=== PATIENT | female | born 1945 | race Caucasian/White ===

== ENCOUNTER 2017-12-14 20:56 | Observation (INO) | payer MEDICARE, OTHER ==
[~2017-12-14] VITALS: Ht 162.6 cm; Wt 65.8 kg
[~2017-12-14 20:56] MED LIST: ALLOPURINOL300 MG PO; ANUSOL-HC30 GM RC; AQUAPHOR99 GM TP; ASPIR 8181 MG PO; AZELASTINE137 MCG/0.; CATAPRES0.1 MG PO; CEFPODOXIME PR100 MG PO; CITALOPRAM HBR20 MG PO; CLONAZEPAM1 MG PO; CLOTRIMAZOLE10 MG PO; CRESTOR10 MG PO; EMU-LAC HYDRAT120 ML TOP; GABAPENTIN100 MG PO; HYDRALAZINE HCL25 MG PO; HYDROCODON-ACE1 EA12 PO; IPRAT-ALBUT 0.5-3 ML HHN; ISOSORBIDE MONO30 MG PO; LACTULOSE20 GM/30 M PO; LASIX20 MG PO; LEVOTHROID50 MCG PO; LEVOTHYROXINE50 MCG PO; LOSARTAN POTAS100 MG PO; MEDROL4 MG/DOSE- PO; METOPROLOL SUC100 MG PO; METOPROLOL SUCC25 MG; METOPROLOL TART50 MG PO; METRONIDAZOLE500 MG PO; NEURONTIN800 MG; NITROFURANTOIN100 MG PO; OMEPRAZOLE40 MG PO; POTASSIUM CHLO20 ME1 PO; PRAVASTATIN SOD40 MG PO; PREDNISONE20 MG PO; PREDNISONE5 MG; PRIMIDONE50 MG PO; PROAIR HFA INH8.5 GM; PROAIR HFA INH8.5 GM INH; SARNA ANTI-ITC222 ML TOP; SYMBICORT 16010.2 GM INH; TIZANIDINE HCL4 M1 PO; TRAZODONE HCL100 MG PO; VITAMIN D1000 UNI1 PO; ZANAFLEX4 MG PO
--- OUTSIDE RECORDS SUMMARY | 2017-12-14 21:00 | XMS REPORT ---
Author Author [facility] Address Unknown Phone Unavailable Care Team Providers Care Trading Manager Name Role Phone LORI OCHOA Unavailable Unavailable JESUS ODOM Unavailable Unavailable Problems This patient has no known problems. Allergies, Adverse Reactions, Alerts This patient has no known allergies or adverse reactions. Medications This patient has no known medications. Results Test Description Test Time Test Comments Text Results Atomic Results Result Comments CT ABDOMEN/PELVIS WO [place] [address] Patient Name: WILEY OH MR #: [id number] : 1945 Age/Sex: 72/F Req #: [id number] Adm Physician: LORI OCHOA MD Ordered by: AMANDA PÉREZ, AVIS PÉREZ Report #: [id number] Location: MED/SURG2 Room/Bed: [facility] Procedure: [id number] CT/CT ABDOMEN/PELVIS WO Exam Date: 08/23/17 Exam Time: 1304 REPORT STATUS: Signed PROCEDURE: CT ABDOMEN AND PELVIS WITHOUT CONTRAST TECHNIQUE: The abdomen and pelvis were scanned utilizing a multidetector helical scanner from the diaphragm to the lesser trochanter after the oral administration of water. No IV contrast was administered due to low GFR. Coronal and sagittal multiplanar reformations were obtained. COMPARISON: [facility], [place], US ABDOMEN COMPLETE, 08/21/2017, 12:59. [facility], CT, CT ABDOMEN/PELVIS WO, 05/25/2013, 14:16. INDICATIONS: COMPLEX KIDNEY CYSTS FINDINGS: Exam limited by beam hardening artifact from posterior lumbar fusion hardware ABSENCE OF INTRAVENOUS CONTRAST DECREASES SENSITIVITY FOR DETECTION OF FOCAL LESIONS AND VASCULAR PATHOLOGY. LOWER THORAX: Small bilateral pleural effusions, left greater than right, with associated mild compressive atelectasis of the lower lobes. Atherosclerotic calcification of the aortic valves, coronary arteries and thoracic aorta. HEPATOBILIARY: No focal hepatic lesions. No biliary ductal dilatation. Punctate layering stones in the dependent portion of the gallbladder lumen (series 3, image 71). SPLEEN: No splenomegaly. PANCREAS: No focal masses or ductal dilatation. ADRENALS: No adrenal nodules. KIDNEYS/URETERS: Right: 2 mm nonobstructing calculus in the inferior pole (series 3, image 67). No other renal or any ureteral calculi. No hydronephrosis or obstruction. Interval increase in size versus new partially exophytic fluid density cyst in the lateral interpolar region (series 3, image 62) which measures 1.3 x 1.2 cm. 2.0 x 1.8 cm fluid density simple cyst in the mid to inferior aspect (series 3, image 73) . Mild right perinephric stranding. 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 Left: Atrophic, markedly scarred left kidney, with cortical thinning. Stable partially exophytic 1.8 x 1.8 cm fluid density simple cyst in the inferior pole (series 3, image 56). No renal or ureteral calculi. No hydronephrosis, hydroureter, or evidence of obstruction. Mild left perinephric stranding PELVIC ORGANS/BLADDER: Bladder is decompressed, but grossly unremarkable. No adnexal masses. Uterus is absent. PERITONEUM / RETROPERITONEUM: No free air or fluid. LYMPH NODES: No lymphadenopathy. VESSELS: Atherosclerotic calcification of the abdominal aorta and iliac vessels. GI TRACT: No bowel dilation or evidence of obstruction. No pericolonic inflammatory changes. BONES AND SOFT TISSUES: No acute bony abnormalities. Postoperative changes with posterior fusion of L4-L5. No lytic lesions. IMPRESSION: 1. Bilateral simple appearing renal cysts , which are relatively stable. No further characterization can be performed given the lack of intravenous contrast. Suggest further followup with renal ultrasound 2. Atrophic, markedly scarred left kidney. 3. 2 mm nonobstructing calculus in the inferior pole of the right kidney. No other renal or any ureteral calculi. No hydronephrosis or obstruction. 4. Small bilateral pleural effusions, left greater the right, with associated mild lower lobe compressive atelectasis. 5. Cholelithiasis, without CT evidence of cholecystitis. Suhail Martin M.D. Dictated by: Suhail Martin M.D. on 08/23/2017 at 16:34 Electronically approved by: Suhail Martin M.D. on 08/23/2017 at 16:34 Dictated By: SUHAIL MARTIN MD 33 Transcribed By: EDINSON on 08/23/17 163 COPY TO: AVIS PATEL US ABDOMEN COMPLETE [place] [address] Patient Name: WILEY OH MR #: [id number] : 1945 Age/Sex: 72/F Req #: [id number] Adm Physician: LORI OCHOA MD Ordered by: Madelaine Jackson FAMILY SERVICES ASSISTANT Report #: [id number] Location: [facility] Room/Bed: [place] [address] Procedure: [id number] US/US ABDOMEN COMPLETE Exam Date : 08/21/17 Exam Time: 1259 REPORT STATUS: Signed PROCEDURE: ABDOMINAL ULTRASOUND COMPARISON: [facility], CT, CT ABDOMEN/PELVIS WO, 01/29/2013, 11:06. INDICATIONS : ABDOMEN PAIN TECHNIQUE: Transverse and longitudinal images of the upper abdomen were obtained. FINDINGS: Liver: Size: 13.5 cm in the right midclavicular line, normal Appearance: Normal echogenicity, smooth contour Mass: No focal masses Spleen: Size: 9.2 cm in length, normal Echogenicity: Normal Mass: No focal masses Gallbladder: Stones/ Sludge: 0.9 cm calculus within the gallbladder lumen. Mild layering sludge. Appearance: No wall thickening, pericholecystic fluid or hydrops. Sonographic Peace's Sign: Negative Bile Ducts: Intrahepatic Ducts: No dilatation Extrahepatic Ducts: Common bile duct measures 0.4 cm, no dilatation Pancreas: Visualized portions of the neck and proximal body are normal. Right Kidney: Size: 10.7 cm Echogenicity: Increased. Cortical scarring. Stone: None Cyst/Mass: Complex cystic lesion with thin septations in the posterior lower pole of the right kidney measures 1.5 x 1.6 x 2.8 cm. Anechoic lesion exophytic off the upper pole of the right kidney measures 1.4 x 1.3 x 1.3 cm. Left Kidney: Size: 8.0 cm Echogenicity: Normal Collecting System: No hydronephrosis Stone: None Cyst/Mass: Complex cystic lesion with internal septations in the lower pole of the left kidney measures 1.8 x 1.6 x 2.5 cm. Mildly complex lesion in the lower pole of the left kidney anteriorly measures 1.5 x 1.0 0.5 cm. Vessels: Aorta: Visualized portions are normal Inferior Vena Cava: Visualized portions and normal Main Portal Vein: 0.9 cm, normal size with hepatopetal flow. Free Fluid: No ascites or pleural effusions IMPRESSION: 1. 0.9 cm single gallstone. Mild gallbladder sludge. 2. Bilateral complex renal cysts, the largest located in the lower pole of the right kidney measuring 2.8 cm in maximal dimension. If renal function permits , recommend CT abdomen without and with contrast renal mass protocol. Alternatively, MRI of abdomen renal mass protocol without and with contrast. Jake Suarez M.D. Dictated by: Jake Suarez M.D. on 08/21/2017 at 15:05 Electronically approved by: Jake Suarez M.D. on 08/21/2017 at 15:05 Dictated By: FLYNN SUAREZ MD, MD 1508 Transcribed By: EDINSON on 08/21/17 1505 COPY TO: MADELAINE JACKSON NP CHEST SINGLE (PORTABLE) [place] [address] Patient Name: WILEY OH MR #: [id number] : 1945 Age/Sex: 72/F Req #: [id number] Adm Physician: Ordered by: MAYE WILKS MD Report #: [id number] Location: ER Room/Bed: Procedure: [id number] DX/CHEST SINGLE (PORTABLE) Exam Date: 08/20/17 Exam Time: 1045 REPORT STATUS: Signed PROCEDURE: A single AP view of the chest. COMPARISON: Portable chest 06/14/2017. INDICATIONS: WEAKNESS, NAUSEA AND VOMITTING FINDINGS: Lines/tubes : None. Lungs: The lungs are well inflated and clear. There is no evidence of pneumonia or pulmonary edema. Pleura: There is no pleural effusion or pneumothorax. Heart and mediastinum: The heart and the mediastinum are unremarkable. Atherosclerotic calcifications. Bones: No acute bony abnormality. Degenerative changes of the thoracic spine. IMPRESSION: No acute radiographic abnormality. Dictated by: Kurtis Childress M.D. on 08/20/2017 at 11:12 Electronically approved by: Kurtis Childress M.D. on 08/20/2017 at 11:12 Dictated By: KURTIS CHILDRESS MD 11 Transcribed By: EDINSON on 08/20/17 111 COPY TO: MAYE WILKS MD CT BRAIN WO [place] [address] Patient Name: WILEY OH MR #: [id number] : 1945 Age/Sex: 71/F Req # : [id number] Adm Physician: Ordered by: JESUS ODOM MD Report #: [id number] Location: Room/Bed: Procedure: CT/CT BRAIN WO Exam Date: 06/14/17 Exam Time: 1715 REPORT STATUS: Signed History: Syncope Comparison studies: None Technique: Axial images were obtained from the skull base to the vertex. Coronal and sagittal reconstructions obtained from the axial data. Findings : Scalp/skull: No abnormalities. No fractures, blastic or lytic lesions. Extra-axial spaces: No masses. No fluid collections. Brain sulci: Appropriate for age. Ventricles: Normal in size and configuration. No hydrocephalus. Parenchyma: No abnormal densities. No masses, hemorrhage, acute or chronic cortical vascular insults. Sellar/ suprasellar region: No abnormalities Craniocervical junction: Patent foramen magnum. No Chiari one malformation. Incidental atherosclerotic calcifications in the carotid siphons and vertebral arteries. IMPRESSION : No intracranial abnormalities. Signed by: Dr. Samson Moore M.D. on 06/14/2017 6:02 PM Dictated By: SAMSON MOORE MD, MD 01 Transcribed By: BENOIT on 06/14/171801 COPY TO: JESUS ODOM MD CT CERVICAL SPINE WO [place] [address] Patient Name: WILEY OH MR #: [id number] : 1945 Age/Sex: 71/F Req #: [id number] Adm Physician: Ordered by: JESUS ODOM MD Report #: [id number] Location: ER Room/Bed: Procedure: CT/CT CERVICAL SPINE WO Exam Date: 06/14/17 Exam Time: 1715 REPORT STATUS: Signed History: Syncope Comparison studies: None Technique: Axial images were obtained through the cervical region.. Coronal and sagittal images reconstructed from the axial data.. Intravenous contrast: None Findings: Airway: Patent. Fractures: None. Soft tissues: No gross abnormalities. Atlantoaxial articulation: Mild degenerative changes. Alignment: Normal lordosis. No scoliosis. Cervicomedullary junction: No abnormalities. The foramen magnum is patent. Vertebrae: No infection or neoplasm. Degenerative changes: Mildly degenerated disc at C5-6. Bilateral facet arthrosis from C3 to T1. Patent spinal canal. Mild bilateral foraminal stenosis at C5-6 due to uncoarthrosis. Incidental atherosclerotic calcifications in the carotid bulbs and intracranial vertebral arteries IMPRESSION: 1. No acute abnormalities. 2. Cannot adequately evaluate for ligament, spinal cord and or vascular abnormalities on this exam. 3. Degenerative changes as described Signed by: Dr. Samson Moore M.D. on 06/14/2017 6:06 PM Dictated By: SAMSON MOORE MD, MD 05 Transcribed By: BENOIT on 06/14/171805 COPY TO: JESUS ODOM MD CHEST SINGLE (NOT PORTABLE) [place] [address] Patient Name: WILEY OH MR #: [id number] : 1945 Age/Sex: 71/F Req #: [id number] Adm Physician: Ordered by: JESUS ODOM MD Report #: [id number] Location: ER Room/Bed: Procedure: [id number] DX/CHEST SINGLE (NOT PORTABLE) Exam Date: 06/14/17 Exam Time: 1735 REPORT STATUS: Signed PROCEDURE: A single AP view of the chest. COMPARISON: [facility], DX, CHEST SINGLE (PORTABLE), 11/28/2015, 5:46. INDICATIONS: SYNCOPE FINDINGS: Lines/tubes: None. Lungs: The lungs are well inflated and clear. There is no evidence of pneumonia or pulmonary edema. Pleura : There is no pleural effusion or pneumothorax. Heart and mediastinum: The heart and the mediastinum are unremarkable. Atherosclerotic calcification of the aortic arch. Bones: No acute bony abnormality. IMPRESSION: 1. No acute cardiopulmonary abnormalities. Suhail Martin M.D. Dictated by: Suhail Martin M.D. on 06/14/2017 at 18:13 Electronically approved by: Suhail Martin M.D. on 2016 at 18:13 Dictated By: SUHAIL MARTIN MD 12 Transcribed By: EDINSON on 1812 COPY TO: JESUS ODOM MD
[2017-12-14 21:43] LABS: BASOPHILS # (AUTO) 0.1 (0.0-0.1); BASOPHILS % 0.5 % (0.0-1.0); EOSINOPHILS # (AUTO) 0.2 (0.0-0.4); EOSINOPHILS % 1.6 % (0.0-6.0); HEMATOCRIT 35.5 % (34.2-44.1); HEMOGLOBIN 11.5 g/dL (12.0-16.0); MEAN CORPUSCULAR HEMOGLOBIN 31.1 pg (28-32); MEAN CORPUSCULAR HGB CONC 32.4 g/dL (31-35); MEAN CORPUSCULAR VOLUME 95.9 fL (81-99); MONOCYTES # (AUTO) 0.7 (0.2-0.8); MONOCYTES % 7.2 % (4.4-11.3); NEUTROPHILS # (AUTO) 7.2 (2.1-6.9); NEUTROPHILS % 79.2 % (38.7-80.0); PLATELET COUNT 181 x10e3/uL (140-360); RED CELL DISTRIBUTION WIDTH 17.4 % (11.7-14.4)
--- NOTE | 2017-12-14 21:50 | Diagnostic Imaging Report ---
History:Syncope Comparison studies:None Technique: Axial images were obtained from the skull base to the vertex. Coronal and sagittal images reconstructed from the axial data. Intravenous contrast: None Findings: Scalp/skull: No abnormalities. Extra-axial spaces: No masses. No fluid collections. Brain sulci: Mildly prominent Ventricles: Mild age-related compensatory dilatation. No hydrocephalus. Parenchyma: Describe hypodensities in the supratentorial white matter are small vessel ischemic changes. No masses, hemorrhage, acute or chronic cortical vascular insults. Sellar/suprasellar region: No abnormalities. Craniocervical junction: Patent foramen magnum. No Chiari one malformation. Incidental findings: Atherosclerotic calcifications in the carotid siphons . Impression: No intracranial abnormalities Signed by: Dr. Samson Moore M.D. on 12/14/2017 9:46 PM
[2017-12-14 21:56] LABS: ALANINE AMINOTRANSFERASE 11 IU/L (0-55); ALBUMIN 3.8 g/dL (3.5-5.0); ALBUMIN/GLOBULIN RATIO 1.1 (0.8-2.0); ALKALINE PHOSPHATASE 211 IU/L (40-150); ANION GAP 14.1 mmol/L (8-16); BLOOD UREA NITROGEN 40 mg/dL (7-26); BUN/CREATININE RATIO 21 (6-25); CALCIUM 9.8 mg/dL (8.4-10.2); CARBON DIOXIDE 21 mmol/L (22-29); CHLORIDE 107 mmol/L (98-107); CREATINE KINASE 51 IU/L (29-168); CREATININE, SERUM 1.94 mg/dL (0.57-1.11); EST GLOMERULAR FILTRATION RATE 25 ML/MIN (60-); GLUCOSE 103 mg/dL (74-118); POTASSIUM 5.1 mmol/L (3.5-5.1); SODIUM 137 mmol/L (136-145)
--- NOTE | 2017-12-14 22:32 | Diagnostic Imaging Report ---
EXAMINATION: CHEST SINGLE (PORTABLE) INDICATION: Syncope COMPARISON: 11/28/2015 FINDINGS: TUBES and LINES: None. LUNGS: Lungs are well inflated. Lungs are clear. There is mild prominence of the central pulmonary vasculature, consistent with pulmonary venous congestion. PLEURA: No pleural effusion or pneumothorax. HEART AND MEDIASTINUM: The cardiomediastinal silhouette is unremarkable. There are atherosclerotic calcifications within the aorta. BONES AND SOFT TISSUES: No acute osseous lesion. Soft tissues are unremarkable. UPPER ABDOMEN: No free air under the diaphragm. IMPRESSION: No acute thoracic abnormality. Signed by: Dr. Betito Ramirez M.D. on 12/14/2017 10:29 PM
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
[2017-12-14] MEDS ORDERED: ONDANSETRON HCL INJ 2 MG/ML VIAL IV PRN (22:45)
[2017-12-14] MEDS ORDERED: ASPIRIN 81 MG CHEW TAB PO ONE (22:45)
[2017-12-14 23:03] LABS: BILIRUBIN,URINE NEGATIVE (NEGATIVE); KETONES,URINE NEGATIVE (NEGATIVE); LEUKOCYTE ESTERASE ,URINE 2+ (NEGATIVE); NITRITE,URINE NEGATIVE (NEGATIVE); URINE UROBILINOGEN 0.2 mg/dL (0.2 - 1)
[2017-12-14 23:04] LABS: CLARITY,URINE CLOUDY (CLEAR); COLOR,URINE STRAW (YELLOW); PROTEIN,URINE DIPSTICK 2+ (NEGATIVE)
[2017-12-14] MEDS ORDERED: HYDRALAZINE HCL 20 MG/ML VIAL IV STA (23:10)
[2017-12-14 23:16] LABS: BACTERIA,URINE MANY /HPF; EPITHELIAL CELLS,URINE FEW /LPF; RBC,URINE 0-5 /HPF (0-5)
[2017-12-15] VITALS (9 sets, daily range): BP systolic 117–184; BP diastolic 58–79
[2017-12-15] MEDS: SODIUM CHLORIDE 0.9% 1000ML 1,000 ML IV SCH ×2 (00:01→09:08)
[2017-12-15] MEDS ORDERED: NON-FORMULARY MEDICATION (Trazodone Hcl 100 MG) PO SCH (01:00)
[2017-12-15] MEDS ORDERED: MORPHINE SULFATE 4 MG/ML SYR IV PRN (01:00)
[2017-12-15] MEDS ORDERED: MORPHINE SULFATE 2 MG/ML SYR ONE (01:33)
[2017-12-15] MEDS: TRAZODONE HCL 50 MG TAB PO SCH ×2 (01:55→20:22)
[2017-12-15 06:29] LABS: BASOPHILS % 0.5 % (0.0-1.0); EOSINOPHILS # (AUTO) 0.1 (0.0-0.4); EOSINOPHILS % 1.2 % (0.0-6.0); HEMATOCRIT 25.7 % (34.2-44.1); HEMOGLOBIN 8.1 g/dL (12.0-16.0); LYMPHOCYTES # (AUTO) 0.9 (1.0-3.2); MEAN CORPUSCULAR HGB CONC 31.5 g/dL (31-35); MEAN CORPUSCULAR VOLUME 98.5 fL (81-99); MONOCYTES # (AUTO) 0.6 (0.2-0.8); MONOCYTES % 8.7 % (4.4-11.3); NEUTROPHILS # (AUTO) 4.9 (2.1-6.9); NEUTROPHILS % 75.1 % (38.7-80.0); PLATELET COUNT 115 x10e3/uL (140-360); RED BLOOD COUNT 2.61 x10e6/uL (3.6-5.1); RED CELL DISTRIBUTION WIDTH 17.4 % (11.7-14.4)
[2017-12-15 06:50] LABS: ALBUMIN 2.1 g/dL (3.5-5.0); ALBUMIN/GLOBULIN RATIO 1.3 (0.8-2.0); ALKALINE PHOSPHATASE 112 IU/L (40-150); ANION GAP 7.9 mmol/L (8-16); BLOOD UREA NITROGEN 29 mg/dL (7-26); BUN/CREATININE RATIO 31 (6-25); CARBON DIOXIDE 15 mmol/L (22-29); CHLORIDE 121 mmol/L (98-107); CREATININE, SERUM 0.94 mg/dL (0.57-1.11); EST GLOMERULAR FILTRATION RATE 59 ML/MIN (60-); GLUCOSE 68 mg/dL (74-118); SODIUM 141 mmol/L (136-145)
[2017-12-15 06:53] LABS: ALANINE AMINOTRANSFERASE < 6 IU/L (0-55)
[2017-12-15 06:54] LABS: POTASSIUM 2.9 mmol/L (3.5-5.1)
[2017-12-15 07:19] LABS: CREATINE KINASE MB 0.8 ng/mL (0-5.0)
[2017-12-15] MEDS: GABAPENTIN 100 MG CAP PO SCH ×3 (08:31→20:22)
[2017-12-15] MEDS: HYDRALAZINE HCL 20 MG/ML VIAL IV PRN ×2 (08:31→15:59)
[2017-12-15 12:07] LABS: ANION GAP 15.7 mmol/L (8-16); CALCIUM 9.2 mg/dL (8.4-10.2); CREATININE, SERUM 1.67 mg/dL (0.57-1.11); POTASSIUM 4.7 mmol/L (3.5-5.1)
[2017-12-15] MEDS ORDERED: CLONAZEPAM 1 MG TAB PO PRN (12:15)
[2017-12-15] MEDS ORDERED: ALBUTEROL/IPRATROPIUM 3 ML NEB NEB PRN (12:15)
[2017-12-15 12:28] LABS: THYROID STIMULATING HORMONE 1.218 uIU/mL (0.350-4.940)
[2017-12-15] MEDS: HYDRALAZINE HCL 25 MG TAB PO SCH ×3 (13:00→20:22)
[2017-12-15] MEDS: ISOSORBIDE MONONITRATE 30 MG TAB CR PO SCH (13:44)
[2017-12-15] MEDS: FUROSEMIDE 20 MG TAB PO SCH (13:44)
[2017-12-15] MEDS: LOSARTAN POTASSIUM 100 MG TAB PO SCH (13:44)
[2017-12-15] MEDS: CITALOPRAM HYDROBROMIDE 20 MG TAB PO SCH (13:44)
[2017-12-15 14:31] LABS: BASOPHILS # (AUTO) 0.1 (0.0-0.1); BASOPHILS % 0.6 % (0.0-1.0); EOSINOPHILS % 0.5 % (0.0-6.0); HEMATOCRIT 35.1 % (34.2-44.1); HEMOGLOBIN 11.1 g/dL (12.0-16.0); LYMPHOCYTES # (AUTO) 0.8 (1.0-3.2); LYMPHOCYTES % 9.3 % (18.0-39.1); MEAN CORPUSCULAR HEMOGLOBIN 31.4 pg (28-32); MEAN CORPUSCULAR HGB CONC 31.6 g/dL (31-35); MEAN CORPUSCULAR VOLUME 99.4 fL (81-99); MONOCYTES # (AUTO) 0.7 (0.2-0.8); MONOCYTES % 8.6 % (4.4-11.3); NEUTROPHILS # (AUTO) 6.7 (2.1-6.9); NEUTROPHILS % 80.8 % (38.7-80.0); PLATELET COUNT 135 x10e3/uL (140-360); RED BLOOD COUNT 3.53 x10e6/uL (3.6-5.1); RED CELL DISTRIBUTION WIDTH 17.9 % (11.7-14.4)
--- NOTE | 2017-12-15 16:24 | Consultation ---
DATE OF CONSULTATION: December 15, 2017 CARDIOLOGY CONSULTATION REASON FOR CONSULTATION: Syncope with injury. HISTORY OF PRESENT ILLNESS: Ms. 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 The patient was brought to the hospital after having a passing-out spell at home. She reports she was in her usual state of health. She saw her neighbor outside and went to go talk to him. Prior to going to see him, she had taken one of her doses of gabapentin, which typically causes her some slight dizziness and lightheadedness. She did not think much of it when she walked over to speak to him. She reports talking to him and then all of a sudden being found waking up on the ground. According to her, her neighbor said that she essentially slumped over, hit the rail of the porch and fell to the ground. She has some bruises on her arms and legs. She reports when she was on the floor she was more or less back to baseline. She denies any subjective palpitations or chest pain before the episode. She denied any focal weakness and denied any loss of bowel or bladder function during the episode. She denies having any prior history of seizure disorder, and this was her 1st syncopal spell. PAST MEDICAL HISTORY 1. Hypertension. 2. Chronic kidney disease, stage 3 to 4, due to membranous glomerulonephritis. 3. History of right breast cancer, status post lumpectomy. 4. COPD. 5. Gout. 6. Hypothyroidism. PAST SURGICAL HISTORY 1. History of L1 through L5 fusion surgery. 2. History of right mastectomy. 3. Remote history of surgery. 4. History of bilateral cataract surgery. FAMILY HISTORY: She reports that she was adopted and does not know her biological family. SOCIAL HISTORY: She is a current smoker. Denies any alcohol or illicit drug use. ALLERGIES: INCLUDE PENICILLIN, SULFA, TAPE, AMLODIPINE, LATEX, LEVAQUIN. HOME MEDICATIONS: Include: 1. Metoprolol 50 mg b.i.d. 2. Aspirin 81 mg daily. 3. Furosemide 80 mg daily. 4. Gabapentin 100 mg t.i.d. 5. Klonopin 0.5 mg p.r.n. 6. Vitamin B tablet daily. 7. Vitamin D tablet daily. 8. Allopurinol daily. 9. Omeprazole 40 mg daily. 10. Pravastatin 40 mg daily. 11. Trazodone 100 mg nightly. 12. Albuterol and Atrovent p.r.n. See the electronic medical record for the remainder of the medications. REVIEW OF SYSTEMS GENERAL: Denies any fevers, chills or any weight changes. HEENT: Has some slight headache. Has chronically decreased right ear hearing. Has had cataract surgery. No blurry vision, sore throat, stuffy nose. RESPIRATORY: Denies any pleuritic chest pain. Has chronic class II to III exertional dyspnea. CARDIOVASCULAR: As per HPI. Denies any chest pain, orthopnea, PND. GI: Denies any nausea, vomiting, bright red blood per rectum, melena, hematemesis. : Denies any dysuria. Does report some changes in urinary frequency. MUSCULOSKELETAL: Has chronic back pain, knee pains, and pain all over due to fibromyalgia. ENDOCRINE: Denies any heat or cold intolerance. NEUROLOGIC: Positive for peripheral neuropathy for which she takes gabapentin and syncopal spell as noted above. PSYCH: Positive for anxiety and intermittent depression, but currently the mood is okay. OTHER: The remainder of the review of systems is negative unless otherwise mentioned. PHYSICAL EXAMINATION VITALS: Height 64 inches, weight 137 pounds. BMI is 23.5. Temperature of 96.4, pulse 69, respiratory rate 18, blood pressure 117/58, O2 sat 99% on room air. GENERAL: This is a well-nourished, well-developed lady, who is currently in no apparent distress. HEENT: Normocephalic and atraumatic. Pupils are equal, round and reactive to light. The extraocular movements are intact. Oropharynx is clear. She does have stigmata of bilateral cataract surgery. NECK: No elevation of jugular venous pulsation. No carotid bruit. CARDIOVASCULAR: Regular rate and rhythm. Normal S1 and S2. Soft, 1/6, systolic murmur at the left lower sternal border. LUNGS: Relatively clear to auscultation bilaterally but has some mild decreased air flow compatible with some early COPD-type changes. ABDOMEN: Soft. Nontender and nondistended with normoactive bowel sounds. No hepatosplenomegaly. BACK: No costovertebral angle tenderness. There are old L1 through L5 paraspinal surgical scars bilaterally. EXTREMITIES: Warm with 5/5 strength in the bilateral upper and lower extremities with good tone. Appears nonfocal. PSYCH: Normal mood. A little bit anxious. No depression. SKIN: Bruises on her arms and legs bilaterally. LABS: White count 9.2, hemoglobin 11.5, hematocrit 35.5, platelets 181. Sodium 135, potassium 4.7, chloride 109, bicarb 15, BUN 39, creatinine 1.67, glucose 83, calcium 9.2. TSH 1.2. Troponin went from 0.008 to 0.001, with normal MB. Total protein 7.2, albumin 3.8, AST 9, ALT 11, alk phos 211. UA showed 11-20 white cells, 2+ protein. Urine culture pending. Chest x-ray is unremarkable. Brain CT shows no acute abnormalities. C-spine shows C3 to C7 DJD changes with C5-C6 mild foraminal stenosis due to uncoarthrosis but no fractures. EKG reveals sinus bradycardia with heart rate in the mid 50s. No ST or T wave changes concerning for ischemia. DIAGNOSES 1. Syncope with wide differential diagnosis. 2. Hypertension. 3. Chronic kidney disease, stage 3 to 4. 4. Hypercholesterolemia. 5. History of depression. 6. Fibromyalgia. 7. Peripheral neuropathy. 8. Psychiatric medication use. 9. Anemia. 10. Chronic obstructive pulmonary disease, smoker. PLAN/RECOMMENDATIONS 1. Will check echocardiogram to evaluate heart structurally. 2. Carotid duplex to evaluate for carotid artery stenosis. 3. Telemetry monitoring. 4. Recommend holding beta jackson therapy for now. 5. Based on EKG and symptom complex, cannot recommend pacemaker for the time being. 6. Telemetry close monitoring. 7. Will continue to follow this patient with you and make adjustments in medications as clinical course dictates. 8. Will watch hemoglobin and hematocrit as well. Job#: [id number]
[2017-12-16] VITALS (7 sets, daily range): BP systolic 151–177; BP diastolic 59–77
[2017-12-16] MEDS: LEVOTHYROXINE SODIUM 50 MCG TAB PO SCH (06:06)
[2017-12-16 06:41] LABS: BASOPHILS # (AUTO) 0.1 (0.0-0.1); BASOPHILS % 0.6 % (0.0-1.0); EOSINOPHILS # (AUTO) 0.2 (0.0-0.4); EOSINOPHILS % 2.3 % (0.0-6.0); HEMATOCRIT 31.7 % (34.2-44.1); HEMOGLOBIN 10.3 g/dL (12.0-16.0); LYMPHOCYTES # (AUTO) 1.1 (1.0-3.2); LYMPHOCYTES % 13.9 % (18.0-39.1); MEAN CORPUSCULAR HEMOGLOBIN 30.6 pg (28-32); MEAN CORPUSCULAR HGB CONC 32.5 g/dL (31-35); MEAN CORPUSCULAR VOLUME 94.1 fL (81-99); MONOCYTES # (AUTO) 0.7 (0.2-0.8); MONOCYTES % 8.2 % (4.4-11.3); NEUTROPHILS # (AUTO) 5.9 (2.1-6.9); NEUTROPHILS % 74.7 % (38.7-80.0); PLATELET COUNT 162 x10e3/uL (140-360); RED BLOOD COUNT 3.37 x10e6/uL (3.6-5.1); RED CELL DISTRIBUTION WIDTH 17.4 % (11.7-14.4)
[2017-12-16 07:05] LABS: ANION GAP 11.6 mmol/L (8-16); CALCIUM 9.4 mg/dL (8.4-10.2); CHOL/HDL RATIO 4.3 (3.0-3.6); CREATININE, SERUM 1.81 mg/dL (0.57-1.11); MAGNESIUM 1.7 MG/DL (1.3-2.1); POTASSIUM 4.6 mmol/L (3.5-5.1)
[2017-12-16 07:25] LABS: THYROID STIMULATING HORMONE 1.178 uIU/mL (0.350-4.940)
[2017-12-16] MEDS: GABAPENTIN 100 MG CAP PO SCH ×3 (09:02→20:39)
[2017-12-16] MEDS: CITALOPRAM HYDROBROMIDE 20 MG TAB PO SCH (09:02)
[2017-12-16] MEDS: HYDRALAZINE HCL 25 MG TAB PO SCH ×2 (09:02→20:39)
[2017-12-16] MEDS: LOSARTAN POTASSIUM 100 MG TAB PO SCH (09:03)
[2017-12-16] MEDS: ISOSORBIDE MONONITRATE 30 MG TAB CR PO SCH ×2 (09:03→17:21)
[2017-12-16] MEDS ORDERED: HYDRALAZINE HCL 25 MG TAB PO SCH (14:00)
[2017-12-16] MEDS: HYDRALAZINE HCL 20 MG/ML VIAL IV PRN (15:50)
[2017-12-16] MEDS: CLONAZEPAM 0.5 MG TAB PO SCH (16:53)
[2017-12-16] MEDS ORDERED: CEFTRIAXONE SOD 1 GM VIAL IV SCH (17:00)
[2017-12-16] MEDS: TRAZODONE HCL 50 MG TAB PO SCH (20:39)
[2017-12-17] VITALS: BP 150/68
[2017-12-17 04:00] VITALS: BP 177/80
[2017-12-17] MEDS: HYDRALAZINE HCL 20 MG/ML VIAL IV PRN (04:45)
[2017-12-17] MEDS: LEVOTHYROXINE SODIUM 50 MCG TAB PO SCH (06:12)
[2017-12-17] MEDS: HYDRALAZINE HCL 25 MG TAB PO SCH ×2 (06:12→14:32)
[2017-12-17 07:41] VITALS: BP 138/75
[2017-12-17] MEDS: CITALOPRAM HYDROBROMIDE 20 MG TAB PO SCH (08:25)
[2017-12-17] MEDS: CLONAZEPAM 0.5 MG TAB PO SCH (08:25)
[2017-12-17] MEDS: FUROSEMIDE 20 MG TAB PO SCH (08:25)
[2017-12-17] MEDS: ISOSORBIDE MONONITRATE 30 MG TAB CR PO SCH (08:25)
[2017-12-17] MEDS: GABAPENTIN 100 MG CAP PO SCH ×2 (08:25→14:32)
[2017-12-17] MEDS ORDERED: MEROPENEM 500MG 500 MG in SODIUM CHLORIDE 0.9% 50ML 50 ML IV ONE (09:00)
[2017-12-17] MEDS ORDERED: MEROPENEM 500 MG VIAL IV ONE (09:15)
--- NOTE | 2017-12-17 09:38 | Discharge Summary ---
FINAL DIAGNOSIS: Syncope. SECONDARY DIAGNOSES 1. Stage 3 chronic kidney disease, stable. 2. Asymptomatic extended spectrum beta-lactamase Escherichia coli urine culture. 3. Chronic obstructive pulmonary disease, stable. 4. Hypothyroidism with normal thyroid stimulating hormone. 5. Anxiety. CONSULTANTS: Dr. Bender, cardiology. PROCEDURES/STUDIES PERFORMED: Loop recorder. HISTORY: Per H and P. HOSPITAL COURSE: Given the fact that her syncope was without prodrome, there is a high suspicion for arrhythmia. The patient remained in sinus while in the hospital. Given the high suspicion, Dr. Bender will place a loop recorder later today. Subsequently, she can be discharged. Her echocardiogram was relatively unremarkable. She does have asymptomatic ESBL E. coli in the urine. I am not sure if this is a true infection versus just bacteruria. Will go ahead and given her a dose of meropenem and just send her home on Cipro given the fact that I doubt that this is a true infection. Her urine culture is sensitive to Cipro. The patient has allergies to Levaquin. However, it was because of black stool. The patient stated she has taken Cipro in the past without any problem. I have updated her primary care doctor on this admission. The patient was seen and examined today. CONDITION ON DISCHARGE: Stable. DISCHARGE MEDICATIONS: Please see medication reconciliation form. MARIBEL BALLESTEROS M.D. Job#: [id number] RI cc: SARAH YATES MD
[2017-12-17] MEDS ORDERED: LIDOCAINE HCL 2% LOCAL 20 ML VIAL ONE (10:03)
[2017-12-17] MEDS ORDERED: VANCOMYCIN 750MG/NS 150ML IVPB 150 ML IV SCH ×2 (10:15)
[2017-12-17 11:30] VITALS: BP 144/71
[2017-12-17] MEDS ORDERED: CIPRO500 MG PO (11:43)
--- NOTE | 2017-12-17 11:49 | Operative Report ---
DATE OF PROCEDURE: December 17, 2017 CARDIAC PROCEDURE NOTE PROCEDURES PERFORMED: Injectable loop recorder implant, specifically the Medtronic Reveal LINQ device. INDICATION FOR PROCEDURE: This is a 72-year-old lady with multiple comorbidities who presented to this hospital with a sudden-onset syncope collapse with injury without a clear-cut identifiable source and no significant telemetry events. This will help elicit any future episodes to determine the need for pacemaker or further EP type procedures. DESCRIPTION OF PROCEDURE: After risks, benefits, pros, and cons of today's procedure were explained, patient agreed to proceed. Patient was brought to the cardiac catheterization laboratory where the left parasternal fourth and fifth rib space was prepped and draped in the usual sterile fashion. Lidocaine 1% solution was used to numb this region with a total of 20 mL of 1% lidocaine solution. Utilizing the Reveal LINQ blade, a stat incision was made over this site. We then advanced the delivery system into and created a small pocket and injected the Reveal LINQ loop recorder in place. There were no significant bleeding issues and patient did receive pre-procedure IV vancomycin for antibiotic prophylaxis. The site was approximated with Dermabond glue and was covered with a Telfa dressing and Tegaderm. There were no complications. COMPLICATIONS: None. ESTIMATED BLOOD LOSS: None. PROCEDURE SUMMARY: Successful implantation of a Medtronic Reveal LINQ MRI-conditional implantable loop recorder, serial #[id number]. PLAN/RECOMMENDATIONS 1. From a cardiovascular standpoint, patient is okay to go home later today. 2. LINQ recording system is initiated and this will hopefully give us further information should she have another symptomatic episode. Job#: [id number] NICHELLE
[2017-12-17 15:37] VITALS: BP 128/80
== END 2017-12-17 15:23 | disposition home or self-care (01) ==
LOC: ER 20:56 → ERHOLD 22:49 → IMCU 23:11
PROVIDERS: ADMIT Internal Medicine; ATTEND Internal Medicine
DX: R55 Syncope and collapse (principal); E86.0 Dehydration; I12.9 Hypertensive chronic kidney disease with stage 1 through stage 4 chronic kidney disease, or unspecified chronic kidney disease; M79.7 Fibromyalgia; J44.9 Chronic obstructive pulmonary disease, unspecified; E03.9 Hypothyroidism, unspecified; N18.3 Chronic kidney disease, stage 3 (moderate); N39.0 Urinary tract infection, site not specified; Z88.0 Allergy status to penicillin; Z88.2 Allergy status to sulfonamides; Z88.1 Allergy status to other antibiotic agents; M41.9 Scoliosis, unspecified; D64.9 Anemia, unspecified; N05.2 Unspecified nephritic syndrome with diffuse membranous glomerulonephritis; F41.9 Anxiety disorder, unspecified; B96.20 Unspecified Escherichia coli [E. coli] as the cause of diseases classified elsewhere
CPT/HCPCS: 33282; C1764; 36415; 70450; 71045; 72125; 80048; 80053; 80061; 81001; 82270; 82550; 82553; 83735; 84132; 84443; 84484; 85025; 87086; 87186; 93005; 93306; 93880; 96365; 99284; G0378; J0360; J0696; J2001; J2185; J2270; J7030

== ENCOUNTER 2018-09-12 19:15 | Inpatient (IN) | payer MEDICARE, OTHER ==
[~2018-09-12] VITALS: Ht 162.6 cm; Wt 74.5 kg
[~2018-09-12 19:15] MED LIST changes: +CIPRO500 MG PO
[2018-09-12 19:50] LABS: BASOPHILS % 0.6 % (0.0-1.0); EOSINOPHILS # (AUTO) 0.1 (0.0-0.4); EOSINOPHILS % 2.2 % (0.0-6.0); HEMATOCRIT 30.3 % (34.2-44.1); LYMPHOCYTES % 16.2 % (18.0-39.1); MEAN CORPUSCULAR HEMOGLOBIN 32.2 pg (28-32); MEAN CORPUSCULAR VOLUME 97.4 fL (81-99); MONOCYTES # (AUTO) 0.4 (0.2-0.8); MONOCYTES % 7.1 % (4.4-11.3); NEUTROPHILS # (AUTO) 4.6 (2.1-6.9); NEUTROPHILS % 73.6 % (38.7-80.0); PLATELET COUNT 158 x10e3/uL (140-360); RED BLOOD COUNT 3.11 x10e6/uL (3.6-5.1); RED CELL DISTRIBUTION WIDTH 16.7 % (11.7-14.4)
--- NOTE | 2018-09-12 19:54 | Diagnostic Imaging Report ---
EXAMINATION: Head CT HISTORY: Left-sided weakness since 6:30 PM, possible CVA, syncope, COMPARISON: Head CT on 12/14/2017 TECHNIQUE: Multidetector axial images were obtained without contrast from the foramen magnum to the vertex . The images were reconstructed using brain and bone algorithms. Thin section brain images were reformatted into coronal and sagittal planes. Image quality: Motion/streaking artifact limits the evaluation of the skull base and posterior cranial fossa. Dose modulation, iterative reconstruction, and/or weight based adjustment of the mA/kV was utilized to reduce the radiation dose to as low as reasonably achievable. FINDINGS: Parenchyma: 1. Persistent mild chronic microvascular ischemic changes. 2. More conspicuous likely chronic lacunar infarct in the left head of the caudate nucleus, which was barely visible on prior study, superimposed acute ischemia cannot be excluded. 3. No mass or hemorrhage. No CT evidence of acute territorial vascular insult. Extra-axial spaces:No abnormal density. No extra-axial fluid collections Brain volume: Normal for age. Ventricles: No hydrocephalus or displacement. Arteries: No density suggestive of thrombus. Dural sinuses: No abnormal density. Extra-axial spaces: No abnormal density. Foramen magnum: No mass, Chiari malformation, or basilar invagination. Sella: No obvious mass. Paranasal/mastoid sinuses: Imaged portions unremarkable. Skull/Scalp: No lytic or blastic lesions. No fractures. IMPRESSION: 1. No acute intracranial hemorrhage or CT evidence of acute territorial cortical infarcts. 2. Mild chronic microvascular ischemic changes, grossly unchanged from head CT on 12/14/2017. 3. Age indeterminate lacunar infarct in the left head of the caudate nucleus as described distal above. Signed by: Dr. Saida Juarez M.D. on 09/12/2018 7:50 PM
[2018-09-12 20:00] LABS: INR 0.81
[2018-09-12 20:01] LABS: PARTIAL THROMBOPLASTIN TIME 19.7 seconds (23.8-35.5)
--- NOTE | 2018-09-12 20:04 | Diagnostic Imaging Report ---
EXAMINATION: CHEST SINGLE (PORTABLE) INDICATION: Weakness. Syncope. COMPARISON: December 14, 2017. FINDINGS: TUBES and LINES: None. Probable loop recorder projected on the left upper quadrant. LUNGS: Lungs are well inflated. Lungs are clear. There is no evidence of pneumonia or pulmonary edema. PLEURA: No pleural effusion or pneumothorax. HEART AND MEDIASTINUM: The the cardiac silhouette is mildly enlarged.. Calcification of the aortic arch. BONES AND SOFT TISSUES: No acute osseous lesion. Soft tissues are unremarkable. UPPER ABDOMEN: No free air under the diaphragm. IMPRESSION: No acute thoracic abnormality. Signed by: Dr. Jake Ho M.D. on 09/12/2018 8:01 PM
[2018-09-12 20:10] LABS: ALBUMIN 3.5 g/dL (3.5-5.0); ALBUMIN/GLOBULIN RATIO 1.1 (0.8-2.0); ANION GAP 17.2 mmol/L (8-16); CALCIUM 8.9 mg/dL (8.4-10.2); CREATININE, SERUM 2.97 mg/dL (0.57-1.11); POTASSIUM 5.2 mmol/L (3.5-5.1)
[2018-09-12] MEDS ORDERED: ALTEPLASE 50 MG/VIAL (29 MILLION IU) IV ONE ×2 (20:15)
[2018-09-12 20:16] LABS: CREATINE KINASE MB 1.3 ng/mL (0-5.0)
[2018-09-12 20:40] LABS: PLATELET ESTIMATE ADEQUATE; PLATELET MORPHOLOGY COMMENT NORMAL; RBC MORPHOLOGY COMMENT NORMAL
[2018-09-12 20:44] LABS: BILIRUBIN,URINE NEGATIVE (NEGATIVE); CLARITY,URINE CLEAR (CLEAR); COLOR,URINE YELLOW (YELLOW); KETONES,URINE NEGATIVE (NEGATIVE); LEUKOCYTE ESTERASE ,URINE 1+ (NEGATIVE); NITRITE,URINE NEGATIVE (NEGATIVE); PROTEIN,URINE DIPSTICK 2+ (NEGATIVE); URINE UROBILINOGEN 0.2 mg/dL (0.2 - 1)
[2018-09-12 20:54] LABS: BACTERIA,URINE RARE /HPF; EPITHELIAL CELLS,URINE RARE /LPF; RBC,URINE 0-5 /HPF (0-5); WBC,URINE (MAN) 21-50 /HPF (0-5)
[2018-09-12 20:55] LABS: AMORPHOUS SEDIMENT,URINE MODERATE (FEW)
[2018-09-12] MEDS ORDERED: ONDANSETRON HCL INJ 2 MG/ML VIAL IV PRN (21:15)
[2018-09-12 21:31] LABS: CHOL/HDL RATIO 4.5 (3.0-3.6)
[2018-09-12] MEDS: CEFTRIAXONE SOD 1 GM VIAL IV SCH (22:08)
[2018-09-12] MEDS: SODIUM CHLORIDE 0.9% 1000ML 1,000 ML IV SCH (22:08)
[2018-09-12 23:15] VITALS: BP 164/71
[2018-09-12 23:16] VITALS: BP 164/71
[2018-09-12 23:32] VITALS: BP 150/60
[2018-09-12 23:45] VITALS: BP 165/68
[2018-09-13] VITALS (53 sets, daily range): BP systolic 124–174; BP diastolic 50–88
[2018-09-13] MEDS ORDERED: CALCITRIOL0.25 MCG PO (00:23)
[2018-09-13] MEDS ORDERED: ALFUZOSIN HCL10 MG PO (00:23)
[2018-09-13] MEDS ORDERED: PRAVASTATIN SOD80 MG PO (00:23)
[2018-09-13] MEDS ORDERED: NITROFURANTOIN100 M1 PO (00:23)
[2018-09-13] MEDS ORDERED: CLONAZEPAM 1 MG TAB PO PRN (00:30)
[2018-09-13] MEDS: SODIUM CHLORIDE 0.9% 1000ML 1,000 ML IV SCH (00:40)
[2018-09-13] MEDS: TRAZODONE HCL 50 MG TAB PO SCH ×2 (00:45→21:58)
[2018-09-13] MEDS: GABAPENTIN 100 MG CAP PO SCH ×4 (00:47→20:43)
--- NOTE | 2018-09-13 01:56 | Consultation ---
DATE OF CONSULTATION: September 12, 2018 NEUROLOGY CONSULT NOTE HISTORY OF PRESENT ILLNESS: The patient is a 73-year-old woman with past medical history significant for hypertension, hyperlipidemia, chronic kidney disease stage IV, and right breast cancer who presented to the emergency center at [facility] on September 12, 2018 with symptoms suspicious for a stroke. At approximately 1830 hours on the day of admission, the patient was sitting on her bed when she began to slide to the floor. A friend who was with the patient at that time attempted to place the patient back on the bed. However, this friend noticed the patient to have dysarthria, a left facial droop, left hemiparesis, and possible left hemihypesthesia. Emergency medical services were notified and Ms. Carpenter was brought to the emergency center at [facility] for further evaluation of her symptoms. Shortly after the patient arrived in the emergency center, a call for a code stroke was placed to the neurology service. I proceeded immediately to the emergency center to evaluate the patient. On my examination, the patient was given an NIH stroke scale score of 7, 1 point was given for left facial droop, 2 points were given for weakness in the left leg, 2 points were given for the ataxia, and 1 point was given for dysarthria. A CT of the brain without contrast was performed. On my review, there was no evidence of recent large territorial ischemia or hemorrhage on this study. Ms. Carpenter's laboratory data revealed a PT of 12.0, an INR of 0.81, and PTT of 19.7. Her platelet count was found to be 158. The patient had no absolute contraindications for intravenous thrombolysis. Treatment with tPA, its possible benefits and side effects, were discussed with the patient as well as her friend who is at the bedside. Following this discussion, the patient did agree to proceed with intravenous thrombolysis. A bolus dose was given at 0 hours, 2 hours and 10 minutes following symptom onset. This was followed by an infusion, which was started at 2 hours. REVIEW OF SYSTEMS: Dysarthria, left facial weakness, weakness of the left arm and left leg, numbness of the left arm and left leg. Otherwise, a 12-point review of systems is negative. PAST MEDICAL HISTORY: Hypertension, hyperlipidemia, gout, fibromyalgia, chronic kidney disease stage IV, anxiety disorder, right breast cancer. PAST SURGICAL HISTORY: section x2, partial hysterectomy, right partial mastectomy, tonsillectomy, bilateral cataract removal, implantation of loop recorder. PAST HOSPITALIZATIONS: Surgeries/procedures as listed, childbirth x2. FAMILY MEDICAL HISTORY: The patient is adopted. The patient had 2 daughters. One daughter is from genitourinary cancer. A second daughter is alive and reportedly healthy. However, Ms. Carpenter is estranged from her 1 living daughter. SOCIAL HISTORY: The patient is . She is retired/on disability. The patient endorses current tobacco use. She has smoked a quarter pack of cigarettes per day for the past 4 to 5 years. The patient does not endorse tobacco use prior to the past 4 to 5 years. The patient does not report current or remote alcohol or recreational drug use. HOME MEDICATIONS: Please see the list of home medications available in electronic medical record. ALLERGIES: PENICILLIN, SULFA, TAPE, AMLODIPINE, LEVOFLOXACIN. NO KNOWN FOOD ALLERGIES. THE PATIENT DOES HAVE AN ALLERGY TO LATEX. THERE ARE NO KNOWN ALLERGIES TO IODINE OR OTHER CONTRAST MATERIALS. PHYSICAL EXAMINATION VITAL SIGNS: Height 64 inches, weight 145 pounds, BMI 24.89 kg/m2, blood pressure 164/64 mmHg, pulse 59 beats per minute, respiratory rate 17 breaths per minute, oxygen saturation 100% on room air. GENERAL: The patient is awake and alert, does not appear distressed. HEENT: Normocephalic, atraumatic. Pupils are surgical. Moist mucous membranes. NECK: Supple. No appreciable thyromegaly. No appreciable carotid bruits. CARDIOVASCULAR: S1, S2, bradycardic, regular rhythm. No murmurs, rubs, or gallops. RESPIRATORY: Clear to auscultation bilaterally. No wheezes, rhonchi, or rales. EXTREMITIES: The skin is warm and dry. No clubbing or cyanosis. Trace pretibial pitting edema is present. The posterior tibial and dorsalis pedis pulses are 2+ and symmetric. SKIN: No rashes or lesions. NEUROLOGIC Memory/Attention: The patient is awake and alert, oriented to person, place, time, and situation. Cranial Nerves: Cranial nerve I-not tested. Cranial nerve II, III, IV, and -pupils are surgical. Extraocular movements are intact. No nystagmus. Cranial nerve V-sensation to light touch is diminished in the left V1 through V3 distributions. Sensation to pinprick is intact in the bilateral V1 through V3 distributions. Strength of the temporalis and masseter muscles is within normal limits. Cranial nerve VII-the face is asymmetric on the left as are all facial movements. Mild central left facial weakness is present. Cranial nerve VIII-hearing is diminished to finger rub bilaterally. Cranial nerves IX, X-the soft palate elevates equally and symmetrically. Cranial nerve XI-normal strength of the bilateral sternocleidomastoid and trapezius muscles. Cranial nerve XII-the tongue protrudes midline and moves symmetrically from qgle-xu-qujy. Strength: Bulk is normal. The patient is able to maintain both arms against gravity for more than 10 seconds each. Strength is 5/5 in all muscles examined in the right arm. In the left arm, the flexors are 4+/5 and the extensors are 4/5. The patient is able to maintain the right leg against gravity for more than 5 seconds. Strength is 5/5 in all muscles examined in the right leg. The patient is able to lift the left leg against gravity, but it drifts to the bed in less than 5 seconds. Strength in the left leg is grossly 3-/5. Tone is decreased in the left arm and left leg. Sensation: Sensation is decreased to light touch over the left arm and left leg. Sensation to pinprick is intact in both arms and both legs. Cerebellar: There is dysmetria with bzutek-rrcc-krmkgv and heel-corea movements on the left, but these are within the bounds of paresis. Tfsxsl-wvde-yanqwl and heel-corea movements are intact on the right without dysmetria or other impairment. Gait: Deferred. Speech: Spontaneous speech is frbltn-lx-cacslyazbr dysarthric without aphasia. Repetition is intact. Involuntary Movements: None. Pronator Drift: As per motor exam. LABORATORY DATA: The patient's comprehensive metabolic panel is significant for an elevated potassium of 5.2, a low carbon dioxide of 17, an elevated anion gap of 17.2, a BUN of 49, a creatinine of 2.97, and an estimated GFR of 16. Cardiac enzymes are negative x1. The CBC with differential and platelets reveals a white blood cell count of 6.23 with 72.6% neutrophils, 16.2% lymphocytes, 7.1% monocytes, 2.2% eosinophils, and 0.6% basophils. The hemoglobin and hematocrit are 10.0 and 30.3, respectively. The platelet count is 158. PT and INR are within normal limits. The PTT is 19.7. DIAGNOSTIC STUDIES 1. Electrocardiogram on September 12, 2018: Sinus arrhythmia at 62 beats per minute with premature supraventricular complexes. 2. CT of the brain without contrast on September 12, 2018: On my review, there is no evidence of recent large territorial ischemia, hemorrhage, mass, or mass effect. There is a chronic lacunar infarct in the head of the left caudate nucleus. Cerebral volume is appropriate for age. There are findings suspicious for ijfy-op-xddsiyhu chronic small vessel ischemic disease. ASSESSMENT AND PLAN: The patient is a 73-year-old woman with multiple vascular risk factors, presenting to [facility] with symptoms of an acute stroke, probably in the right middle cerebral artery distribution. However, the greater weakness in the left leg indicates a possible ischemic stroke in the right anterior cerebral artery distribution. The patient has undergone a thorough neurological examination with findings detailed above. The patient's laboratory data and other diagnostic studies have been reviewed and are documented above. RECOMMENDATIONS 1. A lipid panel and hemoglobin A1c will be ordered. 2. Unfortunately, due to the presence of a loop recorder, the patient is unable to undergo an MRI of the brain without contrast. Therefore, a repeat CT of the brain without contrast will be ordered for 1900 hours on September 13, 2018. 3. An echocardiogram will be ordered. 4. Bilateral carotid artery ultrasound with Doppler will be ordered. 5. No antiplatelet or anticoagulant medication for 24 hours status post intravenous tPA. 6. Allow permissive hypertension for 24 to 48 hours status post stroke to perfuse the penumbra. 7. The patient's goal total cholesterol is less than 200. Her goal LDL is less than 70. Follow up the results of the lipid panel. In the interim, the patient will continue her home medication of pravastatin 40 mg by mouth at bedtime daily. 8. The patient's goal hemoglobin A1c is less than 7.0. Follow up the result of this study. Tight glycemic control is recommended while the patient is in the hospital. 9. Speech and physical therapy consultations will be ordered. 10. GI prophylaxis with Pepcid 20 mg by mouth twice daily with meals. DVT prophylaxis with VIDYA hose and SCDs. 11. Defer treatment of the remaining medical comorbidities to the primary and other services following the patient. Thank you for this consultation. I will continue to follow the patient while she remains in the hospital. CRITICAL CARE TIME: 90 minutes. Job#: [id number] DARRELL ROJO
[2018-09-13 05:46] LABS: BASOPHILS % 0.6 % (0.0-1.0); EOSINOPHILS # (AUTO) 0.2 (0.0-0.4); EOSINOPHILS % 2.5 % (0.0-6.0); HEMATOCRIT 26.7 % (34.2-44.1); HEMOGLOBIN 8.7 g/dL (12.0-16.0); LYMPHOCYTES # (AUTO) 1.3 (1.0-3.2); LYMPHOCYTES % 20.1 % (18.0-39.1); MEAN CORPUSCULAR HEMOGLOBIN 31.6 pg (28-32); MEAN CORPUSCULAR HGB CONC 32.6 g/dL (31-35); MEAN CORPUSCULAR VOLUME 97.1 fL (81-99); MONOCYTES # (AUTO) 0.6 (0.2-0.8); MONOCYTES % 8.6 % (4.4-11.3); NEUTROPHILS # (AUTO) 4.4 (2.1-6.9); NEUTROPHILS % 67.9 % (38.7-80.0); PLATELET COUNT 133 x10e3/uL (140-360); RED BLOOD COUNT 2.75 x10e6/uL (3.6-5.1)
[2018-09-13 06:08] LABS: ALBUMIN 2.9 g/dL (3.5-5.0); ALBUMIN/GLOBULIN RATIO 1.1 (0.8-2.0); ANION GAP 14.3 mmol/L (8-16); CALCIUM 8.7 mg/dL (8.4-10.2); CREATININE, SERUM 2.69 mg/dL (0.57-1.11); POTASSIUM 4.3 mmol/L (3.5-5.1)
[2018-09-13] MEDS: LEVOTHYROXINE SODIUM 50 MCG TAB PO SCH ×2 (06:10→07:30)
[2018-09-13 06:27] LABS: CREATINE KINASE MB 1.2 ng/mL (0-5.0)
[2018-09-13] MEDS ORDERED: LEVOTHYROXINE SODIUM 50 MCG TAB PO SCH (07:30)
[2018-09-13] MEDS: FAMOTIDINE 20 MG TAB PO SCH ×2 (09:30→16:58)
[2018-09-13] MEDS ORDERED: SODIUM BICARBONATE 8.4% 75 ML in DEXTROSE 5%/0.45% SOD CHL 1,000 ML IV ONE (11:30)
--- NOTE | 2018-09-13 13:01 | History and Physical ---
PRIMARY PHYSICIAN: Dr. Strange. CHIEF COMPLAINT: Dysarthria and partial left hemiparesis. HISTORY OF PRESENT ILLNESS: Patient is a 73-year-old woman. She has a history of hypertension and chronic kidney disease, stage 4. She is followed by Dr. Pena as an outpatient. She came into the emergency department late yesterday evening complaining of a sudden onset of left facial droop, left arm weakness, and some difficulty speaking. She was evaluated by neurology and received tPA. This morning, her facial droop has resolved. She has no difficulty moving her upper extremities. She does not complain of headache. She has not had any bleeding. PAST MEDICAL HISTORY 1. Hypertension. 2. Hyperlipidemia. 3. Chronic kidney failure, stage 4. 4. History of right breast cancer. PAST SURGICAL HISTORY 1. Status post partial hysterectomy. 2. Status post right-sided partial mastectomy. 3. Tonsillectomy. SOCIAL HISTORY: The patient quit smoking for 4 or 5 years ago, prior to that he smoked 4 to 5 cigarettes a day. She is not a drinker. ALLERGIES: SHE IS ALLERGIC TO PENICILLIN, SULFA, AND LEVAQUIN. FAMILY HISTORY: Family history is significant for cancer. REVIEW OF SYSTEMS: The patient denies headache. She has no fever. She is not having any sore throat. Does not complain of any neck pain. She has no chest pain. She has no difficulty breathing or cough. She has no abdominal pain. She has no nausea or vomiting. She did have some right-sided weakness and a right facial droop which has improved. PHYSICAL EXAMINATION VITAL SIGNS: Patient is afebrile. The blood pressure is 160/80 and the pulse is 58. Respiratory rate is 18. HEENT: Shows no facial swelling or erythema. LYMPHATIC: Shows no submandibular, cervical, or supraclavicular adenopathy. CARDIAC: Reveals a regular rate and rhythm with normal S1 and S2. LUNGS: Auscultation of the lungs reveals clear breath sounds bilaterally. There is no wheezing. ABDOMEN: Soft and nontender. There is no rebound or guarding. EXTREMITIES: Shows no leg edema or calf tenderness. NEUROLOGIC: Shows resolution of the right arm weakness and right facial droop. Her speech appears normal. LABORATORY DATA: The BUN to creatinine ratio is 47/2.69. The albumin is 2.9. The hemoglobin is 8.7. White blood cell count is 6.4. The platelet count is 133. IMPRESSION 1. Right middle cerebral artery stroke. 2. Hypertension. 3. Hyperlipidemia. 4. Chronic renal insufficiency. PLAN 1. Patient has received tPA and is doing well. 2. Carotid Duplex. 3. Monitor cholesterol and blood sugars. 4. Permissive hypertension. 5. Evaluation by cardiology because of her prior history of possible atrial fibrillation. She may require anticoagulation as an outpatient. Job#: [id number] LPA
[2018-09-13 14:13] LABS: CREATINE KINASE 27 IU/L (29-168)
--- NOTE | 2018-09-13 16:17 | Consultation ---
DATE OF CONSULTATION: September 13, 2018 CARDIOLOGY CONSULTATION REASON FOR CONSULTATION: Evaluate cardiac status. HISTORY: A 73-year-old lady who is known with multiple medical health problems, presented to this institution yesterday complaining of left body sided weakness and left facial droop. Patient was seen by neurologist. She was given tPA. Patient is in intensive care unit. Cardiac consultation is obtained to evaluate the patient's status. I visited to the patient's home. She is still having a little bit of left body sided weakness. She is by far much better than yesterday. Patient cannot recall what happened, although she remembers she is having left body sided weakness and difficulty in her speech and she came to the emergency room. Patient was at this institution in December 2017 where at that time had an episode of syncope. She had a loop recorder placement. Patient does have multiple comorbidities including hypertension, chronic renal disease stage 3 to 4, right breast cancer status post lumpectomy, severe low back pain and scoliosis, status post L1 to L5 fusion surgery, chronic renal insufficiency, chronic anemia, and severe peripheral neuropathy. She is also having some stress and some psychological tissues. REVIEW OF SYSTEMS: Extensive to all system. Only pertinent one will be summarized for clarity. GENERAL: No fever. No chills. HEENT: Occasional headaches, chronically decreased right ear hearing. She had cataract surgery. No vision problem. PULMONARY: Chronic shortness of breath on exertion. No pleuritic chest pain. No cough. No hemoptysis. CARDIAC: No angina. No repeat syncope. GI: No hematemesis. No melena. Occasional bright red blood per rectum. : No dysuria. No hematuria. ENDOCRINE: There is no heat or cold intolerance. NEUROLOGICAL: As per acute illness, dysarthria, left body sided weakness. She does have also chronic peripheral neuropathy. PSYCHIATRIC: Anxiety and intermittent depression. PAST MEDICAL HISTORY 1. Hypertension. 2. 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 3. Right breast cancer, status post lumpectomy. 4. COPD. 5. Gout. 6. Hypothyroidism. 7. L1-L5 fusion surgery. 8. Right mastectomy. 9. surgery. 10. Bilateral cataract surgery. SOCIAL HISTORY: Unfortunately, she is smoker. She is not alcohol drinker. FAMILY HISTORY: She is adopted. HOME MEDICATIONS: Long list including; 1. Aspirin 81 mg a day. 2. Lasix 20 mg a day. 3. Hydralazine 10 mg twice a day. 4. Ismo 30 mg a day. 5. Gabapentin 100 mg t.i.d. 6. Klonopin 0.5 mg p.r.n. 7. Pravastatin 40 mg a day. 8. Trazodone. 9. ProAir and Atrovent p.r.n. 10. Multivitamins and vitamin Ds. ALLERGIES: PENICILLIN, SULFA, TAPE, AMLODIPINE, LATEX, LEVAQUIN. PHYSICAL EXAMINATION VITAL SIGNS: Height of 5 feel 4 inches, weight of 145 pounds. HEENT: Pupils are equally reactive. NECK: No elevation of jugular venous pulsation. CHEST: Decreased air entry with few crackles. HEART: PMI 5th left intercostal space. Normal 1st and 2nd heart sounds. ABDOMEN: Soft with good bowel sounds. EXTREMITIES: No cyanosis. No clubbing. Mild edema noted in the left arm. NEUROLOGIC: As per neurology service. Patient report improved left body sided weakness. LAB DATA: BUN of 47, creatinine of 2.7, sodium of 137, potassium 4.3, bicarb of 18. White blood cell count of 6.4, hemoglobin of 8.7, hematocrit 26%, platelet count of 103,000. EKG, no atrial fibrillation. PAC is noted. Echocardiogram read by another physician showed preserved left ventricular systolic function. Carotid Doppler showed no severe carotid disease. IMPRESSION AND PLAN 1. Admission with cerebrovascular accident, treated with tPA. 2. Hypertension. 3. Chronic kidney disease stage 3 to 4. 4. Hypercholesterolemia. 5. Fibromyalgia. 6. Depression. 7. Peripheral neuropathy. 8. Anemia. 9. Chronic obstructive pulmonary disease. Cardiac-peña, will observe patient on telemetry. Will check her loop recorder for major events. Will adjust her medication as needed. Case discussed with nursing staff. Case discussed with the neurology service. Will be calling [facility] to check her loop recorder. Job#: [id number] GIANNA
--- NOTE | 2018-09-13 16:57 | Consultation ---
DATE OF CONSULTATION: September 13, 2018 NEPHROLOGY CONSULTATION REASON FOR CONSULTATION: Nqoet-mh-ldrpxcl kidney disease. REFERRING PHYSICIAN: Dr. Dan. HISTORY OF PRESENT ILLNESS: This is a 73-year-old white female with past medical history of chronic kidney disease stage 3, with baseline serum creatinine around 2 mg/dL, hyperlipidemia, hypertension, right breast cancer, was admitted with symptoms suspicious for a stroke. Apparently, she went to the bathroom and then could not get up and was noted to have dysarthria, facial droop, left hemiparesis. Her serum creatinine yesterday was 2.9; this morning was 2.7, for which nephrology consultation was obtained for further evaluation and management. At the time of my examination, she appeared in no acute distress, but did complain of some diarrhea, nausea and vomiting yesterday, and the above-mentioned symptoms. She denied any chest pain, significant shortness of breath, abdominal pain, bleeding in the stools, urinary problems, or any focal weakness at the present time. PAST MEDICAL HISTORY: As above. PAST SURGICAL HISTORY: , partial hysterectomy, right partial mastectomy, tonsillectomy, and implantation of a loop recorder. PHYSICAL EXAMINATION VITAL SIGNS: Blood pressure 160/61, respirations 18, heart rate 59, temperature was normal. HEENT: Head was atraumatic, normocephalic. Pupils were reactive to light. Mouth; oral mucosa was dry. NECK: Supple. There was no significant lymphadenopathy or thyromegaly. CHEST: Revealed fair air entry with occasional crackles. HEART: S1, S2. ABDOMEN: Soft. Bowel sounds positive. EXTREMITIES: No edema. SAW TAILER: She was awake and alert. Cranial nerves appeared to be grossly intact and she was moving all 4 extremities. IMAGING: CT of the brain showed no acute changes. Chest x-ray was negative. LABS: UA; specific gravity 1025, pH 6, rbc's 0 to 5, wbc's 21 to 50. White cell count 6.4, hemoglobin 8.7, hematocrit 26.7, and platelets 133. Sodium 137, potassium 4.6, chloride 109, CO2 of 18, BUN 47, creatinine 2.7 from 2.97 yesterday, and albumin 2.9. Normal LFTs. IMPRESSION 1. Iytjc-er-rojvoeh kidney disease, most likely secondary to prerenal azotemia secondary to nausea and vomiting. Underlying chronic kidney disease is thought to be secondary to multiple sclerosis. She is nonoliguric. 2. Mild non-anion gap metabolic acidosis from chronic kidney disease. 3. Anemia. 4. Possible cerebrovascular accident. PLAN: Strict I's and O's. Avoid nonsteroidal anti-inflammatory drugs, TERESA inhibitors, IV dye, and ARB. Spot urine sodium and creatinine. Ultrasound of the kidneys. CBC and BMP in a.m. Will start IV fluids with D5 half-normal saline with one amp of sodium bicarbonate at 75 mL an hour. Further recommendations to follow. Thank you for the consultation. Job#: [id number] GIANNA
--- NOTE | 2018-09-13 19:39 | Diagnostic Imaging Report ---
EXAMINATION: Head CT without contrast. HISTORY:Syncope. COMPARISON:CT brain from 09/12/2018. TECHNIQUE: Multidetector axial images were obtained from the foramen magnum to the vertex without contrast. The images were reconstructed using brain and bone algorithms. Thin section brain images were reformatted into coronal and sagittal planes. Dose modulation, iterative reconstruction, and/or weight based adjustment of the mA/kV was utilized to reduce the radiation dose to as low as reasonably achievable. Intravenous contrast: None IMAGE QUALITY: Acceptable. FINDINGS: Skull/scalp: No lytic or blastic. lesions. No surgical changes. Parenchyma: Unchanged nonspecific bilateral frontoparietal patchy white matter hypodensity likely related to small vessel ischemic changes. Unchanged age indeterminate lacunar infarct in head of left caudate. No acute hemorrhage, mass or acute major vascular territorial infarct. Arteries: No density suggestive of thrombosis. Atherosclerotic calcification in bilateral carotid siphon. Dural sinuses: No abnormal density suggestive of thrombosis. Ventricles: No hydrocephalus or displacement. Extra-axial spaces: No abnormal density. Brain volume: Normal for age. Craniocervical junction: No mass, Chiari malformation, or basilar invagination. Sella: No mass. Paranasal/mastoid sinuses: Imaged portions unremarkable. IMPRESSION: No acute intracranial abnormality. No change since CT brain from 09/12/2018. Persistent findin. Age indeterminate lacunar infarct in left caudate head. 2. Mild supratentorial white matter microvascular ischemic changes. Signed by: Dr. Brunilda Loredo M.D. on 09/13/2018 7:35 PM
[2018-09-13] MEDS: CEFTRIAXONE SOD 1 GM VIAL IV SCH (20:43)
[2018-09-13] MEDS: ATORVASTATIN 40 MG TAB PO SCH (20:43)
[2018-09-13] MEDS ORDERED: PRAVASTATIN 20 MG TAB PO SCH (21:00)
[2018-09-14] VITALS (24 sets, daily range): BP systolic 131–193; BP diastolic 51–85
[2018-09-14] MEDS: CLONAZEPAM 1 MG TAB PO PRN ×2 (00:57→20:51)
[2018-09-14 04:46] LABS: BASOPHILS % 0.5 % (0.0-1.0); EOSINOPHILS # (AUTO) 0.2 (0.0-0.4); EOSINOPHILS % 3.1 % (0.0-6.0); HEMATOCRIT 27.3 % (34.2-44.1); HEMOGLOBIN 8.2 g/dL (12.0-16.0); LYMPHOCYTES # (AUTO) 1.1 (1.0-3.2); LYMPHOCYTES % 18.5 % (18.0-39.1); MEAN CORPUSCULAR HEMOGLOBIN 31.3 pg (28-32); MONOCYTES # (AUTO) 0.5 (0.2-0.8); MONOCYTES % 8.8 % (4.4-11.3); NEUTROPHILS % 68.9 % (38.7-80.0); PLATELET COUNT 126 x10e3/uL (140-360); RED BLOOD COUNT 2.62 x10e6/uL (3.6-5.1); RED CELL DISTRIBUTION WIDTH 16.4 % (11.7-14.4)
[2018-09-14 04:58] LABS: MEAN CORPUSCULAR VOLUME 104.2 fL (81-99)
[2018-09-14 05:07] LABS: CALCIUM 8.2 mg/dL (8.4-10.2); CREATININE, SERUM 2.21 mg/dL (0.57-1.11)
[2018-09-14] MEDS: FAMOTIDINE 20 MG TAB PO SCH ×2 (07:47→16:47)
[2018-09-14] MEDS: LEVOTHYROXINE SODIUM 50 MCG TAB PO SCH (07:47)
[2018-09-14] MEDS: GABAPENTIN 100 MG CAP PO SCH ×3 (07:47→20:52)
[2018-09-14] MEDS: CLOPIDOGREL BISULFATE 75 MG TAB PO SCH (12:16)
[2018-09-14] MEDS: SODIUM CHLORIDE 0.9% 1000ML 1,000 ML IV SCH (14:27)
[2018-09-14] MEDS: HYDRALAZINE HCL 10 MG TAB PO SCH (16:47)
[2018-09-14] MEDS: CEFTRIAXONE SOD 1 GM VIAL IV SCH (20:51)
[2018-09-14] MEDS: HEPARIN SOD (PORCINE) 5,000 UNIT/ML VIAL SC SCH (20:52)
[2018-09-14] MEDS: ATORVASTATIN 40 MG TAB PO SCH (20:52)
[2018-09-14] MEDS: TRAZODONE HCL 50 MG TAB PO SCH (21:00)
[2018-09-15] VITALS (8 sets, daily range): BP systolic 173–199; BP diastolic 74–86
[2018-09-15] MEDS: LEVOTHYROXINE SODIUM 50 MCG TAB PO SCH (07:41)
[2018-09-15] MEDS: HYDRALAZINE HCL 10 MG TAB PO SCH (08:20)
[2018-09-15] MEDS: FAMOTIDINE 20 MG TAB PO SCH ×2 (08:20→16:31)
[2018-09-15] MEDS: HEPARIN SOD (PORCINE) 5,000 UNIT/ML VIAL SC SCH ×2 (08:20→21:14)
[2018-09-15] MEDS: SODIUM CHLORIDE 0.9% 1000ML 1,000 ML IV SCH (08:20)
[2018-09-15] MEDS: GABAPENTIN 100 MG CAP PO SCH ×3 (08:20→21:14)
[2018-09-15] MEDS: CLOPIDOGREL BISULFATE 75 MG TAB PO SCH (08:20)
[2018-09-15] MEDS ORDERED: ACETAMINOPHEN 325 MG TAB PO PRN (09:30)
[2018-09-15] MEDS: METOPROLOL TARTRATE 50 MG TAB PO SCH ×2 (12:29→16:31)
[2018-09-15] MEDS ORDERED: HYDRALAZINE HCL 10 MG TAB PO SCH (12:30)
--- NOTE | 2018-09-15 13:04 | Diagnostic Imaging Report ---
EXAMINATION: Renal ultrasound. CLINICAL HISTORY :Acute kidney insufficiency COMPARISON: <None available.> TECHNIQUE: Grayscale and color Doppler evaluation of the kidneys and bladder was performed in transverse and longitudinal planes. DISCUSSION: RIGHT KIDNEY: The right kidney measures 10.4 cm in length and shows normal echogenicity. 3 simple cysts, the largest in the midportion measuring 1.4 cm. LEFT KIDNEY: The left kidney measures 7.6 cm in length and shows increased echogenicity. 3 simple cysts, the largest in the inferior pole measuring 1.7 cm. BLADDER: Unremarkable. IMPRESSION: 1. Small echogenic left kidney secondary to chronic medical renal disease. Normal sonographic appearance of the right kidney. 2. Bilateral simple renal cysts. Signed by: Dr. Kailash Obrien M.D. on 09/15/2018 1:01 PM
[2018-09-15] MEDS: CLONAZEPAM 1 MG TAB PO PRN ×2 (13:55→21:30)
[2018-09-15] MEDS: HYDRALAZINE HCL 25 MG TAB PO SCH (16:31)
[2018-09-15] MEDS ORDERED: CEFTRIAXONE SOD 1 GM/NS 50 ML 50 ML IV SCH (21:00)
[2018-09-15] MEDS: TRAZODONE HCL 50 MG TAB PO SCH (21:14)
[2018-09-15] MEDS: ATORVASTATIN 40 MG TAB PO SCH (21:14)
[2018-09-16] VITALS: BP 176/79
[2018-09-16 04:00] VITALS: BP 172/77
[2018-09-16 06:15] LABS: ALBUMIN 2.7 g/dL (3.5-5.0); ANION GAP 11.3 mmol/L (8-16); CREATININE, SERUM 2.23 mg/dL (0.57-1.11); POTASSIUM 4.3 mmol/L (3.5-5.1)
[2018-09-16] MEDS: LEVOTHYROXINE SODIUM 50 MCG TAB PO SCH (07:57)
[2018-09-16] MEDS: GABAPENTIN 100 MG CAP PO SCH (08:25)
[2018-09-16] MEDS: CLOPIDOGREL BISULFATE 75 MG TAB PO SCH (08:25)
[2018-09-16] MEDS: HEPARIN SOD (PORCINE) 5,000 UNIT/ML VIAL SC SCH (08:25)
[2018-09-16] MEDS: FAMOTIDINE 20 MG TAB PO SCH (08:25)
[2018-09-16 08:31] VITALS: BP 195/82
[2018-09-16] MEDS: HYDRALAZINE HCL 25 MG TAB PO SCH (08:31)
[2018-09-16] MEDS: METOPROLOL TARTRATE 50 MG TAB PO SCH (08:32)
[2018-09-16 10:12] VITALS: BP 162/70
[2018-09-16 10:15] VITALS: BP 162/70
[2018-09-16 11:54] VITALS: BP 169/70
--- NOTE | 2018-09-16 13:06 | Discharge Summary ---
DISCHARGE DIAGNOSES 1. Acute right middle cerebral artery stroke. 2. Accelerated hypertension. 3. Chronic renal insufficiency. CONSULTING PHYSICIANS 1. Dr. Bender of cardiology. 2. Dr. Alcala of neurology. RADIOGRAPHIC DATA: CT scan shows no acute changes. Renal ultrasound showed small echogenic left kidney secondary to chronic medical renal disease and bilateral simple renal cysts. Chest x-ray shows no acute thoracic abnormality. HISTORY OF PRESENT ILLNESS: The patient is a 73-year-old woman. She has a history of chronic renal insufficiency and hypertension. She came in with sudden onset of left-sided weakness and facial droop. She was seen neurology in the ER and received tPA. HOSPITAL COURSE: The patient was observed in the ICU. She had recovery of function in the left side. Her facial droop improved, as well as her movement in the right arm. She did not have any bleeding. She was subsequent transferred to the floor. Her hospitalization was complicated by high blood pressure. She required an increase in her dose of hydralazine and metoprolol. This helped to control her blood pressure. Patient also has chronic renal insufficiency. 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 She was continued on her current therapy. DISPOSITION: At the time of discharge, the patient felt much better. She was eager to go home. Her hydralazine was increased to 50 mg p.o. t.i.d. She was started on Plavix. She will follow up with Dr. Alcala of neurology, as well as her doctor at [facility]. CONNOR PUENTE MD Job#: [id number] [place]
[2018-09-16] MEDS ORDERED: HYDRALAZINE HCL25 MG PO (14:47)
[2018-09-16] MEDS ORDERED: PLAVIX75 MG PO (14:47)
[2018-09-16] MEDS ORDERED: HYDRALAZINE HCL 25 MG TAB PO SCH (15:00)
[2018-09-16] MEDS ORDERED: SODIUM BICARBONATE 650 MG TAB PO SCH (17:00)
== END 2018-09-16 15:07 | disposition home or self-care (01) | DRG 62 ==
LOC: ER 19:15 → ERHOLD 21:20 → ICU 23:02 → MED/SURG 09-14 13:54
PROVIDERS: ADMIT Internal Medicine Critical Care Medicine; ATTEND Internal Medicine Critical Care Medicine
DX: I63.511 Cerebral infarction due to unspecified occlusion or stenosis of right middle cerebral artery (principal); N18.4 Chronic kidney disease, stage 4 (severe); G81.94 Hemiplegia, unspecified affecting left nondominant side; E87.2 Acidosis; I12.9 Hypertensive chronic kidney disease with stage 1 through stage 4 chronic kidney disease, or unspecified chronic kidney disease; N28.1 Cyst of kidney, acquired; R47.1 Dysarthria and anarthria; Z87.891 Personal history of nicotine dependence; R29.707 NIHSS score 7; M10.9 Gout, unspecified; M79.7 Fibromyalgia; F41.8 Other specified anxiety disorders; G62.9 Polyneuropathy, unspecified; J44.9 Chronic obstructive pulmonary disease, unspecified; D64.9 Anemia, unspecified; E78.5 Hyperlipidemia, unspecified; Z85.3 Personal history of malignant neoplasm of breast; Z95.818 Presence of other cardiac implants and grafts; Z79.02 Long term (current) use of antithrombotics/antiplatelets; Z79.82 Long term (current) use of aspirin; Z88.0 Allergy status to penicillin; Z88.2 Allergy status to sulfonamides; Z88.8 Allergy status to other drugs, medicaments and biological substances; Z88.1 Allergy status to other antibiotic agents; Z91.040 Latex allergy status; Z98.1 Arthrodesis status
CPT/HCPCS: 36415; 51700; 70450; 71045; 76770; 80048; 80053; 80061; 81001; 82550; 82553; 83036; 84484; 85025; 85610; 85730; 87086; 92523; 93005; 93306; 93880; 99284; J0696; J1644; J7030

== ENCOUNTER 2018-09-17 14:31 | Emergency (ER) | payer MEDICARE, OTHER ==
[~2018-09-17] VITALS: Ht 162.6 cm; Wt 65.8 kg
[~2018-09-17 14:31] MED LIST changes: +ALFUZOSIN HCL10 MG PO; +CALCITRIOL0.25 MCG PO; +NITROFURANTOIN100 M1 PO; +PLAVIX75 MG PO; +PRAVASTATIN SOD80 MG PO
[2018-09-17] MEDS ORDERED: SODIUM CHLORIDE 0.9% 1000ML 1,000 ML IV ONE (15:30)
[2018-09-17 15:31] LABS: BASOPHILS % 0.5 % (0.0-1.0); EOSINOPHILS # (AUTO) 0.2 (0.0-0.4); EOSINOPHILS % 3.1 % (0.0-6.0); HEMOGLOBIN 9.2 g/dL (12.0-16.0); LYMPHOCYTES # (AUTO) 0.8 (1.0-3.2); LYMPHOCYTES % 14.5 % (18.0-39.1); MEAN CORPUSCULAR HEMOGLOBIN 32.1 pg (28-32); MEAN CORPUSCULAR HGB CONC 32.9 g/dL (31-35); MEAN CORPUSCULAR VOLUME 97.6 fL (81-99); MONOCYTES # (AUTO) 0.6 (0.2-0.8); MONOCYTES % 9.6 % (4.4-11.3); NEUTROPHILS # (AUTO) 4.2 (2.1-6.9); PLATELET COUNT 134 x10e3/uL (140-360); RED BLOOD COUNT 2.87 x10e6/uL (3.6-5.1); RED CELL DISTRIBUTION WIDTH 16.1 % (11.7-14.4)
[2018-09-17 15:43] LABS: ALBUMIN 3.1 g/dL (3.5-5.0); ANION GAP 11.2 mmol/L (8-16); CALCIUM 9.5 mg/dL (8.4-10.2); CREATININE, SERUM 2.34 mg/dL (0.57-1.11); MAGNESIUM 1.9 MG/DL (1.3-2.1); PHOSPHORUS 3.5 MG/DL (2.3-4.7); POTASSIUM 4.2 mmol/L (3.5-5.1)
== END 2018-09-17 18:00 | disposition home or self-care (01) ==
LOC: ER 14:31
DX: R55 Syncope and collapse (principal); I95.2 Hypotension due to drugs; E86.0 Dehydration; K52.9 Noninfective gastroenteritis and colitis, unspecified; I10 Essential (primary) hypertension; Z86.73 Personal history of transient ischemic attack (TIA), and cerebral infarction without residual deficits
CPT/HCPCS: 36415; 80053; 83735; 84100; 84484; 85025; 93005; 99284; J7030

== ENCOUNTER 2018-10-31 14:03 | Observation (INO) | payer MEDICARE, OTHER ==
[~2018-10-31] VITALS: Ht 162.6 cm; Wt 69.1 kg
--- OUTSIDE RECORDS SUMMARY | 2018-10-31 14:06 | XMS REPORT | Clinical Summary ---
Author Author RUTH [facility] Address Unknown Phone Unavailable Care Team Providers Care Breaking Machine Operator Name Role Phone Glenn Strange MD PCP Unavailable Allergies Comments Active Allergy Reactions Severity Noted Date Adhesive Bandage Shortness Of High 01/01/2014 Breath Latex Shortness Of High 01/01/2014 Breath Black stool Levofloxacin 01/01/2014 Penicillins Hives 01/01/2014 Sulfa (Sulfonamide Swelling 01/01/2014 Antibiotics) Medications End Date Status Medication Sig Dispensed Refills Start Date Active allopurinol (ZYLOPRIM) Take 300 mg 0 300 MG tablet by mouth daily. Active albuterol, refill, 90 Inhale by 0 mcg/actuation Aero mouth via inhaler. Active benzonatate (TESSALON) Take 100 mg 0 100 MG capsule by mouth 3 (three) times daily as needed. Active cholecalciferol, vitamin Take 2,000 0 D3, 2,000 unit Tab Units by mouth daily. Active citalopram (CELEXA) 20 MG Take 20 mg by 0 tablet mouth daily. Active clonazePAM (KLONOPIN) 0.5 Take 0.5 mg 0 MG tablet by mouth 2 (two) times daily as needed. Active fluticasone (FLONASE) 50 1 spray by 0 mcg/actuation nasal spray Nasal route daily. Active fluticasone-salmeterol Inhale 1 puff 0 (ADVAIR) 250-50 mcg/dose by mouth via diskus inhaler inhaler every 12 (twelve) hours. Active furosemide (LASIX) 80 MG Take 80 mg by 0 tablet mouth 2 (two) times daily. Active gabapentin (NEURONTIN) Take 100 mg 0 100 MG capsule by mouth 3 (three) times daily. Active gemfibrozil (LOPID) 600 Take 600 mg 0 MG tablet by mouth 2 (two) times daily before meals. Active potassium chloride Take 10 mEq 0 (KLOR-CON) 10 MEQ CR by mouth tablet daily. Active levothyroxine (SYNTHROID, Take 50 mcg 0 LEVOTHROID) 50 MCG tablet by mouth daily. Active hydrocortisone Place 0 (ANUSOL-HC) 2.5 % rectal rectally 2 cream (two) times daily. Active losartan (COZAAR) 50 MG Take 50 mg by 0 tablet mouth daily. Active metoprolol (TOPROL-XL) Take 100 mg 0 100 MG 24 hr tablet by mouth daily. Active NIFEdipine (ADALAT CC) 60 Take 60 mg by 0 MG 24 hr tablet mouth daily. Active primidone (MYSOLINE) 50 Take 50 mg by 0 MG tablet mouth 4 (four) times daily. Active senna-docusate (SENOKOT Take 1 tablet 0 S) 8.6-50 mg per tablet by mouth daily. Active traZODone (DESYREL) 100 Take 100 mg 0 MG tablet by mouth nightly. Active omeprazole (PRILOSEC) 20 Take 2 30 capsule 0 01/04/201 MG capsule capsules (40 4 mg total) by mouth daily. Active Problems Problem Noted Date Upper GI bleeding 01/04/2014 GI bleed 01/01/2014 Social History Date Tobacco Use Types Packs/Day Years Used Current Some Day Smoker Smokeless Tobacco: Never Used Alcohol Use Drinks/Week oz/Week Comments No Sex Assigned at Date Recorded Not on file Industry Job Start Date Occupation Not on file Not on file Not on file Travel End Travel History Travel Start No recent travel history available. Last Filed Vital Signs Not on file Plan of Treatment Not on file Results Not on fileafter 10/30/2017 Insurance Payer Benefit Subscriber ID Type Phone Address Plan / Group [facility] x[facility]xx MEDICARE ADV MEDICAID MEDICAID xxxxxxxxx Medicaid OF [place] Advance Directives For more information, please contact: [facility] [address] [place] [address] 281 Date Inactivated Comments Code Status Date Activated 01/04/2014 9:34 PM All possible means of support, including: cardiac massage, mechanical ventilation, and defibrillation will be used to support life. Code ONE 01/04/2014 4:55 PM
[2018-10-31 15:11] LABS: BILIRUBIN,URINE NEGATIVE (NEGATIVE); CLARITY,URINE HAZY (CLEAR); COLOR,URINE YELLOW (YELLOW); KETONES,URINE NEGATIVE (NEGATIVE); LEUKOCYTE ESTERASE ,URINE 1+ (NEGATIVE); NITRITE,URINE POSITIVE (NEGATIVE); PROTEIN,URINE DIPSTICK 2+ (NEGATIVE); URINE UROBILINOGEN 0.2 mg/dL (0.2 - 1)
[2018-10-31] MEDS ORDERED: HYDRALAZINE HCL 20 MG/ML VIAL IV ONE (15:15)
[2018-10-31] MEDS ORDERED: HYOSCYAMINE SULFATE 0.5 MG/ML INJ IV ONE (15:15)
[2018-10-31] MEDS ORDERED: SODIUM CHLORIDE 0.9% 1000ML 1,000 ML IV ONE (15:15)
[2018-10-31 15:22] LABS: AMORPHOUS SEDIMENT,URINE FEW (FEW); BACTERIA,URINE MANY /HPF; EPITHELIAL CELLS,URINE RARE /LPF; RBC,URINE 21-50 /HPF (0-5); WBC,URINE (MAN) 21-50 /HPF (0-5)
[2018-10-31 15:34] LABS: BASOPHILS % 0.5 % (0.0-1.0); EOSINOPHILS # (AUTO) 0.1 (0.0-0.4); EOSINOPHILS % 1.3 % (0.0-6.0); HEMATOCRIT 27.8 % (34.2-44.1); HEMOGLOBIN 9.4 g/dL (12.0-16.0); LYMPHOCYTES # (AUTO) 0.8 (1.0-3.2); LYMPHOCYTES % 10.1 % (18.0-39.1); MEAN CORPUSCULAR HEMOGLOBIN 32.5 pg (28-32); MEAN CORPUSCULAR HGB CONC 33.8 g/dL (31-35); MEAN CORPUSCULAR VOLUME 96.2 fL (81-99); MONOCYTES # (AUTO) 0.5 (0.2-0.8); PLATELET COUNT 160 x10e3/uL (140-360); RED BLOOD COUNT 2.89 x10e6/uL (3.6-5.1); RED CELL DISTRIBUTION WIDTH 17.8 % (11.7-14.4)
[2018-10-31 15:49] LABS: ALBUMIN 3.5 g/dL (3.5-5.0); ALBUMIN/GLOBULIN RATIO 1.3 (0.8-2.0); ANION GAP 14.1 mmol/L (8-16); CALCIUM 9.1 mg/dL (8.4-10.2); CREATININE, SERUM 2.54 mg/dL (0.57-1.11); POTASSIUM 4.1 mmol/L (3.5-5.1)
[2018-10-31] MEDS ORDERED: ONDANSETRON HCL INJ 2MG/ML 2ML 2 MG/ML VIAL IV STA (16:02)
[2018-10-31] MEDS ORDERED: CEFTRIAXONE SOD 1 GM/NS 50 ML 50 ML IV ONE (16:15)
[2018-10-31] MEDS ORDERED: NITROGLYCERIN 0.4 MG SUBL SL ONE (16:15)
[2018-10-31] MEDS ORDERED: SODIUM CHLORIDE 0.9% 1000ML 1,000 ML IV SCH (16:35)
[2018-10-31] MEDS ORDERED: SODIUM CHLORIDE FLUSH 10 ML SYR INJ PRN (16:45)
[2018-10-31] MEDS: CEFTRIAXONE SOD 1 GM/NS 50 ML 50 ML IV SCH (16:45)
[2018-10-31] MEDS ORDERED: ACETAMINOPHEN 325 MG TAB PO PRN (16:45)
[2018-10-31] MEDS ORDERED: ONDANSETRON HCL INJ 2MG/ML 2ML 2 MG/ML VIAL IV PRN (16:45)
[2018-10-31] MEDS ORDERED: HYDRALAZINE HCL 20 MG/ML VIAL IV PRN (16:45)
[2018-10-31] MEDS ORDERED: HYOSCYAMINE SULFATE 0.5 MG/ML INJ IV PRN (16:45)
--- OUTSIDE RECORDS SUMMARY | 2018-10-31 16:54 | XMS REPORT | Clinical Summary ---
Author Author RUTH [facility] Address Unknown Phone Unavailable Care Team Providers Care Life Skills Specialist Name Role Phone Glenn Strange MD PCP [...] ID Type Phone Address Plan / Group [facility] x[facility] MEDICARE ADV MEDICAID MEDICAID xxxxxxxxx Medicaid [place] Advance Directives For more information, please contact: [facility] [address] [place] [address] 150 Date Inactivated Comments Code Status Date Activated 01/04/2014 9:34 PM All possible means of support, including: cardiac massage, mechanical ventilation, and defibrillation will be used to support life. Code ONE 01/04/2014 4:55 PM
--- NOTE | 2018-10-31 17:07 | NUR ---
Report rec'd from ER nurseOrlando.
--- NOTE | 2018-10-31 17:22 | NUR ---
Pt rec'd to OBS 176; ambulated from stretcher to hospital bed without incident. AOx3, able to verbalize needs. Pt needing to urinate but refuses to get out of the bed. Explained that she has bedrest with bathroom privileges. Pt request urinary dong catheter. I explained that she has no medical necessity for a urinary dong catheter at this time. Pt states she does have a medical necessity, "the ER put all the water in my IV". Explained that is not a medical necessity and placing a dong will only increase risk for infection . Pt states she will use the bedpan, she does not want to walk to the toilet. Patient placed on toilet and states she needs pain medication for 10/10 pain. Patient's friend at bedside and has a bag with medicine in it and tells the patient that he has her pain medication. Explained to the patient's friend that the patient is not allowed to have any medications unless it has been reviewed and ordered by the attending physician. Patient and patient's friend verbalized understanding. VSS with even and unlabored respirations on 2L per NC, skin warm, pink with brisk cap refill; pulses present on all extremities. Limb alert to R arm. Call placed to attending physician to make aware of pt c/o 10/10 chest pain. Orders rec'd. Call placed to RT to request STAT 12 lead ekg.
[2018-10-31 17:37] VITALS: BP 175/77
[2018-10-31] MEDS ORDERED: ASPIRIN 81 MG CHEW TAB PO ONE (18:00)
--- NOTE | 2018-10-31 18:07 | NUR ---
EKG completed and pt is in NSR. Results read to attending physician.
[2018-10-31 18:14] VITALS: BP 175/75
[2018-10-31] MEDS ORDERED: CARVEDILOL 12.5 MG TAB PO SCH (18:30)
[2018-10-31 19:20] VITALS: BP 189/79
[2018-10-31] MEDS ORDERED: LOSARTAN POTAS100 MG PO (19:25)
[2018-10-31] MEDS ORDERED: TROSPIUM CHLORI20 MG PO (19:25)
[2018-10-31] MEDS ORDERED: ATORVASTATIN CA20 MG PO (19:25)
[2018-10-31] MEDS ORDERED: ALLOPURINOL300 MG PO (19:25)
[2018-10-31] MEDS ORDERED: PANTOPRAZOLE SO40 MG PO (19:25)
[2018-10-31 20:00] VITALS: BP 189/79
[2018-10-31] MEDS ORDERED: ASPIRIN 81 MG CHEW TAB ONE (22:35)
[2018-11-01] VITALS (7 sets, daily range): BP systolic 125–173; BP diastolic 60–73
[2018-11-01] MEDS: CEFTRIAXONE SOD 1 GM/NS 50 ML 50 ML IV SCH (04:23)
[2018-11-01 05:29] LABS: BASOPHILS % 0.5 % (0.0-1.0); EOSINOPHILS # (AUTO) 0.1 (0.0-0.4); EOSINOPHILS % 1.7 % (0.0-6.0); HEMATOCRIT 24.6 % (34.2-44.1); HEMOGLOBIN 8.2 g/dL (12.0-16.0); LYMPHOCYTES # (AUTO) 0.8 (1.0-3.2); LYMPHOCYTES % 12.7 % (18.0-39.1); MEAN CORPUSCULAR HGB CONC 33.3 g/dL (31-35); MEAN CORPUSCULAR VOLUME 96.1 fL (81-99); MONOCYTES # (AUTO) 0.6 (0.2-0.8); MONOCYTES % 9.3 % (4.4-11.3); NEUTROPHILS % 75.2 % (38.7-80.0); PLATELET COUNT 155 x10e3/uL (140-360); RED BLOOD COUNT 2.56 x10e6/uL (3.6-5.1); RED CELL DISTRIBUTION WIDTH 17.8 % (11.7-14.4)
[2018-11-01 05:52] LABS: ANION GAP 13.4 mmol/L (8-16); CALCIUM 8.7 mg/dL (8.4-10.2); CREATININE, SERUM 2.45 mg/dL (0.57-1.11); POTASSIUM 4.4 mmol/L (3.5-5.1)
[2018-11-01 06:12] LABS: CREATINE KINASE MB 0.8 ng/mL (0-5.0)
--- NOTE | 2018-11-01 07:48 | NUR ---
Patient is sitting up eating breakfast. She feels better than yesterday. She is on 2 L nasal cannula.
[2018-11-01] MEDS: METOPROLOL TARTRATE 50 MG TAB PO SCH ×2 (08:42→17:43)
[2018-11-01] MEDS ORDERED: LACTULOSE SYRUP 20 GM/30 ML UDC PO PRN (12:00)
[2018-11-01] MEDS ORDERED: DIATRIZOATE MEGL/DIATRIZOA SOD 30 ML BTL PO ONE (12:34)
--- NOTE | 2018-11-01 13:01 | NUR ---
MAINTENANCE MACHINIST INITIAL ASSESSMENT Control Valve Mechanic to bedside to discuss plan of care with patient/family. CM/SW role and care transitions discussed. Anticipated discharge plan discussed along with duration of care. CM/SW discussed patients right to make decisions in care. CM/SW work hours given. Patient lives: alone in an apartment, but her neighbor stays with her frequently. He is Jj Gruber [phone] Admit/Transfer: observation status POA/Emergency contact: Jj Gruber [phone] (friend) Current/Previous Home Health: no PCP/Follow-up Care: Dr. Glenn Gillespie Current/Previous DME: has a rolling walker and a cane Other Services: none Employment Status: retired Areas of Concerns: none Referral Needs: none Education Needs: none IMM/TANG given and signed (if applicable): TANG explained and verbalized understanding. Original on chart and copy to patient Goal for discharge: DC home w/o needs CM/SW left business card at the bedside with contact information. Name and number was also written on the patients whiteboard. Patient verbalized understanding of discussion. CM will follow-up with ongoing discharge and transition of care needs.
[2018-11-01] MEDS: LEVOTHYROXINE SODIUM 50 MCG TAB PO SCH (13:08)
[2018-11-01] MEDS: MEROPENEM 500MG/ NS 50ML 50 ML IV SCH (13:08)
[2018-11-01] MEDS: PRIMIDONE 50 MG TAB PO SCH (13:10)
[2018-11-01] MEDS: ISOSORBIDE MONONITRATE 30 MG TAB CR PO SCH (13:10)
[2018-11-01] MEDS: CITALOPRAM HYDROBROMIDE 20 MG TAB PO SCH (13:10)
[2018-11-01] MEDS: CLOPIDOGREL BISULFATE 75 MG TAB PO SCH (13:11)
[2018-11-01] MEDS: CHOLECALCIFEROL 1,000 UNIT TAB PO SCH (13:11)
[2018-11-01] MEDS: CALCITRIOL 0.25 MCG CAP PO SCH (13:11)
[2018-11-01] MEDS: ALLOPURINOL 300 MG TAB PO SCH (13:11)
--- NOTE | 2018-11-01 14:28 | Diagnostic Imaging Report ---
EXAM: CT Abdomen and Pelvis WITHOUT contrast INDICATION: Pain/fever COMPARISON: 08/23/2017 CT, no report available TECHNIQUE: Abdomen and Pelvis was scanned utilizing a multidetector helical scanner without the use of IV contrast. Coronal and sagittal reformations were obtained. IV CONTRAST: None COMPLICATIONS: None RADIATION DOSE: Total DLP: 442 mGy*cm Estimated effective dose: (DLP x 0.015 x size factor) mSv CTDIvol has been reviewed. It is below the limits set by the Radiation Protocol Committee (RPC). Appropriate CT dose reduction techniques were utilized. FINDINGS: Abdomen: Lung Bases: Atelectasis. Minimal pleural nodularity of doubtful clinical significance if there is no personal history of malignancy. Decreased attenuation cardiac blood pool suggesting anemia. Solid Organs: Increased density layering material in the gallbladder. Nonenhanced images of liver, adrenals, spleen, and pancreas unremarkable. Left kidney has a lobular/scarred appearance. There is a 22 mm lesions appear right kidney Hounsfield units of 11 and a 13 mm exophytic lesion Hounsfield units of 12, statistically cyst. More inferiorly there is a 21 mm exophytic lesion with indeterminate Hounsfield units of 26 and minimal surrounding stranding. 8 mm calcification central right kidney present, uncertain whether vascular or renal calculus. Upper GI Tract: No small bowel obstructive changes. Vascularity: Advanced aortic vascular calcifications with no aneurysm. Lymph Nodes: No suspicious adenopathy. Other: None. Pelvis: Bladder: Unremarkable. Other: Uterus absent. Colon: No acute colonic findings. Appendix not inflamed. Bones: Postsurgical changes L4-5 with degenerative changes lower lumbar spine. IMPRESSION: 1. Indeterminate exophytic lesion inferior right kidney with surrounding stranding. Findings similar to 08/23/[address] CT. Underlying malignancy or infectious process would be difficult to exclude on current nonenhanced exam. Renal mass CT or ultrasound could be obtained for further evaluation. 2. Layering increased density material gallbladder suggesting sludge and/or small stones. Clinical/laboratory correlation recommended. Ultrasound could be obtained if indicated. 3. See above for other findings. Signed by: Dr. Rio Duron MD on 11/01/2018 2:25 PM
[2018-11-01] MEDS: HYDRALAZINE HCL 25 MG TAB PO SCH ×2 (14:39→21:09)
[2018-11-01] MEDS: GABAPENTIN 100 MG CAP PO SCH ×2 (14:40→21:09)
--- NOTE | 2018-11-01 16:25 | NUR ---
Report was given to the Med Surg 3 nurse about the patient. Patient left the unit with no pain or discomfort. Patients belongings went with her to med surg 3.
[2018-11-01] MEDS: LACTOBACILLUS ACIDOPHILUS CAPSULE PO SCH (17:43)
[2018-11-01] MEDS ORDERED: TRAZODONE HCL 50 MG TAB PO SCH (21:00)
[2018-11-01] MEDS ORDERED: TIZANIDINE HCL 4 MG TAB PO SCH (21:00)
[2018-11-01] MEDS ORDERED: ATORVASTATIN 40 MG TAB PO SCH (21:00)
[2018-11-02] VITALS: BP 146/64
[2018-11-02 04:00] VITALS: BP 175/66
[2018-11-02 04:50] LABS: BASOPHILS % 0.7 % (0.0-1.0); EOSINOPHILS # (AUTO) 0.1 (0.0-0.4); EOSINOPHILS % 2.4 % (0.0-6.0); HEMOGLOBIN 8.1 g/dL (12.0-16.0); LYMPHOCYTES # (AUTO) 0.9 (1.0-3.2); LYMPHOCYTES % 15.9 % (18.0-39.1); MEAN CORPUSCULAR HEMOGLOBIN 33.9 pg (28-32); MEAN CORPUSCULAR HGB CONC 35.4 g/dL (31-35); MEAN CORPUSCULAR VOLUME 95.8 fL (81-99); MONOCYTES # (AUTO) 0.6 (0.2-0.8); MONOCYTES % 9.6 % (4.4-11.3); NEUTROPHILS # (AUTO) 4.1 (2.1-6.9); NEUTROPHILS % 71.1 % (38.7-80.0); PLATELET COUNT 131 x10e3/uL (140-360); RED BLOOD COUNT 2.39 x10e6/uL (3.6-5.1); RED CELL DISTRIBUTION WIDTH 17.7 % (11.7-14.4)
[2018-11-02 04:52] LABS: HEMATOCRIT 22.9 % (34.2-44.1)
[2018-11-02 05:07] LABS: ANION GAP 13.4 mmol/L (8-16); CALCIUM 8.9 mg/dL (8.4-10.2); CREATININE, SERUM 2.16 mg/dL (0.57-1.11); POTASSIUM 4.4 mmol/L (3.5-5.1)
[2018-11-02] MEDS: LEVOTHYROXINE SODIUM 50 MCG TAB PO SCH (05:13)
[2018-11-02 05:32] LABS: THYROID STIMULATING HORMONE 1.133 uIU/mL (0.350-4.940)
--- NOTE | 2018-11-02 06:47 | NUR ---
Report given to JUDITH Erazo.
[2018-11-02] MEDS ORDERED: PANTOPRAZOLE SOD 40 MG TABEC PO SCH (07:30)
[2018-11-02 08:00] VITALS: BP 162/72
[2018-11-02] MEDS: MEROPENEM 500MG/ NS 50ML 50 ML IV SCH (08:33)
[2018-11-02] MEDS: CITALOPRAM HYDROBROMIDE 20 MG TAB PO SCH (08:35)
[2018-11-02] MEDS: HYDRALAZINE HCL 25 MG TAB PO SCH (08:35)
[2018-11-02] MEDS: ISOSORBIDE MONONITRATE 30 MG TAB CR PO SCH (08:35)
[2018-11-02] MEDS: CLOPIDOGREL BISULFATE 75 MG TAB PO SCH (08:36)
[2018-11-02] MEDS: LACTOBACILLUS ACIDOPHILUS CAPSULE PO SCH (08:36)
[2018-11-02] MEDS: GABAPENTIN 100 MG CAP PO SCH (08:36)
[2018-11-02] MEDS: ALLOPURINOL 300 MG TAB PO SCH (08:36)
[2018-11-02] MEDS: METOPROLOL TARTRATE 50 MG TAB PO SCH (08:36)
[2018-11-02] MEDS: CHOLECALCIFEROL 1,000 UNIT TAB PO SCH (08:36)
[2018-11-02] MEDS: CALCITRIOL 0.25 MCG CAP PO SCH (08:36)
[2018-11-02] MEDS: PRIMIDONE 50 MG TAB PO SCH (08:36)
[2018-11-02] MEDS ORDERED: TROSPIUM CHLORIDE 60 MG PO SCH (09:00)
[2018-11-02 09:37] VITALS: BP 162/72
[2018-11-02 11:41] VITALS: BP 169/74
[2018-11-02] MEDS ORDERED: HYDRALAZINE HCL10 MG PO (12:40)
[2018-11-02] MEDS ORDERED: HYDRALAZINE HCL 25 MG TAB PO SCH (15:00)
--- NOTE | 2018-11-02 16:54 | Discharge Summary ---
[facility]: Urinary tract infection due to strep viridans. SECONDARY DIAGNOSES 1. Right exophytic renal mass, stable. 2. Chronic kidney disease stage 4, stable. 3. Uncontrolled hypertension, better. 4. Chronic anemia. 5. History of kidney stones. 6. History of breast cancer. 7. Hypothyroidism. 8. History of stroke. 9. Possible gallbladder sludge or stone. CONSULTANTS: None. PROCEDURES/STUDIES PERFORMED: CT of the abdomen and pelvis. HISTORY: Per H and P. HOSPITAL COURSE: Patient responded to IV antibiotics well. Patient has had ESBL E. coli in the urine in the past; therefore, the patient was getting renal dosed meropenem; however, she will go home on Keflex, renal dose for 7 more days. As far as her possible gallbladder sludge was still, patient is asymptomatic. No right upper quadrant pain. Patient is tolerating p.o. and her LFTs are normal. I have informed her PCP. We will continue to monitor her as an outpatient as far as her right kidney mass, this is stable since August 2017, which is [id number], but is reassuring. Her primary care doctor will arrange followup with urologist as an outpatient. We also do need to monitor her hemoglobin especially given the fact that she is on Plavix. As far as her uncontrolled hypertension, I will go ahead and increase her hydralazine to 100 mg 3 times a day. If this does not help, she may need nifedipine. Patient was seen and examined today. CONDITION ON DISCHARGE: Improved. DISCHARGE MEDICATIONS: Please see medication reconciliation form. MARIBEL BALLESTEROS M.D. Job#: [id number] GIANNA cc:DR. GLENN YATES
== END 2018-11-02 12:51 | disposition home or self-care (01) ==
LOC: ER 14:03 → ERHOLD 16:51 → IMCU 17:22
PROVIDERS: ADMIT Internal Medicine; ATTEND Internal Medicine
DX: N39.0 Urinary tract infection, site not specified (principal); B96.20 Unspecified Escherichia coli [E. coli] as the cause of diseases classified elsewhere; Z16.12 Extended spectrum beta lactamase (ESBL) resistance; D64.9 Anemia, unspecified; I12.9 Hypertensive chronic kidney disease with stage 1 through stage 4 chronic kidney disease, or unspecified chronic kidney disease; N18.4 Chronic kidney disease, stage 4 (severe); N28.89 Other specified disorders of kidney and ureter; E03.9 Hypothyroidism, unspecified; Z86.73 Personal history of transient ischemic attack (TIA), and cerebral infarction without residual deficits
CPT/HCPCS: 36415 ×3; 74176; 80048 ×2; 80053; 81001; 82550; 82553; 83605; 84443; 84484; 85025 ×3; 87086; 87400; 93005; 97110; 97161; 99284; G0378 ×3; J0360 ×2; J0696 ×2; J1980; J2405; J7030; S0164

== ENCOUNTER 2019-04-02 16:16 | Emergency (ER) | payer MEDICARE, OTHER ==
[~2019-04-02] VITALS: Ht 315 cm; Wt 68.9 kg
[~2019-04-02 16:16] MED LIST changes: +ATORVASTATIN CA20 MG PO; +HYDRALAZINE HCL10 MG PO; +PANTOPRAZOLE SO40 MG PO; +TROSPIUM CHLORI20 MG PO
--- OUTSIDE RECORDS SUMMARY | 2019-04-02 16:20 | XMS REPORT | Clinical Summary ---
Author Author RUTH [facility] Address Unknown Phone Unavailable Care Team Providers Care Still Operator Brandy Name Role Phone Glenn Strange MD PCP Unavailable Allergies Comments Active Allergy Reactions Severity Noted Date Adhesive Bandage Shortness Of High 01/01/2014 Breath Latex Shortness Of High 01/01/2014 Breath Black stool Levofloxacin 01/01/2014 Feet got swollen Amlodipine Swelling Medium 04/01/2019 Penicillins Hives 01/01/2014 Sulfa (Sulfonamide Swelling 01/01/2014 Antibiotics) Medications End Date Status Medication Sig Dispensed Refills Start Date Suspended allopurinol (ZYLOPRIM) Take 300 mg 0 300 MG tablet by mouth daily. Suspended albuterol, refill, 90 Inhale by 0 mcg/actuation Aero mouth via inhaler. Suspended benzonatate (TESSALON) Take 100 mg 0 100 MG capsule by mouth 3 (three) times daily as needed. Suspended cholecalciferol, vitamin Take 4,000 0 D3, 2,000 unit Tab Units by mouth daily . Suspended citalopram (CELEXA) 20 MG Take 20 mg by 0 tablet mouth daily. Suspended clonazePAM (KLONOPIN) 0.5 Take 0.5 mg 0 MG tablet by mouth 2 (two) times daily as needed. Suspended fluticasone (FLONASE) 50 1 spray by 0 mcg/actuation nasal spray Nasal route daily. Suspended fluticasone-salmeterol Inhale 1 puff 0 (ADVAIR) 250-50 mcg/dose by mouth via diskus inhaler inhaler every 12 (twelve) hours. Suspended furosemide (LASIX) 80 MG Take 40 mg by 0 tablet mouth 2 (two) times daily . Suspended gabapentin (NEURONTIN) Take 100 mg 0 100 MG capsule by mouth 3 (three) times daily. Suspended gemfibrozil (LOPID) 600 Take 600 mg 0 MG tablet by mouth 2 (two) times daily before meals. Suspended potassium chloride Take 10 mEq 0 (KLOR-CON) 10 MEQ CR by mouth tablet daily. Suspended levothyroxine (SYNTHROID, Take 50 mcg 0 LEVOTHROID) 50 MCG tablet by mouth daily. Suspended hydrocortisone Place 0 (ANUSOL-HC) 2.5 % rectal rectally 2 cream (two) times daily as needed . Suspended losartan (COZAAR) 50 MG Take 50 mg by 0 tablet mouth daily. Suspended metoprolol (TOPROL-XL) Take 100 mg 0 100 MG 24 hr tablet by mouth daily. Suspended NIFEdipine (ADALAT CC) 60 Take 60 mg by 0 MG 24 hr tablet mouth daily. Suspended primidone (MYSOLINE) 50 Take 50 mg by 0 MG tablet mouth 4 (four) times daily. Suspended senna-docusate (SENOKOT Take 1 tablet 0 S) 8.6-50 mg per tablet by mouth daily as needed . Suspended traZODone (DESYREL) 100 Take 100 mg 0 MG tablet by mouth nightly. Suspended omeprazole (PRILOSEC) 20 Take 2 30 capsule 0 01/04/ MG capsule capsules (40 4 mg total) by mouth daily. Suspended clopidogrel (PLAVIX) 75 Take 75 mg by 0 mg tablet mouth. 9 Suspended atorvastatin (LIPITOR) 20 Bedtime 0 MG tablet Suspended pantoprazole (PROTONIX) Take 40 mg by 0 40 MG tablet mouth daily. Suspended hydrALAZINE (APRESOLINE) TAKE ONE (1) 11 25 MG tablet TABLET(S) BY 9 MOUTH THREE TIMES A DAY. Suspended hydrALAZINE (APRESOLINE) TAKE ONE (1) 0 100 MG tablet TABLET(S) BY 9 MOUTH THREE TIMES A DAY. Suspended hydrALAZINE (APRESOLINE) TAKE 1 (ONE) 2 50 MG tablet TABLET BY 9 MOUTH 2 TIMES DAILY Suspended cephalexin (KEFLEX) 500 TAKE ONE (1) 0 MG capsule CAPSULE(S) BY 9 MOUTH TWICE A DAY FOR SEVEN DAYS. Suspended ipratropium-albuterol Inhale by 0 (DUO-NEB) 0.5 mg-3 mg(2.5 mouth via mg base)/3 mL nebulizer inhaler. solution Suspended azelastine (ASTELIN) 137 USE TWO (2) 99 mcg (0.1 %) nasal spray SPRAYS IN 8 EACH NOSTRIL AT BEDTIME. Suspended tiZANidine (ZANAFLEX) 2 Take 2 mg by 0 MG tablet mouth. Suspended trospium ER (SANCTURA) 60 TAKE ONE (1) 3 mg Cp24 capsule CAPSULE(S) BY 9 MOUTH DAILY. Suspended isosorbide mononitrate TAKE ONE (1) 3 (IMDUR) 30 MG 24 hr TABLET(S) BY 8 tablet MOUTH DAILY. Suspended metoprolol (LOPRESSOR) Take 100 mg 0 100 MG tablet by mouth. 9 Suspended lactulose (CHRONULAC) 10 TAKE TWO (2) 1 gram/15 mL solution TABLESPOONFUL 8 (S) BY MOUTH EVERY SIX HOURS NEEDED FOR CONSTIPATION. Suspended docusate sodium (COLACE) Take 100 mg 0 100 MG capsule by mouth. Suspended triamcinolone (KENALOG) APPLY TWICE A 0 0.1 % topical ointment DAY TO 9 AFFECTED AREAS UP TO TWO WEEKS. NOT FOR FACE, GROIN, OR ARMPITS Suspended calcitriol (ROCALTROL) Take 0.25 mcg 3 0.25 MCG capsule by mouth 9 daily. Suspended PROAIR HFA 90 INHALE TWO 99 mcg/actuation inhaler (2) PUFFS BY 9 MOUTH EVERY 6 HOURS NEEDED FOR WHEEZING OR SHORTNESS OF BREATH. Suspended metoprolol (LOPRESSOR) 50 Take 50 mg by 0 MG tablet mouth 2 (two) times daily. Suspended petrolatum-mineral oil Apply 0 (MINERAL OIL-HYDROPHILIC topically as PETROLATUM) Oint topical needed. ointment Suspended ketoconazole (NIZORAL) 2 Apply 0 % shampoo topically every other day. Suspended lidocaine (XYLOCAINE) 2 % Apply 0 jelly topically 3 (three) times daily. Suspended camphor-menthol (SARNA) Apply 0 0.5-0.5 % lotion topically as needed for Itching. Active Problems Problem Noted Date Dyspnea, unspecified type 11/05/2018 Upper GI bleeding 01/04/2014 GI bleed 01/01/2014 Encounters Care Team Description Date Type Specialty Carlos Pena MD CKD (chronic kidney disease), symptom management only, stage 5 (HCC) 04/01/2019 Hospital Radiology Encounter Carlos Pena MD Chronic kidney disease, stage IV (severe) (HCC) (Primary Dx) 03/30/2019 Outside Orders Central Scheduling Carlos Pena MD CKD (chronic kidney disease), symptom management only, stage 5 (HCC) (Primary Dx) 03/25/2019 Outside Orders Central Scheduling José Schafer MD Rehman, Javed, MD Conley-Harvey, Cherice Michelle, MD Dyspnea, unspecified type (Primary Dx); Elevated d-dimer; Chronic kidney disease, unspecified CKD stage 11/05/2018 [facility] General Internal Medicine - Encounter 11/07/2018 11/05/2018 Orders Only General Internal Medicine 11/05/2018 Travel after 04/01/2018 Social History Date Tobacco Use Types Packs/Day Years Used Quit: 08/07/2018 Former Smoker 0.25 4 Smokeless Tobacco: Never Used Alcohol Use Drinks/Week oz/Week Comments No Sex Assigned at Date Recorded Not on file Industry Job Start Date Occupation Not on file Not on file Not on file Travel End Travel History Travel Start No recent travel history available. Last Filed Vital Signs Time Taken Vital Sign Reading 04/01/2019 10:05 AM CDT Blood Pressure 125/71 04/01/2019 10:05 AM CDT Pulse 63 04/01/2019 8:00 AM CDT Temperature 36.4 C (97.5 F) 04/01/2019 10:05 AM CDT Respiratory Rate 16 04/01/2019 10:05 AM CDT Oxygen Saturation 98% - Inhaled Oxygen - Concentration 11/06/2018 1:52 AM RECOVERY OPERATOR Weight 68 kg (150 lb) 11/06/2018 1:52 AM RECOVERY OPERATOR Height 162.6 cm (5' 4") 11/06/2018 1:52 AM RECOVERY OPERATOR Body Mass Index 25.75 Plan of Treatment Not on file Procedures * The patient is currently admitted. The information in this section might not be complete until the patient is discharged. Comments Procedure Name Priority Date/Time Associated Diagnosis IR PORT-A-CATH PLACEMENT Routine 04/01/2019 CKD (chronic kidney 9:38 AM CDT disease), symptom management only, stage 5 (HCC) CBC W/PLT COUNT & AUTO Routine 04/01/2019 DIFFERENTIAL 6:42 AM CDT APTT Routine 04/01/2019 6:42 AM CDT PROTHROMBIN TIME/INR Routine 04/01/2019 6:42 AM CDT CBC W/PLT COUNT & AUTO Routine 04/01/2019 DIFFERENTIAL 6:42 AM CDT RHYTHM STRIP - SCAN 01/09/2019 10:30 AM CDT RHYTHM STRIP - SCAN 11/24/2018 8:31 AM RECOVERY OPERATOR CBC W/PLT COUNT & AUTO Routine 11/07/2018 DIFFERENTIAL 5:47 AM RECOVERY OPERATOR CBC W/PLT COUNT & AUTO Routine 11/07/2018 DIFFERENTIAL 5:47 AM RECOVERY OPERATOR BASIC METABOLIC PANEL (7) Routine 11/07/2018 5:47 AM RECOVERY OPERATOR B-TYPE NATRIURETIC FACTOR Routine 11/07/2018 (BNP) 5:47 AM RECOVERY OPERATOR HEMOGLOBIN AND HEMATOCRIT Routine 11/06/2018 6:15 PM RECOVERY OPERATOR VENOUS DOPPLER LEGS Routine 11/06/2018 BILATERAL 2:53 PM RECOVERY OPERATOR NM LUNG SCAN PERFUSION STAT 11/06/2018 PARTICULATE VENT 1:03 PM RECOVERY OPERATOR APTT Routine 11/06/2018 12:12 PM RECOVERY OPERATOR CBC W/PLT COUNT & AUTO Routine 11/06/2018 DIFFERENTIAL 10:38 AM RECOVERY OPERATOR CBC W/PLT COUNT & AUTO Routine 11/06/2018 DIFFERENTIAL 10:38 AM RECOVERY OPERATOR APTT Routine 11/06/2018 10:30 AM RECOVERY OPERATOR BASIC METABOLIC PANEL (7) Routine 11/06/2018 10:30 AM RECOVERY OPERATOR APTT STAT 11/06/2018 3:14 AM RECOVERY OPERATOR ED ECG INTERPRETATION Routine 11/05/2018 8:19 PM RECOVERY OPERATOR D-DIMER STAT 11/05/2018 7:20 PM RECOVERY OPERATOR RAPID TROPONIN I STAT 11/05/2018 7:20 PM RECOVERY OPERATOR ECG 12-LEAD Routine 11/05/2018 4:57 PM RECOVERY OPERATOR Procedure Note - Interface, External Ris In - 11/05/2018 6:25 PM RECOVERY OPERATOR Ventricula r Rate 59 BPM Atrial Rate 59 BPM P-R Interval 198 ms QRS Duration 82 ms Q-T Interval 434 ms QTC Calculatio n(Bazett) 429 ms P Laurier 29 degrees R Laurier 8 degrees T Laurier 11 degrees Sinus bradycardi a Minimal voltage criteria for LVH, may be normal variant ST abnormalit y, possible digitalis effect Abnormal ECG When compared with ECG of 2 13:36, T wave inversion now evident in Inferior leads T wave amplitude has increased in Anterior leads ECG 12-LEAD STAT 11/05/2018 4:57 PM RECOVERY OPERATOR XR CHEST 2 VIEWS STAT 11/05/2018 4:34 PM RECOVERY OPERATOR CBC W/PLT COUNT & AUTO STAT 11/05/2018 DIFFERENTIAL 4:30 PM RECOVERY OPERATOR RAPID TROPONIN I STAT 11/05/2018 4:30 PM RECOVERY OPERATOR PT/APTT STAT 11/05/2018 4:30 PM RECOVERY OPERATOR B-TYPE NATRIURETIC FACTOR STAT 11/05/2018 (BNP) 4:30 PM RECOVERY OPERATOR BASIC METABOLIC PANEL (7) STAT 11/05/2018 4:30 PM RECOVERY OPERATOR CBC W/PLT COUNT & AUTO STAT 11/05/2018 DIFFERENTIAL 4:30 PM RECOVERY OPERATOR after 04/01/2018 Results * IR Port-a-Cath Placement (04/01/2019 9:38 AM CDT) Specimen Narrative Performed At FINAL REPORT [facility] Tunneled dialysis catheter insertion: Pertinent clinical information: Requiring dialysis Modality: Sonography and fluoroscopy Conscious Sedation: Fentanyl 25 mcg intravenously During the procedure with conscious sedation, the patient was monitored continuously with pulse oximetry and electrocardiography by the attending physician and registered nurse. Physician Patient face to face intraservice time:40 minutes Antibiotics: Vancomycin 1 g intravenously Anesthesia:Two percent Lidocaine injected subcutaneously at the insertion site and tunnel. Approach: Right internal jugular vein Fluoro time (in minutes) and number of images: 0.4 minutes. Four images For maximum sterile barrier protection a mask, cap, sterile gloves, sterile drape, sterile gown, and a cutaneous antiseptic was utilized. Technique:After informed written consent was obtained, the patient was prepped and draped in the usual sterile manner.Access was obtained using sonographic guidance. Ultrasound was utilized to decrease the risk of hematoma and avoid unnecessary punctures. Ultrasound documented the vein to be patent. The right internal jugular vein was catheterized utilizing ultrasound guidance and the localization image was saved to PACS.A guide wirewas advanced centrally.A 19 cm Duraflow catheter was advanced with its distal tip terminating in theright atrium as documented by fluoroscopy. The ports were flushed and aspirated easily following placement.A subcutaneous tunnel was created in the right anterior chest wall by blunt dissection. The catheter was sutured to the skin to secure its placement.A small jugular incision site was closed using 2.0 chromic suture.Vital signs were monitored throughout the procedure by a nurse, and remained stable.The patient tolerated the procedure well and left the department in the same condition. Results:Spot radiograph of the chest demonstrates the new dialysis catheter to lie in the expected position with its tip overlying the right atrium. Impression: Successful, uncomplicated placement of a right internal jugular tunneled dialysis catheter using ultrasound.Fluoroscopy guidance was also utilized . Signed: Olga Kelly MD Report Verified Date/Time:04/01/2019 17:20:42 Reading Location: [place] [address] Angio Body Reading Room Procedure Note Interface, External Ris In - 04/01/2019 5:23 PM CDT FINAL REPORT Tunneled dialysis catheter insertion: Pertinent clinical information: Requiring dialysis Modality: Sonography and fluoroscopy Conscious Sedation: Fentanyl 25 mcg intravenously During the procedure with conscious sedation, the patient was monitored continuously with pulse oximetry and electrocardiography by the attending physician and registered nurse. Physician Patient face to face intraservice time: 40 minutes Antibiotics: Vancomycin 1 g intravenously Anesthesia: Two percent Lidocaine injected subcutaneously at the insertion site and tunnel. Approach: Right internal jugular vein Fluoro time (in minutes) and number of images: 0.4 minutes. Four images For maximum sterile barrier protection a mask, cap, sterile gloves, sterile drape, sterile gown, and a cutaneous antiseptic was utilized. Technique: After informed written consent was obtained, the patient was prepped and draped in the usual sterile manner. Access was obtained using sonographic guidance. Ultrasound was utilized to decrease the risk of hematoma and avoid unnecessary punctures. Ultrasound documented the vein to be patent. The right internal jugular vein was catheterized utilizing ultrasound guidance and the localization image was saved to PACS. A guide wire was advanced centrally. A 19 cm Duraflow catheter was advanced with its distal tip terminating in the right atrium as documented by fluoroscopy. The ports were flushed and aspirated easily following placement. A subcutaneous tunnel was created in the right anterior chest wall by blunt dissection. The catheter was sutured to the skin to secure its placement. A small jugular incision site was closed using 2.0 chromic suture. Vital signs were monitored throughout the procedure by a nurse, and remained stable. The patient tolerated the procedure well and left the department in the same condition. Results: Spot radiograph of the chest demonstrates the new dialysis catheter to lie in the expected position with its tip overlying the right atrium. Impression: Successful, uncomplicated placement of a right internal jugular tunneled dialysis catheter using ultrasound. Fluoroscopy guidance was also utilized . Signed: Olga Kelly MD Report Verified Date/Time: 04/01/2019 17:20:42 Reading Location: [place] [address] Angio Body Reading Room Performing Organization Address City/State/Zipcode Phone Number [facility] * CBC with platelet count + automated diff (04/01/2019 6:42 AM CDT) Only the most recent of 4 results within the time period is included. WBC 6.2 3.5 - 10.5 K/L [facility] RBC 2.09 (L) 3.93 - 5.22 M/L [facility] Hemoglobin 6.7 (L) 11.2 - 15.7 GM/DL [facility] Hematocrit 21.4 (L) 34.1 - 44.9 % [facility] MCV 102.4 (H) 79.4 - 94.8 fL [facility] MCH 32.1 25.6 - 32.2 pg [facility] MCHC 31.3 (L) 32.2 - 35.5 GM/DL [facility] RDW 18.3 (H) 11.7 - 14.4 % [facility] Platelets 249 150 - 450 K/CU MM [facility] MPV 11.3 9.4 - 12.3 fL [facility] nRBC 0 0 - 0 /100 WBC [facility] % Neutros 74 % [facility] % Lymphs 13 % [facility] % Monos 10 % [facility] % Eos 3 % [facility] % Baso 1 % [facility] # Neutros 4.58 1.56 - 6.13 K/L [facility] # Lymphs 0.78 (L) 1.18 - 3.74 K/L [facility] # Monos 0.61 (H) 0.24 - 0.36 K/L [facility] # Eos 0.19 0.04 - 0.36 K/L [facility] # Baso 0.03 0.01 - 0.08 K/L [facility] Immature 1 0 - 1 % [facility] Granulocytes-[facility] Specimen Blood Performing Organization Address City/State/Zipcode Phone Number [facility] [address] [place] [address] MEDICAL CENTER * aPTT (04/01/2019 6:42 AM CDT) Only the most recent of 4 results within the time period is included. PTT 32.9 22.5 - 36.0 seconds [facility] Specimen Blood Performing Organization Address City[facility] [place] [address] [phone] [place] [address] * Prothrombin time/INR (04/01/2019 6:42 AM CDT) Protime 13.3 11.9 - 14.2 seconds [facility] INR 1.1 <=5.9 [facility] Specimen Blood Narrative Performed At Effective 03/04/2019: PT Reference Range Change [facility] New: 11.9-14.2Previous: 11.7-14.7 [facility] RECOMMENDED COUMADIN/WARFARIN INR THERAPY RANGES STANDARD DOSE: 2.0-3.0Includes: PROPHYLAXIS for venous thrombosis, systemic embolization; TREATMENT for venous thrombosis and/or pulmonary embolus. HIGH RISK: Target INR is 2.5-3.5 for patients wiht mechanical heart valves. Performing Organization Address [facility] Phone Number [address] * RHYTHM STRIP - SCAN (01/09/2019 10:30 AM CDT) Only the most recent of 2 results within the time period is included. Narrative Performed At * B-type Natriuretic Factor (BNP) (11/07/2018 5:47 AM RECOVERY OPERATOR) Only the most recent of 2 results within the time period is included. BNP 807 (H) 0 - 100 pg/mL [facility] Specimen Blood Performing Organization Address [facility] Phone Number [address] [address] [phone] [place] [address] * Basic Metabolic Panel (11/07/2018 5:47 AM RECOVERY OPERATOR) Only the most recent of 3 results within the time period is included. Sodium 134 (L) 136 - 145 meq/L [facility] Potassium 4.1 3.5 - 5.1 meq/L [facility] Chloride 105 98 - 107 meq/L [facility] CO2 22 22 - 29 meq/L [facility] BUN 40 (H) 7 - 21 mg/dL [facility] Creatinine 2.43 (H) 0.57 - 1.25 mg/dL [facility] Glucose 87 70 - 105 mg/dL [facility] Calcium 9.3 8.4 - 10.2 mg/dL [facility] EGFR 20Comment: ESTIMATED GFR IS mL/min/1.73 sq m [facility] NOT ACCURATE CREATININE [facility] CLEARANCE IN PREDICTING GLOMERULAR FILTRATION RATE. ESTIMATED GFR IS NOT APPLICABLE FOR DIALYSIS PATIENTS. Specimen Blood Performing Organization Address City/[facility] Phone Number [facility] [address] [place] [address] [facility] * Hemoglobin and hematocrit (11/06/2018 6:15 PM RECOVERY OPERATOR) Hemoglobin 8.6 (L) 11.2 - 15.7 GM/DL [facility] Hematocrit 27.1 (L) 34.1 - 44.9 % [facility] Specimen Blood Performing Organization Address City/[facility] Phone Number [facility] [address] [place] [address] [facility] * Venous doppler legs bilateral (11/06/2018 2:53 PM RECOVERY OPERATOR) Ejection Fraction [facility] MKCKESSON CPACS Specimen Impressions Performed At Right Impression [facility] 1. There is no deep venous obstruction in the common femoral, profunda MKCKESSON CPACS femoral, femoral, popliteal, posterior tibial or peroneal veins. 2. There is no superficial venous obstruction in the great saphenous vein. Left Impression 1. There is no deep venous obstruction in the common femoral, profunda femoral, femoral, popliteal, posterior tibial or peroneal veins. 2. There is no superficial venous obstruction in the great saphenous vein. Conclusions Summary Venous duplex imaging and compression of the bilateral lower extremities were performed. The veins were adequately visualized. The bilateral venous systems were patent and compressible with no evidence of thrombus. The venous Doppler waveforms were phasic with respiration. Signature Velocities are measured in cm/s ; Diameters are measured in cm Narrative Performed At PV [facility] - Lower Extremities DVT Study [facility] Patient NameNESHA CARPENTER Date of Study11/06/2018 Visit [id number] Female of Birth1945 [facility] [id number] Physician Foster Care Worker Wilda CappsInterpreting Naomie Kay MD RVT Physician Procedure Type of Study: Veins: Lower Extremities DVT Study, VENOUS DOPPLER LEG, BILATERAL. Indications for Study:Shortness of breath and elevated D-dimer. Patient Status:Routine. Study Location:Vascular Lab. Technical Quality:Adequate visualization. Risk Factors History of Disease + +----+ + !Diagnosis !Date!Comments! + +----+ + !History/Risk Factors: !!Breast cancer, HTN, TIA ! + +----+ + Procedure Note Interface, External Ris In - 11/06/2018 3:59 PM RECOVERY OPERATOR [facility] - Lower Extremities DVT Study Demographics Patient Name NESHA CARPENTER Date of Study 11/06/2018 Age 73 Visit Number [id number] Gender Female Accession Number [id number] Date of 1945 [facility] Room Number 922 Physician Foster Care Worker Wilda Capps Interpreting Naomie Kay MD RVT Physician Procedure Type of Study: Veins: Lower Extremities DVT Study, VENOUS DOPPLER LEG, BILATERAL. Indications for Study:Shortness of breath and elevated D-dimer. Patient Status:Routine. Study Location:Vascular Lab. Technical Quality:Adequate visualization. Risk Factors History of Disease + +----+ + !Diagnosis !Date!Comments ! + +----+ + !History/Risk Factors: ! !Breast cancer, HTN, TIA ! + +----+ + Impressions Right Impression 1. There is no deep venous obstruction in the common femoral, profunda femoral, femoral, popliteal, posterior tibial or peroneal veins. 2. There is no superficial venous obstruction in the great saphenous vein. Left Impression 1. There is no deep venous obstruction in the common femoral, profunda femoral, femoral, popliteal, posterior tibial or peroneal veins. 2. There is no superficial venous obstruction in the great saphenous vein. Conclusions Summary Venous duplex imaging and compression of the bilateral lower extremities were performed. The veins were adequately visualized. The bilateral venous systems were patent and compressible with no evidence of thrombus. The venous Doppler waveforms were phasic with respiration. Signature Velocities are measured in cm/s ; Diameters are measured in cm Performing Organization Address City/State[facility] Phone Number [facility] MKCKESSON CP[facility] * NM lung scan (V/Q) (11/06/2018 1:03 PM RECOVERY OPERATOR) Specimen Narrative Performed At FINAL REPORT [facility] PROCEDURE: V/Q LUNG SCAN CPT CODE: 34302 INDICATION: Dyspnea PROTOCOL: 10.9 mCi ofXe-133 gas was administered by inhalation. First breath and rebreathing/washout images were obtained in the anterior and the posterior projections.4.2 mCi of Tc-99m MAA was then injected intravenously, and static perfusion images were obtained in multiple projections. FINDINGS: Ventilation: Initial tracer distribution isirregularly decreased radiotracer uptake in the lower lung castellanos. Washout is moderately delayed. Perfusion:Tracer distribution is nonsegmentally decreased most notably in the mid left lung. IMPRESSION: 1. Low probability of acute pulmonary embolization. 2. Bilateral parenchymal abnormalities and air trapping consistent with COPD. Signed: Esther Kendrick MD Report Verified Date/Time:11/06/2018 14:11:21 Reading Location: [address] Reading Room Procedure Note Interface, External Ris In - 11/06/2018 2:13 PM RECOVERY OPERATOR FINAL REPORT PROCEDURE: V/Q LUNG SCAN CPT CODE: 08972 INDICATION: Dyspnea PROTOCOL: 10.9 mCi of Xe-133 gas was administered by inhalation. First breath and rebreathing/washout images were obtained in the anterior and the posterior projections. 4.2 mCi of Tc-99m MAA was then injected intravenously, and static perfusion images were obtained in multiple projections. FINDINGS: Ventilation: Initial tracer distribution is irregularly decreased radiotracer uptake in the lower lung castellanos. Washout is moderately delayed. Perfusion: Tracer distribution is nonsegmentally decreased most notably in the mid left lung. IMPRESSION: 1. Low probability of acute pulmonary embolization. 2. Bilateral parenchymal abnormalities and air trapping consistent with COPD. Signed: Esther Kendrick MD Report Verified Date/Time: 11/06/2018 14:11:21 Reading Location: [address] Reading Room Performing Organization Address City/State/Zipcode Phone Number GE RIS * ECG/EKG Interpretation (11/05/2018 8:19 PM RECOVERY OPERATOR) Narrative Performed At José Schafer MD 11/05/20188:25 PM ECG/EKG Interpretation Date/Time: 11/05/2018 8:21 PM Performed by: José Schafer MD Authorized by: José Schafer MD The ECG was interpreted by ED physician. The ECG is interpreted as sinus rhythm. Rate is bradycardic. Heart rate is 59 BPM. Conduction: conduction normal. ECG reviewed and does not meet STEMI criteria. * Rapid Troponin I ([facility] Only) (11/05/2018 7:20 PM RECOVERY OPERATOR) Only the most recent of 2 results within the time period is included. Rapid Troponin I <0.05 <0.05 ng/mL [facility], [facility] [place] Specimen Blood Performing Organization Address [facility] Phone Number [facility] [address], [place] [phone] [facility], [facility] [place] * D-dimer, quantitative (11/05/2018 7:20 PM RECOVERY OPERATOR) D-Dimer, Quant 1.72 (H) <0.50 MG/L FEU [facility], [facility] [place] Specimen Blood Narrative Performed At REGARDING D-DIMER RESULTS: Results of this D-Dimer test should always be [facility] interpreted in conjunction with the patient's medical history, clinical [facility] presentation and other findings. DVT clinical diagnosis should not be based on [place] the results of [facility] D-Dimer alone. [facility] Performing Organization Address [facility] Phone Number [address] [phone] [facility], [facility] * ECG 12 lead (11/05/2018 4:57 PM RECOVERY OPERATOR) Specimen Narrative Performed At Ventricular Rate 59 BPM GE MUSE Atrial Rate 59 BPM P-R Interval 198 ms QRS Duration 82 ms Q-T Interval 434 ms QTC Calculation(Bazett) 429 ms P Laurier 29 degrees R Laurier 8 degrees T Laurier 11 degrees Sinus bradycardia Minimal voltage criteria for LVH, may be normal variant Abnormal ECG When compared with ECG of 01-SEP-2012 13:36, T wave inversion now evident in Inferior leads T wave amplitude has increased in Anterior leads Confirmed by MD Hagen Roberto ([id number]) on 11/06/2018 9:53:11 AM Procedure Note Interface, External Ris In - 11/06/2018 9:53 AM RECOVERY OPERATOR Ventricular Rate 59 BPM Atrial Rate 59 BPM P-R Interval 198 ms QRS Duration 82 ms Q-T Interval 434 ms QTC Calculation(Bazett) 429 ms P Laurier 29 degrees R Laurier 8 degrees T Laurier 11 degrees Sinus bradycardia Minimal voltage criteria for LVH, may be normal variant Abnormal ECG When compared with ECG of 01-SEP-2012 13:36, T wave inversion now evident in Inferior leads T wave amplitude has increased in Anterior leads Confirmed by MD Xiao, Connor ([id number]) on 11/06/2018 9:53:11 AM Performing Organization Address City/[facility]/Zipcode Phone Number GE MUSE * XR chest 2 views (11/05/2018 4:34 PM RECOVERY OPERATOR) Specimen Narrative Performed At FINAL REPORT GE RIS History: Cough, shortness of breath Comparison: 01/01/2014, 09/01/2012 Findings: The lungs are clear. No pleural effusions or pneumothorax. The heart shadow is normal in size. A cardiac monitoring device is noted in the left anterior chest wall. The thoracic aorta is calcified. Scoliotic changes are present in the spine. Impression: No evidence of acute cardiopulmonary disease. Signed: Catrachita Cortez MD Report Verified Date/Time:11/05/2018 16:40:37 Reading Location: [facility] Radiology Reading Room Procedure Note Interface, External Ris In - 11/05/2018 4:42 PM RECOVERY OPERATOR FINAL REPORT History: Cough, shortness of breath Comparison: 01/01/2014, 09/01/2012 Findings: The lungs are clear. No pleural effusions or pneumothorax. The heart shadow is normal in size. A cardiac monitoring device is noted in the left anterior chest wall. The thoracic aorta is calcified. Scoliotic changes are present in the spine. Impression: No evidence of acute cardiopulmonary disease. Signed: Catrachita Cortez MD Report Verified Date/Time: 11/05/2018 16:40:37 Reading Location: [facility] Radiology Reading Room Performing Organization Address City/[facility] Phone Number GE RIS * PT/aPTT (11/05/2018 4:30 PM RECOVERY OPERATOR) Protime 10.1 9.8 - 12.0 seconds [facility], [facility] INR 0.9 <=5.[address] [facility], [facility] PTT 22.6 (L) 25.8 - 34.[address] [facility] [place] Specimen Blood Narrative Performed At RECOMMENDED COUMADIN/WARFARIN INR THERAPY RANGES [facility] STANDARD DOSE: 2.0 - 3.0 Includes: PROPHYLAXIS for venous thrombosis, [facility] systemic embolization; TREATMENT for venous thrombosis and/or pulmonary embolus. [facility] HIGH RISK: Target INR is 2.5-3.5 for patients with mechanical heart valves. [facility] Performing Organization Address City/State/Zipcode Phone Number [facility] [place] [address] [place] [address] [facility] [place] after 04/01/2018 Insurance Payer Benefit Subscriber ID Type Phone Address Plan / Group [employer] KELSEYCARE xxxxxxxxxxx MEDICARE ADV MEDICAID MEDICAID xxxxxxxxx Medicaid OF [place] Advance Directives For more information, please contact: [facility] [address] [place], [place] [phone] Date Inactivated Comments Code Status Date Activated 04/01/2019 5:59 AM Full Code 11/06/2018 3:06 AM This code status was determined by: Patient 01/04/2014 9:34 PM All possible means of support, including: cardiac massage, mechanical ventilation, and defibrillation will be used to support life. Code ONE 01/04/2014 4:55 PM
== END 2019-04-02 16:35 | disposition left against medical advice (07) ==
LOC: ER 16:16
DX: Z43.8 Encounter for attention to other artificial openings (principal)

== ENCOUNTER 2019-05-09 11:33 | Emergency (ER) | payer MEDICARE, OTHER ==
[~2019-05-09] VITALS: Ht 315 cm; Wt 68.9 kg
--- OUTSIDE RECORDS SUMMARY | 2019-05-09 11:37 | XMS REPORT | Clinical Summary ---
Author Author RUTH [facility] Address Unknown Phone Unavailable Care Team Providers Care Sane Nurse Name Role Phone Glenn Strange MD PCP [...] daily as needed. Active cholecalciferol, vitamin Take 4,000 0 D3, 2,000 unit Tab Units by mouth daily . Active citalopram (CELEXA) 20 MG Take 20 [...] hours. Active furosemide (LASIX) 80 MG Take 40 mg by 0 tablet mouth 2 (two) times daily . Active gabapentin (NEURONTIN) Take 100 mg 0 [...] cream (two) times daily as needed . Active losartan (COZAAR) 50 MG Take 50 [...] tablet by mouth daily as needed . Active traZODone (DESYREL) 100 Take 100 mg 0 MG tablet by mouth nightly. Active omeprazole (PRILOSEC) 20 Take 2 30 capsule 0 MG capsule capsules (40 4 mg total) by mouth daily. Active clopidogrel (PLAVIX) 75 Take 75 mg by 0 201 mg tablet mouth. 9 Active atorvastatin (LIPITOR) 20 Bedtime 0 MG tablet Active pantoprazole (PROTONIX) Take 40 mg by 0 40 MG tablet mouth daily. Active hydrALAZINE (APRESOLINE) TAKE ONE (1) 11 25 MG tablet TABLET(S) BY 9 MOUTH THREE TIMES A DAY. Active hydrALAZINE (APRESOLINE) TAKE ONE (1) 0 100 MG tablet TABLET(S) BY 9 MOUTH THREE TIMES A DAY. Active hydrALAZINE (APRESOLINE) TAKE 1 (ONE) 2 50 MG tablet TABLET BY 9 MOUTH 2 TIMES DAILY Active cephalexin (KEFLEX) 500 TAKE ONE (1) 0 MG capsule CAPSULE(S) BY 9 MOUTH TWICE A DAY FOR SEVEN DAYS. Active ipratropium-albuterol Inhale by 0 (DUO-NEB) 0.5 mg-3 mg(2.5 mouth via mg base)/3 mL nebulizer inhaler. solution Active azelastine (ASTELIN) 137 USE TWO (2) 99 mcg (0.1 %) nasal spray SPRAYS IN 8 EACH NOSTRIL AT BEDTIME. Active tiZANidine (ZANAFLEX) 2 Take 2 mg by 0 MG tablet mouth. Active trospium ER (SANCTURA) 60 TAKE ONE (1) 3 mg Cp24 capsule CAPSULE(S) BY 9 MOUTH DAILY. Active isosorbide mononitrate TAKE ONE (1) 3 (IMDUR) 30 MG 24 hr TABLET(S) BY 8 tablet MOUTH DAILY. Active metoprolol (LOPRESSOR) Take 100 mg 0 100 MG tablet by mouth. 9 Active lactulose (CHRONULAC) 10 TAKE TWO (2) 1 gram/15 mL solution TABLESPOONFUL 8 (S) BY MOUTH EVERY SIX HOURS NEEDED FOR CONSTIPATION. Active docusate sodium (COLACE) Take 100 mg 0 100 MG capsule by mouth. Active triamcinolone (KENALOG) APPLY TWICE A 0 0.1 % topical ointment DAY TO 9 AFFECTED AREAS UP TO TWO WEEKS. NOT FOR FACE, GROIN, OR ARMPITS Active calcitriol (ROCALTROL) Take 0.25 mcg 3 0.25 MCG capsule by mouth 9 daily. Active PROAIR HFA 90 INHALE TWO 99 mcg/actuation inhaler (2) PUFFS BY 9 MOUTH EVERY 6 HOURS NEEDED FOR WHEEZING OR SHORTNESS OF BREATH. Active metoprolol (LOPRESSOR) 50 Take 50 mg by 0 MG tablet mouth 2 (two) times daily. Active petrolatum-mineral oil Apply 0 (MINERAL OIL-HYDROPHILIC topically as PETROLATUM) Oint topical needed. ointment Active ketoconazole (NIZORAL) 2 Apply 0 % shampoo topically every other day. Active lidocaine (XYLOCAINE) 2 % Apply 0 jelly topically 3 (three) times daily. Active camphor-menthol (SARNA) Apply 0 0.5-0.5 % lotion [...] Chronic kidney disease, unspecified CKD stage 11/05/2018 [facility] General Internal Medicine - Encounter 11/07/2018 11/05/2018 Orders Only General Internal Medicine 11/05/2018 Travel after 05/08/2018 Social History Date Tobacco Use Types Packs/Day [...] Inhaled Oxygen - Concentration 11/06/2018 1:52 AM SUPERVISOR FINISHING Weight 68 kg (150 lb) 11/06/2018 1:52 AM [employer] FINISHING Height 162.6 cm (5' 4") 11/06/2018 1:52 AM [employer]PERVIS[employer] FINISHING Body Mass Index 25.75 Plan of Treatment Not on file Procedures Comments Procedure Name Priority Date/Time Associated Diagnosis [...] RHYTHM STRIP - SCAN 11/24/2018 8:31 AM [employer] FINISHING CBC W/PLT COUNT & AUTO Routine 11/07/2018 DIFFERENTIAL 5:47 AM [employer] FINISHING CBC W/PLT COUNT & AUTO Routine 11/07/2018 DIFFERENTIAL 5:47 AM [employer] FINISHING BASIC METABOLIC PANEL (7) Routine 11/07/2018 5:47 AM SUPERVISOR FINISHING B-TYPE NATRIURETIC FACTOR Routine 11/07/2018 (BNP) 5:47 AM [employer] FINISHING HEMOGLOBIN AND HEMATOCRIT Routine 11/06/2018 6:15 PM [employer] FINISHING VENOUS DOPPLER LEGS Routine 11/06/2018 BILATERAL 2:53 PM [employer] FINISHING NM LUNG SCAN PERFUSION STAT 11/06/2018 PARTICULATE VENT 1:03 PM [employer] FINISHING APTT Routine 11/06/2018 12:12 PM [employer] FINISHING CBC W/PLT COUNT & AUTO Routine 11/06/2018 DIFFERENTIAL 10:38 AM [employer]PERVIS[employer] FINISHING CBC W/PLT COUNT & AUTO Routine 11/06/2018 DIFFERENTIAL 10:38 AM [employer]PERVISOR FINISHING APTT Routine 11/06/2018 10:30 AM [employer]PER[employer] FINISHING BASIC METABOLIC PANEL (7) Routine 11/06/2018 10:30 AM SUPERVISOR FINISHING APTT STAT 11/06/2018 3:14 AM SUPERVISOR FINISHING ED ECG INTERPRETATION Routine 11/05/2018 8:19 PM [employer] FINISHING D-DIMER STAT 11/05/2018 7:20 PM [employer] FINISHING RAPID TROPONIN I STAT 11/05/2018 7:20 PM [employer]ISHING ECG 12-LEAD Routine 11/05/2018 4:57 PM [employer] FINISHING Procedure Note - Interface, External Ris In - 11/05/2018 6:25 PM [employer] FINISHING Ventricula r Rate 59 BPM Atrial Rate 59 BPM P-R Interval 198 ms QRS Duration 82 ms Q-T Interval 434 ms QTC Calculatio n(Bazett) 429 ms P Wendel 29 degrees R Wendel 8 degrees T Wendel 11 degrees Sinus bradycardi a Minimal voltage criteria for LVH, may be normal variant ST abnormalit y, possible digitalis effect Abnormal ECG When compared with ECG of 2 13:36, T wave inversion now evident in Inferior leads T wave amplitude has increased in Anterior leads ECG 12-LEAD STAT 11/05/2018 4:57 PM [employer] FINISHING XR CHEST 2 VIEWS STAT 11/05/2018 4:34 PM [employer]ISHING CBC W/PLT COUNT & AUTO STAT 11/05/2018 DIFFERENTIAL 4:30 PM [employer]ISHING RAPID TROPONIN I STAT 11/05/2018 4:30 PM [employer] FINISHING PT/APTT STAT 11/05/2018 4:30 PM [employer] FINISHING B-TYPE NATRIURETIC FACTOR STAT 11/05/2018 (BNP) 4:30 PM [employer] FINISHING BASIC METABOLIC PANEL (7) STAT 11/05/2018 4:30 PM [employer] FINISHING CBC W/PLT COUNT & AUTO STAT 11/05/2018 DIFFERENTIAL 4:30 PM [employer] FINISHING after 05/08/2018 Results * IR Port-a-Cath Placement (04/01/2019 9:38 AM CDT) Specimen Narrative Performed At FINAL REPORT [facility] Tunneled dialysis catheter insertion: Pertinent clinical information: [...] MD Report Verified Date/Time:04/01/2019 17:20:42 Reading Location: [facility] P048 Angio Body Reading Room Procedure Note Interface, [...] Report Verified Date/Time: 04/01/2019 17:20:42 Reading Location: [place] [address] Angio Body Reading Room Performing Organization Address City/State/Zipcode Phone Number [facility] * CBC with platelet count + automated diff (04/01/2019 6:42 AM CDT) Only the most recent of 4 results within the time period is included. WBC 6.2 3.5 - 10.5 K/L [facility] RBC 2.09 (L) 3.93 - 5.22 M/L [facility] Hemoglobin 6.7 (L) 11.2 - 15.7 GM/DL [facility] Hematocrit 21.4 (L) 34.1 - 44.9 % [facility] MCV 102.4 (H) 79.4 - 94.8 fL [facility] MCH 32.1 25.6 - 32.2 pg [facility] MCHC 31.3 (L) 32.2 - 35.5 GM/DL [facility] RDW 18.3 (H) 11.7 - 14.4 % [facility] Platelets 249 150 - 450 K/CU MM [facility] MPV 11.3 9.4 - 12.3 fL [facility] nRBC 0 0 - 0 /100 WBC [facility] % Neutros 74 % [facility] % Lymphs 13 % [facility] % Monos 10 % [facility] % Eos 3 % [facility] % Baso 1 % [facility] # Neutros 4.58 1.56 - 6.13 K/L [facility] # Lymphs 0.78 (L) 1.18 - 3.74 K/L [facility] # Monos 0.61 (H) 0.24 - 0.36 K/L [facility] # Eos 0.19 0.04 - 0.36 K/L [facility] # Baso 0.03 0.01 - 0.08 K/L [facility] Immature 1 0 - 1 % [facility] Granulocytes-Relative [facility] Specimen Blood Performing Organization Address City/State/Zipcode Phone Number [facility] [address] [place] [address] MEDICAL CENTER * aPTT (04/01/2019 6:42 AM CDT) Only the most recent of 4 results within the time period is included. PTT 32.9 22.5 - 36.0 seconds [facility] Specimen Blood Performing Organization Address City/[facility] [place] [address] [phone] * Prothrombin time/INR (04/01/2019 6:42 AM CDT) Protime 13.3 11.9 - 14.2 seconds [facility] INR 1.1 <=5.9 [facility] Specimen Blood Narrative Performed At Effective 03/04/2019: PT Reference Range Change [facility] New: 11.9-14.2Previous: 11.7-14.7 [facility] RECOMMENDED COUMADIN/WARFARIN INR THERAPY RANGES STANDARD DOSE: 2.0-3.0Includes: PROPHYLAXIS for venous thrombosis, systemic embolization; TREATMENT for venous thrombosis and/or pulmonary embolus. HIGH RISK: Target INR is 2.5-3.5 for patients wiht mechanical heart valves. Performing Organization Address [facility] Phone Number [address] * RHYTHM STRIP - SCAN (01/09/2019 10:30 AM CDT) Only the most recent of 2 results within the time period is included. Narrative Performed At * B-type Natriuretic Factor (BNP) (11/07/2018 5:47 AM [employer] FINISHING) Only the most recent of 2 results within the time period is included. BNP 807 (H) 0 - 100 pg/mL [facility] Specimen Blood Performing Organization Address [facility] Phone Number [address] [address] [phone] * Basic Metabolic Panel (11/07/2018 5:47 AM [employer] FINISHING) Only the most recent of 3 results within the time period is included. Sodium 134 (L) 136 - 145 meq/L [facility] Potassium 4.1 3.5 - 5.1 meq/L [facility] Chloride 105 98 - 107 meq/L [facility] CO2 22 22 - 29 meq/L [facility] BUN 40 (H) 7 - 21 mg/dL [facility] Creatinine 2.43 (H) 0.57 - 1.25 mg/dL [facility] Glucose 87 70 - 105 mg/dL [facility] Calcium 9.3 8.4 - 10.2 mg/dL [facility] EGFR 20Comment: ESTIMATED GFR IS mL/min/1.[address] [facility] NOT ACCURATE CREATININE [facility] CLEARANCE IN PREDICTING GLOMERULAR FILTRATION RATE. ESTIMATED GFR IS NOT APPLICABLE FOR DIALYSIS PATIENTS. Specimen Blood Performing Organization Address City/[facility]/[place] [address] [facility] * Hemoglobin and hematocrit (11/06/2018 6:15 PM [employer] FINISHING) Hemoglobin 8.6 (L) 11.2 - 15.7 GM/DL [facility] Hematocrit 27.1 (L) 34.1 - 44.9 % [facility] Specimen Blood Performing Organization Address City/[facility]/Zipcode Phone Number [address] [address] [facility] * Venous doppler legs bilateral (11/06/2018 2:53 PM [employer] FINISHING) Ejection Fraction [facility] ECHO [facility]ART[facility] MKCKESSON CPACS Specimen Impressions Performed At Right Impression [facility] 1. There is [...] PV LAB - Lower Extremities DVT Study [facility] Demographics [facility] Patient NameNESHA CARPENTER Date of Study11/06/2018 Visit [id number] Female of Birth1945 Referring [facility] Tkssdv146 Physician Wall Taper Helper Wilda CappsInterpreting Naomie Kay MD RVT Physician [...] External Ris In - 11/06/2018 3:59 PM [employer]PERVISOR FINISHING PV LAB - Lower Extremities DVT Study Demographics Patient Name NESHA CARPENTER Date of Study 11/06/2018 Age 73 Visit Number [id number] Gender Female Accession Number [id number] Date of 1945 Referring [facility] Room Number 922 Physician Wall Taper Helper Wilda Capps Interpreting Naomie Kay MD RVT [...] are measured in cm Performing Organization Address City/State/[facility] Phone Number [facility] MKCKESSON CPA * NM lung scan (V/Q) (11/06/2018 1:03 PM SUPERVIS[employer] FINISHING) Specimen Narrative Performed At FINAL REPORT Lumatic PROCEDURE: V/Q LUNG SCAN CPT CODE: 23456 INDICATION: Dyspnea PROTOCOL: 10.9 mCi ofXe-133 gas [...] MD Report Verified Date/Time:11/06/2018 14:11:21 Reading Location: [address] Reading Room Procedure Note Interface, External Ris In - 11/06/2018 2:13 PM SUPERVIS[employer] FINISHING FINAL REPORT PROCEDURE: V/Q LUNG SCAN CPT CODE: 36022 INDICATION: Dyspnea PROTOCOL: 10.9 mCi of Xe-133 [...] Report Verified Date/Time: 11/06/2018 14:11:21 Reading Location: [address] Reading Room Performing Organization Address City/State/Zipcode Phone Number [facility] * ECG/EKG Interpretation (11/05/2018 8:19 PM [employer]PER[employer] FINISHING) Narrative Performed At José Schafer MD 11/05/20188:25 [...] Troponin I (CEC Only) (11/05/2018 7:20 PM [employer] FINISHING) Only the most recent of 2 results within the time period is included. Rapid Troponin I <0.05 <0.05 ng/mL [facility], [facility] [place] Specimen Blood Performing Organization Address [facility] Phone Number [facility] [address] [place], [place] [phone] [facility], [facility] * D-dimer, quantitative (11/05/2018 7:20 PM [employer]PER[employer] FINISHING) D-Dimer, Quant 1.72 (H) <0.50 MG/L FEU [facility], [facility] [place] Specimen Blood Narrative Performed At REGARDING D-DIMER RESULTS: Results of this D-Dimer test should always be [facility] interpreted in conjunction with the patient's medical history, clinical [facility] presentation and other findings. DVT clinical diagnosis should not be based on [place], [facility] the results of [place] D-Dimer alone. [facility], [facility] Performing Organization Address [facility] Phone Number [facility] [address] [place], [place] [phone] [facility], [facility] * ECG 12 lead (11/05/2018 4:57 PM [employer]PER[employer] FINISHING) Specimen Narrative Performed At Ventricular Rate 59 BPM [facility] Atrial Rate 59 BPM P-R Interval 198 ms QRS Duration 82 ms Q-T Interval 434 ms QTC Calculation(Bazett) 429 ms P Wendel 29 degrees R Wendel 8 degrees T Wendel 11 degrees Sinus bradycardia Minimal voltage criteria for LVH, may be normal variant Abnormal ECG When compared with ECG of 01-SEP-2012 13:36, T wave inversion now evident in Inferior leads T wave amplitude has increased in Anterior leads Confirmed by MD Xiao, Connor ([id number]) on 11/06/2018 9:53:11 AM Procedure Note Interface, External Ris In - 11/06/2018 9:53 AM [employer] FINISHING Ventricular Rate 59 BPM Atrial Rate 59 BPM P-R Interval 198 ms QRS Duration 82 ms Q-T Interval 434 ms QTC Calculation(Bazett) 429 ms P Wendel 29 degrees R Wendel 8 degrees T Wendel 11 degrees Sinus bradycardia Minimal voltage criteria for LVH, may be normal variant Abnormal ECG When compared with ECG of 01-SEP-2012 13:36, T wave inversion now evident in Inferior leads T wave amplitude has increased in Anterior leads Confirmed by MD Xiao, Connor ([id number]) on 11/06/2018 9:53:11 AM Performing Organization Address City/[facility] Phone Number [facility] * XR chest 2 views (11/05/2018 4:34 PM SUPERVISOR FINISHING) Specimen Narrative Performed At FINAL REPORT GE [...] MD Report Verified Date/Time:11/05/2018 16:40:37 Reading Location: [facility] Radiology Reading Room Procedure Note Interface, External Ris In - 11/05/2018 4:42 PM SUPERVISOR FINISHING FINAL REPORT History: Cough, shortness of breath [...] Report Verified Date/Time: 11/05/2018 16:40:37 Reading Location: [facility] Radiology Reading Room Performing Organization Address City/State/Zipcode Phone Number [facility] * PT/aPTT (11/05/2018 4:30 PM SUPERVISOR FINISHING) Protime 10.1 9.8 - 12.0 seconds [facility], [facility] INR 0.9 <=5.9 [facility], [facility] PTT 22.6 (L) 25.8 - 34.5 seconds [facility], [facility] Specimen Blood Narrative Performed At RECOMMENDED COUMADIN/WARFARIN INR THERAPY RANGES [facility] STANDARD DOSE: 2.0 - 3.0 Includes: PROPHYLAXIS for venous thrombosis, [facility] systemic embolization; TREATMENT for venous thrombosis and/or pulmonary embolus. [facility] HIGH RISK: Target INR is 2.5-3.5 for patients with mechanical heart valves. [facility], [facility] Performing Organization Address City/State/Zipcode Phone Number [facility] [place] [address] [place], [place] [phone] [facility], [facility] [place] after 05/08/2018 Insurance Payer Benefit Subscriber ID Type Phone Address Plan / Group [employer] K[employer]ARE xxxxxxxxxxx MEDICARE ADV MEDICAID MEDICAID xxxxxxxxx Medicaid [facility] Advance Directives For more information, please contact: [facility] [address] [place], [place] [phone] Date Inactivated Comments Code Status Date Activated 04/01/2019 5:59 AM Full Code 11/06/2018 3:06 AM This code status was determined by: Patient 01/04/2014 9:34 PM All possible means of support, including: cardiac massage, mechanical ventilation, and defibrillation will be used to support life. Code ONE 01/04/2014 4:55 PM
[2019-05-09 12:42] LABS: BASOPHILS % 0.6 % (0.0-1.0); EOSINOPHILS % 0.4 % (0.0-6.0); HEMATOCRIT 37.5 % (34.2-44.1); HEMOGLOBIN 12.1 g/dL (12.0-16.0); LYMPHOCYTES # (AUTO) 0.6 (1.0-3.2); LYMPHOCYTES % 12.5 % (18.0-39.1); MEAN CORPUSCULAR HEMOGLOBIN 30.3 pg (28-32); MEAN CORPUSCULAR HGB CONC 32.3 g/dL (31-35); MEAN CORPUSCULAR VOLUME 93.8 fL (81-99); MONOCYTES # (AUTO) 0.6 (0.2-0.8); MONOCYTES % 12.5 % (4.4-11.3); NEUTROPHILS # (AUTO) 3.6 (2.1-6.9); NEUTROPHILS % 73.6 % (38.7-80.0); PLATELET COUNT 121 x10e3/uL (140-360)
[2019-05-09 13:01] LABS: ALBUMIN 3.7 g/dL (3.5-5.0); ALBUMIN/GLOBULIN RATIO 1.1 (0.8-2.0); ANION GAP 19.5 mmol/L (8-16); CALCIUM 10.2 mg/dL (8.4-10.2); CREATININE, SERUM 1.68 mg/dL (0.57-1.11)
[2019-05-09 13:03] LABS: POTASSIUM 2.5 mmol/L (3.5-5.1)
[2019-05-09 13:08] LABS: CREATINE KINASE MB 1.4 ng/mL (0-5.0)
[2019-05-09] MEDS ORDERED: POTASSIUM CHLORIDE 10MEQ EA PO ONE (13:15)
--- NOTE | 2019-05-09 13:26 | Diagnostic Imaging Report ---
Exam: Abdominal film Clinical History: Nausea and vomiting Comparison: None. DISCUSSION: Nonobstructive bowel gas pattern. No visualized free air. Scattered phleboliths. IMPRESSION: Nonobstructive bowel gas pattern. Signed by: Dr. Kailash Obrien M.D. on 05/09/2019 1:23 PM
--- NOTE | 2019-05-09 13:36 | Diagnostic Imaging Report ---
History:Fall, AMS Comparison studies:CT head 09/13/2018 Technique: Axial images were obtained from the skull base to the vertex. Coronal and sagittal images reconstructed from the axial data. Intravenous contrast: None Dose modulation, iterative reconstruction, and/or weight based adjustment of the mA/kV was utilized to reduce the radiation dose to as low as reasonably achievable. Findings: Motion artifact limits the evaluation. Scalp/skull: No acute abnormalities. Subcentimeter lucent lesions at the frontal calvarium, stable compared to the previous examination. Extra-axial spaces: No masses. No fluid collections. Brain sulci: Mildly prominent. Ventricles: Mild compensatory dilatation. No hydrocephalus. Parenchyma: Few hypodensities in the supratentorial white matter are small vessel ischemic changes. Small chronic lacunar infarct at the left caudate head.No masses, hemorrhage, acute or chronic cortical vascular insults. Sellar/suprasellar region: No abnormalities. Craniocervical junction: Patent foramen magnum. No Chiari one malformation. Incidental findings: Atherosclerotic calcifications in the carotid siphons . Impression: No acute abnormalities. Chronic findings: 1. Mild generalized volume loss. 2. Mild supratentorial white matter small vessel ischemic changes. Signed by: DR José Miguel Rodriguez M.D. on 05/09/2019 1:33 PM
--- NOTE | 2019-05-09 15:22 | Diagnostic Imaging Report ---
EXAMINATION: CT of the abdomen and pelvis without contrast. TECHNIQUE: Helical CT images of the abdomen and pelvis were performed from the lung bases to the lesser trochanters. No intravenous contrast was given per renal stone protocol. Coronal and sagittal reformatted images were obtained.Dose modulation, iterative reconstruction, and/or weight based adjustment of the mA/kV was utilized to reduce the radiation dose to as low as reasonably achievable. COMPARISON: None. CLINICAL HISTORY:Abdominal pain DISCUSSION: ABSENCE OF INTRAVENOUS CONTRAST DECREASES SENSITIVITY FOR DETECTION OF FOCAL LESIONS AND VASCULAR PATHOLOGY. ABDOMEN/PELVIS: LOWER THORAX: Vascular calcifications. Small left pleural effusion. HEPATOBILIARY:No focal hepatic lesions. No biliary ductal dilation. Probable mild cholelithiasis. SPLEEN: No splenomegaly. PANCREAS: No focal masses or ductal dilatation. ADRENALS: No adrenal nodules. KIDNEYS/URETERS: Atrophy of the left kidney. 0.9 cm calculus in the right renal pelvis. No hydronephrosis. Additional calcifications inferior aspect of the right kidney. Simple exophytic cyst measuring 1.4 cm and 1.7 cm.. PELVIC ORGANS/BLADDER: The bladder is normal. PERITONEUM/RETROPERITONEUM: No free air or fluid. LYMPH NODES: No intra-abdominal,retroperitoneal, pelvic or inguinal lymphadenopathy. VESSELS: Vascular calcifications. GI TRACT: No distention or wall thickening. Mild diverticulosis. No inflammatory change. BONES AND SOFT TISSUES: Postsurgical change to the lower lumbar spine. IMPRESSION: No acute CT finding. Nonobstructing right renal pelvis calculus. Probable cholelithiasis. Right renal cysts. Signed by: Dr. Kailash Obrien M.D. on 05/09/2019 3:19 PM
[2019-05-09] MEDS ORDERED: ONDANSETRON HCL INJ 2MG/ML 2ML 2 MG/ML VIAL IV ONE (15:30)
[2019-05-09 17:46] VITALS: BP 157/59
== END 2019-05-09 17:30 | disposition home or self-care (01) ==
LOC: ER 11:33
DX: R07.89 Other chest pain (principal); R11.2 Nausea with vomiting, unspecified; K80.20 Calculus of gallbladder without cholecystitis without obstruction
CPT/HCPCS: 36415; 70450; 74018; 74176; 80053; 82550; 82553; 83735; 84484; 85025; 99284; J2405

== ENCOUNTER 2020-05-08 10:56 | Emergency (ER) | payer MEDICARE, OTHER ==
[~2020-05-08] VITALS: Ht 233.7 cm; Wt 57.2 kg
[2020-05-08] MEDS ORDERED: ACETAMINOPHEN 325 MG TAB PO ONE (11:15)
--- NOTE | 2020-05-08 11:36 | Emergency Department Note ---
History of Present Illnes History of Present Illness Chief Complaint: COVID PUI History of Present Illness This is a 74 year old female that comes in here after 1 week history of a dry cough. Patient is end-stage renal, last dialyzed Saturday. Per the patient, both her and her have been sick with generalized malaise, nausea, shestarted with upper respiratory fullness in both ears, scratchy throat, and a dry cough for one week. No fever per the patient. Patient did have nausea and emesis but now resolved. Onset (how long ago): week(s) (1) Severity: moderate Onset quality: gradual Duration (how long): week(s) (1) Progression: worsening Chronicity: new Context: Denies recent illness, Denies recent surgery, Denies recent immobilization Relieving factors: none Exacerbating factors: none Past Medical/Family History Physician Review I have reviewed the patient's past medical and family history. Any updates have been documented here. Past Medical History Past Medical History: Hypertension, CHF, CVA, Cancer, Anxiety, Hyperlipedemia, Chronic Kidney Disease Other Medical History: gout Past Surgical History: Hysterectomy, T&A, , Mastectomy, Cataract Removal Other Surgery: loop recorder DIALYSIS CATH RIGHT SUBCLAVIAN Other Last Tetanus: 2018 Review of Systems Review of Systems Constitutional: Reports as per HPI EENTM: Reports as per HPI Cardiovascular: Reports no symptoms Respiratory: Reports as per HPI Gastrointestinal: Reports no symptoms Genitourinary: Reports no symptoms Musculoskeletal: Reports no symptoms Integumentary: Reports no symptoms Neurological: Reports no symptoms Psychological: Reports no symptoms Endocrine: Reports no symptoms Hematological/Lymphatic: Reports no symptoms Physical Exam Related Data Allergies: Coded Allergies: Penicillins (Verified Allergy, Unknown, 09/17/18) Sulfa (Sulfonamide Antibiotics) (Verified Allergy, Unknown, 09/17/18) amlodipine (Verified Allergy, Unknown, 09/17/18) latex (Verified Allergy, Unknown, 09/17/18) levofloxacin (Verified Allergy, Unknown, 09/17/18) Uncoded Allergies: TAPE (Allergy, Unknown, 06/14/17) Vital signs reviewed: Yes Physical Exam CONSTITUTIONAL Constitutional: Present well-developed, Present well-nourished HENT HENT: Present normocephalic, Present atraumatic, Present oropharynx clear/moist, Present nose normal, Present nasal congestion, Present rhinorrhea, Present other (bilateral ears with serous otitis media) HENT L/R: Present left ext ear normal, Present right ext ear normal EYES Eyes: Reports PERRL, Reports conjunctivae normal NECK Neck: Present ROM normal PULMONARY Pulmonary: Present effort normal, Present breath sounds normal CARDIOVASCULAR Cardiovascular: Present regular rhythm, Present heart sounds normal, Present capillary refill normal, Present normal rate GASTROINTESTINAL Abdominal: Present soft, Present nontender, Present bowel sounds normal GENITOURINARY Genitourinary: Present exam deferred SKIN Skin: Present warm, Present dry MUSCULOSKELETAL Musculoskeletal: Present ROM normal, Present other (left upper extremity fistula with a palpable thrill) NEUROLOGICAL Neurological: Present alert, Present oriented x 3, Present no gross motor or sensory deficits PSYCHOLOGICAL Psychological: Present mood/affect normal, Present judgement normal Assessment & Plan Medical Decision Making MDM Patient is a 74-year-old end-stage renal patient is here with one week history of URI symptoms, now with a dry cough. Any shortness of breath or chest pain currently. Patient does have a low-grade fever, was unaware of this. Patient does have positive sick contacts at home, patient likely has COVID infection. We'll swab. Pt will be treated with abx until swab result. ER warnings given. Reassessment Reassessment EKG interpreted by me shows normal sinus rhythm, normal axis, normal intervals, no acute ST changes, no STEMI. Assessment & Plan Final Impression: (1) Bronchitis (2) COVID-19 Depart Disposition: HOME, SELF-half-way Meds Active Scripts Metoclopramide Hcl (REGLAN) 10 Mg Tablet, 10 MG PO Q6HR PRN for nausea, #20 TAB Prov:REYNA LORENZANA MD 05/08/20 Benzonatate (TESSALON PERLE) 100 Mg Capsule, 1 TAB PO TID PRN for COUGH, #20 Prov:REYNA LORENZANA MD 05/08/20 Azithromycin (Z-TYRON) 250 Mg Tablet, 250 MG PO UD, #1 UDPKT Z-Pack Prov:REYNA LORENZANA MD 05/08/20 Ipratropium/Albuterol Sulfate (IPRAT-ALBUT 0.5-3(2.5) MG/3 ML) 3 Ml Ampul.neb, 1 VIAL HHN Q6HR PRN for SHORTNESS OF BREATH, #120 Prov:PABLO HAM 12/01/15 Reported Medications Hydralazine Hcl (HYDRALAZINE HCL) 10 Mg Tablet, 100 MG PO TID, #30 TAB 11/02/18 Trospium Chloride (TROSPIUM CHLORIDE) 20 Mg Tablet, 60 MG PO DAILY 10/31/18 Allopurinol (ALLOPURINOL) 300 Mg Tablet, 300 MG PO DAILY, #30 TAB 10/31/18 Losartan Potassium (LOSARTAN POTASSIUM) 100 Mg Tablet, 100 MG PO DAILY, TAB 10/31/18 Pantoprazole Sodium* (PROTONIX) 40 Mg Tablet.dr, 40 MG PO DAILY, TAB 10/31/18 Atorvastatin Calcium (ATORVASTATIN CALCIUM) 20 Mg Tablet, 80 MG PO HS, #30 TAB 10/31/18 Clopidogrel Bisulfate* (PLAVIX) 75 Mg Tablet, 75 MG PO DAILY, #30 TAB 09/16/18 Alfuzosin Hcl (ALFUZOSIN HCL) 10 Mg Tab.er.24h, 10 MG PO DAILY 09/13/18 Calcitriol (CALCITRIOL) 0.25 Mcg Capsule, 0.25 MG PO DAILY, #30 TAB 09/13/18 Pravastatin Sodium (PRAVASTATIN SODIUM) 80 Mg Tablet, 80 MG PO DAILY THERAPEUTICALLY SUBSTITUTED WITH SIMVASTATIN 40MG 09/13/18 Albuterol Sulf* (PROAIR HFA INHALER*) 8.5 Gm Inh 08/21/17 Metoprolol Tartrate (METOPROLOL TARTRATE) 50 Mg Tablet, 50 MG PO BID, TAB 08/20/17 Hydrocortisone (ANUSOL-HC) 30 Gm Cream..g., 30 MG RC BID, #28 SUPP.RECT 08/20/17 Primidone (PRIMIDONE) 50 Mg Tablet, 50 MG PO DAILY TAKE ONE TAB AT 1900 AND 3 - 4 AT HS 06/14/17 Lactulose (LACTULOSE) 20 Gm/30 Ml Solution, 30 ML PO Q6HR PRN for CONSTIPATION, EACH 06/14/17 Isosorbide Mononitrate (ISOSORBIDE MONONITRATE ER) 30 Mg Tab.er.24h, 30 MG PO DAILY, #30 TAB 06/14/17 Cholecalciferol (Vitamin D3) (VITAMIN D) 1,000 Unit Tablet, 2000 UNIT PO DAILY, #30 TAB 06/14/17 Tizanidine Hcl (TIZANIDINE HCL) 4 Mg Capsule, 2 MG PO HS 11/24/15 Omeprazole (OMEPRAZOLE) 40 Mg Capsule.dr, 40 MG PO DAILY 11/24/15 Levothyroxine Sodium (LEVOTHYROXINE SODIUM) 50 Mcg Tablet, 50 MCG PO QAM, #30 TAB 03/26/15 Citalopram Hydrobromide (CITALOPRAM HBR) 20 Mg Tablet, 20 MG PO DAILY, TAB 06/11/14 Gabapentin (GABAPENTIN) 100 Mg Capsule, 100 MG PO TID 05/24/13 Trazodone Hcl (TRAZODONE HCL) 100 Mg Tablet, 100 MG PO BEDTIME 05/24/13 Furosemide (LASIX) 20 Mg Tablet, 80 MG PO DAILY 05/24/13 Clonazepam (CLONAZEPAM) 1 Mg Tablet, 0.5 MG PO BID PRN for ANXIETY 05/24/13 Medications in the ED Acetaminophen 975 mg ONCE ONCE PO ; Start 05/08/20 at 11:15; Stop 05/08/20 at 11:16 REYNA LORENZANA MD May 08, 2020 11:36
--- OUTSIDE RECORDS SUMMARY | 2020-05-08 12:10 | XMS REPORT | Clinical Summary ---
Author Author RUTH [facility] Address Unknown Phone Unavailable Care Team Providers Care Carpenter'S Assistant Name Role Phone Glenn Strange MD PCP Unavailable BhavikZachery burton Unavailable Allergies Comments Active Allergy Reactions Severity Noted Date Adhesive Bandage Shortness Of High 01/01/2014 Breath Latex Shortness Of High 01/01/2014 Breath Black stool Levofloxacin 01/01/2014 Feet got swollen Amlodipine Swelling Medium 04/01/2019 Penicillins Hives 01/01/2014 Sulfa (Sulfonamide Swelling 01/01/2014 Antibiotics) Medications End Date Status Medication Sig Dispensed Refills Start Date Active allopurinol (ZYLOPRIM) Take 150 mg 0 300 MG tablet by mouth daily . Active albuterol, refill, 90 Inhale by 0 mcg/actuation Aero mouth via inhaler as needed . Active benzonatate (TESSALON) Take 100 mg 0 100 MG capsule by mouth 3 (three) times daily as needed. Active cholecalciferol, vitamin Take 4,000 0 D3, 2,000 unit Tab Units by mouth daily . Active citalopram (CELEXA) 20 MG Take 10 mg by 0 tablet mouth daily . Active clonazePAM (KLONOPIN) 0.5 Take 0.5 mg 0 MG tablet by mouth 2 (two) times daily as needed. Active fluticasone-salmeterol Inhale 1 puff 0 (ADVAIR) 250-50 mcg/dose by mouth via diskus inhaler inhaler as needed . Active furosemide (LASIX) 80 MG Take 40 mg by 0 tablet mouth 2 (two) times daily . Active gabapentin (NEURONTIN) Take 100 mg 0 100 MG capsule by mouth 3 (three) times daily. Active gemfibrozil (LOPID) 600 Take 600 mg 0 MG tablet by mouth 2 (two) times daily before meals. Active levothyroxine (SYNTHROID, Take 50 mcg 0 LEVOTHROID) 50 MCG tablet by mouth daily. Active hydrocortisone Place 0 (ANUSOL-HC) 2.5 % rectal rectally 2 cream (two) times daily as needed . Active primidone (MYSOLINE) 50 Take 50 mg by 0 MG tablet mouth 4 (four) times daily. Active senna-docusate (SENOKOT Take 1 tablet 0 S) 8.6-50 mg per tablet by mouth daily as needed . Active traZODone (DESYREL) 100 Take 50 mg by 0 MG tablet mouth nightly . Active clopidogrel (PLAVIX) 75 Take 75 mg by 0 mg tablet mouth daily . 9 Active atorvastatin (LIPITOR) 20 Bedtime 0 MG tablet Active pantoprazole (PROTONIX) Take 40 mg by 0 40 MG tablet mouth daily. Active azelastine (ASTELIN) 137 USE TWO (2) 99 09/25 mcg (0.1 %) nasal spray SPRAYS IN 8 EACH NOSTRIL AT BEDTIME. Active tiZANidine (ZANAFLEX) 2 Take 2 mg by 0 MG tablet mouth 2 (two) times daily as needed . Active lactulose (CHRONULAC) 10 TAKE TWO (2) 1 08/10 gram/15 mL solution TABLESPOONFUL 8 (S) BY MOUTH EVERY SIX HOURS NEEDED FOR CONSTIPATION. Active docusate sodium (COLACE) Take 100 mg 0 100 MG capsule by mouth 2 (two) times daily as needed . Active triamcinolone (KENALOG) APPLY TWICE A 0 0.1 % topical ointment DAY TO 9 AFFECTED AREAS UP TO TWO WEEKS. NOT FOR FACE, GROIN, OR ARMPITS Active calcitriol (ROCALTROL) Take 0.25 mcg 3 01 0.25 MCG capsule by mouth 9 daily. Active PROAIR HFA 90 INHALE TWO 99 mcg/actuation inhaler (2) PUFFS BY 9 MOUTH EVERY 6 HOURS NEEDED FOR WHEEZING OR SHORTNESS OF BREATH. Active petrolatum-mineral oil Apply 0 (MINERAL OIL-HYDROPHILIC topically as PETROLATUM) Oint topical needed. ointment Active ketoconazole (NIZORAL) 2 Apply 0 % shampoo topically every other day. Active lidocaine (XYLOCAINE) 2 % Apply 0 jelly topically 3 (three) times daily. Active camphor-menthol (SARNA) Apply 0 0.5-0.5 % lotion topically as needed for Itching. Active sevelamer (RENVELA) 800 TAKE 2 4 mg tablet TABLETS BY 9 MOUTH THREE TIMES DAILY WITH MEALS AND 1 TABLET THREE TIMES DAILY WITH SNACKS Active fenofibrate TAKE ONE (1) 0 (TRIGLIDE,LOFIBRA) 160 MG TABLET(S) BY 9 tablet MOUTH DAILY. Active traMADol (ULTRAM) 50 mg TAKE ONE (1) 0 tablet TABLET(S) BY 9 MOUTH EVERY EIGHT HOURS NEEDED FOR PAIN. 09/10/2019 Discontinued fluticasone (FLONASE) 50 1 spray by 0 mcg/actuation nasal spray Nasal route daily. 08/06/2019 Discontinued potassium chloride Take 10 mEq 0 (KLOR-CON) 10 MEQ CR by mouth tablet daily. 08/06/2019 Discontinued losartan (COZAAR) 50 MG Take 50 mg by 0 tablet mouth daily. 08/06/2019 Discontinued metoprolol (TOPROL-XL) Take 100 mg 0 100 MG 24 hr tablet by mouth daily. 08/06/2019 Discontinued NIFEdipine (ADALAT CC) 60 Take 60 mg by 0 MG 24 hr tablet mouth daily. 08/06/2019 Discontinued omeprazole (PRILOSEC) 20 Take 2 30 capsule 0 0 MG capsule capsules (40 4 mg total) by mouth daily. 08/06/2019 Discontinued hydrALAZINE (APRESOLINE) TAKE ONE (1) 11 10/18 25 MG tablet TABLET(S) BY 9 MOUTH THREE TIMES A DAY. 08/06/2019 Discontinued hydrALAZINE (APRESOLINE) TAKE ONE (1) 0 11/02 100 MG tablet TABLET(S) BY 9 MOUTH THREE TIMES A DAY. 08/06/2019 Discontinued hydrALAZINE (APRESOLINE) TAKE 1 (ONE) 2 10/22 50 MG tablet TABLET BY 9 MOUTH 2 TIMES DAILY 08/06/2019 Discontinued cephalexin (KEFLEX) 500 TAKE ONE (1) 0 MG capsule CAPSULE(S) BY 9 MOUTH TWICE A DAY FOR SEVEN DAYS. 08/06/2019 Discontinued ipratropium-albuterol Inhale by 0 (DUO-NEB) 0.5 mg-3 mg(2.5 mouth via mg base)/3 mL nebulizer inhaler. solution 08/06/2019 Discontinued trospium ER (SANCTURA) 60 TAKE ONE (1) 3 10/07 2/201 mg Cp24 capsule CAPSULE(S) BY 9 MOUTH DAILY. 08/06/2019 Discontinued isosorbide mononitrate TAKE ONE (1) 3 01 (IMDUR) 30 MG 24 hr TABLET(S) BY 8 tablet MOUTH DAILY. 08/06/2019 Discontinued metoprolol (LOPRESSOR) Take 100 mg 0 01 100 MG tablet by mouth. 9 08/06/2019 Discontinued metoprolol (LOPRESSOR) 50 Take 50 mg by 0 MG tablet mouth 2 (two) times daily. Active Problems Problem Noted Date ESRD (end stage renal disease) 08/25/2019 Dyspnea, unspecified type 11/05/2018 Upper GI bleeding 01/04/2014 GI bleed 01/01/2014 Encounters Care Team Description Date Type Specialty Naomie Kay MD 11/22/2019 Refill Cardiology Naomie Kay MD ESRD (end stage renal disease) ([facility]) (Pr imary Dx) 11/19/2019 Office Visit Cardiology Naomie Kay MD CREATION,A-V FISTULA BY BASILIC VEIN TRA NSPOSITION 10/08/2019 Surgery Elier Shannon AA 10/08/2019 Anesthesia Event Naomie Kay MD 10/08/2019 Hospital Encounter 10/06/2019 Hospital Pre-Admission Testi Naomie Driscoll MD 09/10/2019 Clinical Cardiology Support Castro Iraheta AA 08/25/2019 Anesthesia Event Naomie Kay MD CREATION,A-V FISTULA 08/25/2019 Surgery Naomie Kay MD 08/25/2019 Hospital Encounter 08/21/2019 Hospital Pre-Admission Testi ng Naomie Person MD ESRD (end stage renal disease) ([facility]) (Pr imary Dx) 08/06/2019 Office Visit Cardiology 08/06/2019 Emergency Emergency Medicine Carlos Pena MD AVF (arteriovenous fistula) (HCC) 07/16/2019 Hospital Cardiology Encounter Carlos Pena MD AVF (arteriovenous fistula) (HCC) (Prima ry Dx) 07/14/2019 Outside Orders Central Scheduling after 05/08/2019 Social History Date Tobacco Use Types Packs/Day [...] Vital Signs Time Taken Vital Sign Reading 11/19/2019 10:04 AM [facility] Blood Pressure 131/60 11/19/2019 10:04 AM [facility] Pulse 74 11/19/2019 10:04 AM [facility] Temperature 36.8 C (98.2 F) 11/19/2019 10:04 AM [facility] Respiratory Rate 12 11/19/2019 10:04 AM [facility] Oxygen Saturation 98% - Inhaled Oxygen - Concentration 11/19/2019 10:04 AM [facility] Weight 62.6 kg (138 lb) 11/19/2019 10:04 AM [facility] Height 160 cm (5' 3") 11/19/2019 10:04 AM [facility] Body Mass Index 24.45 Plan of Treatment Health Maintenance Due Date Last Done Comments MEDICARE ANNUAL WELLNESS 09/07/2012 (YEAR 2 or FIRST YEAR if no IPPE) BREAST CANCER SCREENING 12/06/2019 12/05/2017 INFLUENZA VACCINE (#1) 2020 06/19/2019, , 06/19/2017, Additional history exists COLON CANCER SCREENING 01/27/2029 01/27/2019 COLONOSCOPY PNEUMOCOCCAL 65+ Completed 10/04/2014, 012 HIGH/HIGHEST RISK Procedures Comments Procedure Name Priority Date/Time Associated Diag nosis RHYTHM STRIP - SCAN 10/13/2019 7:01 AM [facility] TRANSFUSION SERVICE 10/09/2019 REPORT - SCAN 6:03 PM [facility] HGB/HCT (H&H) - STAT LAB STAT 10/08/2019 10:24 AM [facility] POTASSIUM-STAT LAB STAT 10/08/2019 10:24 AM [facility] CREATION,A-V FISTULA BY 10/08/2019 End stage cristino al disease BASILIC VEIN 7:30 AM [facility] (HCC) TRANSPOSITION Case Notes HARD COPY ON FILE/COLE 09/14 @ 12:16 TYPE AND SCREEN, Routine 10/08/2019 AUTOMATED 6:41 AM [facility] GLUCOSE-STAT LAB STAT 10/08/2019 6:41 AM [facility] SERVICES HGB/HCT (H&H) - STAT LAB Routine 10/08/2019 6:41 AM [facility] SERVICES POTASSIUM-STAT LAB STAT 10/08/2019 6:41 AM [facility] SERVICES TRANSFUSION SERVICE 08/26/2019 REPORT - SCAN 5:54 PM [facility] SERVICES RHYTHM STRIP - SCAN 08/26/2019 3:11 PM [facility] SERVICES HGB/HCT (H&H) - STAT LAB STAT 08/25/2019 10:54 AM [facility] HE[facility] SERVICES GLUCOSE-STAT LAB STAT 08/25/2019 10:54 AM [facility] HE[facility] SERVICES POTASSIUM-STAT LAB STAT 08/25/2019 10:54 AM [facility] SERVICES CREATION,A-V FISTULA 08/25/2019 End stage renal disease 8:00 AM [facility] (HCC) POCT-GLUCOSE METER Routine 08/25/2019 7:55 AM [facility] TYPE AND SCREEN, Routine 08/25/2019 AUTOMATED 6:40 AM [facility] SERVICES PLATELET AGGREGATION: AP Routine 08/25/2019 FUNCTION SCREEN 6:40 AM [facility] SERVICES HGB/HCT (H&H) - STAT LAB Routine 08/25/2019 6:40 AM [facility] SERVICES GLUCOSE-STAT LAB Routine 08/25/2019 6:40 AM [facility] HE[facility] SERVICES POTASSIUM-STAT LAB Routine 08/25/2019 6:40 AM [facility] SERVICES POCT-GLUCOSE METER Routine 08/25/2019 5:55 AM [facility] HE[facility] SERVICES PERIPHERAL VASCULAR 07/16/2019 REPORT - SCAN 9:21 PM CDT VEIN MAPPING ARM/ARMS Routine 07/16/2019 AVF (art eriovenous 8:52 AM CDT fistula) (HCC) after 05/08/2019 Results * RHYTHM STRIP - SCAN (10/13/2019 7:01 AM [facility]) Only the most recent of 2 results within the time period is included. Narrative Performed At This result has an attachment that is n ot available. * TRANSFUSION SERVICE REPORT - SCAN (10/09/2019 6:03 PM [facility]) Only the most recent of 2 results within the time period is included. Narrative Performed At This result has an attachment that is n ot available. * Potassium-Stat Lab (10/08/2019 10:24 AM CO[facility] HE[facility] SERVICES) Only the most recent of 4 results within the time period is included. Potassium 3.5 (L) 3.6 - 5.5 meq/L [facility] Specimen Blood, Arterial Performing Organization Address [facility] one Number [place] [address] [phone] [place] [address] * HGB/HCT (H&H)-Stat Lab (10/08/2019 10:24 AM CO[facility] HEALTH SERVICES) Only the most recent of 4 results within the time period is included. Hemoglobin 11.5 (L) 12.0 - 15.0 g/dL [facility] Hematocrit 34.0 (L) 36.0 - 45.0 % [facility] Specimen Blood, Arterial Performing Organization Address City/[facility] one Number [place] [address] 0 [phone] [place] [address] * Glucose-Stat Lab (10/08/2019 6:41 AM CO[facility]) Only the most recent of 3 results within the time period is included. Glucose 80 70 - 110 mg/dL [facility] Specimen Blood, Arterial Performing Organization Address [facility] Ph one Number [place] [address] [address] [phone] [place] [address] * Type and screen, automated (10/08/2019 6:41 AM [facility] SERVICES) Only the most recent of 2 results within the time period is included. ABO/RH AUTOMATED (BEAKER) O NEGATIVE [facility] Ab Scrn NEGATIVE [facility] Specimen Blood Performing Organization Address [facility] Ph one Number [address] [address] [phone] [facility] * POC-Glucose meter (08/25/2019 7:55 AM COORDINATOR OF HEALTH SERVICES) Only the most recent of 2 results within the time period is included. POC-Glucose Meter 91Comment: : TESTED AT [facility] 70 - 110 mg/dL [address], [facility] [address]: Email Campaign Manager/Employee Health Rn ID = [id number] for [employer] Specimen Blood Performing Organization Address [facility] one Number [address] [address] [facility] * Platelet Aggregation: Function Screen (08/25/2019 6:40 AM CO[facility]ATOR OF HEALTH SERVICES) Pathologist: Miller Chatman MD (electronic [facility] signature) [facility] Platelets 155 150 - 450 K/CU MM [facility] ADP 72 62 - 100 % [facility] Platelet Rich Plasma 247 200 - 300 k/cu mm [facility] Plt. Function Screen Normal aggregation results [facility] Interpretation with ADP. No evidence of [facility] platelet dysfunction or P2Y12 inhibitor effect. Specimen Blood Narrative Performed At Platelet Function Screen results may be falsely low w ith platelet counts [facility] <75,000/cu mm. [facility] Performing Organization Address [facility] one Number [address] [facility] * PERIPHERAL VASCULAR REPORT - SCAN (07/16/2019 9:21 PM CDT) Narrative Performed At This result has an attachment that is n ot available. * Vein Mapping Arm(s) (07/16/2019 8:52 AM CDT) [facility] Specimen Impressions Performed At Right Impression [facility] 1. There is no deep venous obstruction in the jugular , subclavian, axillary, [facility] brachial, radial or ulnar veins. 2. There is no superficial venous obstr uction in the cephalic or basilic veins. 3. The subclavian, axillary, brachial, radial and ulnar arteries are patent with normal triphasic Doppler waveforms throughout. Left Impression 1. There is no deep venous obstruction in the jugular, subclavian, axillary, brachial, radial or ulnar veins. 2. There is no superficial venous obstr uction in the cephalic or basilic veins. 3. The subclavian, axillary, brachial, radial and ulnar arteries are patent with normal triphasic Doppler waveforms throughout. Conclusions Summary Arterial duplex imaging, venous duplex imaging and compression of both upper extremities was performed. All ar teries and veins were adequately visualized. The arteries were patent wi th normal triphasic Doppler waveforms bilaterally. The venous syste ms were patent and compressible with no evidence of thrombus bilaterall y. Superficial venous measurements are doc umented below. Signature Velocities are measured in cm/s ; Diame ters are measured in cm Cephalic Mapping Right Left + + + + + + + + !Location ! !AP Diam!Tr ans Diam ! !AP Diam!Tr ans Diam ! + + + + + + + + !Cephalic at Prox UA ! !0.12 ! ! !0.11 ! ! + + + + + + + + !Cephalic at Mid UA ! !0.11 ! ! !0.06 ! ! + + + + + + + + !Cephalic at Dist UA ! !0.11 ! ! !0.12 ! ! + + + + + + + + !Cephalic at Prox LA ! !0.12 ! ! !0.18 ! ! + + + + + + + + !Cephalic at Mid LA ! !0.08 ! ! !0.15 ! ! + + + + + + + + !Cephalic at Dist LA ! !0.1! ! + + + + + Basilic Mapping Right Left + + + + + + + + !Location ! !AP Diam!Tr ans Diam ! !AP Diam!Tr ans Diam ! + + + + + + + + !Basilic at Prox UA ! !0.26 ! ! !0.32 ! ! + + + + + + + + !Basilic at Mid UA ! !0.23 ! ! !0.23 ! ! + + + + + + + + !Basilic at Dist UA ! !0.24 ! ! + + + + + Narrative Performed At [facility] - Upper Extremities Vein Mapping [facility] ART[facility] Demographics [facility] Patient NameNESHA CARPENTER Date of Study 07/16/2019 6 Age 74 Visit [id number] GenderFemal e Date of 1945 Referring Becky Delgadillo Room Number Physician Resourcing Advisor Jaky Kay MD RV TPhysician Procedure Type of Study: Veins: Upper Extremity Vein Mapping, VE IN MAPPING ARM/ARMS. Indications for Study:AVF/AVG creation . Patient Status:Routine. Study Location:Vascular Lab. Technical Quality:Adequate visualizatio n. Risk Factors History of Disease + +----+-- + !Diagnosis !Date!Comments ! + +----+-- + !History/Risk Factors: !!Breast cancer, HTN, TIA ! + +----+-- + Procedure Note Interface, External Ris In - 07/16/2019 2:33 PM CDT PV LAB - Upper Extremities Vein Mapping Demographics Patient Name NESHA CARPENTER Date of Study 07/16/2019 Age 74 Visit Number [id number] Gender Female Accession Number [id number] Date of 1945 Referring Becky Delgadillo Room Number Physician Resourcing Advisor Jaky Oliverio Kay MD RVT Physician Procedure Type of Study: Veins: Upper Extremity Vein Mapping, VEIN MAPPING ARM/ARMS. Indications for Study:AVF/AVG creation . Patient Status:Routine. Study Location:Vascular Lab. Technical Quality:Adequate visualization. Risk Factors History of Disease + +----+--- + !Diagnosis !Date!Comments ! + +----+--- + !History/Risk Factors: ! !Breast cancer, HTN, TIA ! + +----+--- + Impressions Right Impression 1. There is no deep venous obstruction i n the jugular, subclavian, axillary, brachial, radial or ulnar veins. 2. There is no superficial venous obstru ction in the cephalic or basilic veins. 3. The subclavian, axillary, brachial, r adial and ulnar arteries are patent with normal triphasic Doppler waveforms throughout. Left Impression 1. There is no deep venous obstruction i n the jugular, subclavian, axillary, brachial, radial or ulnar veins. 2. There is no superficial venous obstru ction in the cephalic or basilic veins. 3. The subclavian, axillary, brachial, r adial and ulnar arteries are patent with normal triphasic Doppler waveforms throughout. Conclusions Summary Arterial duplex imaging, venous duplex imaging and compression of both upper extremities was performed. All arteries and veins were adequately visualized. The arteries were patent with normal triphasic Doppler waveforms bilaterally. The venous systems were patent and compressible with no evidence of thrombus bilaterally. Superficial venous measurements are documented below. Signature Velocities are measured in cm/s ; Diameters are measured in cm Cephalic Mapping Right Left + + + + + + + + !Location ! !AP Diam !Trans Diam ! !AP Diam !Trans Diam ! + + + + + + + + !Cephalic at Prox UA ! !0.12 ! ! !0.11 ! ! + + + + + + + + !Cephalic at Mid UA ! !0.11 ! ! !0.06 ! ! + + + + + + + + !Cephalic at Dist UA ! !0.11 ! ! !0.12 ! ! + + + + + + + + !Cephalic at Prox LA ! !0.12 ! ! !0.18 ! ! + + + + + + + + !Cephalic at Mid LA ! !0.08 ! ! !0.15 ! ! + + + + + + + + !Cephalic at Dist LA ! !0.1 ! ! + + + + + Basilic Mapping Right Left + + + + + + + + !Location ! !AP Diam !Trans Diam ! !AP Diam !Trans Diam ! + + + + + + + + !Basilic at Prox UA ! !0.26 ! ! !0.32 ! ! + + + + + + + + !Basilic at Mid UA ! !0.23 ! ! !0.23 ! ! + + + + + + + + !Basilic at Dist UA ! !0.24 ! ! + + + + + Performing Organization Address City/State/Zipcode Ph one Number [facility] after 05/08/2019 Insurance Payer Benefit Subscriber ID Type Phone Address Plan / [facility] xxxxxxxxxxx MEDICARE ADV [place] MED[place] xxxxxxxxx [place] [phone] Advance Directives For more information, please contact: [facility] [address] [place] [address] Date Inactivated Comments Code Status Date Activated 10/08/2019 2:29 PM Full Code 10/08/2019 5:44 AM This code status was determined by: Patient 08/25/2019 3:13 PM Full Code 08/25/2019 6:14 AM This code status was determined by: Patient 04/01/2019 5:59 AM Full Code 11/06/2018 3:06 AM This code status was determined by: Patient 01/04/2014 9:34 PM All possible means of suppor t, including: cardiac massage, mechanical ventilation, and defibrillation will be used to support life. Code ONE 01/04/2014 4:55 PM
[2020-05-08] MEDS ORDERED: ACETAMINOPHEN 325 MG TAB ONE (12:12)
--- OUTSIDE RECORDS SUMMARY | 2020-05-08 12:12 | XMS REPORT | Continuity of Care Document ---
Author Author [facility] t Organization [facility] Address [address] [place] [address] Phone Unavailable Care Team Providers Care Watershed Program Manager Name Role Phone NONSTAFF PCP Unavailable Roxi Cerda MD Attphys [phone] Michelle Jama Attphys Unavailable ROXI CERDA Attphys Unavailable Iftikhar De Anda Attphys Elie Palencia MD Attphys Kylah LUNDBERG Attphys Unavailable Elie PALENCIA Attphys Unavailable Michelle SANTIAGO Attphys Unavailable ALEXANDRE MCKENZIE Attphys Unavailable Michelle BALLESTEROSCHING Attphys Unavailable CONNOR PUENTE Attphys Unavailable Liset MCFADDEN Attphys Unavailable LORI OCHOA Attphys Unavailable Rohit ODOM Attphys Unavailable ROXI CERDA Admphys Unavailable Elie PALENCIA Admphys Unavailable JEANETH LINDSAY Admphys Unavaila ble Michelle BALLESTEROS YICHING Admphys Unavailable CONNOR PUENTE Admphys Unavailable LORI OCHOA Admphys Unavailable Payers Payer Name Policy Type Policy Number Effective Date Expiration Date S ource KELSEYCAREKELSEYCARE MEDICARE ADVxxxxxxxxxxx xxxxxxxxxxx [facility] HERNANDEZ MEDICAIDMEDICAID [id number] xxxxxxxxx [facility] [employer] [id number] 2018 00:00:[address] [facility] Kelsey Care Medicare Advantage [id number] 2011 00:0 0:00 [facility] TMHP [id number] [facility] Problems Condition Name Condition Details Condition Category Status Onset Date Resolution Date Last Treatment Date Treating Clinician Comments Source ESRD (end stage renal disease) ESRD (end stage renal disease) Disea se Active 2019-08-25 00:00:00 [facility] Dyspnea, unspecified type Dyspnea, unspecified type Disease Ac tive 2018-11-05 00:00:00 [facility] Pneumonia Pneumonia Problem Active 2015-11-24 00:00:00 [facility] Obstructive chronic bronchitis with exacerbation COPD exacerbati on Problem Active 2015-11-24 00:00:00 [facility] Chest pain Chest pain Problem Active 2015-03-25 00:00:00 [facility] Lower urinary tract infectious disease UTI (lower urinary tr act infection) Problem Active 2015-03-25 00:00:00 [facility] Renal insufficiency Renal insufficiency Problem Active 2015-03-25 00:00 :00 [facility] Acute urinary tract infection Problem Active 2014-06-11 00:00:00 [facility] Dizziness Problem Active 2014-06-11 00:00:00 [facility] Upper GI bleeding Upper GI bleeding Disease Active 2014-01-04 00:00:00 [facility] GI bleed GI bleed Disease Active 2014-01-01 00:00:00 [facility] Dehydration Dehydration Problem Active [facility] Syncope Syncope Problem Active [facility] Cerebrovascular accident (CVA) CVA (cerebral vascular accident) Pro blem Active [facility] Chronic renal impairment Chronic renal insufficiency Problem Active [facility] Urinary tract infection UTI (urinary tract infection) Problem Active [facility] Allergies, Adverse Reactions, Alerts Allergy Name Allergy Type Status Severity Reaction(s) Onset Date Inacti ve Date Treating Clinician Comments Source Penicillins DA Active MS 2019-08-28 00:00:00 [facility] Sulfa (Sulfonamide Antibiotics) DA Active MS 2019-08-28 00 :00:00 [facility] levofloxacin DA Active MS 2019-08-28 00:00:00 [facility] latex DA Active MS 2019-08-28 00:00:00 [facility] latex DA Active MS 2019-04-17 00:00:00 [facility] Amlodipine Drug Allergy Active Swelling 2019-04-01 00:00:00 Feet got swollen [facility] Penicillin Allergy to Substance Active 2018-09-17 00:00:00 [facility] Sulfa (Sulfonamide Antibiotics) Allergy to Substance Active 2018-09-17 00:00:00 [facility] Amlodipine Allergy to Substance Active 2018-09-17 00:00:00 [facility] Levofloxacin Allergy to Substance Active 2018-09-17 00:00:0 0 [facility] Latex Allergy to Substance Active 2018-09-17 00:00:00 [facility] TAPE Allergy to Substance Active 2017-06-14 00:00:00 [facility] Adhesive Bandage Propensity to adverse reactions Active Shortness Of Breath 2014-01-01 00:00:00 [facility] Latex Propensity to adverse reactions Active Shor tness Of Breath 2014-01-01 00:00:00 [facility] Levofloxacin Propensity to adverse reactions Active 201 01-08-28 00:00:00 Black stool [facility] Penicillins Propensity to adverse reactions Active Hives 2014-01-01 00:00:00 [facility] Sulfa (Sulfonamide Antibiotics) Propensity to adverse reactions Act jaimie Swelling 2014-01-01 00:00:00 [facility] Penicillins DA Active MO 2013-06-07 00:00:00 [facility] Sulfa (Sulfonamide Antibiotics) DA Active MO 2013-06-07 00 :00:00 [facility] levofloxacin DA Active MO 2013-06-07 00:00:00 [facility] Social History Social Habit Start Date Stop Date Quantity Comments Source Sex Assigned At [facility] Cigarettes smoked current (pack per day) - Reported 00:00:00 2019-11-19 00:00:00 [facility] Cigarette pack-years 2019-11-19 00:00:00 2019-11-19 00:00:00 [facility] History of tobacco use 2018-08-07 00:00:00 Current smoker [facility] Smoking Status Start Date Stop Date Source Former smoker 2019-11-19 00:00:00 2019-11-19 00:00:00 [facility] Medications Ordered Medication Name Filled Medication Name Start Date Stop Da te Current Medication? Ordering Clinician Indication Dosage Frequency Signature (SIG) Comments Components Source albuterol, refill, 90 mcg/actuation Aero 2019-10-06 08:32:48 Yes Inhale by mouth via inhaler as needed . [facility] fluticasone-salmeterol (ADVAIR) 250-50 mcg/dose diskus inhal er 2019-10-06 08:32:48 Yes 1{puff} Inhale 1 puff by mouth via i nhaler as needed . [facility] docusate sodium (COLACE) 100 MG capsule 2019-10-06 08:32:48 Yes 100mg Take 100 mg by mouth 2 (two) times daily as needed . [facility] traZODone (DESYREL) 100 MG tablet 2019-09-10 11:04:02 Yes 50mg QD Take 50 mg by mouth nightly . [facility] allopurinol (ZYLOPRIM) 300 MG tablet 2019-09-10 11:03:50 Ye s 150mg QD Take 150 mg by mouth daily . [facility] citalopram (CELEXA) 20 MG tablet 2019-09-10 11:03:50 Yes 10mg QD Take 10 mg by mouth daily . [facility] tiZANidine (ZANAFLEX) 2 MG tablet 2019-09-10 11:03:50 Yes 2mg Take 2 mg by mouth 2 (two) times daily as needed . [facility] fluticasone (FLONASE) 50 mcg/actuation nasal spray 2019-09-10 11:02:06 2019-09-10 00:00:00 No 1{spray} QD 1 spray by Nasal ro [place] daily. [facility] traMADol (ULTRAM) 50 mg tablet 2019-08-25 00:00:00 Yes TAKE ONE (1) TABLET(S) BY MOUTH EVERY EIGHT HOURS NEEDED FOR PAIN. [facility] sevelamer (RENVELA) 800 mg tablet 2019-08-17 00:00:00 Yes TAKE 2 TABLETS BY MOUTH THREE TIMES DAILY WITH MEALS AND 1 TABLET THREE TIMES DAILY WITH SNACKS [facility] potassium chloride (KLOR-CON) 10 MEQ CR tablet 2 12:03:50 2019-08-06 00:00:00 No 10meq QD Take 10 mEq by mouth daily. [facility] NIFEdipine (ADALAT CC) 60 MG 24 hr tablet 2018-10 12:01:58 2019-08-06 00:00:00 No 60mg QD Take 60 mg by mouth daily. [facility] metoprolol (TOPROL-XL) 100 MG 24 hr tablet 08-06 12:01:51 2019-08-06 00:00:00 No 100mg QD Take 100 mg by mouth daily. [facility] losartan (COZAAR) 50 MG tablet 2019-08-06 12:01:39 2019-08-06 00 :00:00 No 50mg QD Take 50 mg by mouth daily. C [facility] metoprolol (LOPRESSOR) 50 MG tablet 2019-08-06 12:01:3 2 2019-08-06 00:00:00 No 50mg Q.5D Take 50 mg by mouth 2 (two) times daily. [facility] ipratropium-albuterol (DUO-NEB) 0.5 mg-3 mg(2.5 mg base)/3 mL nebulizer solution 2019-08-06 12:00:33 2019-08-06 00:00:00 No Inhale by mouth via inhaler. [facility] fenofibrate (TRIGLIDE,LOFIBRA) 160 MG tablet 2019-08-05 00:00:00 Yes TAKE ONE (1) TABLET(S) BY MOUTH DAILY. [facility] ketoconazole (NIZORAL) 2 % shampoo 2019-04-01 07:52:14 Yes Apply topically every other day. [facility] lidocaine (XYLOCAINE) 2 % jelly 2019-04-01 07:52:14 Yes [id number] Apply topically 3 (three) times daily. [facility] camphor-menthol (SARNA) 0.5-0.5 % lotion 2019-04-01 07:52:14 Yes Apply topically as needed for Itching. C [facility] petrolatum-mineral oil (MINERAL OIL-HYDR OPHILIC PETROLATUM) Oint topical ointment 2019-04-01 07:48:11 Yes Apply top ically as needed. [facility] senna-docusate (SENOKOT S) 8.6-50 mg per tablet 2018-11-06 02:16 :00 Yes 1{tbl} Take 1 tablet by mouth daily as needed . [facility] pantoprazole (PROTONIX) 40 MG tablet 2018-11-06 02:16:00 Ye s 40mg QD Take 40 mg by mouth daily. [facility] cholecalciferol, vitamin D3, 2,000 unit Tab 2018-11-06 02:12:48 Yes 4000U QD Take 4,000 Units by mouth daily . [facility] furosemide (LASIX) 80 MG tablet 2018-11-06 02:12:48 Yes 40mg Q.5D Take 40 mg by mouth 2 (two) times daily . [facility] hydrocortisone (ANUSOL-HC) 2.5 % rectal cream 2018-11-06 02:12:[address] 2 (two) times daily as needed . [facility] atorvastatin (LIPITOR) 20 MG tablet 2018-11-05 15:51:29 [facility] (LOPRESSOR) 100 MG tablet 2018-11-04 00:00: 00 2019-08-06 00:00:00 No 100mg Take 100 mg by mouth. I [facility] hydrALAZINE (APRESOLINE) 100 MG tablet 2018-10-08 7 00:00:00 2019-08-06 00:00:00 No TAKE ONE (1) TABLET(S) BY MOUTH THREE TIMES A DAY. [facility] cephalexin (KEFLEX) 500 MG capsule 2018-11-02 00:00:00 201 06-16-31 00:00:00 No TAKE ONE (1) CAPSULE(S) BY MOUTH TWICE A DAY FOR SEVEN DAYS. [facility] clopidogrel (PLAVIX) 75 mg tablet 2018-10-23 00:00:00 Yes 75mg QD Take 75 mg by mouth daily . [facility] triamcinolone (KENALOG) 0.1 % topical ointment 2018-10-23 00:00: 00 Yes APPLY TWICE A DAY TO AFFECTE D AREAS UP TO TWO WEEKS. NOT FOR FACE, GROIN, OR ARMPITS [facility] hydrALAZINE (APRESOLINE) 50 MG tablet 2018-10-22 00:00 :00 2019-08-06 00:00:00 No TAKE 1 (ONE) TABLET BY MOUTH 2 TIMES ROCKY LY [facility] hydrALAZINE (APRESOLINE) 25 MG tablet 2018-10-18 00:00 :00 2019-08-06 00:00:00 No TAKE ONE (1) TABLET(S) BY MOUTH THREE TI MES A DAY. [facility] trospium ER (SANCTURA) 60 mg Cp24 capsule 10-18 00:00:00 2019-08-06 00:00:00 No TAKE ONE (1) CAPSULE(S) BY MOUT H DAILY. [facility] PROAIR HFA 90 mcg/actuation inhaler 2018-10-16 00:00:00 Yes INHALE TWO (2) PUFFS BY MOUTH EVERY 6 HOURS NEEDED FOR WHEEZING OR SHORTNESS OF BREATH. [facility] calcitriol (ROCALTROL) 0.25 MCG capsule 2018-10-15 00:00:00 Yes .25ug QD Take 0.25 mcg by mouth daily. [facility] azelastine (ASTELIN) 137 mcg (0.1 %) nasal spray 2018-09-25 00:00:00 Yes USE TWO (2) SPRAYS IN EACH NOSTRIL AT BEDTIME. [facility] isosorbide mononitrate (IMDUR) 30 MG 24 hr tablet 2018-08-27 00:00:00 2019-08-06 00:00:00 No TAKE ONE (1) TABLET( S) BY MOUTH DAILY. [facility] lactulose (CHRONULAC) 10 gram/15 mL solution 2018-08-10 00:00:00 Yes TAKE TWO (2) TABLESPOONFUL(S) BY MOUTH E VERY SIX HOURS NEEDED FOR CONSTIPATION. [facility] Ipratropium/Albuterol Sulfate (Iprat-Albut 0.5-3(2.5) Mg/3 Ml) 3 Ml [facility] Ipratropium/Albuterol Sulfate (Iprat-Albut 0.5-3(2.5) Mg/3 Ml) 3 Ml Ampul.neb 2015-12-01 00:00:00 Yes Gardenia Kaplan 1 Every 6 Hours as needed for Shortness Of Breath [facility] Methylprednisolone (Medrol Dose Pack) 4 Mg/Dose Pack T ab, 4 Mg Oral Methylprednisolone (Medrol Dose Pack) 4 Mg/Dose Pack Tab, 4 Mg Oral 2015-12-01 00:00:00 2018-09-13 00:00:00 No Gardenia Kaplan 4 As Di rected [facility] omeprazole (PRILOSEC) 20 MG capsule 2014-01-04 00:00:0 0 2019-08-06 00:00:00 No 40mg QD Take 2 capsules (40 mg total) by mouth d sapna. [facility] gemfibrozil (LOPID) 600 MG tablet 2014-01-01 20:07:11 Yes 600mg Take 600 mg by mouth 2 (two) times daily before meals. [facility] levothyroxine (SYNTHROID, LEVOTHROID) 50 MCG tablet 01-01 20:07:11 Yes 50ug QD Take 50 mcg by mouth daily. [facility] primidone (MYSOLINE) 50 MG tablet 2014-01-01 20:07:11 Yes 50mg Q.25D Take 50 mg by mouth 4 (four) times daily. [facility] benzonatate (TESSALON) 100 MG capsule 2014-01-01 20:07:10 Y es 100mg Take 100 mg by mouth 3 (three) times daily as needed. [facility] clonazePAM (KLONOPIN) 0.5 MG tablet 2014-01-01 20:07:10 Yes .5mg Take 0.5 mg by mouth 2 (two) times daily as needed. [facility] gabapentin (NEURONTIN) 100 MG capsule 2014-01-01 20:07:10 Yes 100mg [id number] Take 100 mg by mouth 3 (three) times daily. [facility] Albuterol Sulfate (Proair Hfa Inhaler*) 8.5 Gm Inh Alb uterol Sulfate (Proair Hfa Inhaler*) 8.5 Gm Inh Yes [facility] Alfuzosin Hcl 10 Mg Tab.er.24h Alfuzosin Hcl 10 Mg Tab.er.24h Yes 10 Daily [facility] Allopurinol 300 Mg Tablet Allopurinol 300 Mg Tablet Yes 300 Daily [facility] Atorvastatin Calcium 20 Mg Tablet Atorvastatin Calcium 20 Mg Tablet Yes 80 Bedtime [facility] Calcitriol 0.25 Mcg Capsule Calcitriol 0.25 Mcg Capsule Yes .25 Daily [facility] Cholecalciferol (Vitamin D3) (Vitamin D) 1,[address] [place] Cholecalciferol (Vitamin D3) (Vitamin D) 1,000 Unit Tablet Yes 2000 Daily [facility] Citalopram Hydrobromide (Citalopram Hbr) 20 Mg Tablet Citalopram Hydrobromide (Citalopram Hbr) 20 Mg Tablet Yes 20 Daily [facility] Clonazepam 1 Mg Tablet Clonazepam 1 Mg Tablet Yes .5 Twice A Day as needed for Anxiety [facility] Clopidogrel Bisulfate (Plavix) 75 Mg Tablet Clopidogre l Bisulfate (Plavix) 75 Mg Tablet Yes 75 Daily [facility] Furosemide (Lasix) 20 Mg Tablet Furosemide (Lasix) 20 Mg Tablet Yes 80 Daily [facility] Gabapentin 100 Mg Capsule Gabapentin 100 Mg Capsule Yes 100 Three Times A Day [facility] Hydralazine Hcl 10 Mg Tablet Hydralazine Hcl 10 Mg Tablet Y es 100 Three Times A Day [facility] Hydrocortisone (Anusol-Hc) 30 Gm Cream..g. Hydrocortis one (Anusol-Hc) 30 Gm Cream..g. Yes 30 Twice A Day [facility] Isosorbide Mononitrate (Isosorbide Mononitrate Er) 30 Mg Tab.er.24h Isosorbide Mononitrate (Isosorbide Mononitrate Er) 30 Mg Tab.er.24h Yes 30 Daily [facility] Lactulose 20 Gm/30 Ml Solution Lactulose 20 Gm/30 Ml Solution Yes 30 Every 6 Hours as needed for Constipation [facility] Levothyroxine Sodium 50 Mcg Tablet Levothyroxine Sodium 50 Mcg Tablet Yes 50 Every Morning [facility] Losartan Potassium 100 Mg Tablet Losartan Potassium 100 Mg Tablet Yes 100 Daily [facility] Metoprolol Tartrate 50 Mg Tablet Metoprolol Tartrate 50 Mg Tablet Yes 50 Twice A Day [facility] Omeprazole 40 Mg Capsule. Omeprazole 40 Mg Capsule. Yes 40 Daily [facility] Pantoprazole Sodium (Protonix) 40 Mg Tablet. Pantopr azole Sodium (Protonix) 40 Mg Tablet. Yes 40 Daily [facility] Pravastatin Sodium 80 Mg Tablet Pravastatin Sodium 80 Mg Tablet Yes 80 Daily [facility] Primidone 50 Mg Tablet Primidone 50 Mg Tablet Yes 50 Daily [facility] Tizanidine Hcl 4 Mg Capsule Tizanidine Hcl 4 Mg Capsule Yes 2 Bedtime [facility] Trazodone Hcl 100 Mg Tablet Trazodone Hcl 100 Mg Tablet Yes 100 Bedtime [facility] Trospium Chloride 20 Mg Tablet Trospium Chloride 20 Mg Tablet Yes 60 Daily [facility] Hydralazine Hcl 25 Mg Tab, 50 Mg Oral Hydralazine Hcl 25 Mg Tab, 50 Mg Oral 2018-11-02 00:00:00 No 50 Twice A Day [facility] Hydralazine Hcl 25 Mg Tab, 10 Mg Oral Hydralazine Hcl 25 Mg Tab, 10 Mg Oral 2018-09-16 00:00:00 No 10 Twice A Day [facility] Nitrofurantoin Monohyd/M-Cryst (Nitrofur antoin [place]-Mcr 100 Mg) 100 Mg Capsule, 100 Mg Oral Nitrofurantoin Monohyd/M-Cryst (Nitrofur antoin [place]-Mcr 100 Mg) 100 Mg Capsule, 100 Mg Oral 2018-09-15 00:00:00 No 100 Daily [facility] Allopurinol 300 Mg Tablet, 1 Cap Oral Allopurinol 300 Mg Tablet, 1 Cap Oral 2018-09-13 00:00:00 No 1 Daily [facility] Ammonium Lactate/Emu Oil (Emu-Lac Hydrat ing Cream) 120 Ml Cream.ml., 5 Ml Topically Ammonium Lactate/Emu Oil (Emu-Lac Hydrat ing Cream) 120 Ml Cream.ml., 5 Ml Topically 2018-09-13 00:00:00 No 5 Daily as ne eded for Dry Skin [facility] Aspirin (Aspir 81) 81 Mg Tablet.dr, 1 Tab Oral Aspirin (Aspir 81) 81 Mg Tablet., 1 Tab Oral 2018-09-13 00:00:00 No 1 Da gigi [facility] Azelastine Hcl 137 Mcg/0.137 Ml [place].pump, 2 Sprays N pal Azelastine Hcl 137 Mcg/0.137 Ml [place].pump, 2 Sprays Nasal 2018-09-13 00:00:00 No 2 Bedtime [facility] Ciprofloxacin Hcl (Cipro) 500 Mg Tablet, 250 Mg Oral C iprofloxacin Hcl (Cipro) 500 Mg Tablet, 250 Mg Oral 2018-09-13 00:00:00 No 250 Every 12 Hours [facility] Clotrimazole 10 Mg Ashok, 1 Tab Oral Clotrimazole 10 Mg Ashok, 1 Tab Oral 2018-09-13 00:00:00 No 1 5 Times Daily [facility] Losartan Potassium 100 Mg Tablet, 100 Mg Oral Losartan Potassium 100 Mg Tablet, 100 Mg Oral 2018-09-13 00:00:00 No 100 Daily [facility] Menthol/Camphor (Sarna Anti-Itch Lotion) 222 Ml Lotion , 1 Applic Topically Menthol/Camphor (Sarna Anti-Itch Lotion) 222 Ml Lotion, 1 Applic Topically 2018-09-13 00:00:00 No 1 Daily as needed for Itching [facility] Metronidazole 500 Mg Tablet, 500 Mg Oral Metronidazole 500 Mg Tablet, 500 Mg Oral 2018-09-13 00:00:00 No 500 Three Times A Day [facility] Petrolatum,White (Aquaphor) 99 Gm Oint...g., 1 Applic Topical Petrolatum,White (Aquaphor) 99 Gm Oint...g., 1 Applic Topical 2018-09-13 00:00:00 No 1 As Needed as needed for Itching [facility] Pravastatin Sodium 40 Mg Tablet, 1 Tab Oral Pravastati n Sodium 40 Mg Tablet, 1 Tab Oral 2018-09-13 00:00:00 No 1 Bedtime [facility] Budesonide/Formoterol Fumarate (Symbicor t 160-4.5 Mcg Inhaler) 10.2 Gm Hfa.aer.ad, 1 Spr Inhalation Budesonide/Formoterol Fumarate (Symbicor t 160-4.5 Mcg Inhaler) 10.2 Gm Hfa.aer.ad, 1 Spr Inhalation 2017-08-20 00:00:00 No 1 Twice A Day [facility] Cefpodoxime Proxetil 100 Mg Tablet, 1 Tab Oral Cefpodo amy Proxetil 100 Mg Tablet, 1 Tab Oral 2017-08-20 00:00:00 No 1 Daily [facility] Metoprolol Succinate 100 Mg Tab.er.24h, 50 Mg Oral Met oprolol Succinate 100 Mg Tab.er.24h, 50 Mg Oral 2017-08-20 00:00:00 No 50 T wice A Day [facility] Primidone 50 Mg Tablet, 200 Mg Oral Primidone 50 Mg Tablet, 200 Mg Oral 2017-08-20 00:00:00 No 200 Bedtime [facility] Rosuvastatin Calcium (Crestor) 10 Mg Tab, 10 Mg Oral R osuvastatin Calcium (Crestor) 10 Mg Tab, 10 Mg Oral 2017-08-20 00:00:00 No 10 Bedtime [facility] Albuterol Sulfate (Proair Hfa Inhaler*) 8.5 Gm Inh, Inhalation Albuterol Sulfate (Proair Hfa Inhaler*) 8.5 Gm Inh, Inhalation 2015-11-07 8 00:00:00 No 2 Puffs Q6hrs Prn [facility] Clonidine Hcl (Catapres) 0.1 Mg Tablet, 1 Cap Oral Alina nidine Hcl (Catapres) 0.1 Mg Tablet, 1 Cap Oral 2015-11-24 00:00:00 No 1 Three Times A Day as needed for Elevated Blood Pressure [facility] Hydrocodone Bit/Acetaminophen (Hydrocodo n-Acetaminoph 7.5-325) 1 Each Tablet, 1 Tab Oral Hydrocodone Bit/Acetaminophen (Hydrocodo n-Acetaminoph 7.5-325) 1 Each Tablet, 1 Tab Oral 2015-11-24 00:00:00 No 1 Every 6 Hours as needed [facility] Potassium Chloride 20 Meq Tab.er.prt, 20 Meq Oral Pota ssium Chloride 20 Meq Tab.er.prt, 20 Meq Oral 2015-11-24 00:00:00 No 20 Daily [facility] Prednisone 20 Mg Tab, 40 Mg Oral Prednisone 20 Mg Tab, 40 Mg Ora l 2015-11-24 00:00:00 No 40 Daily [facility] Tizanidine Hcl (Zanaflex) 4 Mg Tablet, 4 Mg Oral Tizan idine Hcl (Zanaflex) 4 Mg Tablet, 4 Mg Oral 2014-06-11 00:00:00 No 4 Bedtim e [facility] Gabapentin (Neurontin) 800 Mg Tablet, Gabapentin (Neurontin) 800 Mg Tablet, 2013-05-24 00:00:00 No [facility] Metoprolol Succinate 25 Mg Tab.er.24h, Metoprolol Succinate 25 M g Tab.er.24h, 2013-05-24 00:00:00 No [facility] Prednisone 5 Mg Tablet, Prednisone 5 Mg Tablet, 2013-05-24 00:00 :00 No [facility] Vital Signs Vital Name Observation Time Observation Value Comments Source Systolic blood pressure 2019-11-19 10:04:00 131 mm[Hg] [facility] Diastolic blood pressure 2019-11-19 10:04:00 60 mm[Hg] [facility] Heart rate 2019-11-19 10:04:00 74 /min [facility] Body temperature 2019-11-19 10:04:00 36.78 Mirella [facility] Respiratory rate 2019-11-19 10:04:00 12 /min [facility] Body height 2019-11-19 10:04:00 160 cm [facility] Body weight Measured 2019-11-19 10:04:00 62.596 kg [facility] BMI 2019-11-19 10:04:00 24.45 kg/m2 [facility] Oxygen saturation in Arterial blood by Pulse oximetry 11-19 10:04:00 98 /min [facility] Procedure Date / Time Performed Performing Clinician Sourc e RHYTHM STRIP - SCAN 2019-10-13 07:01:08 Provider, Default Scanalyssa casiano [facility] TRANSFUSION SERVICE REPORT - SCAN 2019-10-09 18:03:36 Provid er, Default Scanning [facility] POTASSIUM-STAT LAB 2019-10-08 10:24:00 Landen Thomas I [facility] HGB/HCT (H&H) - STAT LAB 2019-10-08 10:24:00 Thomas Landenkashif sanchez [facility] CREATION,A-V FISTULA BY BASILIC VEIN TRANSPOSITION 2 07:30:00 Naomie Cerda [facility] POTASSIUM-STAT LAB 2019-10-08 06:41:00 Mateo Hernandez [facility] HGB/HCT (H&H) - STAT LAB 2019-10-08 06:41:00 Mateo Hernandez [facility] GLUCOSE-STAT LAB 2019-10-08 06:41:00 Mateo Hernandez [facility] TYPE AND SCREEN, AUTOMATED 2019-10-08 06:41:00 Mya Lopez [facility] TRANSFUSION SERVICE REPORT - SCAN 2019-08-26 17:54:21 Provid er, Default Scanning [facility] RHYTHM STRIP - SCAN 2019-08-26 15:11:02 Provider, Default Scanni [facility] POTASSIUM-STAT LAB 2019-08-25 10:54:00 Ilya Pendleton [facility] GLUCOSE-STAT LAB 2019-08-25 10:54[facility] 2019-08-25 10:54:00 Ilya Pendleton [facility] CREATION,A-V FISTULA 2019-08-25 08:00:00 Naomie Cerda [facility] POCT-GLUCOSE METER 2019-08-25 07:55:00 Naomie Cerda [facility] POTASSIUM-STAT LAB 2019-08-25 06:40:00 Ilya Pendletonm [facility] GLUCOSE-STAT LAB 2019-08-25 06:40:00 Ilya Pendletoneem [facility] HGB/HCT (H&H) - STAT LAB 2019-08-25 06:40:00 Ilya Pendleton eegilberto [facility] PLATELET AGGREGATION: FUNCTION SCREEN 2019-08-25 06:40:00 Mateo Estephania Ilya Venkatesh [facility] TYPE AND SCREEN, AUTOMATED 2019-08-25 06:40:00 Mateo Christiedena Ilya Carlos quevedo [facility] POCT-GLUCOSE METER 2019-08-25 05:55:00 Naomie Cerda CH I [facility] PERIPHERAL VASCULAR REPORT - SCAN 2019-07-16 21:21:11 Provid er, Default Scanning [facility] VEIN MAPPING ARM/ARMS 2019-07-16 08:52:00 Carlos Palencia [facility] Computed tomography of brain without radiopaque contrast 201 06-14-03 00:00:00 TOÑO [facility] CT of abdomen and pelvis without contrast 2019-05-09 00:00:00 HEATH DALY [facility] CT of abdomen and pelvis without contrast 2018-11-01 00:00:00 MARIBEL TURNER [facility] Ultrasound, renal 2018-09-15 00:00:00 CHRISTY GE [facility] Computed tomography of brain without radiopaque contrast 201 05-18-08 00:00:00 YAMILETH MACIEL [facility] Computed tomography of brain without radiopaque contrast 201 05-18-07 00:00:00 JANINE MCFADDEN [facility] INTRODUCE OTH THROMBOLYTIC IN PERIPH VEIN, PERC 2018-09-12 0 0:00:00 JANINE MCFADDEN [facility] Plan of Care Planned Activity Planned Date Details Comments Source Future Scheduled Test 2029-01-27 00:00:00 Screening for radames gnant neoplasm of colon (procedure) [code = 118698411] [facility] Future Scheduled Test 2020-06-07 00:00:00 INFLUENZA VACCINE (#1) [code = INFLUENZA VACCINE (#1)] [facility] Future [facility] Test 2019-12-06 00:00:00 Screening for radames gnant neoplasm of breast (procedure) [code = 013104956] [facility] Future Scheduled Test 2012-09-07 00:00:00 MEDICARE ANNUAL WE LLNESS (YEAR 2 or FIRST YEAR if no IPPE) [code = MEDICARE ANNUAL WELLNESS (YEAR 2 or FIRST YEAR if no IPPE)] [facility] En[facility] Start Date/Time End Date/Time Encounter [facility] ID Source 2019-05-09 11:33:00 2019-05-09 17:30:00 Departed Emergency Room 1 FLORINA LUNDBERG [facility] [id number] [facility] 2019-04-02 16:16:00 2019-04-02 16:35:00 Departed Emergency Room [facility] [id number] [facility] 2018-12-02 00:18:00 2018-12-02 04:35:00 Departed Emergency Room 1 YODIT SANTIAGO [facility] [id number] [facility] 2018-10-31 16:51:00 2018-11-02 12:51:00 Discharged Inpatient (obs) 1 MARIBEL BALLESTEROS [facility] [id number] [facility] 2018-09-17 14:31:00 2018-09-17 18:00:00 Departed Emergency Room [facility] [id number] [facility] 2018-09-12 21:20:00 2018-09-16 15:07:00 Discharged Inpatient 1 CONNOR PUENTE [facility] [id number] [facility] 2017-12-14 22:49:00 2017-12-17 15:23:00 Discharged Inpatient (obs) ER JANINE MCFADDEN [facility] [id number] [facility] 2017-08-22 14:47:00 2017-08-26 14:53:00 Discharged Inpatient ER LORI OCHOA [facility] [id number] [facility] 2017-06-14 16:32:00 2017-06-14 19:27:00 Departed Emergency Room ER JESUS ODOM [facility] [id number] [facility] Results Test Description Test Time Test Comments Results Result Comments Source HGB/HCT (H&H)-Stat Lab 2019-10-08 10:29:00 Test Item Hemoglobin (test code = 786-4) 11.5 g/dL 12-15 L Hematocrit (test code = 4544-3) 34.0 % 36-45 L Lab Interpretation (test code = 97241-4) [facility] [id number] 10:29:00* Test Item Value Reference Range Interpretation Comments HEMOGLOBIN (BEAKER) (test code = 410) 11.5 g/dL 12.0-15.0 L HEMATOCRIT (BEAKER) (test code = 411) 34.0 % 36.0-45.0 L Potassium-Stat [id number] 10:28:00* Test Item Value Reference Range Interpretation Comments Potassium (test code = 2823-3) 3.5 meq/L 3.6-5.5 L Lab Interpretation (test code = 94467-5) [facility] [id number] 10:28:00* Test Item Value Reference Range Interpretation Comments POTASSIUM (BEAKER) (test code = 379) 3.5 meq/L 3.6-5.5 L Type and screen, [id number] 07:23:00* Test Item Value Reference Range Interpretation Comments ABO/RH AUTOMATED (BEAKER) (test code = 2260) O NEGATIVE Ab Scrn (test code = 890-4) NEGATIVE [facility] [id number] 06:50:00* Test Item Value Reference Range Interpretation Comments POTASSIUM (BEAKER) (test code = 379) 3.2 meq/L 3.6-5.5 L HGB/HCT (H&H) - STAT [id number] 06:50:00* Test Item Value Reference Range Interpretation Comments HEMOGLOBIN (BEAKER) (test code = 410) 11.4 g/dL 12.0-15.0 L HEMATOCRIT (BEAKER) (test code = 411) 34.0 % 36.0-45.0 L Glucose-Stat [id number] 06:49:00* Test Item Value Reference Range Interpretation Comments Glucose (test code = 2345-7) 80 mg/dL 70-110 Lab Interpretation (test code = 69359-5) [facility] [id number] 06:49:00* Test Item Value Reference Range Interpretation Comments GLUCOSE RANDOM (LAMONT) (test code = 652) 80 mg/dL 70-110 BASIC METABOLIC [id number] 06:12:00* Test Item Value Reference Range Interpretation Comments SODIUM (test code = NA) 138 mmol/L 136-145 N POTASSIUM (test code = K) 3.2 mmol/L 3.5-5.1 L CHLORIDE (test code = CL) 102.0 mmol/L 98-107 N CARBON DIOXIDE (test code = CO2) 26.0 mmol/L 21-32 N ANION GAP (test code = GAP) 13.2 10-20 N GLUCOSE (test code = GLU) 87 mg/dL 74-106 N BLOOD UREA NITROGEN (test code = BUN) 40 mg/dL 7-18 H RESULT VERIFIED BY REPEAT ANALYSIS GLOMERULAR FILTRATION RATE (test code = GFR) 12 mL/min >=60 Estimated GFR by using Modified MDRD formula.Chronic kidney disease is defined as either kidney damageor GFR <60 mL/min/1.73 m2 for >3 months. CREATININE (test code = CREAT) 3.80 mg/dL 0.55-1.02 H Note change in reference range due to change in reagent. BUN/CREATININE RATIO (test code = BUN/CREA) 10.5 10-20 N CALCIUM (test code = CA) 9.2 mg/dL 8.5-10.1 N BASIC METABOLIC [id number] 06:00:00* Test Item Value Reference Range Interpretation Comments SODIUM (test code = NA) 138 mmol/L 136-145 N POTASSIUM (test code = K) 3.2 mmol/L 3.5-5.1 L CHLORIDE (test code = CL) 102.0 mmol/L 98-107 N CARBON DIOXIDE (test code = CO2) mmol/L 21-32 ANION GAP (test code = GAP) 10-20 GLUCOSE (test code = GLU) mg/dL 74-106 BLOOD UREA NITROGEN (test code = BUN) mg/dL 7-18 GLOMERULAR FILTRATION RATE (test code = GFR) mL/min >=60 CREATININE (test code = CREAT) mg/dL 0.55-1.02 BUN/CREATININE RATIO (test code = BUN/CREA) 10-20 CALCIUM (test code = CA) mg/dL 8.5-10.1 CBC W/AUTO [id number] 05:53:00* Test Item Value Reference Range Interpretation Comments WHITE BLOOD CELL (test code = WBC) 6.7 K/mm3 4.5-12.5 N RED BLOOD CELL (test code = RBC) 2.98 mill/mm3 3.7-5.2 L HEMOGLOBIN (test code = HGB) 10.0 gram/dL 11.5-15.5 L HEMATOCRIT (test code = HCT) 30.5 % 36.0-46.0 L MEAN CELL VOLUME (test code = MCV) 102.3 fL 80-98 H MEAN CELL HGB (test code = MCH) 33.6 picogram 27.0-33.0 H MEAN CELL HGB CONCETRATION (test code = MCHC) 32.8 gram/dL 33.0-36. 0 L RED CELL DISTRIBUTION WIDTH (test code = RDW) 15.4 % 11.6-16. 2 N RED CELL DISTRIBUTION WIDTH SD (test code = RDW-SD) 58.1 fL 37 .0-51.0 H PLATELET COUNT (test code = PLT) 179 K/mm3 150-450 N MEAN PLATELET VOLUME (test code = MPV) 11.7 fL 6.7-11.0 H NEUTROPHIL % (test code = NT%) 63.9 % 39.0-69.0 N IMMATURE GRANULOCYTE % (test code = IG%) 0.5 % 0.0-5.0 N LYMPHOCYTE % (test code = LY%) 14.1 % 25.0-55.0 L MONOCYTE % (test code = MO%) 17.9 % 0.0-10.0 H EOSINOPHIL % (test code = EO%) 3.0 % 0.0-5.0 N BASOPHIL % (test code = BA%) 0.6 % 0.0-1.0 N NUCLEATED RBC % (test code = NRBC%) 0.0 % 0-0 N NEUTROPHIL # (test code = NT#) 4.26 K/mm3 1.8-7.7 N IMMATURE GRANULOCYTE # (test code = IG#) 0.03 x10 3/uL 0-0.03 N LYMPHOCYTE # (test code = LY#) 0.94 K/mm3 1.0-5.0 L MONOCYTE # (test code = MO#) 1.19 K/mm3 0-0.8 H EOSINOPHIL # (test code = EO#) 0.20 K/mm3 0.0-0.5 N BASOPHIL # (test code = BA#) 0.04 K/mm3 0.0-0.2 N NUCLEATED RBC # (test code = NRBC#) 0.00 K/mm3 0.0-0.1 N MANUAL DIFF REQUIRED (test code = MDIFF) NO BASIC METABOLIC [id number] 18:26:00* Test Item Value Reference Range Interpretation Comments SODIUM (test code = NA) 138 mmol/L 136-145 N POTASSIUM (test code = K) 3.4 mmol/L 3.5-5.1 L CHLORIDE (test code = CL) 103.0 mmol/L 98-107 N CARBON DIOXIDE (test code = CO2) 25.0 mmol/L 21-32 N ANION GAP (test code = GAP) 13.4 10-20 N GLUCOSE (test code = GLU) 88 mg/dL 74-106 N BLOOD UREA NITROGEN (test code = BUN) 32 mg/dL 7-18 H RESULT VERIFIED BY REPEAT ANALYSIS GLOMERULAR FILTRATION RATE (test code = GFR) 14 mL/min >=60 Estimated GFR by using Modified MDRD formula.Chronic kidney disease is defined as either kidney damageor GFR <60 mL/min/1.73 m2 for >3 months. CREATININE (test code = CREAT) 3.20 mg/dL 0.55-1.02 H Note change in reference range due to change in reagent. BUN/CREATININE RATIO (test code = BUN/CREA) 10.0 10-20 N CALCIUM (test code = CA) 9.0 mg/dL 8.5-10.1 N BASIC METABOLIC [id number] 17:53:00* Test Item Value Reference Range Interpretation Comments SODIUM (test code = NA) 138 mmol/L 136-145 N POTASSIUM (test code = K) 3.4 mmol/L 3.5-5.1 L CHLORIDE (test code = CL) 103.0 mmol/L 98-107 N CARBON DIOXIDE (test code = CO2) mmol/L 21-32 ANION GAP (test code = GAP) 10-20 GLUCOSE (test code = GLU) mg/dL 74-106 BLOOD UREA NITROGEN (test code = BUN) mg/dL 7-18 GLOMERULAR FILTRATION RATE (test code = GFR) mL/min >=60 CREATININE (test code = CREAT) mg/dL 0.55-1.02 BUN/CREATININE RATIO (test code = BUN/CREA) 10-20 CALCIUM (test code = CA) mg/dL 8.5-10.1 CBC W/AUTO [id number] 17:17:00* Test Item Value Reference Range Interpretation Comments WHITE BLOOD CELL (test code = WBC) 6.4 K/mm3 4.5-12.5 N RED BLOOD CELL (test code = RBC) 3.13 mill/mm3 3.7-5.2 L HEMOGLOBIN (test code = HGB) 10.3 gram/dL 11.5-15.5 L HEMATOCRIT (test code = HCT) 31.9 % 36.0-46.0 L MEAN CELL VOLUME (test code = MCV) 101.9 fL 80-98 H MEAN CELL HGB (test code = MCH) 32.9 picogram 27.0-33.0 N MEAN CELL HGB CONCETRATION (test code = MCHC) 32.3 gram/dL 33.0-36. 0 L RED CELL DISTRIBUTION WIDTH (test code = RDW) 15.5 % 11.6-16. 2 N RED CELL DISTRIBUTION WIDTH SD (test code = RDW-SD) 57.7 fL 37 .0-51.0 H PLATELET COUNT (test code = PLT) 174 K/mm3 150-450 N MEAN PLATELET VOLUME (test code = MPV) 11.5 fL 6.7-11.0 H NEUTROPHIL % (test code = NT%) 75.4 % 39.0-69.0 H IMMATURE GRANULOCYTE % (test code = IG%) 0.5 % 0.0-5.0 N LYMPHOCYTE % (test code = LY%) 9.6 % 25.0-55.0 L MONOCYTE % (test code = MO%) 12.9 % 0.0-10.0 H EOSINOPHIL % (test code = EO%) 1.1 % 0.0-5.0 N BASOPHIL % (test code = BA%) 0.5 % 0.0-1.0 N NUCLEATED RBC % (test code = NRBC%) 0.0 % 0-0 N NEUTROPHIL # (test code = NT#) 4.81 K/mm3 1.8-7.7 N IMMATURE GRANULOCYTE # (test code = IG#) 0.03 x10 3/uL 0-0.03 N LYMPHOCYTE # (test code = LY#) 0.61 K/mm3 1.0-5.0 L MONOCYTE # (test code = MO#) 0.82 K/mm3 0-0.8 H EOSINOPHIL # (test code = EO#) 0.07 K/mm3 0.0-0.5 N BASOPHIL # (test code = BA#) 0.03 K/mm3 0.0-0.2 N NUCLEATED RBC # (test code = NRBC#) 0.00 K/mm3 0.0-0.1 N BASIC METABOLIC [id number] 05:37:00* Test Item Value Reference Range Interpretation Comments SODIUM (test code = NA) 139 mmol/L 136-145 N POTASSIUM (test code = K) 3.4 mmol/L 3.5-5.1 L CHLORIDE (test code = CL) 103.0 mmol/L 98-107 N CARBON DIOXIDE (test code = CO2) 27.0 mmol/L 21-32 N ANION GAP (test code = GAP) 12.4 10-20 N GLUCOSE (test code = GLU) 110 mg/dL 74-106 H BLOOD UREA NITROGEN (test code = BUN) 20 mg/dL 7-18 H RESULT VERIFIED BY REPEAT ANALYSIS GLOMERULAR FILTRATION RATE (test code = GFR) 21 mL/min >=60 Estimated GFR by using Modified MDRD formula.Chronic kidney disease is defined as either kidney damageor GFR <60 mL/min/1.73 m2 for >3 months. CREATININE (test code = CREAT) 2.30 mg/dL 0.55-1.02 H Note change in reference range due to change in reagent. BUN/CREATININE RATIO (test code = BUN/CREA) 8.7 10-20 L CALCIUM (test code = CA) 9.3 mg/dL 8.5-10.1 N BASIC METABOLIC [id number] 05:22:00* Test Item Value Reference Range Interpretation Comments SODIUM (test code = NA) 139 mmol/L 136-145 N POTASSIUM (test code = K) 3.4 mmol/L 3.5-5.1 L CHLORIDE (test code = CL) 103.0 mmol/L 98-107 N CARBON DIOXIDE (test code = CO2) mmol/L 21-32 ANION GAP (test code = GAP) 10-20 GLUCOSE (test code = GLU) mg/dL 74-106 BLOOD UREA NITROGEN (test code = BUN) mg/dL 7-18 GLOMERULAR FILTRATION RATE (test code = GFR) mL/min >=60 CREATININE (test code = CREAT) mg/dL 0.55-1.02 BUN/CREATININE RATIO (test code = BUN/CREA) 10-20 CALCIUM (test code = CA) mg/dL 8.5-10.1 CBC W/AUTO [id number] 05:12:00* Test Item Value Reference Range Interpretation Comments WHITE BLOOD CELL (test code = WBC) 9.2 K/mm3 4.5-12.5 N RED BLOOD CELL (test code = RBC) 3.22 mill/mm3 3.7-5.2 L HEMOGLOBIN (test code = HGB) 10.7 gram/dL 11.5-15.5 L HEMATOCRIT (test code = HCT) 32.3 % 36.0-46.0 L MEAN CELL VOLUME (test code = MCV) 100.3 fL 80-98 H MEAN CELL HGB (test code = MCH) 33.2 picogram 27.0-33.0 H MEAN CELL HGB CONCETRATION (test code = MCHC) 33.1 gram/dL 33.0-36. 0 N RED CELL DISTRIBUTION WIDTH (test code = RDW) 15.3 % 11.6-16. 2 N RED CELL DISTRIBUTION WIDTH SD (test code = RDW-SD) 56.8 fL 37 .0-51.0 H PLATELET COUNT (test code = PLT) 198 K/mm3 150-450 N MEAN PLATELET VOLUME (test code = MPV) 11.7 fL 6.7-11.0 H NEUTROPHIL % (test code = NT%) 88.9 % 39.0-69.0 H IMMATURE GRANULOCYTE % (test code = IG%) 0.5 % 0.0-5.0 N LYMPHOCYTE % (test code = LY%) 3.3 % 25.0-55.0 L MONOCYTE % (test code = MO%) 6.2 % 0.0-10.0 N EOSINOPHIL % (test code = EO%) 0.8 % 0.0-5.0 N BASOPHIL % (test code = BA%) 0.3 % 0.0-1.0 N NUCLEATED RBC % (test code = NRBC%) 0.0 % 0-0 N NEUTROPHIL # (test code = NT#) 8.13 K/mm3 1.8-7.7 H IMMATURE GRANULOCYTE # (test code = IG#) 0.05 x10 3/uL 0-0.03 H LYMPHOCYTE # (test code = LY#) 0.30 K/mm3 1.0-5.0 L MONOCYTE # (test code = MO#) 0.57 K/mm3 0-0.8 N EOSINOPHIL # (test code = EO#) 0.07 K/mm3 0.0-0.5 N BASOPHIL # (test code = BA#) 0.03 K/mm3 0.0-0.2 N NUCLEATED RBC # (test code = NRBC#) 0.00 K/mm3 0.0-0.1 N MANUAL DIFF REQUIRED (test code = MDIFF) NO AG HEPAT B [id number] 16:34:00* Test Item Value Reference Range Interpretation Comments AG HEPAT B SURF (test code = HBSAG) Nonreactive Index Nonreactive BASIC METABOLIC [id number] 16:13:00* Test Item Value Reference Range Interpretation Comments SODIUM (test code = NA) 135 mmol/L 136-145 L POTASSIUM (test code = K) 4.8 mmol/L 3.5-5.1 N CHLORIDE (test code = CL) 104.0 mmol/L 98-107 N CARBON DIOXIDE (test code = CO2) 19.0 mmol/L 21-32 L ANION GAP (test code = GAP) 16.8 10-20 N GLUCOSE (test code = GLU) 93 mg/dL 74-106 N BLOOD UREA NITROGEN (test code = BUN) 67 mg/dL 7-18 H GLOMERULAR FILTRATION RATE (test code = GFR) 9 mL/min >=60 Estimated GFR by using Modified MDRD formula.Chronic kidney disease is defined as either kidney damageor GFR <60 mL/min/1.73 m2 for >3 months. CREATININE (test code = CREAT) 4.70 mg/dL 0.55-1.02 H Note change in reference range due to change in reagent. BUN/CREATININE RATIO (test code = BUN/CREA) 14.3 10-20 N CALCIUM (test code = CA) 8.8 mg/dL 8.5-10.1 N [id number] 16:12:00* Test Item Value Reference Range Interpretation Comments PHOSPHORUS (test code = PHOS) 5.1 mg/dL 2.5-4.9 H PROTHROMBIN [id number] 15:58:00* Test Item Value Reference Range Interpretation Comments PROTHROMBIN TIME PATIENT (test code = PTP) 11.5 seconds 9.0-14.0 N INTERNATIONAL NORMAL RATIO (test code = INR) 1.0 0.8-1.2 N The therapeutic range for oral anticoagulant therapy formost indications is an international normalized ratio (INR)of between 2.0 and 3.0. The recommended therapeutic INRrange for various clinical situations is listed below: Clinical Situation INR range Pulmonary e mbolism treatment (2.0-3.0)Venous thrombosis treatmentVenous thrombosis prophylaxis (high risk surgery)Prevention of systemic embolism from: Acute myocardial infarction Valvular heart disease Atrial fibrillation Mechanical prosthetic heart valves (2.5-3.5) IS PATIENT ON ANTICOAGULANTS? N THROMBOPLASTIN TIME [id number] 15:58:00* Test Item Value Reference Range Interpretation Comments THROMBOPLASTIN TIME PARTIAL (test code = PTT) 31.5 seconds 25.0-36. 5 N IS PATIENT ON ANTICOAGULANTS? N CBC W/AUTO [id number] 15:50:00* Test Item Value Reference Range Interpretation Comments WHITE BLOOD CELL (test code = WBC) 13.5 K/mm3 4.5-12.5 H RED BLOOD CELL (test code = RBC) 3.20 mill/mm3 3.7-5.2 L HEMOGLOBIN (test code = HGB) 10.6 gram/dL 11.5-15.5 L HEMATOCRIT (test code = HCT) 34.3 % 36.0-46.0 L MEAN CELL VOLUME (test code = MCV) 107.2 fL 80-98 H MEAN CELL HGB (test code = MCH) 33.1 picogram 27.0-33.0 H MEAN CELL HGB CONCETRATION (test code = MCHC) 30.9 gram/dL 33.0-36. 0 L RED CELL DISTRIBUTION WIDTH (test code = RDW) 15.6 % 11.6-16. 2 N RED CELL DISTRIBUTION WIDTH SD (test code = RDW-SD) 60.9 fL 37 .0-51.0 H PLATELET COUNT (test code = PLT) 180 K/mm3 150-450 N MEAN PLATELET VOLUME (test code = MPV) 11.0 fL 6.7-11.0 N NEUTROPHIL % (test code = NT%) 88.5 % 39.0-69.0 H IMMATURE GRANULOCYTE % (test code = IG%) 0.5 % 0.0-5.0 N LYMPHOCYTE % (test code = LY%) 2.4 % 25.0-55.0 L MONOCYTE % (test code = MO%) 5.8 % 0.0-10.0 N EOSINOPHIL % (test code = EO%) 2.4 % 0.0-5.0 N BASOPHIL % (test code = BA%) 0.4 % 0.0-1.0 N NUCLEATED RBC % (test code = NRBC%) 0.0 % 0-0 N NEUTROPHIL # (test code = NT#) 11.92 K/mm3 1.8-7.7 H IMMATURE GRANULOCYTE # (test code = IG#) 0.07 x10 3/uL 0-0.03 H LYMPHOCYTE # (test code = LY#) 0.33 K/mm3 1.0-5.0 L MONOCYTE # (test code = MO#) 0.78 K/mm3 0-0.8 N EOSINOPHIL # (test code = EO#) 0.32 K/mm3 0.0-0.5 N BASOPHIL # (test code = BA#) 0.05 K/mm3 0.0-0.2 N NUCLEATED RBC # (test code = NRBC#) 0.00 K/mm3 0.0-0.1 N MANUAL DIFF REQUIRED (test code = MDIFF) NO PROTHROMBIN [id number] 18:20:00* Test Item Value Reference Range Interpretation Comments PROTHROMBIN TIME PATIENT (test code = PTP) 11.4 seconds 9.0-14.0 N INTERNATIONAL NORMAL RATIO (test code = INR) 1.0 0.8-1.2 N The therapeutic range for oral anticoagulant therapy formost indications is an international normalized ratio (INR)of between 2.0 and 3.0. The recommended therapeutic INRrange for various clinical situations is listed below: Clinical Situation INR range Pulmonary e mbolism treatment (2.0-3.0)Venous thrombosis treatmentVenous thrombosis prophylaxis (high risk surgery)Prevention of systemic embolism from: Acute myocardial infarction Valvular heart disease Atrial fibrillation Mechanical prosthetic heart valves (2.5-3.5) IS PATIENT ON ANTICOAGULANTS? YLIST ANTICOAGULANTS HEPARINTHROMBOPLASTIN TIME [id number] 18:20:00* Test Item Value Reference Range Interpretation Comments THROMBOPLASTIN TIME PARTIAL (test code = PTT) 31.2 seconds 25.0-36. 5 N IS PATIENT ON ANTICOAGULANTS? YLIST ANTICOAGULANTS HEPARINTROPONIN-I 2019-08-30 16:44:00* Test Item Value Reference Range Interpretation Comments TROPONIN-I (test code = TROPI) 0.910 ng/mL 0-0.045 HH Result previously called. @Repeat Result: 0.924 BASIC METABOLIC [id number] 11:04:00* Test Item Value Reference Range Interpretation Comments SODIUM (test code = NA) 136 mmol/L 136-145 N POTASSIUM (test code = K) 4.2 mmol/L 3.5-5.1 N CHLORIDE (test code = CL) 103.0 mmol/L 98-107 N CARBON DIOXIDE (test code = CO2) 24.0 mmol/L 21-32 N ANION GAP (test code = GAP) 13.2 10-20 N GLUCOSE (test code = GLU) 111 mg/dL 74-106 H BLOOD UREA NITROGEN (test code = BUN) 55 mg/dL 7-18 H RESULT VERIFIED BY REPEAT ANALYSIS GLOMERULAR FILTRATION RATE (test code = GFR) 9 mL/min >=60 Estimated GFR by using Modified MDRD formula.Chronic kidney disease is defined as either kidney damageor GFR <60 mL/min/1.73 m2 for >3 months. CREATININE (test code = CREAT) 4.60 mg/dL 0.55-1.02 H Note change in reference range due to change in reagent. BUN/CREATININE RATIO (test code = BUN/CREA) 12.0 10-20 N CALCIUM (test code = CA) 8.9 mg/dL 8.5-10.1 N BASIC METABOLIC [id number] 11:00:00* Test Item Value Reference Range Interpretation Comments SODIUM (test code = NA) 136 mmol/L 136-145 N POTASSIUM (test code = K) 4.2 mmol/L 3.5-5.1 N CHLORIDE (test code = CL) 103.0 mmol/L 98-107 N CARBON DIOXIDE (test code = CO2) mmol/L 21-32 ANION GAP (test code = GAP) 10-20 GLUCOSE (test code = GLU) mg/dL 74-106 BLOOD UREA NITROGEN (test code = BUN) mg/dL 7-18 GLOMERULAR FILTRATION RATE (test code = GFR) mL/min >=60 CREATININE (test code = CREAT) mg/dL 0.55-1.02 BUN/CREATININE RATIO (test code = BUN/CREA) 10-20 CALCIUM (test code = CA) mg/dL 8.5-10.1 CBC W/AUTO [id number] 10:51:00* Test Item Value Reference Range Interpretation Comments WHITE BLOOD CELL (test code = WBC) 7.0 K/mm3 4.5-12.5 N RED BLOOD CELL (test code = RBC) 2.86 mill/mm3 3.7-5.2 L HEMOGLOBIN (test code = HGB) 9.5 gram/dL 11.5-15.5 L HEMATOCRIT (test code = HCT) 30.1 % 36.0-46.0 L MEAN CELL VOLUME (test code = MCV) 105.2 fL 80-98 H MEAN CELL HGB (test code = MCH) 33.2 picogram 27.0-33.0 H MEAN CELL HGB CONCETRATION (test code = MCHC) 31.6 gram/dL 33.0-36. 0 L RED CELL DISTRIBUTION WIDTH (test code = RDW) 15.7 % 11.6-16. 2 N RED CELL DISTRIBUTION WIDTH SD (test code = RDW-SD) 61.2 fL 37 .0-51.0 H PLATELET COUNT (test code = PLT) 175 K/mm3 150-450 N MEAN PLATELET VOLUME (test code = MPV) 11.3 fL 6.7-11.0 H NEUTROPHIL % (test code = NT%) 71.2 % 39.0-69.0 H IMMATURE GRANULOCYTE % (test code = IG%) 0.6 % 0.0-5.0 N LYMPHOCYTE % (test code = LY%) 13.1 % 25.0-55.0 L MONOCYTE % (test code = MO%) 9.3 % 0.0-10.0 N EOSINOPHIL % (test code = EO%) 5.2 % 0.0-5.0 H BASOPHIL % (test code = BA%) 0.6 % 0.0-1.0 N NUCLEATED RBC % (test code = NRBC%) 0.0 % 0-0 N NEUTROPHIL # (test code = NT#) 4.97 K/mm3 1.8-7.7 N IMMATURE GRANULOCYTE # (test code = IG#) 0.04 x10 3/uL 0-0.03 H LYMPHOCYTE # (test code = LY#) 0.91 K/mm3 1.0-5.0 L MONOCYTE # (test code = MO#) 0.65 K/mm3 0-0.8 N EOSINOPHIL # (test code = EO#) 0.36 K/mm3 0.0-0.5 N BASOPHIL # (test code = BA#) 0.04 K/mm3 0.0-0.2 N NUCLEATED RBC # (test code = NRBC#) 0.00 K/mm3 0.0-0.1 N [id number] 19:17:00* Test Item Value Reference Range Interpretation Comments TROPONIN-I (test code = TROPI) 1.920 ng/mL 0-0.045 HH Results called to [id number] by [email or web address] 08/29/19 1911Critical results verified and read back by Nurse? Y COME BACK AT 1800 NM VIR[place]IE MOJICA [id number] [email or web address] 08/29/19 1253BASIC METABOLIC [id number] 13:49:00* Test Item Value Reference Range Interpretation Comments SODIUM (test code = NA) 138 mmol/L 136-145 N POTASSIUM (test code = K) 3.8 mmol/L 3.5-5.1 N CHLORIDE (test code = CL) 101.0 mmol/L 98-107 N CARBON DIOXIDE (test code = CO2) 30.0 mmol/L 21-32 N ANION GAP (test code = GAP) 10.8 10-20 N GLUCOSE (test code = GLU) 148 mg/dL 74-106 H BLOOD UREA NITROGEN (test code = BUN) 38 mg/dL 7-18 H RESULT VERIFIED BY REPEAT ANALYSIS GLOMERULAR FILTRATION RATE (test code = GFR) 12 mL/min >=60 Estimated GFR by using Modified MDRD formula.Chronic kidney disease is defined as either kidney damageor GFR <60 mL/min/1.73 m2 for >3 months. CREATININE (test code = CREAT) 3.70 mg/dL 0.55-1.02 H Note change in reference range due to change in reagent. BUN/CREATININE RATIO (test code = BUN/CREA) 10.3 10-20 N CALCIUM (test code = CA) 8.4 mg/dL 8.5-10.1 L BASIC METABOLIC [id number] 13:43:00* Test Item Value Reference Range Interpretation Comments SODIUM (test code = NA) 138 mmol/L 136-145 N POTASSIUM (test code = K) 3.8 mmol/L 3.5-5.1 N CHLORIDE (test code = CL) 101.0 mmol/L 98-107 N CARBON DIOXIDE (test code = CO2) mmol/L 21-32 ANION GAP (test code = GAP) 10-20 GLUCOSE (test code = GLU) mg/dL 74-106 BLOOD UREA NITROGEN (test code = BUN) mg/dL 7-18 GLOMERULAR FILTRATION RATE (test code = GFR) mL/min >=60 CREATININE (test code = CREAT) mg/dL 0.55-1.02 BUN/CREATININE RATIO (test code = BUN/CREA) 10-20 CALCIUM (test code = CA) mg/dL 8.5-10.1 CBC W/AUTO [id number] 13:02:00* Test Item Value Reference Range Interpretation Comments WHITE BLOOD CELL (test code = WBC) 5.8 K/mm3 4.5-12.5 N RED BLOOD CELL (test code = RBC) 2.84 mill/mm3 3.7-5.2 L HEMOGLOBIN (test code = HGB) 9.5 gram/dL 11.5-15.5 L HEMATOCRIT (test code = HCT) 30.0 % 36.0-46.0 L MEAN CELL VOLUME (test code = MCV) 105.6 fL 80-98 H MEAN CELL HGB (test code = MCH) 33.5 picogram 27.0-33.0 H MEAN CELL HGB CONCETRATION (test code = MCHC) 31.7 gram/dL 33.0-36. 0 L RED CELL DISTRIBUTION WIDTH (test code = RDW) 15.9 % 11.6-16. 2 N RED CELL DISTRIBUTION WIDTH SD (test code = RDW-SD) 61.7 fL 37 .0-51.0 H PLATELET COUNT (test code = PLT) 176 K/mm3 150-450 N MEAN PLATELET VOLUME (test code = MPV) 11.3 fL 6.7-11.0 H NEUTROPHIL % (test code = NT%) 72.6 % 39.0-69.0 H IMMATURE GRANULOCYTE % (test code = IG%) 0.3 % 0.0-5.0 N LYMPHOCYTE % (test code = LY%) 12.7 % 25.0-55.0 L MONOCYTE % (test code = MO%) 10.6 % 0.0-10.0 H EOSINOPHIL % (test code = EO%) 3.1 % 0.0-5.0 N BASOPHIL % (test code = BA%) 0.7 % 0.0-1.0 N NUCLEATED RBC % (test code = NRBC%) 0.0 % 0-0 N NEUTROPHIL # (test code = NT#) 4.18 K/mm3 1.8-7.7 N IMMATURE GRANULOCYTE # (test code = IG#) 0.02 x10 3/uL 0-0.03 N LYMPHOCYTE # (test code = LY#) 0.73 K/mm3 1.0-5.0 L MONOCYTE # (test code = MO#) 0.61 K/mm3 0-0.8 N EOSINOPHIL # (test code = EO#) 0.18 K/mm3 0.0-0.5 N BASOPHIL # (test code = BA#) 0.04 K/mm3 0.0-0.2 N NUCLEATED RBC # (test code = NRBC#) 0.00 K/mm3 0.0-0.1 N [id number] 08:01:00* Test Item Value Reference Range Interpretation Comments TROPONIN-I (test code = TROPI) 2.230 ng/mL 0-0.045 COMMENTS TO BANK GUARD: COLLECT 3 HOURS AFTER PREVIOUS [id number] 02:11:00* Test Item Value Reference Range Interpretation Comments TROPONIN-I (test code = TROPI) 1.980 ng/mL 0-0.045 HH Results called to [id number] by JAMES 08/29/19 0211Critical results verified and read back by Nurse? Y COMMENTS TO BANK GUARD: COLLECT 3 HOURS AFTER PREVIOUS SAMPLEB-TYPE NATRIURETIC [id number] 16:55:00* Test Item Value Reference Range Interpretation Comments B-TYPE NATRIURETIC PEPTIDE (test code = BNP) 468.02 pgram/mL 0-100 H PROCALCITONIN (PCT)2019-08-28 16:37:00* Test Item Value Reference Range Interpretation Comments PROCALCITONIN (PCT) (test code = PROCAL) 0.13 ng/ml Concentration Interpretation (ng/mL) <0.51 Sepsis is not likely. Local bacterial infection is possible. (LOW RISK for progression to Sepsis) 0.51 - 2.00 Sepsis is possible, but other conditions are known to elevate PCT as well. (MODERATE RISK for progression to Sepsis) > 2.00 Sepsis is likely, unless other causes are known. (HIGH RISK for progression to Severe Sepsis or Septic Shock) 10.00 High likelihood of Severe Sepsis or Septic or higher Shock. *Increased PCT levels may not always be related to systemic bacterial infection.*Low PCT levels do not automatically exclude the presence of bacterial infection.*All results should be interpreted taking into account the patients history. BASIC METABOLIC [id number] 16:30:00* Test Item Value Reference Range Interpretation Comments SODIUM (test code = NA) 138 mmol/L 136-145 N POTASSIUM (test code = K) 3.8 mmol/L 3.5-5.1 N CHLORIDE (test code = CL) 100.0 mmol/L 98-107 N CARBON DIOXIDE (test code = CO2) 30.0 mmol/L 21-32 N ANION GAP (test code = GAP) 11.8 10-20 N GLUCOSE (test code = GLU) 96 mg/dL 74-106 N BLOOD UREA NITROGEN (test code = BUN) 20 mg/dL 7-18 H GLOMERULAR FILTRATION RATE (test code = GFR) 21 mL/min >=60 Estimated GFR by using Modified MDRD formula.Chronic kidney disease is defined as either kidney damageor GFR <60 mL/min/1.73 m2 for >3 months. CREATININE (test code = CREAT) 2.30 mg/dL 0.55-1.02 H Note change in reference range due to change in reagent. BUN/CREATININE RATIO (test code = BUN/CREA) 8.8 10-20 L CALCIUM (test code = CA) 8.2 mg/dL 8.5-10.1 L HEPATIC FUNCTION [id number] 16:30:00* Test Item Value Reference Range Interpretation Comments TOTAL PROTEIN (test code = PROT) 6.5 gram/dL 6.4-8.2 N ALBUMIN (test code = ALB) 2.9 g/dL 3.4-5.0 L GLOBULIN (test code = GLOB) 3.6 gram/dL 2.7-4.2 N ALBUMIN/GLOBULIN RATIO (test code = A/G) 0.8 0.75-1.50 N BILIRUBIN TOTAL (test code = BILT) 0.50 mg/dL 0.0-1.0 N BILIRUBIN DIRECT (test code = BILD) 0.19 mg/dL 0.0-0.20 N SGOT/AST (test code = AST) 10 IUnit/L 15-37 L SGPT/ALT (test code = ALT) 15 IUnit/L 12-78 N ALKALINE PHOSPHATASE TOTAL (test code = ALKP) 106 IUnit/L 45-117 N Note change in reference range due to change in reagent. TSH REFLEX TO [id number] 16:30:00* Test Item Value Reference Range Interpretation Comments TSH REFLEX TO FT4 (test code = TSHREFLEX) 0.5 0.4-5.5 N [id number] 16:30:00* Test Item Value Reference Range Interpretation Comments TROPONIN-I (test code = TROPI) 0.017 ng/mL 0-0.045 N PROTHROMBIN [id number] 16:23:00* Test Item Value Reference Range Interpretation Comments PROTHROMBIN TIME PATIENT (test code = PTP) 12.3 seconds 9.0-14.0 N INTERNATIONAL NORMAL RATIO (test code = INR) 1.1 0.8-1.2 N The therapeutic range for oral anticoagulant therapy formost indications is an international normalized ratio (INR)of between 2.0 and 3.0. The recommended therapeutic INRrange for various clinical situations is listed below: Clinical Situation INR range Pulmonary e mbolism treatment (2.0-3.0)Venous thrombosis treatmentVenous thrombosis prophylaxis (high risk surgery)Prevention of systemic embolism from: Acute myocardial infarction Valvular heart disease Atrial fibrillation Mechanical prosthetic heart valves (2.5-3.5) IS PATIENT ON ANTICOAGULANTS? NTHROMBOPLASTIN TIME [id number] 16:23:00* Test Item Value Reference Range Interpretation Comments THROMBOPLASTIN TIME PARTIAL (test code = PTT) 30.7 seconds 25.0-36. 5 N IS PATIENT ON ANTICOAGULANTS? NCBC W/AUTO [id number] 16:22:00* Test Item Value Reference Range Interpretation Comments WHITE BLOOD CELL (test code = WBC) 7.1 K/mm3 4.5-12.5 N RED BLOOD CELL (test code = RBC) 3.03 mill/mm3 3.7-5.2 L HEMOGLOBIN (test code = HGB) 10.1 gram/dL 11.5-15.5 L HEMATOCRIT (test code = HCT) 32.1 % 36.0-46.0 L MEAN CELL VOLUME (test code = MCV) 105.9 fL 80-98 H MEAN CELL HGB (test code = MCH) 33.3 picogram 27.0-33.0 H MEAN CELL HGB CONCETRATION (test code = MCHC) 31.5 gram/dL 33.0-36. 0 L RED CELL DISTRIBUTION WIDTH (test code = RDW) 15.7 % 11.6-16. 2 N RED CELL DISTRIBUTION WIDTH SD (test code = RDW-SD) 60.7 fL 37 .0-51.0 H PLATELET COUNT (test code = PLT) 169 K/mm3 150-450 N MEAN PLATELET VOLUME (test code = MPV) 11.2 fL 6.7-11.0 H NEUTROPHIL % (test code = NT%) 82.7 % 39.0-69.0 H IMMATURE GRANULOCYTE % (test code = IG%) 0.3 % 0.0-5.0 N LYMPHOCYTE % (test code = LY%) 5.5 % 25.0-55.0 L MONOCYTE % (test code = MO%) 9.3 % 0.0-10.0 N EOSINOPHIL % (test code = EO%) 1.8 % 0.0-5.0 N BASOPHIL % (test code = BA%) 0.4 % 0.0-1.0 N NUCLEATED RBC % (test code = NRBC%) 0.0 % 0-0 N NEUTROPHIL # (test code = NT#) 5.83 K/mm3 1.8-7.7 N IMMATURE GRANULOCYTE # (test code = IG#) 0.02 x10 3/uL 0-0.03 N LYMPHOCYTE # (test code = LY#) 0.39 K/mm3 1.0-5.0 L MONOCYTE # (test code = MO#) 0.66 K/mm3 0-0.8 N EOSINOPHIL # (test code = EO#) 0.13 K/mm3 0.0-0.5 N BASOPHIL # (test code = BA#) 0.03 K/mm3 0.0-0.2 N NUCLEATED RBC # (test code = NRBC#) 0.00 K/mm3 0.0-0.1 N MANUAL DIFF REQUIRED (test code = MDIFF) NO BASIC METABOLIC [id number] 16:14:00* Test Item Value Reference Range Interpretation Comments SODIUM (test code = NA) 138 mmol/L 136-145 N POTASSIUM (test code = K) 3.8 mmol/L 3.5-5.1 N CHLORIDE (test code = CL) 100.0 mmol/L 98-107 N CARBON DIOXIDE (test code = CO2) mmol/L 21-32 ANION GAP (test code = GAP) 10-20 GLUCOSE (test code = GLU) mg/dL 74-106 BLOOD UREA NITROGEN (test code = BUN) mg/dL 7-18 GLOMERULAR FILTRATION RATE (test code = GFR) mL/min >=60 CREATININE (test code = CREAT) mg/dL 0.55-1.02 BUN/CREATININE RATIO (test code = BUN/CREA) 10-20 CALCIUM (test code = CA) mg/dL 8.5-10.1 HEPATIC FUNCTION [id number] 16:14:00* Test Item Value Reference Range Interpretation Comments TOTAL PROTEIN (test code = PROT) gram/dL 6.4-8.2 ALBUMIN (test code = ALB) g/dL 3.4-5.0 GLOBULIN (test code = GLOB) gram/dL 2.7-4.2 ALBUMIN/GLOBULIN RATIO (test code = A/G) 0.75-1.50 BILIRUBIN TOTAL (test code = BILT) mg/dL 0.0-1.0 BILIRUBIN DIRECT (test code = BILD) mg/dL 0.0-0.20 SGOT/AST (test code = AST) IUnit/L 15-37 SGPT/ALT (test code = ALT) IUnit/L 12-78 ALKALINE PHOSPHATASE TOTAL (test code = ALKP) IUnit/L 45-117 TSH REFLEX TO [id number] 16:14:00* Test Item Value Reference Range Interpretation Comments TSH REFLEX TO FT4 (test code = TSHREFLEX) 0.4-5.5 [id number] 16:14:00* Test Item Value Reference Range Interpretation Comments TROPONIN-I (test code = TROPI) ng/mL 0-0.045 - XR CHEST 1 [id number] 15:32:00 FAX: Glenn Mclaughlin MD [phone] [place]: St: REG FAX: Ortiz Lopez MD Name: WILEY OH [facility] : 1945 Age/S: 74/F [address] Unit #: [id number] Loc: [place] [address] Phys: Ortiz Lopez MD Acct: [id number] Dis Date: Status: REG ER PHONE #: [phone] Exam Date: 08/28/2019 1522 FAX #: [phone] Reason: CODE SEPSIS EXAMS: CPT CODE: [id number] XR CHEST 1 V 72753 REASON FOR EXAM: CODE SEPSIS EXAM ORDER DATE: 08/28/2019 2:27 PM Ordering: Ortiz Lopez MD Attending:Ortiz Lopez MD Location:[facility] PROCEDURE: - XR CHEST 1 V COMPARISON: 04/19/2019 FINDINGS: Portable AP frontal view of the chest obtained at 3:22 PM shows clear lungs without evidence of consolidation. There is no evidence of effusion. The heart size is within normal limits. Pulmonary vasculatures are unremarkable. Stable appearance of the right IJ tunneled dialysis catheter. IMPRESSION: No active disease. at 1532 Reported and signed by: Lukas Manzano M.D. CC: Glenn Strange; Ortiz Lopez MD Technologist: RT PACO(R) Trnscrd Date/Time/By: 08/28/2019 (8778) : By: IsmaelL Orig Print D/T: S: 08/28/2019 (2668) PAGE 1 Signed R eport Platelet Aggregation: Function Screen 2019-08-25 14:55:00* Test Item Value Reference Range Interpretation Comments Pathologist: (test code = 2622) Miller Chatman MD (electronic signature ) Platelets (test code = 2656) 155 150- 450 K/CU MM ADP (test code = 57195-5) 72 % 62-100 Platelet Rich Plasma (test code = 2134) 247 200- 300 k/cu mm Plt. Function Screen Interpretation (test code = 4655) Normal aggregation results with ADP. No evidence of platelet dysfunction or P2Y12 inhibitor effect. CLEVE (test code = CLEVE) Platelet Function Screen res ults may be falsely low with platelet counts<75,000/cu mm. [facility] AGGREGATION: FUNCTION [id number] 14:55:00* Test Item Value Reference Range Interpretation Comments [id number] (BEAKER) (test code = 2622) Miller Chatman MD (electronic signature) PLATELET COUNT AGG (BEAKER) (test code = 2656) 155 K/CU MM 150-450 PLATELET RICH PLASMA(BEAKER) (test code = 2134) 247 k/cu mm 200-30 0 PLATELET FUNCTION SCREEN INTERPRETATION (BEAKER) (test code = 4655) Normal aggregation results with ADP. No evidence of platelet dysfunction or P2Y12 inhibitor effect. Platelet Function Screen results may be falsely low with platelet counts< 75,000/cu mm.GLUCOSE-STAT [id number] 10:58:00* Test Item Value Reference Range Interpretation Comments GLUCOSE RANDOM (BEAKER) (test code = 652) 89 mg/dL 70-110 POTASSIUM-STAT [id number] 10:58:00* Test Item Value Reference Range Interpretation Comments POTASSIUM (BEAKER) (test code = 379) 5.3 meq/L 3.6-5.5 HGB/HCT (H&H) - STAT [id number] 10:58:00* Test Item Value Reference Range Interpretation Comments HEMOGLOBIN (BEAKER) (test code = 410) 11.5 g/dL 12.0-15.0 L HEMATOCRIT (BEAKER) (test code = 411) 34.0 % 36.0-45.0 L POC-Glucose [id number] 08:08:00* Test Item Value Reference Range Interpretation Comments POC-Glucose Meter (test code = 1538) 91 mg/dL 70-110 : TESTED AT [place] [id number] [facility], [address]: Chief Executive Officer/Pension Fund Manager ID = [id number] for [employer] Lab Interpretation (test code = 65580-3) Normal [facility] [id number] 08:08:00* Test Item Value Reference Range Interpretation Comments POC-GLUCOSE METER (BEAKER) (test code = 1538) 91 mg/dL 70-110 : TESTED AT [address], [address]: Chief Executive Officer/Pension Fund Manager ID = [id number] for [employer] HGB/HCT (H&H) - STAT [id number] 07:15:00* Test Item Value Reference Range Interpretation Comments HEMOGLOBIN (BEAKER) (test code = 410) 11.5 g/dL 12.0-15.0 L HEMATOCRIT (BEAKER) (test code = 411) 34.0 % 36.0-45.0 L GLUCOSE-STAT [id number] 07:14:00* Test Item Value Reference Range Interpretation Comments GLUCOSE RANDOM (BEAKER) (test code = 652) 73 mg/dL 70-110 POTASSIUM-STAT [id number] 07:14:00* Test Item Value Reference Range Interpretation Comments POTASSIUM (BEAKER) (test code = 379) 4.7 meq/L 3.6-5.5 POCT-GLUCOSE [id number] 06:06:00* Test Item Value Reference Range Interpretation Comments POC-GLUCOSE METER (BEAKER) (test code = 1538) 69 mg/dL 70-110 L : TESTED AT [address], [address]: Chief Executive Officer/Pension Fund Manager ID = [id number] for ERUM CARRASCOYSTAL Vein Mapping Arm(s)2019-07-16 14:32:56Ejection FractionSST. MARY'[facility] ECHO HEARTLAB MKCKESSON CPACSRight Impression1. There is no deep venous obstruction in the jugular, subclavian, axillary,brachial, radial or ulnar veins.2. There is no superficial venous obstruction in the cephalic or basilicveins.3. The subclavian, axillary, brachial, radial and ulnar arteries are patentwith normal triphasic Doppler waveforms throughout.Left Impression1. There is no deep venous obstruction in the jugular, subclavian, axillary,brachial, radial or ulnar veins.2. There is no superficial venous obstruction in the cephalic or basilicveins.3. The subclavian, axillary, brachial, radial and ulnar arteries are patentwith normal triphasic Doppler waveforms throughout. Conclusions Summary Arterial duplex imaging, venous duplex imaging and compression of both upper extremities was performed. All arteries and veins were adequately visuali zed. The arteries were patent with normal triphasic Doppler waveforms bilaterall y. The venous systems were patent and compressible with no evidence of thrombus bilaterally. Superficial venous measurements are documented below. Signature - Electronically s igned by Naomie Cerda MD(Interpreting physician) on 07/16/2019 02:32 PM ---- Velocities are laura ured in cm/s ; Diameters are measured in cm Cephalic Mapping Right Left + + + + ------+ + + + !Locati on ! !AP Diam !Trans Diam ! !AP Diam !Trans Diam ! + + + + + +- + + !Cephalic at Prox UA ! !0.12 ! ! !0.11 ! ! + + + + + + + + !Cephalic at Mid UA ! !0.11 ! ! !0.06 ! ! + + +------ + + + --+ + !Cephalic at Dist UA ! !0.11 ! ! !0.12 ! ! +- + + -------+ + + +------- + !Cephalic at Prox LA ! !0.12 ! ! !0.18 ! ! + + + +-- + + + + !Cephalic at Mid LA ! !0.08 ! ! !0.15 ! ! + + + + + + + + !Cephalic at Dist LA ! !0 .1 ! ! + + + +------- + Basilic Mapping Right Left + ---------+ + + + +--- + + !Location ! !AP Diam !Trans Diam ! !AP Diam !Trans Diam ! + + + + + + + + !Basilic at Prox UA ! !0.26 ! ! !0.32 ! ! + + +-------- + + + + + !Basilic at Mid UA ! !0.23 ! ! !0.23 ! ! +--- + + -----+ + + +--------- + !Basilic at Dist UA ! !0.24 ! ! + + + + + Interface, External Ris In - 07/16/2019 2:33 PM CDTPV LAB - Upper Extremities Vein Mapping Demographics Patient Name WILEY OH Date of Study 07/16/2019 Age 74 Visit Number [id number] Gender Female Acce ssion Number [id number] Date of 1945 Referring Becky Delgadillo Room Number Physician Laboratory Animal Care Veterinarian Jaky Padilla rpnew mexico rehabilitation centergraciela Cerda MD RVT Physician ProcedureType of Study: Veins: Upper Extremity Vein Mapping, VEIN MAPPING ARM/ ARMS. Indications for Study:AVF/AVG creation .Patient Status:Routine.Study Locat ion:Vascular Lab.Technical Quality:Adequate visualization.Risk FactorsHistory of Disease+ +----+ ---+!Diagnosis !Date!Comments ! + +----+ +!His tory/Risk Factors: ! !Breast cancer, HTN, TIA !+------- +----+ +ImpressionsR ight Impression1. There is no deep venous obstruction in the jugular, subclavian , axillary,brachial, radial or ulnar veins.2. There is no superficial venous obs truction in the cephalic or basilicveins.3. The subclavian, axillary, brachial, radial and ulnar arteries are patentwith normal triphasic Doppler waveforms thro ughout.Left Impression1. There is no deep venous obstruction in the jugular, sub clavian, axillary,brachial, radial or ulnar veins.2. There is no superficial kathleen ous obstruction in the cephalic or basilicveins.3. The subclavian, axillary, bra chial, radial and ulnar arteries are patentwith normal triphasic Doppler wavefor ms throughout. Conclusions Summary Arterial duplex imaging, venous duplex imag ing and compression of both upper extremities was performed. All arteries and ve ins were adequately visualized. The arteries were patent with normal triphasic D oppler waveforms bilaterally. The venous systems were patent and compressible wi th no evidence of thrombus bilaterally. Superficial venous measurements are docu mented below. Signature ------- Velocities are measured in cm/s ; Diameters are measured in cmCephalic M apping Right Left + + + +------ + + + + !Location ! !AP Diam !Trans Diam ! !AP Diam !Trans Diam ! + + + + + + + -------+ !Cephalic at Prox UA ! !0.12 ! ! !0.11 ! ! + + + + + + + + ! Cephalic at Mid UA ! !0.11 ! ! !0.06 ! ! + + + + --+ + + + !Cephalic a t Dist UA ! !0.11 ! ! !0.12 ! ! + -------+ + + + +----- + + !Cephalic at Prox LA ! !0.12 ! ! !0.18 ! ! + + + + + + --------+ + !Cephalic at Mid LA ! !0.08 ! ! !0.15 ! ! + + + + + + +- + !Cephalic at Dist LA ! !0.1 ! ! + + +----- + + Basilic Mapping Right Left + + + + + + + -----+ !Location ! !AP Diam !Trans Diam ! !AP Diam !Trans Diam ! + + + + + + + + !Ba silic at Prox UA ! !0.26 ! ! !0.32 ! ! + + + + + + + + !Basilic at M id UA ! !0.23 ! ! !0.23 ! ! + -----+ + + + +------- + + !Basilic at Dist UA ! !0.24 ! ! + + + ------+ + [facility] [id number] 15:06:00 [place] [address] Patient Name: WILEY OH MR #: [id number] : 1945 Age/Sex: 73/F Req #: [id number] [facility] Physician: Ordered by: FLORINA LUNDBERG MD Report #: [id number] Location: ER Room/Bed: Procedure: [id number] CT/CT ABDOMEN/PELVIS WO Exam Date: 05/09/19 Exam Nik e: 1430 REPORT STATUS: Signed EX AMINATION: CT of the abdomen and pelvis without contrast. TECHNIQUE: Helic al CT images of the abdomen and pelvis were performed from the lung bases to t he lesser trochanters. No intravenous contrast was given per renal stone prot ocol. Coronal and sagittal reformatted images were obtained.Dose modulation, iterative reconstruction, and/or weight based adjustment of the mA/kV was util ized to reduce the radiation dose to as low as reasonably achievable. CO MPARISON: None. CLINICAL HISTORY:Abdominal pain DISCUSSION: ABSE NCE OF INTRAVENOUS CONTRAST DECREASES SENSITIVITY FOR DETECTION OF FOCAL LESIO NS AND VASCULAR PATHOLOGY. ABDOMEN/PELVIS: LOWER THORAX: Vascular calc ifications. Small left pleural effusion. HEPATOBILIARY:No focal hepatic les ions. No biliary ductal dilation. Probable mild cholelithiasis. SPLEEN: No splenomegaly. PANCREAS: No focal masses or ductal dilatation. ADREN ALS: No adrenal nodules. KIDNEYS/URETERS: Atrophy of the left kidney. 0.9 c m calculus in the right renal pelvis. No hydronephrosis. Additional calcificat ions inferior aspect of the right kidney. Simple exophytic cyst measuring 1.4 cm and 1.7 cm.. PELVIC ORGANS/BLADDER: The bladder is normal. PERITO NEUM/RETROPERITONEUM: No free air or fluid. LYMPH NODES: No intra-abdominal ,retroperitoneal, pelvic or inguinal lymphadenopathy. VESSELS: Vascular c alcifications. GI TRACT: No distention or wall thickening. Mild diverticulo sis. No inflammatory change. BONES AND SOFT TISSUES: Postsurgical change to the lower lumbar spine. IMPRESSION: No acute CT finding. Nono bstructing right renal pelvis calculus. Probable cholelithiasis. Right renal cysts. Signed by: Dr. Iftikhar Lazo M.D. on 05/09/2019 3:19 PM Dictated By: IFTIKHAR LAZO MD [id number] Transcribed By: BENOIT on 05/09/19 4072 COPY TO: FLORINA CASTILLO MD CT BRAIN [id number] 13:24:00 [place] [address] Patient Name: WILEY OH MR #: [id number] : 1945 Age/Sex: 73/F Req #: [id number] Adm Physician: Ordered by: FLORINA LUNDBERG MD Report #: [id number] Location: ER Room/Bed: Procedure: [id number] CT/CT BRAIN WO Exam Date: Exam Time: REPORT STATUS: Signed History:Fall, AMS Com parison studies:CT head 09/13/2018 Technique: Axial images were obtained f rom the skull base to the vertex. Coronal and sagittal images reconstructed fr om the axial data. Intravenous contrast: None Dose modulation, iterative rec onstruction, and/or weight based adjustment of the mA/kV was utilized to reduc e the radiation dose to as low as reasonably achievable. Findings: M otion artifact limits the evaluation. Scalp/skull: No acute abnormaliti es. Subcentimeter lucent lesions at the frontal calvarium, stable compared to the previous examination. Extra-axial spaces: No masses. No fluid colle ctions. Brain sulci: Mildly prominent. Ventricles: Mild compensatory dila tation. No hydrocephalus. Parenchyma: Few hypodensities in the supratent orial white matter are small vessel ischemic changes. Small chronic lacunar in farct at the left caudate head.No masses, hemorrhage, acute or chronic cortica l vascular insults. Sellar/suprasellar region: No abnormalities. Cranioce rvical junction: Patent foramen magnum. No Chiari one malformation. Incide ntal findings: Atherosclerotic calcifications in the carotid siphons . Im pression: No acute abnormalities. Chronic findings: 1. Mild general ized volume loss. 2. Mild supratentorial white matter small vessel ischemic c hanges. Signed by: DR José Miguel Rodriguez M.D. on 05/09/2019 1:33 PM Dictated By: JOSÉ MIGUEL BARNEY MD 1333 Transcribed By: BENOIT on 05/09/19 1333 COPY TO: FLORINA LUNDBERG MD ABDOMEN-1VIEW ([facility])2019-05-09 13:22:00 [facility] [address] [place] [address] Patient Name: WILEY OH MR #: [id number] : 1945 Age/Sex: 73/F Req #: [id number] Adm Physician: Ordered by: FLORINA LUNDBERG MD Report #: [id number] Location: ER Room/Bed: Procedure: [id number] DX/ABDOMEN-1VIEW ([facility]) Exam Date: 05/09/19 Exam Time : 1255 REPORT STATUS: Signed Exam: Abdominal film Clinical History: Nausea and vomiting Comparison : None. DISCUSSION: Nonobstructive bowel gas pattern. No visuali zed free air. Scattered phleboliths. IMPRESSION: Nonobstructive bowel gas pattern. Signed by: Dr. Iftikhar Lazo M.D. on 05/09/2019 1:23 PM Dictated By: IFTIKHAR LAZO MD 1323 Transcribed By: BENOIT on 05/09/19 1 323 COPY TO: FLORINA LUNDBERG MD Magnesium [id number] 13:11:00* Test Item Value Reference Range Interpretation Comments Magnesium Level (test code = 07853-6) 2.1 1.3-2.1 [facility] Kinase [id number] 13:11:00* Test Item Value Reference Range Interpretation Comments Creatine Kinase MB (test code = 48185-3) 1.40 0-5.0 [facility] [id number] 13:11:00* Test Item Value Reference Range Interpretation Comments Troponin I (test code = GUY2175) 0.094 0-0.300 [facility] [id number] 13:03:00* Test Item Value Reference Range Interpretation Comments Sodium Level (test code = 2951-2) 135 136-145 L [facility] [id number] 13:03:00* Test Item Value Reference Range Interpretation Comments Potassium Level (test code = 2823-3) 2.5 3.5-5.1 LL Results repeated and called to QUIQUE MARTINEZ RN at 1302 on 05/09/19 by Tati Nunez. Read back and verified.[facility] HospitalChloride [id number] 13:03:00* Test Item Value Reference Range Interpretation Comments Chloride Level (test code = 2075-0) 92 98-107 L [facility] HospitalCarbon Dioxide [id number] 13:03:00* Test Item Value Reference Range Interpretation Comments Carbon Dioxide Level (test code = 2028-9) 26 22-29 [facility] HospitalAnion [id number] 13:03:00* Test Item Value Reference Range Interpretation Comments Anion Gap (test code = 96615-2) 19.5 8-16 H [facility] HospitalBlood Urea [id number] 13:03:00* Test Item Value Reference Range Interpretation Comments Blood Urea Nitrogen (test code = 3094-0) 5 7-26 L [facility] HospitalCreatinine2019-08-03 13:03:00* Test Item Value Reference Range Interpretation Comments Creatinine (test code = 2160-0) 1.68 0.57-1.11 H [facility] HospitalBUN/Creatinine [id number] 13:03:00* Test Item Value Reference Range Interpretation Comments BUN/Creatinine Ratio (test code = 3097-3) 3 6-25 L [facility] HospitalEstimat Glomerular Filtration Rate 2019-05-09 13:03:00* Test Item Value Reference Range Interpretation Comments Estimat Glomerular Filtration Rate (test code = 681040565) 30 >60 L Ranges were taken from the National Kidney Disease Education Program and the [facility] literature.Reference ranges:60 or greater: Gxrwcs66-64 ( for 3 consecutive months): Chronic kidney disease 15 or less: Kidney failureMethodist Specialty and Transplant HospitalGlucose Fdfvi0120-44-18 13:03:00* Test Item Value Reference Range Interpretation Comments Glucose Level (test code = WHD2486) 82 74-118 [facility] HospitalCalcium [id number] 13:03:00* Test Item Value Reference Range Interpretation Comments Calcium Level (test code = 99530-0) 10.2 8.4-10.2 [facility] Eegwshpfg2978-01-85 13:03:00* Test Item Value Reference Range Interpretation Comments Total Bilirubin (test code = 1975-2) 1.0 0.2-1.2 [facility] HospitalAspartate Amino Transf (AST/SGOT) 2019-05-09 13:03:00* Test Item Value Reference Range Interpretation Comments Aspartate Amino Transf (AST/SGOT) (test code = Aspartate Amino Transf (AST/SGOT)) 15 5-34 [facility] HospitalAlanine Aminotransferase (ALT/SGPT) 2019-05-09 13:03:00* Test Item Value Reference Range Interpretation Comments Alanine Aminotransferase (ALT/SGPT) (test code = 1742-6) 20 0-55 [facility] HospitalTotal [id number] 13:03:00* Test Item Value Reference Range Interpretation Comments Total Protein (test code = 2885-2) 7.0 6.5-8.1 [facility] HospitalAlbumin2019-08-03 13:03:00* Test Item Value Reference Range Interpretation Comments Albumin (test code = 1751-7) 3.7 3.5-5.0 [facility] HospitalGlobulin2019-08-03 13:03:00* Test Item Value Reference Range Interpretation Comments Globulin (test code = 42570-9) 3.3 2.3-3.5 [facility] HospitalAlbumin/Globulin [id number] 13:03:00 * Test Item Value Reference Range Interpretation Comments Albumin/Globulin Ratio (test code = 1759-0) 1.1 0.8-2.0 [facility] HospitalAlkaline Imokkwdmtik0891-30-88 13:03:00* Test Item Value Reference Range Interpretation Comments Alkaline Phosphatase (test code = 6768-6) 79 40-150 [facility] HospitalCreatine Hwpbck9390-87-97 13:03:00* Test Item Value Reference Range Interpretation Comments Creatine Kinase (test code = 2157-6) 39 29-168 [facility] HospitalWhite Blood [id number] 12:44:00* Test Item Value Reference Range Interpretation Comments White Blood Count (test code = 6690-2) 4.95 4.8-10.8 [facility] HospitalRed Blood Uqcsx1653-06-16 12:44:00* Test Item Value Reference Range Interpretation Comments Red Blood Count (test code = 789-8) 4.00 3.6-5.1 [facility] HospitalHemoglobin2019-08-03 12:44:00* Test Item Value Reference Range Interpretation Comments Hemoglobin (test code = 67268-2) 12.1 12.0-16.0 [facility] HospitalHematocrit2019-08-03 12:44:00* Test Item Value Reference Range Interpretation Comments Hematocrit (test code = 4544-3) 37.5 34.2-44.1 [facility] HospitalMean Corpuscular Uulqra6498-27-03 12:44:00* Test Item Value Reference Range Interpretation Comments Mean Corpuscular Volume (test code = 787-2) 93.8 81-99 [facility] HospitalMean Corpuscular Gmlyjpgffn2835-06-11 12:44:00* Test Item Value Reference Range Interpretation Comments Mean Corpuscular Hemoglobin (test code = 785-6) 30.3 28-32 [facility] HospitalMean Corpuscular Hemoglobin Concent 2019-05-09 12:44:00* Test Item Value Reference Range Interpretation Comments Mean Corpuscular Hemoglobin Concent (test code = 786-4) 32.3 31-35 [facility] HospitalRed Cell Distribution Aazmx3651-54-80 12:44:00* Test Item Value Reference Range Interpretation Comments Red Cell Distribution Width (test code = 58885-9) 20.0 11.7 -14.4 H [facility] HospitalPlatelet [id number] 12:44:00* Test Item Value Reference Range Interpretation Comments Platelet Count (test code = 777-3) 121 140-360 L [facility] HospitalNeutrophils (%) (Auto)2019-05-09 12:44:00 * Test Item Value Reference Range Interpretation Comments Neutrophils (%) (Auto) (test code = 26349-7) 73.6 38.7-80.0 [facility] HospitalLymphocytes (%) (Auto)2019-05-09 12:44:00 * Test Item Value Reference Range Interpretation Comments Lymphocytes (%) (Auto) (test code = 736-9) 12.5 18.0-39.1 L [facility] HospitalMonocytes (%) (Auto)2019-05-09 12:44:00* Test Item Value Reference Range Interpretation Comments Monocytes (%) (Auto) (test code = 5905-5) 12.5 4.4-11.3 H [facility] HospitalEosinophils (%) (Auto)2019-05-09 12:44:00 * Test Item Value Reference Range Interpretation Comments Eosinophils (%) (Auto) (test code = 713-8) 0.4 0.0-6.0 [facility] HospitalBasophils (%) (Auto)2019-05-09 12:44:00* Test Item Value Reference Range Interpretation Comments Basophils (%) (Auto) (test code = 706-2) 0.6 0.0-1.0 [facility] HospitalIM GRANULOCYTES %2019-05-09 12:44:00* Test Item Value Reference Range Interpretation Comments IM GRANULOCYTES % (test code = IM GRANULOCYTES %) 0.4 0.0- 1.0 [facility] HospitalNeutrophils # (Auto)2019-05-09 12:44:00* Test Item Value Reference Range Interpretation Comments Neutrophils # (Auto) (test code = 751-8) 3.6 2.1-6.9 [facility] HospitalLymphocytes # (Auto)2019-05-09 12:44:00* Test Item Value Reference Range Interpretation Comments Lymphocytes # (Auto) (test code = 18595-7) 0.6 1.0-3.2 L [facility] HospitalMonocytes # (Auto)2019-05-09 12:44:00* Test Item Value Reference Range Interpretation Comments Monocytes # (Auto) (test code = 742-7) 0.6 0.2-0.8 [facility] HospitalEosinophils # (Auto)2019-05-09 12:44:00* Test Item Value Reference Range Interpretation Comments Eosinophils # (Auto) (test code = 711-2) 0.0 0.0-0.4 [facility] HospitalBasophils # (Auto)2019-05-09 12:44:00* Test Item Value Reference Range Interpretation Comments Basophils # (Auto) (test code = 704-7) 0.0 0.0-0.1 [facility] HospitalAbsolute Immature Granulocyte (auto 2019-05-09 12:44:00* Test Item Value Reference Range Interpretation Comments Absolute Immature Granulocyte (auto (saumya t code = Absolute Immature Granulocyte (auto) 0.02 0-0.1 [facility] HospitalAB HEPATITIS B [id number] 06:09:00 * Test Item Value Reference Range Interpretation Comments AB HEPATITIS B SURFACE (test code = HBSAB) Non Reactive () Non Reactive: Inconsistent with immunity, less than 10 mIU/mL Reactive: Consistent with immunity, greater than 9.9 mIU/mLPerformed At: [facility] [address] [id number] Kyle L MD Ph:[phone] AG HEPAT B [id number] 06:09:00* Test Item Value Reference Range Interpretation Comments AG HEPAT B SURF (test code = HBSAG) Nonreactive Index Nonreactive HEPATITIS B CORE ANTIBODY,[id number] 06:09:00* Test Item Value Reference Range Interpretation Comments HEPATITIS B CORE ANTIBODY,TOT (test code = HBCAB) Negative Nega tive Performed At: [facility] [id number] [place], [place] [id number] Moises Hutchins MD Ph:[phone] [id number] 05:52:00* Test Item Value Reference Range Interpretation Comments MAGNESIUM (test code = MAG) 1.7 mg/dL 1.8-2.4 L THYROID PROFILE [id number] 05:52:00* Test Item Value Reference Range Interpretation Comments T3 UPTAKE (test code = T3UP) 37.0 % 30.0-40.0 N T4 (THYROXINE) (test code = T4) 9.5 ug/dL 4.5-13.9 N T7 (FREE THYROXINE INDEX) (test code = T7) 3.51 FTI 1.3-5.1 N THYROID STIMULATING HORMONE (test code = TSH) 2.030 uIU/mL 0.36-3.7 4 N TSH REFERENCE RANGES: EUTHYROID: 0.35 - 4.3 mIU/mL HYPO : > 5.5 mIU/mL HYPER : < 0.35 mIU/mL T4 [id number] 05:52:00* Test Item Value Reference Range Interpretation Comments T4 FREE (test code = T4F) 1.46 ng/dL 0.76-1.46 N BASIC METABOLIC [id number] 05:43:00* Test Item Value Reference Range Interpretation Comments SODIUM (test code = NA) 134 mmol/L 136-145 L POTASSIUM (test code = K) 3.2 mmol/L 3.5-5.1 L CHLORIDE (test code = CL) 98.0 mmol/L 98-107 N CARBON DIOXIDE (test code = CO2) 27.0 mmol/L 21-32 N ANION GAP (test code = GAP) 12.2 10-20 N GLUCOSE (test code = GLU) 103 mg/dL 74-106 N BLOOD UREA NITROGEN (test code = BUN) 9 mg/dL 7-18 N GLOMERULAR FILTRATION RATE (test code = GFR) 28 mL/min >=60 Estimated GFR by using Modified MDRD formula.Chronic kidney disease is defined as either kidney damageor GFR <60 mL/min/1.73 m2 for >3 months. CREATININE (test code = CREAT) 1.80 mg/dL 0.55-1.02 H Note change in reference range due to change in reagent. BUN/CREATININE RATIO (test code = BUN/CREA) 4.9 10-20 L CALCIUM (test code = CA) 9.2 mg/dL 8.5-10.1 N BASIC METABOLIC [id number] 05:33:00* Test Item Value Reference Range Interpretation Comments SODIUM (test code = NA) 134 mmol/L 136-145 L POTASSIUM (test code = K) 3.2 mmol/L 3.5-5.1 L CHLORIDE (test code = CL) 98.0 mmol/L 98-107 N CARBON DIOXIDE (test code = CO2) mmol/L 21-32 ANION GAP (test code = GAP) 10-20 GLUCOSE (test code = GLU) mg/dL 74-106 BLOOD UREA NITROGEN (test code = BUN) mg/dL 7-18 GLOMERULAR FILTRATION RATE (test code = GFR) mL/min >=60 CREATININE (test code = CREAT) mg/dL 0.55-1.02 BUN/CREATININE RATIO (test code = BUN/CREA) 10-20 CALCIUM (test code = CA) mg/dL 8.5-10.1 CBC W/O [id number] 05:20:00* Test Item Value Reference Range Interpretation Comments WHITE BLOOD CELL (test code = WBC) 7.8 K/mm3 4.5-12.5 N RED BLOOD CELL (test code = RBC) 3.29 mill/mm3 3.7-5.2 L HEMOGLOBIN (test code = HGB) 9.9 gram/dL 11.5-15.5 L HEMATOCRIT (test code = HCT) 31.4 % 36.0-46.0 L MEAN CELL VOLUME (test code = MCV) 95.4 fL 80-98 N MEAN CELL HGB (test code = MCH) 30.1 picogram 27.0-33.0 N MEAN CELL HGB CONCETRATION (test code = MCHC) 31.5 gram/dL 33.0-36. 0 L RED CELL DISTRIBUTION WIDTH (test code = RDW) 19.0 % 11.6-16. 2 H PLATELET COUNT (test code = PLT) 158 K/mm3 150-450 N MEAN PLATELET VOLUME (test code = MPV) 11.0 fL 6.7-11.0 N AG HEPAT B [id number] 13:01:00* Test Item Value Reference Range Interpretation Comments AG HEPAT B SURF (test code = HBSAG) Nonreactive Index Nonreactive HEPATITIS B CORE ANTIBODY,[id number] 13:01:00* Test Item Value Reference Range Interpretation Comments HEPATITIS B CORE ANTIBODY,TOT (test code = HBCAB) NEGA TIVE BASIC METABOLIC [id number] 10:57:00* Test Item Value Reference Range Interpretation Comments SODIUM (test code = NA) 135 mmol/L 136-145 L POTASSIUM (test code = K) 3.2 mmol/L 3.5-5.1 L CHLORIDE (test code = CL) 97.0 mmol/L 98-107 L CARBON DIOXIDE (test code = CO2) 25.0 mmol/L 21-32 N ANION GAP (test code = GAP) 16.2 10-20 N GLUCOSE (test code = GLU) 79 mg/dL 74-106 N BLOOD UREA NITROGEN (test code = BUN) 18 mg/dL 7-18 N GLOMERULAR FILTRATION RATE (test code = GFR) 18 mL/min >=60 Estimated GFR by using Modified MDRD formula.Chronic kidney disease is defined as either kidney damageor GFR <60 mL/min/1.73 m2 for >3 months. CREATININE (test code = CREAT) 2.60 mg/dL 0.55-1.02 H Note change in reference range due to change in reagent. BUN/CREATININE RATIO (test code = BUN/CREA) 6.9 10-20 L CALCIUM (test code = CA) 9.8 mg/dL 8.5-10.1 N [id number] 10:57:00* Test Item Value Reference Range Interpretation Comments PHOSPHORUS (test code = PHOS) 2.9 mg/dL 2.5-4.9 N [id number] 10:57:00* Test Item Value Reference Range Interpretation Comments MAGNESIUM (test code = MAG) 2.2 mg/dL 1.8-2.4 N CBC W/O [id number] 10:20:00* Test Item Value Reference Range Interpretation Comments WHITE BLOOD CELL (test code = WBC) 8.5 K/mm3 4.5-12.5 N RED BLOOD CELL (test code = RBC) 3.75 mill/mm3 3.7-5.2 N HEMOGLOBIN (test code = HGB) 11.6 gram/dL 11.5-15.5 N HEMATOCRIT (test code = HCT) 36.7 % 36.0-46.0 N MEAN CELL VOLUME (test code = MCV) 97.9 fL 80-98 N MEAN CELL HGB (test code = MCH) 30.9 picogram 27.0-33.0 N MEAN CELL HGB CONCETRATION (test code = MCHC) 31.6 gram/dL 33.0-36. 0 L RED CELL DISTRIBUTION WIDTH (test code = RDW) 20.0 % 11.6-16. 2 H PLATELET COUNT (test code = PLT) 157 K/mm3 150-450 N MEAN PLATELET VOLUME (test code = MPV) 10.9 fL 6.7-11.0 N - XR CHEST 1 [id number] 13:41:00 FAX: Sunday Coley MD [phone] [place]: St: ADM FAX: Maddie Henson MD [phone] FAX: Glenn Mclaughlin MD [phone] Name: WILEY OH [facility] : 1945 Age/S: 73/F [address] [facility] Unit #: [id number] Loc: [address] [address] Phys: Maddie Henson MD Acct: [id number] Dis Date: Status: ADM IN ONE #: [phone] Exam Date: 04/19/2019 1325 FAX #: [phone] Reason: hypoxia EXAMS: CPT CODE: [id number] XR CHEST 1 V 98396 REASON FOR EXAM: hypoxia Exam Order Date: 04/19/2019 12:00 AM Ordering Omar: Maddie Henson MD PROCEDURE: - XR CHEST 1 V COMPARISON: CT chest and x-ray of the chest April 17, 2019 FINDINGS: Right IJ dialysis catheter terminates at the cavoatrial junc tion. Cardiac loop recorder is unchanged. Reticulations, com patible with interstitial pulmonary edema, are worse from the previous [facility] st x-ray. There are also bibasilar opacities obscuring the left hemidiaphr agm and partly extruding the right hemidiaphragm which likely represent a combination of layering effusions and atelectasis. Superimposed consolidat ion and/or alveolar edema cannot be excluded. These opacities are new from the prior exam. Cardiomediastinal silhouette is normal in size. Musculoskeletal findings are unchanged. Visualized upper abdomen is within normal limits. IMPRESSION: Worsening pulmo nary edema and interval development of bibasilar opacities which may rep resent pleural effusions, atelectasis, and/or consolidations. * * at 1341 Reported and signed by: Abdias Kent MD CC: Sunday Coley MD; Maddie Gardner MD; Glenn Strange Technologist: VIVIANA MCINTYRE(R) Trnscrd Date/Time/By: 04/19/2019 (3462) : By: [email or web address] Orig Print D/T: S: 04/19/2019 (6407) PAGE 1 Signed Report - CT HEAD/BRAIN W/O [id number] 07:20:00 Name: WILEY [facility] : 1945 Age/S: 73 / F [address] [facility] [id number] Loc: [place] [address] Phys: Eliseo Acosta MD Acct: [id number] Dis Date: Status: ADM IN PHONE #: [phone] Exam Date: 04/19/2019 0431 FAX #: [phone] Reason: f/u SDH EXAMS: CPT CODE: [id number] CT HEAD/BRAIN W/O CONT 06406 HISTORY: Follow-up subarachnoid hemorrhage. COMPARISON: April 18, 2019. CT brain without contrast: Automated exposure control. Decreasing bifrontal subdural hemorrhage. Right hemorrhage measures 8.5 mm in width and 2.7 cm in AP direction and is smaller from previous examination. The left frontal subdural hemorrhage measures 3.5 mm in width and 1.5 cm in AP direction and is smaller as well. No new hemorrhage. No mass effect. No large territorial vascular infarction. Cates-white matter differentiation is preserved. The sulci, gyri, ventricles, subarachnoid spaces and basal cisterns are normal for patient's age. No herniation, hydrocephalus or midline shift. 4th ventricle does remain midline. Intraorbital contents are within normal limits. Sinuses are clear. Mastoid air cells demonstrating mild sclerosis and under pneumatization. No bony calvarial defect is noted. IMPRESSION: Decreasing bifrontal subdural hemorrhage without mass effect. No new hemorrhage. No herniation, hydrocephalus or midline shift. No large territorial vascular in farction. a t 0720 Reported and signed by: Sergio Fox M.D. CC: Sunday Coley MD; Eliseo Acosta MD; Glenn Strange Technologist: RT KATE(R) CT CTDI: DLP: Trnscb Date/Time: 04/19 (0720) t.SDR.TH4 Orig Print D/T: S: 04/19/2019 (072 3) PAGE 1 Signed Report [id number] 02:23:00* Test Item Value Reference Range Interpretation Comments TROPONIN-I (test code = TROPI) 1.460 ng/mL 0-0.045 HH RESULT VERIFIED BY REPEAT ANALYSIS BASIC METABOLIC [id number] 02:09:00* Test Item Value Reference Range Interpretation Comments SODIUM (test code = NA) 135 mmol/L 136-145 L POTASSIUM (test code = K) 3.2 mmol/L 3.5-5.1 L CHLORIDE (test code = CL) 98.0 mmol/L 98-107 N CARBON DIOXIDE (test code = CO2) 28.0 mmol/L 21-32 N ANION GAP (test code = GAP) 12.2 10-20 N GLUCOSE (test code = GLU) 100 mg/dL 74-106 N BLOOD UREA NITROGEN (test code = BUN) 11 mg/dL 7-18 N GLOMERULAR FILTRATION RATE (test code = GFR) 23 mL/min >=60 Estimated GFR by using Modified MDRD formula.Chronic kidney disease is defined as either kidney damageor GFR <60 mL/min/1.73 m2 for >3 months. CREATININE (test code = CREAT) 2.10 mg/dL 0.55-1.02 H Note change in reference range due to change in reagent. BUN/CREATININE RATIO (test code = BUN/CREA) 5.2 10-20 L CALCIUM (test code = CA) 9.1 mg/dL 8.5-10.1 N [id number] 02:09:00* Test Item Value Reference Range Interpretation Comments PHOSPHORUS (test code = PHOS) 2.9 mg/dL 2.5-4.9 N [id number] 02:09:00* Test Item Value Reference Range Interpretation Comments MAGNESIUM (test code = MAG) 2.1 mg/dL 1.8-2.4 N BASIC METABOLIC [id number] 02:03:00* Test Item Value Reference Range Interpretation Comments SODIUM (test code = NA) 135 mmol/L 136-145 L POTASSIUM (test code = K) 3.2 mmol/L 3.5-5.1 L CHLORIDE (test code = CL) 98.0 mmol/L 98-107 N CARBON DIOXIDE (test code = CO2) mmol/L 21-32 ANION GAP (test code = GAP) 10-20 GLUCOSE (test code = GLU) mg/dL 74-106 BLOOD UREA NITROGEN (test code = BUN) mg/dL 7-18 GLOMERULAR FILTRATION RATE (test code = GFR) mL/min >=60 CREATININE (test code = CREAT) mg/dL 0.55-1.02 BUN/CREATININE RATIO (test code = BUN/CREA) 10-20 CALCIUM (test code = CA) mg/dL 8.5-10.1 [id number] 02:03:00* Test Item Value Reference Range Interpretation Comments PHOSPHORUS (test code = PHOS) mg/dL 2.5-4.9 [id number] 02:03:00* Test Item Value Reference Range Interpretation Comments MAGNESIUM (test code = MAG) mg/dL 1.8-2.4 CBC W/AUTO [id number] 01:59:00* Test Item Value Reference Range Interpretation Comments WHITE BLOOD CELL (test code = WBC) 11.7 K/mm3 4.5-12.5 N RED BLOOD CELL (test code = RBC) 3.34 mill/mm3 3.7-5.2 L HEMOGLOBIN (test code = HGB) 9.9 gram/dL 11.5-15.5 L RESULT VERIFIED BY REPEAT ANALYSIS HEMATOCRIT (test code = HCT) 32.2 % 36.0-46.0 L MEAN CELL VOLUME (test code = MCV) 96.4 fL 80-98 N MEAN CELL HGB (test code = MCH) 29.9 picogram 27.0-33.0 N MEAN CELL HGB CONCETRATION (test code = MCHC) 31.1 gram/dL 33.0-36. 0 L RED CELL DISTRIBUTION WIDTH (test code = RDW) 19.7 % 11.6-16. 2 H RED CELL DISTRIBUTION WIDTH SD (test code = RDW-SD) 68.0 fL 37 .0-51.0 H PLATELET COUNT (test code = PLT) 142 K/mm3 150-450 L MEAN PLATELET VOLUME (test code = MPV) 11.1 fL 6.7-11.0 H NEUTROPHIL % (test code = NT%) 86.0 % 39.0-69.0 H IMMATURE GRANULOCYTE % (test code = IG%) 0.9 % 0.0-5.0 N LYMPHOCYTE % (test code = LY%) 3.0 % 25.0-55.0 L MONOCYTE % (test code = MO%) 9.3 % 0.0-10.0 N EOSINOPHIL % (test code = EO%) 0.4 % 0.0-5.0 N BASOPHIL % (test code = BA%) 0.4 % 0.0-1.0 N NUCLEATED RBC % (test code = NRBC%) 0.0 % 0-0 N NEUTROPHIL # (test code = NT#) 10.01 K/mm3 1.8-7.7 H IMMATURE GRANULOCYTE # (test code = IG#) 0.11 x10 3/uL 0-0.03 H LYMPHOCYTE # (test code = LY#) 0.35 K/mm3 1.0-5.0 L MONOCYTE # (test code = MO#) 1.08 K/mm3 0-0.8 H EOSINOPHIL # (test code = EO#) 0.05 K/mm3 0.0-0.5 N BASOPHIL # (test code = BA#) 0.05 K/mm3 0.0-0.2 N NUCLEATED RBC # (test code = NRBC#) 0.00 K/mm3 0.0-0.1 N MANUAL DIFF REQUIRED (test code = MDIFF) NO [id number] 12:14:00* Test Item Value Reference Range Interpretation Comments TROPONIN-I (test code = TROPI) 4.060 ng/mL 0-0.045 HH RESULT VERIFIED BY REPEAT ANALYSIS BASIC METABOLIC [id number] 07:55:00* Test Item Value Reference Range Interpretation Comments SODIUM (test code = NA) 138 mmol/L 136-145 N POTASSIUM (test code = K) 3.0 mmol/L 3.5-5.1 L CHLORIDE (test code = CL) 99.0 mmol/L 98-107 N CARBON DIOXIDE (test code = CO2) 32.0 mmol/L 21-32 N ANION GAP (test code = GAP) 10.0 10-20 N GLUCOSE (test code = GLU) 81 mg/dL 74-106 N BLOOD UREA NITROGEN (test code = BUN) 8 mg/dL 7-18 N GLOMERULAR FILTRATION RATE (test code = GFR) 30 mL/min >=60 Estimated GFR by using Modified MDRD formula.Chronic kidney disease is defined as either kidney damageor GFR <60 mL/min/1.73 m2 for >3 months. CREATININE (test code = CREAT) 1.70 mg/dL 0.55-1.02 H Note change in reference range due to change in reagent. BUN/CREATININE RATIO (test code = BUN/CREA) 4.7 10-20 L CALCIUM (test code = CA) 8.6 mg/dL 8.5-10.1 N [id number] 07:55:00* Test Item Value Reference Range Interpretation Comments PHOSPHORUS (test code = PHOS) 3.1 mg/dL 2.5-4.9 N [id number] 07:55:00* Test Item Value Reference Range Interpretation Comments MAGNESIUM (test code = MAG) 2.5 mg/dL 1.8-2.4 H BASIC METABOLIC [id number] 07:52:00* Test Item Value Reference Range Interpretation Comments SODIUM (test code = NA) 138 mmol/L 136-145 N POTASSIUM (test code = K) 3.0 mmol/L 3.5-5.1 L CHLORIDE (test code = CL) 99.0 mmol/L 98-107 N CARBON DIOXIDE (test code = CO2) mmol/L 21-32 ANION GAP (test code = GAP) 10-20 GLUCOSE (test code = GLU) mg/dL 74-106 BLOOD UREA NITROGEN (test code = BUN) mg/dL 7-18 GLOMERULAR FILTRATION RATE (test code = GFR) mL/min >=60 CREATININE (test code = CREAT) mg/dL 0.55-1.02 BUN/CREATININE RATIO (test code = BUN/CREA) 10-20 CALCIUM (test code = CA) 8.6 mg/dL 8.5-10.1 N [id number] 07:52:00* Test Item Value Reference Range Interpretation Comments PHOSPHORUS (test code = PHOS) mg/dL 2.5-4.9 [id number] 07:52:00* Test Item Value Reference Range Interpretation Comments MAGNESIUM (test code = MAG) mg/dL 1.8-2.4 - CT HEAD/BRAIN W/O [id number] 07:51:00 [facility] 1945 Age[facility]S: 73 / F [address] [facility] Unit #: [id number] Loc: [place] [address] Phys: Al Espinal MD Acct: [id number] Dis Date: Status: ADM IN PHONE #: [phone] Exam Date: 04/18/2019 0552 FAX #: [phone] Reason: headache fall EXAMS: CPT CODE: [id number] CT HEAD/BRAIN W/O CONT 59815 HISTORY: headache fall TECHNIQUE: Noncontrast 2.[address] of the head. Examination acquired within 24 hours of arrival. Automated exposure control for dose reduction. COMPARISON: CT scan of the brain performed the previous afternoon at 4:45 PM. FINDINGS: There is a contusion in the scalp overlying the right frontal bone. There is also Subdural hemorrhage overlying the right frontal lobe (3/50) measuring up to 3 cm in size. This hemorrhage previously measured 2.7 cm (3/51 of the previous exam). There is also a smaller subdural hematoma overlying the left frontal lobe (3/52) which measures 1.9 cm and previously measures 1.1 cm (3/52 of the previous exam). No new intracranial hemorrhage is appreciated. There is no midline shift or effacement of the cisterns or sulci. Findings of chronic microvascular ischemia involving the periventricular white matter is redemonstrated. Visualized paranasal sinuses are clear. Mastoid air cells and middle ear cavities are clear. Postsurgical changes of bilateral lens extraction are redemonstrated.. Calvarium and skull base are intact. Atherosclerotic disease is redemonstrated in the vertebral arteries and the carotid siphons. IMPRESSION: Subdural hematomas overlying the bilateral frontal lobes have slig htly increased in size as described above. However there is no midline shift or mass effect. No new intracranial hemorrhage is appreciat ed. Remaining findings are grossly stable. Electronically Si gned by Abdias Kent MD on 04/18/2019 at 0751 Reported an d signed by: Abdias Kent MD PAGE 1 Signed Report (CONTINUED) Name: [facility] : 1945 Age/S: 73 / [facility] [address] [facility] [id number] Loc: [place], [place] [address] Phys: Al Espinal MD Acct: [id number] Dis Date: Status: ADM IN PHONE #: [phone] Exam Date: 04/18/2019 05 FAX #: [phone] Reason: headache fall EXAMS: CPT CODE: [id number] CT HEAD/BRAIN W/O CONT 05236 < Continued> CC: Al Espinal MD; Glenn Strange Technologist:RT Deuce(R)(CT); ... CTDI: DLP: Trnscb Date/Time: 04/18/2019 (075) t.SDR.RR31 Orig Print D/T: S: 04/18/2019 (0758) PAGE 2 Signed Report CBC W/AUTO [id number] 05:43:00* Test Item Value Reference Range Interpretation Comments WHITE BLOOD CELL (test code = WBC) 7.0 K/mm3 4.5-12.5 N RED BLOOD CELL (test code = RBC) 2.20 mill/mm3 3.7-5.2 L HEMOGLOBIN (test code = HGB) 6.9 gram/dL 11.5-15.5 L HEMATOCRIT (test code = HCT) 22.0 % 36.0-46.0 L MEAN CELL VOLUME (test code = MCV) 100.0 fL 80-98 H MEAN CELL HGB (test code = MCH) 31.4 picogram 27.0-33.0 N MEAN CELL HGB CONCETRATION (test code = MCHC) 31.4 gram/dL 33.0-36. 0 L RED CELL DISTRIBUTION WIDTH (test code = RDW) 20.6 % 11.6-16. 2 H RED CELL DISTRIBUTION WIDTH SD (test code = RDW-SD) 73.0 fL 37 .0-51.0 H PLATELET COUNT (test code = PLT) 149 K/mm3 150-450 L MEAN PLATELET VOLUME (test code = MPV) 11.2 fL 6.7-11.0 H NEUTROPHIL % (test code = NT%) 73.3 % 39.0-69.0 H IMMATURE GRANULOCYTE % (test code = IG%) 0.7 % 0.0-5.0 N LYMPHOCYTE % (test code = LY%) 12.4 % 25.0-55.0 L MONOCYTE % (test code = MO%) 11.6 % 0.0-10.0 H EOSINOPHIL % (test code = EO%) 1.6 % 0.0-5.0 N BASOPHIL % (test code = BA%) 0.4 % 0.0-1.0 N NUCLEATED RBC % (test code = NRBC%) 0.0 % 0-0 N NEUTROPHIL # (test code = NT#) 5.12 K/mm3 1.8-7.7 N IMMATURE GRANULOCYTE # (test code = IG#) 0.05 x10 3/uL 0-0.03 H LYMPHOCYTE # (test code = LY#) 0.87 K/mm3 1.0-5.0 L MONOCYTE # (test code = MO#) 0.81 K/mm3 0-0.8 H EOSINOPHIL # (test code = EO#) 0.11 K/mm3 0.0-0.5 N BASOPHIL # (test code = BA#) 0.03 K/mm3 0.0-0.2 N NUCLEATED RBC # (test code = NRBC#) 0.00 K/mm3 0.0-0.1 N MANUAL DIFF REQUIRED (test code = MDIFF) NO, ONLY SCAN NEEDED DIFFERENTIAL [id number] 05:43:00* Test Item Value Reference Range Interpretation Comments STAIN ACCEPTABILITY (test code = STN ACCEPTABLE) STAIN ACCEPTABLE ANISOCYTOSIS (test code = ANISO) 1+ MICROCYTOSIS (test code = MICR) 1+ PLATELET ESTIMATE (test code = PLTEST) ADEQUATE PLATELET MORPHOLOGY (test code = PLTMORPH) NORMAL [id number] 05:25:00* Test Item Value Reference Range Interpretation Comments TROPONIN-I (test code = TROPI) 5.890 ng/mL 0-0.045 HH RESULT VERIFIED BY REPEAT ANALYSIS COMMENTS TO BANK GUARD: COLLECT 3 HOURS AFTER PREVIOUS SAMPLECBC W/AUTO [id number] 05:01:00* Test Item Value Reference Range Interpretation Comments WHITE BLOOD CELL (test code = WBC) 7.0 K/mm3 4.5-12.5 N RED BLOOD CELL (test code = RBC) 2.20 mill/mm3 3.7-5.2 L HEMOGLOBIN (test code = HGB) 6.9 gram/dL 11.5-15.5 L HEMATOCRIT (test code = HCT) 22.0 % 36.0-46.0 L MEAN CELL VOLUME (test code = MCV) 100.0 fL 80-98 H MEAN CELL HGB (test code = MCH) 31.4 picogram 27.0-33.0 N MEAN CELL HGB CONCETRATION (test code = MCHC) 31.4 gram/dL 33.0-36. 0 L RED CELL DISTRIBUTION WIDTH (test code = RDW) 20.6 % 11.6-16. 2 H RED CELL DISTRIBUTION WIDTH SD (test code = RDW-SD) 73.0 fL 37 .0-51.0 H PLATELET COUNT (test code = PLT) 149 K/mm3 150-450 L MEAN PLATELET VOLUME (test code = MPV) 11.2 fL 6.7-11.0 H NEUTROPHIL % (test code = NT%) 73.3 % 39.0-69.0 H IMMATURE GRANULOCYTE % (test code = IG%) 0.7 % 0.0-5.0 N LYMPHOCYTE % (test code = LY%) 12.4 % 25.0-55.0 L MONOCYTE % (test code = MO%) 11.6 % 0.0-10.0 H EOSINOPHIL % (test code = EO%) 1.6 % 0.0-5.0 N BASOPHIL % (test code = BA%) 0.4 % 0.0-1.0 N NUCLEATED RBC % (test code = NRBC%) 0.0 % 0-0 N NEUTROPHIL # (test code = NT#) 5.12 K/mm3 1.8-7.7 N IMMATURE GRANULOCYTE # (test code = IG#) 0.05 x10 3/uL 0-0.03 H LYMPHOCYTE # (test code = LY#) 0.87 K/mm3 1.0-5.0 L MONOCYTE # (test code = MO#) 0.81 K/mm3 0-0.8 H EOSINOPHIL # (test code = EO#) 0.11 K/mm3 0.0-0.5 N BASOPHIL # (test code = BA#) 0.03 K/mm3 0.0-0.2 N NUCLEATED RBC # (test code = NRBC#) 0.00 K/mm3 0.0-0.1 N MANUAL DIFF REQUIRED (test code = MDIFF) NO, ONLY SCAN NEEDED DIFFERENTIAL [id number] 05:01:00* Test Item Value Reference Range Interpretation Comments STAIN ACCEPTABILITY (test code = STN ACCEPTABLE) CABOT RINGS (test code = CAB) MORPHOLOGY COMMENT (test code = MOC) PLATELET ESTIMATE (test code = PLTEST) PLATELET MORPHOLOGY (test code = PLTMORPH) CBC W/AUTO [id number] 05:01:00* Test Item Value Reference Range Interpretation Comments WHITE BLOOD CELL (test code = WBC) 7.0 K/mm3 4.5-12.5 N RED BLOOD CELL (test code = RBC) 2.20 mill/mm3 3.7-5.2 L HEMOGLOBIN (test code = HGB) 6.9 gram/dL 11.5-15.5 L HEMATOCRIT (test code = HCT) 22.0 % 36.0-46.0 L MEAN CELL VOLUME (test code = MCV) 100.0 fL 80-98 H MEAN CELL HGB (test code = MCH) 31.4 picogram 27.0-33.0 N MEAN CELL HGB CONCETRATION (test code = MCHC) 31.4 gram/dL 33.0-36. 0 L RED CELL DISTRIBUTION WIDTH (test code = RDW) 20.6 % 11.6-16. 2 H RED CELL DISTRIBUTION WIDTH SD (test code = RDW-SD) 73.0 fL 37 .0-51.0 H PLATELET COUNT (test code = PLT) 149 K/mm3 150-450 L MEAN PLATELET VOLUME (test code = MPV) 11.2 fL 6.7-11.0 H NEUTROPHIL % (test code = NT%) 73.3 % 39.0-69.0 H IMMATURE GRANULOCYTE % (test code = IG%) 0.7 % 0.0-5.0 N LYMPHOCYTE % (test code = LY%) 12.4 % 25.0-55.0 L MONOCYTE % (test code = MO%) 11.6 % 0.0-10.0 H EOSINOPHIL % (test code = EO%) 1.6 % 0.0-5.0 N BASOPHIL % (test code = BA%) 0.4 % 0.0-1.0 N NUCLEATED RBC % (test code = NRBC%) 0.0 % 0-0 N NEUTROPHIL # (test code = NT#) 5.12 K/mm3 1.8-7.7 N IMMATURE GRANULOCYTE # (test code = IG#) 0.05 x10 3/uL 0-0.03 H LYMPHOCYTE # (test code = LY#) 0.87 K/mm3 1.0-5.0 L MONOCYTE # (test code = MO#) 0.81 K/mm3 0-0.8 H EOSINOPHIL # (test code = EO#) 0.11 K/mm3 0.0-0.5 N BASOPHIL # (test code = BA#) 0.03 K/mm3 0.0-0.2 N NUCLEATED RBC # (test code = NRBC#) 0.00 K/mm3 0.0-0.1 N MANUAL DIFF REQUIRED (test code = MDIFF) NO, ONLY SCAN NEEDED DIFFERENTIAL [id number] 05:01:00* Test Item Value Reference Range Interpretation Comments STAIN ACCEPTABILITY (test code = STN ACCEPTABLE) CABOT RINGS (test code = CAB) MORPHOLOGY COMMENT (test code = MOC) PLATELET ESTIMATE (test code = PLTEST) PLATELET MORPHOLOGY (test code = PLTMORPH) CBC W/AUTO [id number] 05:01:00* Test Item Value Reference Range Interpretation Comments WHITE BLOOD CELL (test code = WBC) 7.0 K/mm3 4.5-12.5 N RED BLOOD CELL (test code = RBC) 2.20 mill/mm3 3.7-5.2 L HEMOGLOBIN (test code = HGB) 6.9 gram/dL 11.5-15.5 L HEMATOCRIT (test code = HCT) 22.0 % 36.0-46.0 L MEAN CELL VOLUME (test code = MCV) 100.0 fL 80-98 H MEAN CELL HGB (test code = MCH) 31.4 picogram 27.0-33.0 N MEAN CELL HGB CONCETRATION (test code = MCHC) 31.4 gram/dL 33.0-36. 0 L RED CELL DISTRIBUTION WIDTH (test code = RDW) 20.6 % 11.6-16. 2 H RED CELL DISTRIBUTION WIDTH SD (test code = RDW-SD) 73.0 fL 37 .0-51.0 H PLATELET COUNT (test code = PLT) 149 K/mm3 150-450 L MEAN PLATELET VOLUME (test code = MPV) 11.2 fL 6.7-11.0 H NEUTROPHIL % (test code = NT%) 73.3 % 39.0-69.0 H IMMATURE GRANULOCYTE % (test code = IG%) 0.7 % 0.0-5.0 N LYMPHOCYTE % (test code = LY%) 12.4 % 25.0-55.0 L MONOCYTE % (test code = MO%) 11.6 % 0.0-10.0 H EOSINOPHIL % (test code = EO%) 1.6 % 0.0-5.0 N BASOPHIL % (test code = BA%) 0.4 % 0.0-1.0 N NUCLEATED RBC % (test code = NRBC%) 0.0 % 0-0 N NEUTROPHIL # (test code = NT#) 5.12 K/mm3 1.8-7.7 N IMMATURE GRANULOCYTE # (test code = IG#) 0.05 x10 3/uL 0-0.03 H LYMPHOCYTE # (test code = LY#) 0.87 K/mm3 1.0-5.0 L MONOCYTE # (test code = MO#) 0.81 K/mm3 0-0.8 H EOSINOPHIL # (test code = EO#) 0.11 K/mm3 0.0-0.5 N BASOPHIL # (test code = BA#) 0.03 K/mm3 0.0-0.2 N NUCLEATED RBC # (test code = NRBC#) 0.00 K/mm3 0.0-0.1 N MANUAL DIFF REQUIRED (test code = MDIFF) NO, ONLY SCAN NEEDED DIFFERENTIAL [id number] 05:01:00* Test Item Value Reference Range Interpretation Comments STAIN ACCEPTABILITY (test code = STN ACCEPTABLE) MORPHOLOGY COMMENT (test code = MOC) PLATELET ESTIMATE (test code = PLTEST) PLATELET MORPHOLOGY (test code = PLTMORPH) CBC W/AUTO [id number] 05:01:00* Test Item Value Reference Range Interpretation Comments WHITE BLOOD CELL (test code = WBC) 7.0 K/mm3 4.5-12.5 N RED BLOOD CELL (test code = RBC) 2.20 mill/mm3 3.7-5.2 L HEMOGLOBIN (test code = HGB) 6.9 gram/dL 11.5-15.5 L HEMATOCRIT (test code = HCT) 22.0 % 36.0-46.0 L MEAN CELL VOLUME (test code = MCV) 100.0 fL 80-98 H MEAN CELL HGB (test code = MCH) 31.4 picogram 27.0-33.0 N MEAN CELL HGB CONCETRATION (test code = MCHC) 31.4 gram/dL 33.0-36. 0 L RED CELL DISTRIBUTION WIDTH (test code = RDW) 20.6 % 11.6-16. 2 H RED CELL DISTRIBUTION WIDTH SD (test code = RDW-SD) 73.0 fL 37 .0-51.0 H PLATELET COUNT (test code = PLT) 149 K/mm3 150-450 L MEAN PLATELET VOLUME (test code = MPV) 11.2 fL 6.7-11.0 H NEUTROPHIL % (test code = NT%) 73.3 % 39.0-69.0 H IMMATURE GRANULOCYTE % (test code = IG%) 0.7 % 0.0-5.0 N LYMPHOCYTE % (test code = LY%) 12.4 % 25.0-55.0 L MONOCYTE % (test code = MO%) 11.6 % 0.0-10.0 H EOSINOPHIL % (test code = EO%) 1.6 % 0.0-5.0 N BASOPHIL % (test code = BA%) 0.4 % 0.0-1.0 N NUCLEATED RBC % (test code = NRBC%) 0.0 % 0-0 N NEUTROPHIL # (test code = NT#) 5.12 K/mm3 1.8-7.7 N IMMATURE GRANULOCYTE # (test code = IG#) 0.05 x10 3/uL 0-0.03 H LYMPHOCYTE # (test code = LY#) 0.87 K/mm3 1.0-5.0 L MONOCYTE # (test code = MO#) 0.81 K/mm3 0-0.8 H EOSINOPHIL # (test code = EO#) 0.11 K/mm3 0.0-0.5 N BASOPHIL # (test code = BA#) 0.03 K/mm3 0.0-0.2 N NUCLEATED RBC # (test code = NRBC#) 0.00 K/mm3 0.0-0.1 N MANUAL DIFF REQUIRED (test code = MDIFF) NO, ONLY SCAN NEEDED DIFFERENTIAL [id number] 05:01:00* Test Item Value Reference Range Interpretation Comments STAIN ACCEPTABILITY (test code = STN ACCEPTABLE) CABOT RINGS (test code = CAB) MORPHOLOGY COMMENT (test code = MOC) PLATELET ESTIMATE (test code = PLTEST) PLATELET MORPHOLOGY (test code = PLTMORPH) - CT ABD PELVIS [id number] 19:35:00 Name: WILEY OH [facility] : 1945 Age/S: 73 / F [address] [facility] Unit #: [id number] Loc: [place] [address] Phys: Al Espinal MD Acct: [id number] Dis Date: Status: ADM IN PHONE #: [phone] Exam Date: 04/17/2019 190 FAX #: [phone] Reason: abd pain low hgb EXAMS: CPT CODE: [id number] CT ABD PELVIS W/CONT 93760 REASON FOR EXAM: abd pain low hgb EXAM ORDER DATE: 04/17/2019 6:14 PM Ordering Omar: Al Espinal MD PROCEDURE: - CT ABD PELVIS W/CONT COMPARISON: FINDINGS: CT images of the abdomen and pelvis were obtained with IV and without oral contrast at 5mm. Dose modulation, iterative reconstruction, and/or weight based adjustment of the MA/KV was utilized to reduce the radiation dose to as low as reasonably achievable. Intravenous contrast: 100cc of Omnipaque 370. The liver, spleen, pancreas are grossly within normal limits. Radiopaque stones seen in the gallbladder. The left kidney is atrophic. A complex cysts in the midpole of the right kidney measuring 2.5 cm The urinary bladder is unremarkable. The colon, small bowel, and stomach are within normal limits without evidence of obstruction. The appendix is not seen No evidence of free air or free fluid. The patient is status post hysterectomy. Posterior fusion of the lower lumbar spine IMPRESSION: Complex 2.5 cm right renal cyst. Chronic atrophy of the left kidney. Cholelithiasis. at 1935 Reported and signed by: Lukas Manzano M.D. CC: Sunday Coley MD; Al Espinal MD; Glenn Strange Technologist:Brenda Garland RT(R); ALEXANDRE Ramirez CTDI: DLP: Trnscb D ate/Time: 04/17/2019 (1934) Dorothy Orig Print D/T: S: 04/17/2019 (1937) PAGE 1 Signed Report - CT CHEST [id number] 19:33:00 Name: WILEY OH [facility] : 1945 Age/S: 73 / F [address] [facility] Unit #: [id number] Loc: [place] [address] Phys: Al Espinal MD Acct: [id number] Dis Date: Status: ADM IN PHONE #: [phone] Exam Date: 04/17/20191906 FAX #: [phone] Reason: cp sob EXAMS: CPT CODE: [id number] CT CHEST W/CONTRAST 65803 REASON FOR EXAM: cp sob EXAM ORDER DATE: 04/17/2019 6:14 PM Ordering Omar: Al Espinal MD PROCEDURE: - CT CHEST W/CONTRAST FINDINGS: CT images of the chest were obtained with IV contrast. Reconstructed sagittal and coronal images of the chest were provided for interpretation. Dose modulation, iterative reconstruction, and/or weight based adjustment of the MA/KV was utilized to reduce the radiation dose to as low as marco antonio sonably achievable. Intravenous contrast: 100cc of Omnipaque 370. The heart size is within normal limits. No evidence of pericardi al effusion The thoracic aorta is unremarkable. No evidence of dis section or aneurysmal dilatation. No filling defect seen within the main or lobar pulmonary arteries to suggest pulmonary embolus. No ev idence of mediastinal or hilar adenopathy. The lungs are clear. IMPRESSION: Atelectasis at the bases and mild bilateral pleural effusions at 193 3 Reported and signed by: Lukas Manzano M.D. CC: Sunday Cruz MD; Al Espinal MD; Glenn Strange Technologist:Brenda MCINTYRE(R); ALEXANDRE Ramirez CTDI: DLP: Trnscb Date/Time: 04/17/2019 (193) t.SDR.VTL Orig Print D/T: S: 04/17/2019 (1935) PAGE 1 Signed Report PROTHROMBIN [id number] 18:12:00* Test Item Value Reference Range Interpretation Comments PROTHROMBIN TIME PATIENT (test code = PTP) 12.6 seconds 9.0-14.0 N INTERNATIONAL NORMAL RATIO (test code = INR) 1.1 0.8-1.2 N The therapeutic range for oral anticoagulant therapy formost indications is an international normalized ratio (INR)of between 2.0 and 3.0. The recommended therapeutic INRrange for various clinical situations is listed below: Clinical Situation INR range Pulmonary e mbolism treatment (2.0-3.0)Venous thrombosis treatmentVenous thrombosis prophylaxis (high risk surgery)Prevention of systemic embolism from: Acute myocardial infarction Valvular heart disease Atrial fibrillation Mechanical prosthetic heart valves (2.5-3.5) IS PATIENT ON ANTICOAGULANTS? NTHROMBOPLASTIN TIME [id number] 18:12:00* Test Item Value Reference Range Interpretation Comments THROMBOPLASTIN TIME PARTIAL (test code = PTT) 33.6 seconds 25.0-36. 5 N IS PATIENT ON ANTICOAGULANTS? [id number] 18:12:00* Test Item Value Reference Range Interpretation Comments D-DIMER (test code = DDIMER) 3465.00 ng/mLFEU 0-500 HH RESULT VERIFIED BY REPEAT ANALYSISCritical results verified and read back by Nurse? YClinical Cut-off value for D-Dimer is 500 ng/mL FEU. Comment: The [employer] D-Dimer assay is intended for use asan aid in the diagnosis of venous thromboembolism (VTE)[deep vein thrombosis (DVT) or pulmonary embolism (PE)].The measurement of D-Dimer should not be used as an aid inthe diagnosis of VTE, in patient with: - Therapeutic dose anticoagulant therapy for >24 hours -Fibrinolytic therapy within previous 7 days -Trauma or surgery within previous 4 weeks - Disseminated malignancies -Aortic aneurysm -Sepsis, severe infections, pneumonia, severe skin infections -Liver cirrhosis - IS PATIENT ON ANTICOAGULANTS? [id number] 17:28:00* Test Item Value Reference Range Interpretation Comments MAGNESIUM (test code = MAG) 1.9 mg/dL 1.8-2.4 N B-TYPE NATRIURETIC [id number] 17:19:00* Test Item Value Reference Range Interpretation Comments B-TYPE NATRIURETIC PEPTIDE (test code = BNP) 1867.75 pgram/mL 0-100 H - XR KNEE 3 V [id number] 17:11:00 FAX: Al Espinal MD [phone] [place]: [address] St: [facility] FAX: Glenn Mclaughlin MD [phone] Name: WILEY OH [facility] : 1945 Age/S: 73/F [address] Unit #: [id number] Loc: [place] [address] Phys: Al Espinal MD Acct: [id number] Dis Date: Status: REG ER PHONE #: [phone] Exam Date: 04/17/2019 1640 FAX #: [phone] Reason: leg pain EXAMS: CPT CODE: [id number] XR KNEE 3 [place] LT [address] REASON FOR EXAM: leg pain EXAM ORDER DATE: 04/17/2019 4:17 PM Ordering M.Heike: Al Espinal MD PROCEDURE: - XR KNEE 3 V LT FINDINGS: 3 views of the left knee were obtained. The osseous structures are unremarkable in si ze and shape. The joint spaces are maintained. No evidence of fracture. No evidence of joint effusion. The patella is intact IMP RESSION: Unremarkable left knee at 1711 Reported and signed by: Lukas Manzano M.D. CC: Al Espinal MD; Glenn Strange Technologist: MAGALI WEAVER; JULIANE DONOHUE, RT(R); ... Trnscrd Date/Time/By: 04/17/2019 (7850) : By: GayeVTL Orig Print D/T: S: 04/17/2019 (3422) PAGE 1 Signed Report - XR FEMUR MIN 2 VWS [id number] 17:10:00 FAX: Al Espinal MD [phone] [place]: [address]: REG FAX: Y Glenn Strange MD [phone] Name: WILEY OH [facility] : 1945 Age/S: 73/F [address] Unit #: [id number] Loc: [place] [address] Phys: Al Espinal MD Acct: [id number] Dis Date: Status: REG ER PHONE #: [phone] Exam Date: 04/17/2019 1650 FAX #: [phone] Reason: leg pain EXAMS: CPT CODE: [id number] XR FEMUR MIN [address] [place] [address] REASON FOR EXAM: leg pain EXAM ORDER DATE: 04/17/2019 4:17 PM Ordering M.D.: Al Espinal MD PROCEDURE: - XR FEMUR MIN 2 VWS LT FINDINGS: 3 vi ews of the left femur were obtained. The osseous structures are unremarkab le in size and shape. The joint spaces are maintained. No evidence of fra cture. There is normal alignment of the left hip joint I MPRESSION: Unremarkable left femur at 1710 Reported and signed by: Lukas Manzano M.D. CC: Al Espinal MD; Glenn Strange Technologist: MAGALI WEAVER; JULIANE DONOHUE, RT(R); ... T rnscrd Date/Time/By: 04/17/2019 (4845) : By: Nicholas.VTL Orig Print D/T: S: 04/17/2019 (9715) PAGE 1 Sign ed Report - XR HIP W/PEL UNI 2+V [id number] 17:10:00 FAX: Al Espinal MD [phone] [place]: [address]: REG FAX: Glenn Mclaughlin MD [phone] Name: WILEY OH [facility] : 1945 Age/S: 73/F [address] Unit #: [id number] Loc: [place] [address] Phys: Al Espinal MD Acct: [id number] Dis Date: Status: REG ER PHONE #: [phone] Exam Date: 04/17/2019 1650 FAX #: [phone] Reason: leg pain EXAMS: CPT CODE: [id number] XR HIP W/PEL UNI 2+[place] LT [address] REASON FOR EXAM: leg pain EXAM ORDER DATE: 04/17/2019 4:17 PM Ordering M.DMelida: Al Espinal MD PROCEDURE: - XR HIP W/PEL UNI 2+V LT FINDINGS: 3 views of the left hip with frontal view of the pelvis were obtained. The osseous structures are unremarkable in size and shape. The joint spaces are maintained. No evidence of fracture. There is normal alignment of the left hip joint IMPRESSION: Unremarkable left hip at 1710 Reported and signed by: Lukas Manzano M.D. CC: Al Espinal MD; Glenn Strange Technologist: MAGALI WEAVER; JULIANE DONOHUE, RT(R); ... Trnzackrd Date/Time/By: 04/17/2019 (1710) : By: IsmaelL Orig Print D/T: S: 04/17/2019 (3717) PAGE 1 Signed Report - CT HEAD/BRAIN W/O [id number] 17:08:00 Name: WILEY OH [facility] : 1945 Age/S: 73 / F [address] Unit #: [id number] Loc: [place] [address] Phys: Al Espinal MD Acct: [id number] Dis Date: Status: REG ER PHONE #: [phone] Exam Date: 04/17/2019 165 FAX #: [phone] Reason: HEADACHE EXAMS: CPT CODE: [id number] CT HEAD/BRAIN W/O CONT [id number] REASON FOR EXAM: HEADACHE EXAM ORDER DATE: 04/17/2019 4:08 PM Ordering Omar: Al Espinal MD PROCEDURE: - CT HEAD/BRAIN W/O CONT COMPARISON: FINDINGS: CT images of the brain were obtained without IV contrast. Dose modulation, iterative reconstruction, and/or weight based adjustment of the MA/KV was utilized to reduce the radiation dose to as low as reasonably achievable. Mild patchy low densities appearance of the paraventricular region noted consistent with nonspecific white matter disease. The cates-white matter delineation is unremarkable. The ventricles, cisterns, and sulci are unremarkable. There is no evidence of mass, mass effect. There is no evidence of acute or old infarct. The calvarium is intact. IMPRESSION: Mild soft tissue contusion in the right frontal scalp with 2 focal areas of subdural hem orrhage. The larger subdural hemorrhage is on the right side measured 2. 6 cm locates adjacent to the scalp hematoma. The second subdural is on t he opposite left frontal lobe and measured 1.[address] Syed was infor med of the findings by telephone at 5:05 PM FOR INTERNAL CODING PURPOSES ONLY RESULT CODE: CVR at 1708 Reported and signed by: Lukas Manzano M.D. CC: Al Wilks MD; Glenn Strange Technologist:Brenda Garland RT(R); ALEXANDRE Ramirez CTDI: DLP: Trnscb Date/Time: 04/17/2019 (170) t LINGVTL Orig Print D/T: S: 04/17/2019 (6101) PAGE 1 Signed Report CBC W/O DIFF 2019-04-17 17:07:00* Test Item Value Reference Range Interpretation Comments WHITE BLOOD CELL (test code = WBC) 9.6 K/mm3 4.5-12.5 N RED BLOOD CELL (test code = RBC) 1.90 mill/mm3 3.7-5.2 L HEMOGLOBIN (test code = HGB) 6.0 gram/dL 11.5-15.5 L HEMATOCRIT (test code = HCT) 19.0 % 36.0-46.0 LL RESULT VERIFIED BY REPEAT ANALYSISCritical results verified and read back by Nurse? Y MEAN CELL VOLUME (test code = MCV) 100.0 fL 80-98 H MEAN CELL HGB (test code = MCH) 31.6 picogram 27.0-33.0 N MEAN CELL HGB CONCETRATION (test code = MCHC) 31.6 gram/dL 33.0-36. 0 L RED CELL DISTRIBUTION WIDTH (test code = RDW) 17.8 % 11.6-16. 2 H PLATELET COUNT (test code = PLT) 156 K/mm3 150-450 N MEAN PLATELET VOLUME (test code = MPV) 11.8 fL 6.7-11.0 H - CT C-SPINE W/O [id number] 17:04:00 [facility] 1945 Age[facility]S: 73 / F [address] [facility] Unit #: [id number] Loc: [place] [address] Phys: Al Espinal MD Acct: [id number] Dis Date: Status: REG ER PHONE #: [phone] Exam Date: 04/17/2019 1653 FAX #: [phone] Reason: Neck Pain EXAMS: CPT CODE: [id number] CT C-SPINE W/O CONTRAST [id number] REASON FOR EXAM: Neck Pain EXAM ORDER DATE: 04/17/2019 4:08 PM Ordering MLaurent: Al Espinal MD PROCEDURE: - CT C-SPINE W/O CONTRAST FINDINGS: CT images of the cervical spine were obtained without IV contrast at 2.5mm. Reconstructed coronal and sagittal images were also provided. Dose modulation, iterative reconstruction, and/or weight based adjustment of the MA/KV was utilized to reduce the radiation dose to as low as reasonably achievable. The osseous structures are intact. Osteophytes are seen at C5-6 The central canal is patent. Moderate narrowing of C5-6 disc spaces IMPRESSION: Degener ative changes and disc disease most pronounced at C5-6. Incidental findi ng of small bilateral pleural effusions at 1704 Reported and signed by: Lukas Manzano M.D. CC: Al Espinal MD; Glenn Strange Technologist:Brenda Garland RT(R); ALEXANDRE Ramirez CTDI: DLP: T rnscb Date/Time: 04/17/2019 (3159) [email or web address] Orig Print D /T: S: 04/17/2019 (4617) PAGE 1 Signed Report - XR CHEST 1 [id number] 17:01:00 FAX: Al Espinal MD [phone] [place]: St: REG FAX: Y Glenn Strange MD [phone] Name: WILEY OH [facility] : 1945 Age/S: 73/F [address] [facility] Unit #: [id number] Loc: [place] [address] Phys: Al Espinal MD Acct: [id number] Dis Date: Status: REG ER PHONE #: [phone] Exam Date: 04/17/2019 1627 FAX #: [phone] Reason: SYNCOPE EXAMS: CPT CODE: [id number] XR CHEST 1 V [id number] REASON FOR EXAM: SYNCOPE EXAM ORDER DATE: 04/17/2019 4:08 PM Ordering MLaurent: Al Espinal MD P ROCEDURE: - XR CHEST 1 V COMPARISON: 06/07/2013 FINDI NGS: Portable AP frontal view of the chest obtained at 4:28 PM shows diff use airspace opacity of the right lung. There is no evidence of effusion. The heart size is minimally enlarged. Pulmonary vasculatures are unremarka ble. Right IJ tunneled dialysis catheter noted. Chronic fifth and sixth ri b fractures. Stable appearance of the expansile lytic lesion in the middle third segment of the right clavicle consistent with a benign process. IMPRESSION: Diffuse airspace opacity of the right lung suggestive of atelectasis Electronically Signed by Omar Manzano on 04/06 at 1701 Reported and signed by: Lukas Manzano M.D. CC: Al Espinal MD; Glenn Strange Techno logist: MAGALI WEAVER; JULIANE DONOHUE, RT(R); ... Trnscrd Date/Time /By: 04/17/2019 (9850) : By: Nicholas.VTL Orig Print D/T: S: 04/17/2019 ( 7780) PAGE 1 Signed Report - XR TIBIA/FIBULA 2 V [id number] 17:00:00 FAX: Al Espinal MD [phone] [place]: St: REG FAX: Y Glenn Strange MD [phone] Name: WILEY OH [facility] : 1945 Age/S: 73/F [address] [facility] Unit #: [id number] Loc: [place] [address] Phys: Al Espinal MD Acct: [id number] Dis Date: Status: REG ER PHONE #: [phone] Exam Date: 04/17/2019 1645 FAX #: [phone] Reason: leg pain EXAMS: CPT CODE: [id number] XR TIBIA/FIBUL[place] 2 [place] [id number] REASON FOR EXAM: leg pain EXAM ORDER DATE: 04/17/2019 4:17 PM Ordering MLaurent: Al Espinal MD PROCEDURE: - XR TIBIA/FIBULA 2 V LT FINDINGS: 4 v iews of the left lower extremity were obtained. The osseous structures are unremarkable in size and shape. The joint spaces are maintained. No evide nce of fracture. There is normal alignment of the left knee and ankle maude nt IMPRESSION: Unremarkable left tibia and fibula El ectronically Signed by Omar Manzano on 04/17/2019 at 1700 Reported and signed by: Lukas Manzano M.D. CC: Al Espinal; Glenn Strange Technologist: MAGALI WEAVER; JULIANE CARO, RT(R); ... Trnscrd Date/Time/By: 04/17/2019 (1700) : By: Anshu JosephVTL Orig Print D/T: S: 04/17/2019 (6785) PAG E 1 Signed Report - XR SHOULDER 2 + V [id number] 16:59:00 FAX: Al Espinal MD [phone] [place]: St: REG FAX: Y Glenn Strange MD [phone] Name: WILEY OH [facility] : 1945 Age/S: 73/F [address] [facility] Unit #: [id number] Loc: [place] [address] Phys: Al Espinal MD Acct: [id number] Dis Date: Status: REG ER PHONE #: [phone] Exam Date: 04/17/2019 1630 FAX #: [phone] Reason: SHOULDER PAIN EXAMS: CPT CODE: [id number] XR SHOULDER 2 + V RT [id number] REASON FOR EXAM: SHOULDER PAIN EXAM ORDER DATE: 04/17/2019 4:08 PM Ordering M.DMelida: Al Espinal MD PROCEDURE: - XR SHOULDER 2 + V RT FINDINGS: 3 views of the right shoulder were obtained. A lytic lesion noted within the distal third segment of the right clavicle. The joint spaces are mainta ined. There is normal alignment of the humeral head. No evidence of frac ture. The acromial clavicular joint is intact IMPRESSION: 2 cm expansile lytic lesion in the distal third right clavicle stable when co mpared to previous exam dated 2 06/07/2013 most likely a benign process. N o acute osseous abnormality. Electronically Signed by Omar Ansari n 04/17/2019 at 9862 Reported and signed by: Nidhi Kaur CC: Al Espinal MD; Glenn Strange Technologist: MAGALI WEAVER; JULIANE DONOHUE, RT(R); ... Trnscrd D ate/Time/By: 04/17/2019 (4247) : By: Nicholas.VTL Orig Print D/T: S: 04/06 (4509) PAGE 1 Signed Repor t - XR HUMERUS 2 + V [id number] 16:58:00 FAX: Al Espinal MD [phone] [place]: St: [facility] FAX: Y Glenn Strange MD [phone] Name: WILEY OH [facility] : 1945 Age/S: 73/F [address] [facility] Unit #: [id number] Loc: [place] [address] Phys: Al Espinal MD Acct: [id number] Dis Date: Status: REG ER PHONE #: [phone] Exam Date: 04/17/2019 1635 FAX #: [phone] Reason: ARM PAIN EXAMS: CPT CODE: [id number] XR HUMERUS 2 + V RT [id number] REASON FOR EXAM: ARM PAIN EXAM ORDER DATE: 04/17/2019 4:08 PM Ordering Omar: Al Espinal MD PROCEDURE: - XR HUMERUS 2 + V RT FINDINGS: 2 views of the right humerus were obtained. The osseous structures are unremarka ble in size and shape. The joint spaces are maintained. No evidence of fra cture. The acromioclavicular joint is intact IMPRESSION: Unremarkable right humerus at 1658 Reported and signed by: Lukas Manzano M.D. CC: Al Espinal MD; Glenn Strange Technologist: MAGALI WEAVER; JULIANE DONOHUE, RT(R); ... Trnscrd D ate/Time/By: 04/17/2019 (3247) : By: Dorothy Orig Print D/T: S: 04/06 (0067) PAGE 1 Signed Repor t BASIC METABOLIC [id number] 16:56:00* Test Item Value Reference Range Interpretation Comments SODIUM (test code = NA) 139 mmol/L 136-145 N POTASSIUM (test code = K) 2.6 mmol/L 3.5-5.1 LL Re sults called to [id number] by V.LAB.W 04/17/19 1654Critical results verified and read back by Nurse? Y CHLORIDE (test code = CL) 99.0 mmol/L 98-107 N CARBON DIOXIDE (test code = CO2) 33.0 mmol/L 21-32 H ANION GAP (test code = GAP) 9.6 10-20 L GLUCOSE (test code = GLU) 101 mg/dL 74-106 N BLOOD UREA NITROGEN (test code = BUN) 4 mg/dL 7-18 L GLOMERULAR FILTRATION RATE (test code = GFR) 55 mL/min >=60 Estimated GFR by using Modified MDRD formula.Chronic kidney disease is defined as either kidney damageor GFR <60 mL/min/1.73 m2 for >3 months. CREATININE (test code = CREAT) 1.00 mg/dL 0.55-1.02 N Note change in reference range due to change in reagent. BUN/CREATININE RATIO (test code = BUN/CREA) 4.1 10-20 L CALCIUM (test code = CA) 8.9 mg/dL 8.5-10.1 N [id number] 16:56:00* Test Item Value Reference Range Interpretation Comments TROPONIN-I (test code = TROPI) 0.107 ng/mL 0-0.045 HH Results called to [id number] by V.LAB.W 04/17/19 1655Critical results verified and read back by Nurse? Y ANG, TUNNEL CATH CENTRAL INS W/PORT [id number] 17:20:00Reason for Exam:-> chronic ckd stage 5FINAL REPORT Tunneled dialysis catheter insertion: Pertinent clinical information: Requiring dialysis Modality: Sonography and fluoroscopy Conscious Sedation: Fentanyl 25 mcg intravenouslyDuring the procedure with conscious sedation, the patient [...] was utilized. Technique: After informed written consent w as obtained, the patient was prepped and draped in the usual sterile manner. Ac cess was obtained using sonographic guidance. Ultrasound was utilized to decreas e the risk of hematoma and avoid unnecessary punctures. Ultrasound documented th e vein to be patent. The right internal jugular vein was catheterized utiliz ing ultrasound guidance and the localization image was saved to PACS. A guide w gera was advanced centrally. A 19 cm Duraflow catheter was advanced with its di stal tip terminating in the right atrium as documented by fluoroscopy. The por ts were flushed and aspirated easily following placement. [...] right internal jugular tunneled dialysis catheter using ultraso und. Fluoroscopy guidance was also utilized . Signed: Olga Kelly Verified Date/Time: 04/01/2019 17:20:42 Reading Location: [address] Reading Room Electronically signed by: OLGA KELLY M.D. on 019 05:20 PM [id number] 07:15:00* Test Item Value Reference Range Interpretation Comments PARTIAL THROMBOPLASTIN TIME (BEAKER) (test code = 760) 32.9 seconds 22.5-36.0 PROTHROMBIN TIME/[id number] 07:14:00* Test Item Value Reference Range Interpretation Comments PROTIME (BEAKER) (test code = 759) 13.3 seconds 11.9-14.2 INR (BEAKER) (test code = 370) 1.1 <=5.9 Effective 03/04/2019: PT Reference Range ChangeNew: 11.9-14.2 Previous: 11.7-14. 7RECOMMENDED COUMADIN/WARFARIN INR THERAPY RANGESSTANDARD DOSE: 2.0-3.0 Include s: PROPHYLAXIS for venous thrombosis, systemic embolization; TREATMENT for venou s thrombosis and/or pulmonary embolus.HIGH RISK: Target INR is 2.5-3.5 for patie nts wiht mechanical heart valves.CBC W/PLT COUNT & AUTO [id number] 07:07:00* Test Item Value Reference Range Interpretation Comments WHITE BLOOD CELL COUNT (BEAKER) (test code = 775) 6.2 K/ L 3.5- 10.5 RED BLOOD CELL COUNT (BEAKER) (test code = 761) 2.09 M/ L 3.93-5 .22 L HEMOGLOBIN (BEAKER) (test code = 410) 6.7 GM/DL 11.2-15.7 L HEMATOCRIT (BEAKER) (test code = 411) 21.4 % 34.1-44.9 L MEAN CORPUSCULAR VOLUME (BEAKER) (test code = 753) 102.4 fL 79. 4-94.8 H MEAN CORPUSCULAR HEMOGLOBIN (BEAKER) (test code = 751) 32.1 pg 25.6-32.2 MEAN CORPUSCULAR HEMOGLOBIN CONC (BEAKER) (test code = 752) 31.3 GM/DL 32.2-35.5 L RED CELL DISTRIBUTION WIDTH (BEAKER) (test code = 412) 18.3 % 11.7-14.4 H PLATELET COUNT (BEAKER) (test code = 756) 249 K/CU MM 150-450 MEAN PLATELET VOLUME (BEAKER) (test code = 754) 11.3 fL 9.4-12 .3 NUCLEATED RED BLOOD CELLS (BEAKER) (test code = 413) 0 /100 WBC 0 -0 NEUTROPHILS RELATIVE PERCENT (BEAKER) (test code = 429) 74 % LYMPHOCYTES RELATIVE PERCENT (BEAKER) (test code = 430) 13 % MONOCYTES RELATIVE PERCENT (BEAKER) (test code = 431) 10 % EOSINOPHILS RELATIVE PERCENT (BEAKER) (test code = 432) 3 % BASOPHILS RELATIVE PERCENT (BEAKER) (test code = 437) 1 % NEUTROPHILS ABSOLUTE COUNT (BEAKER) (test code = 670) 4.58 K/ L 1.56-6.13 LYMPHOCYTES ABSOLUTE COUNT (BEAKER) (test code = 414) 0.78 K/ L 1.18-3.74 L MONOCYTES ABSOLUTE COUNT (BEAKER) (test code = 415) 0.61 K/ L 0. 24-0.36 H EOSINOPHILS ABSOLUTE COUNT (BEAKER) (test code = 416) 0.19 K/ L 0.04-0.36 BASOPHILS ABSOLUTE COUNT (BEAKER) (test code = 417) 0.03 K/ L 0. 01-0.08 IMMATURE GRANULOCYTES-RELATIVE PERCENT (BEAKER) (test code = 2801) 1 % 0-1 CHEST SINGLE (PORTABLE)2018-12-02 02:28:00 [place] [address] Patient Name: WILEY OH MR #: [id number] : 1945 Age/Sex: 73/F Req #: [id number] Adm Physician: Ordered by: YODIT SANTIAGO MD Report #: [id number] Location: ER Room/Bed: Procedure: [id number] DX/C HEST SINGLE (PORTABLE) Exam Date: 12/02/18 Exam Time : 0207 REPORT STATUS: Signed EXA MINATION: CHEST SINGLE (PORTABLE) COMPARISON: None INDICATION: Hy potension LOW BP [id number] DISCUSSION: Frontal view of th e chest obtained at 0210 hours. HEART AND MEDIASTINUM: The heart is normal in size. There are calcifications in the aortic arch and calcifications of the tracheobronchial tree. LINES: There appears to be a loop recorder device in the left upper quadrant. LUNGS: The lungs are well inflated and clear. Mild right apical pleural-parenchymal thickening. Diffuse bronchial wall th ickening suggestive of bronchitis, either acute or chronic. No pneumonia or pu lmonary edema. PLEURA: No pleural effusion or pneumothorax. BONES AND SOFT TISSUES: No focal osseous lesion. The soft tissues are normal. IMPRE SSION: Bronchial wall thickening suggestive of bronchitis, either acute or chronic. No infiltrates. Signed by: Dr. Mya Elder MD on 12/02/19 2:29 AM Dictated By: MYA ELDER MD 8 Transcribed By: BENOIT on 12/02/18228 COPY TO: YODIT SANTIAGO MD BASIC METABOLIC [id number] 06:45:00 * Test Item Value Reference Range Interpretation Comments SODIUM (BEAKER) (test code = 381) 134 meq/L 136-145 L POTASSIUM (BEAKER) (test code = 379) 4.1 meq/L 3.5-5.1 CHLORIDE (BEAKER) (test code = 382) 105 meq/L 98-107 CO2 (BEAKER) (test code = 355) 22 meq/L 22-29 BLOOD UREA NITROGEN (BEAKER) (test code = 354) 40 mg/dL 7-21 H CREATININE (BEAKER) (test code = 358) 2.43 mg/dL 0.57-1.25 H GLUCOSE RANDOM (BEAKER) (test code = 652) 87 mg/dL 70-105 CALCIUM (BEAKER) (test code = 697) 9.3 mg/dL 8.4-10.2 EGFR (BEAKER) (test code = 1092) 20 mL/min/1.73 sq m ESTIMATED GFR IS NOT ACCURATE CREATININE CLEARANCE IN PREDICTING GLOMERULAR FILTRATION RATE. ESTIMATED GFR IS NOT APPLICABLE FOR DIALYSIS PATIENTS. B-TYPE NATRIURETIC FACTOR (BNP)2018-11-07 06:33:00* Test Item Value Reference Range Interpretation Comments B-TYPE NATRIURETIC PEPTIDE (BEAKER) (test code = 700) 807 pg/mL 0-100 H CBC W/PLT COUNT & AUTO [id number] 06:04:00* Test Item Value Reference Range Interpretation Comments WHITE BLOOD CELL COUNT (BEAKER) (test code = 775) 5.8 K/ L 3.5- 10.5 RED BLOOD CELL COUNT (BEAKER) (test code = 761) 2.72 M/ L 3.93-5 .22 L HEMOGLOBIN (BEAKER) (test code = 410) 8.5 GM/DL 11.2-15.7 L HEMATOCRIT (BEAKER) (test code = 411) 26.8 % 34.1-44.9 L MEAN CORPUSCULAR VOLUME (BEAKER) (test code = 753) 98.5 fL 79. 4-94.8 H MEAN CORPUSCULAR HEMOGLOBIN (BEAKER) (test code = 751) 31.3 pg 25.6-32.2 MEAN CORPUSCULAR HEMOGLOBIN CONC (BEAKER) (test code = 752) 31.7 GM/DL 32.2-35.5 L RED CELL DISTRIBUTION WIDTH (BEAKER) (test code = 412) 17.3 % 11.7-14.4 H PLATELET COUNT (BEAKER) (test code = 756) 173 K/CU MM 150-450 MEAN PLATELET VOLUME (BEAKER) (test code = 754) 12.5 fL 9.4-12 .3 H NUCLEATED RED BLOOD CELLS (BEAKER) (test code = 413) 0 /100 WBC 0 -0 NEUTROPHILS RELATIVE PERCENT (BEAKER) (test code = 429) 66 % LYMPHOCYTES RELATIVE PERCENT (BEAKER) (test code = 430) 21 % MONOCYTES RELATIVE PERCENT (BEAKER) (test code = 431) 9 % EOSINOPHILS RELATIVE PERCENT (BEAKER) (test code = 432) 3 % BASOPHILS RELATIVE PERCENT (BEAKER) (test code = 437) 1 % NEUTROPHILS ABSOLUTE COUNT (BEAKER) (test code = 670) 3.83 K/ L 1.56-6.13 LYMPHOCYTES ABSOLUTE COUNT (BEAKER) (test code = 414) 1.19 K/ L 1.18-3.74 MONOCYTES ABSOLUTE COUNT (BEAKER) (test code = 415) 0.52 K/ L 0. 24-0.36 H EOSINOPHILS ABSOLUTE COUNT (BEAKER) (test code = 416) 0.18 K/ L 0.04-0.36 BASOPHILS ABSOLUTE COUNT (BEAKER) (test code = 417) 0.07 K/ L 0. 01-0.08 IMMATURE GRANULOCYTES-RELATIVE PERCENT (BEAKER) (test code = 2801) 0 % 0-1 HEMOGLOBIN AND [id number] 18:42:00* Test Item Value Reference Range Interpretation Comments HEMOGLOBIN (BEAKER) (test code = 410) 8.6 GM/DL 11.2-15.7 L HEMATOCRIT (BEAKER) (test code = 411) 27.1 % 34.1-44.9 L PUL PERF IMAGING, PARTIC, [id number] 14:11:00FINAL REPORT PROCEDURE: V/Q LUNG SCAN CPT CODE: [id number] INDICATION: Dyspnea PROTOCOL: 10.9 mCi of Xe-133 gas was administered by inhalation. First breath and rebreathing/washout images were obtained in the anterior and the posterior projections. 4.2 mCi of Tc-99m MAA was then injected intravenously, and static perfusion images were obtained in multiple projections. FINDINGS: Ventilation: Initial tracer distribution is irregularly decreased radiotracer uptake in the lower lung castellanos. Washout is mo derately delayed. Perfusion: Tracer distribution is nonsegmentally dec reased most notably in the mid left lung. IMPRESSION: 1. Low probability of acute pulmonary embolization.2. Bilateral parenchymal abnormalities and air tra pping consistent with COPD. Signed: Derrek Sauceda MDReport Verified Date/Time: 11/06/2018 14:11:21 Reading Location: [address] Reading Room 2018-11-06 12:51:00* Test Item Value Reference Range Interpretation Comments PARTIAL THROMBOPLASTIN TIME (BEAKER) (test code = 760) 116.6 sec onds 22.5-36.0 H BASIC METABOLIC [id number] 11:07:00* Test Item Value Reference Range Interpretation Comments SODIUM (BEAKER) (test code = 381) 134 meq/L 136-145 L POTASSIUM (BEAKER) (test code = 379) 4.3 meq/L 3.5-5.1 CHLORIDE (BEAKER) (test code = 382) 105 meq/L 98-107 CO2 (BEAKER) (test code = 355) 23 meq/L 22-29 BLOOD UREA NITROGEN (BEAKER) (test code = 354) 39 mg/dL 7-21 H CREATININE (BEAKER) (test code = 358) 2.37 mg/dL 0.57-1.25 H GLUCOSE RANDOM (BEAKER) (test code = 652) 92 mg/dL 70-105 CALCIUM (BEAKER) (test code = 697) 9.0 mg/dL 8.4-10.2 EGFR (BEAKER) (test code = 1092) 20 mL/min/1.73 sq m ESTIMATED GFR IS NOT ACCURATE CREATININE CLEARANCE IN PREDICTING GLOMERULAR FILTRATION RATE. ESTIMATED GFR IS NOT APPLICABLE FOR DIALYSIS PATIENTS. [id number] 11:06:00* Test Item Value Reference Range Interpretation Comments PARTIAL THROMBOPLASTIN TIME (BEAKER) (test code = 760) 161.8 sec onds 22.5-36.0 HH CBC W/PLT COUNT & AUTO [id number] 10:52:00* Test Item Value Reference Range Interpretation Comments WHITE BLOOD CELL COUNT (BEAKER) (test code = 775) 6.6 K/ L 3.5- 10.5 RED BLOOD CELL COUNT (BEAKER) (test code = 761) 2.60 M/ L 3.93-5 .22 L HEMOGLOBIN (BEAKER) (test code = 410) 8.1 GM/DL 11.2-15.7 L HEMATOCRIT (BEAKER) (test code = 411) 25.3 % 34.1-44.9 L MEAN CORPUSCULAR VOLUME (BEAKER) (test code = 753) 97.3 fL 79. 4-94.8 H MEAN CORPUSCULAR HEMOGLOBIN (BEAKER) (test code = 751) 31.2 pg 25.6-32.2 MEAN CORPUSCULAR HEMOGLOBIN CONC (BEAKER) (test code = 752) 32.0 GM/DL 32.2-35.5 L RED CELL DISTRIBUTION WIDTH (BEAKER) (test code = 412) 17.3 % 11.7-14.4 H PLATELET COUNT (BEAKER) (test code = 756) 159 K/CU MM 150-450 MEAN PLATELET VOLUME (BEAKER) (test code = 754) 12.8 fL 9.4-12 .3 H NUCLEATED RED BLOOD CELLS (BEAKER) (test code = 413) 0 /100 WBC 0 -0 NEUTROPHILS RELATIVE PERCENT (BEAKER) (test code = 429) 76 % LYMPHOCYTES RELATIVE PERCENT (BEAKER) (test code = 430) 13 % MONOCYTES RELATIVE PERCENT (BEAKER) (test code = 431) 8 % EOSINOPHILS RELATIVE PERCENT (BEAKER) (test code = 432) 1 % BASOPHILS RELATIVE PERCENT (BEAKER) (test code = 437) 1 % NEUTROPHILS ABSOLUTE COUNT (BEAKER) (test code = 670) 5.02 K/ L 1.56-6.13 LYMPHOCYTES ABSOLUTE COUNT (BEAKER) (test code = 414) 0.84 K/ L 1.18-3.74 L MONOCYTES ABSOLUTE COUNT (BEAKER) (test code = 415) 0.55 K/ L 0. 24-0.36 H EOSINOPHILS ABSOLUTE COUNT (BEAKER) (test code = 416) 0.08 K/ L 0.04-0.36 BASOPHILS ABSOLUTE COUNT (BEAKER) (test code = 417) 0.05 K/ L 0. 01-0.08 IMMATURE GRANULOCYTES-RELATIVE PERCENT (BEAKER) (test code = 2801) 1 % 0-1 [id number] 04:08:00* Test Item Value Reference Range Interpretation Comments PARTIAL THROMBOPLASTIN TIME (BEAKER) (test code = 760) 101.1 sec onds 22.5-36.0 H Prior to initiating heparinRAPID TROPONIN [id number] 19:48:00* Test Item Value Reference Range Interpretation Comments RAPID TROPONIN I (BEAKER) (test code = 1483) < ng/mL <0.05 [id number] 19:33:00* Test Item Value Reference Range Interpretation Comments D-DIMER QUANTITATIVE (BEAKER) (test code = 671) 1.72 MG/L FEU <0.50 H REGARDING D-DIMER RESULTS: Results of this D-Dimer test should always be interpr eted in conjunction with the patient's medical history, clinical presentation an d other findings. DVT clinical diagnosis should not be based on the results of I NNOVANCE D-Dimer alone.B-TYPE NATRIURETIC FACTOR (BNP)2018-11-05 16:59:00* Test Item Value Reference Range Interpretation Comments B-TYPE NATRIURETIC PEPTIDE (BEAKER) (test code = 700) 474 pg/mL 0-100 H RAPID TROPONIN [id number] 16:59:00* Test Item Value Reference Range Interpretation Comments RAPID TROPONIN I (BEAKER) (test code = 1483) < ng/mL <0.05 PT/[id number] 16:56:00* Test Item Value Reference Range Interpretation Comments PROTIME (BEAKER) (test code = 759) 10.1 seconds 9.8-12.0 INR (BEAKER) (test code = 370) 0.9 <=5.9 PARTIAL THROMBOPLASTIN TIME (BEAKER) (test code = 760) 22.6 seconds 25.8-34.5 L RECOMMENDED COUMADIN/WARFARIN INR THERAPY RANGESSTANDARD DOSE: 2.0 - 3.0 Inclu soraya: PROPHYLAXIS for venous thrombosis, systemic embolization; TREATMENT for kathleen ous thrombosis and/or pulmonary embolus.HIGH RISK: Target INR is 2.5-3.5 for pat ients with mechanical heart valves.BASIC METABOLIC [id number] 16:54:00* Test Item Value Reference Range Interpretation Comments SODIUM (BEAKER) (test code = 381) 134 meq/L 135-148 L POTASSIUM (BEAKER) (test code = 379) 4.3 meq/L 3.6-5.5 CHLORIDE (BEAKER) (test code = 382) 99 meq/L 98-106 CO2 (BEAKER) (test code = 355) 23 meq/L 24-32 L BLOOD UREA NITROGEN (BEAKER) (test code = 354) 41 mg/dL 10-26 H CREATININE (BEAKER) (test code = 358) 2.52 mg/dL 0.50-1.20 H GLUCOSE RANDOM (BEAKER) (test code = 652) 108 mg/dL 70-110 CALCIUM (BEAKER) (test code = 697) 9.1 mg/dL 8.5-10.5 EGFR (BEAKER) (test code = 1092) 19 mL/min/1.73 sq m ESTIMATED GFR IS NOT ACCURATE CREATININE CLEARANCE IN PREDICTING GLOMERULAR FILTRATION RATE. ESTIMATED GFR IS NOT APPLICABLE FOR DIALYSIS PATIENTS. CBC W/PLT COUNT & AUTO [id number] 16:51:00* Test Item Value Reference Range Interpretation Comments WHITE BLOOD CELL COUNT (BEAKER) (test code = 775) 6.4 K/ L 4.0- 10.0 RED BLOOD CELL COUNT (BEAKER) (test code = 761) 3.00 M/ L 4.00-5 .00 L HEMOGLOBIN (BEAKER) (test code = 410) 9.4 GM/DL 12.0-15.0 L HEMATOCRIT (BEAKER) (test code = 411) 29.8 % 36.0-45.0 L MEAN CORPUSCULAR VOLUME (BEAKER) (test code = 753) 99.2 fL 82. 0-99.0 H MEAN CORPUSCULAR HEMOGLOBIN (BEAKER) (test code = 751) 31.3 pg 27.0-33.0 MEAN CORPUSCULAR HEMOGLOBIN CONC (BEAKER) (test code = 752) 31.6 GM/DL 32.0-36.0 L RED CELL DISTRIBUTION WIDTH (BEAKER) (test code = 412) 16.1 % 10.3-14.2 H PLATELET COUNT (BEAKER) (test code = 756) 193 K/CU MM 150-430 MEAN PLATELET VOLUME (BEAKER) (test code = 754) 10.0 fL 6.5-10 .5 NEUTROPHILS RELATIVE PERCENT (BEAKER) (test code = 429) 73 % LYMPHOCYTES RELATIVE PERCENT (BEAKER) (test code = 430) 16 % MONOCYTES RELATIVE PERCENT (BEAKER) (test code = 431) 8 % EOSINOPHILS RELATIVE PERCENT (BEAKER) (test code = 432) 2 % BASOPHILS RELATIVE PERCENT (BEAKER) (test code = 437) 0 % NEUTROPHILS ABSOLUTE COUNT (BEAKER) (test code = 670) 4.71 K/ L 1.80-8.00 LYMPHOCYTES ABSOLUTE COUNT (BEAKER) (test code = 414) 1.06 K/ L 1.48-4.50 L MONOCYTES ABSOLUTE COUNT (BEAKER) (test code = 415) 0.53 K/ L 0. 00-1.30 EOSINOPHILS ABSOLUTE COUNT (BEAKER) (test code = 416) 0.12 K/ L 0.00-0.50 BASOPHILS ABSOLUTE COUNT (BEAKER) (test code = 417) 0.03 K/ L 0. 00-0.20 RAD, CHEST, 2 [id number] 16:40:00Reason for exam:->COUGHReason for exam:-> SHORTNESS OF BREATHtodayFINAL REPORT History: Cough, shortness of breath Comparison: 01/01/2014, 09/01/2012 Findings: The lungs are clear. No pleural effusions or pneumothorax. The heart shadow is normal in size. A cardiac monitoring device is noted in the left anterior chest wall. The thoracic aorta is calcified. Scoliotic changes are present in the spine. Impression: No evidence of acute cardiopulmonary disease. Signed: Catrachita Cortez MDReport Verified Date/Time: 11/05/2018 16:40:37 Reading Location: [facility] Radiology Reading Room Urine [id number] 09:57:00* Test Item Value Reference Range Interpretation Comments Urine Culture (test code = 630-4) Organism: STRE[facility]OCOCCUS VIRIDANS [facility] [id number] 09:57:00* Test Item Value Reference Range Interpretation Comments Urine Culture (test code = 630-4) Organism: STREPTOCOCCUS VIRIDANS [facility] [id number] 09:57:00* Test Item Value Reference Range Interpretation Comments Urine Culture (test code = 630-4) Organism: STREPTOCOCCUS VIRIDANS [facility] Hospital[facility]yroid Stimulating Hormone (TSH) 2018-11-02 05:34:00* Test Item Value Reference Range Interpretation Comments Thyroid Stimulating Hormone (TSH) (test code = 77855-9) 1.133 0.350-4.940 [facility] (TSH) 2018-11-02 05:34:00* Test Item Value Reference Range Interpretation Comments Thyroid Stimulating Hormone (TSH) (test code = 38338-3) 1.133 0.350-4.940 [facility] (TSH) 2018-11-02 05:34:00* Test Item Value Reference Range Interpretation Comments Thyroid Stimulating Hormone (TSH) (test code = 45447-8) 1.133 0.350-4.940 [facility] Snqef9274-28-63 05:09:00* Test Item Value Reference Range Interpretation Comments Sodium Level (test code = 2951-2) 135 136-145 L [facility] HospitalPotassium Oucot7766-22-55 05:09:00* Test Item Value Reference Range Interpretation Comments Potassium Level (test code = 2823-3) 4.4 3.5-5.1 [facility] HospitalChloride Tzifd9696-11-14 05:09:00* Test Item Value Reference Range Interpretation Comments Chloride Level (test code = 2075-0) 108 98-107 H [facility] HospitalCarbon Dioxide Ztfuq5976-02-00 05:09:00* Test Item Value Reference Range Interpretation Comments Carbon Dioxide Level (test code = 2028-9) 18 22-29 L [facility] HospitalAnion Crz4146-53-75 05:09:00* Test Item Value Reference Range Interpretation Comments Anion Gap (test code = 68551-5) 13.4 8-16 [facility] HospitalBlood Urea Tbxzxvas9817-52-34 05:09:00* Test Item Value Reference Range Interpretation Comments Blood Urea Nitrogen (test code = 3094-0) 32 7-26 H [facility] HospitalCreatinine2019-01-27 05:09:00* Test Item Value Reference Range Interpretation Comments Creatinine (test code = 2160-0) 2.16 0.57-1.11 H [facility] HospitalBUN/Creatinine Xwfmd0451-07-94 05:09:00* Test Item Value Reference Range Interpretation Comments BUN/Creatinine Ratio (test code = 3097-3) 15 6-25 [facility] HospitalEstimat Glomerular Filtration Rate 2018-11-02 05:09:00* Test Item Value Reference Range Interpretation Comments Estimat Glomerular Filtration Rate (test code = 824454367) 22 >60 L Ranges were taken from the National Kidney Disease Education Program and the [facility] literature.Reference ranges:60 or greater: Kxvjbc11-68 ( for 3 consecutive months): Chronic kidney disease 15 or less: Kidney failureMethodist Specialty and Transplant HospitalGlucose Jegvl9166-38-69 05:09:00* Test Item Value Reference Range Interpretation Comments Glucose Level (test code = JJI5594) 82 74-118 [facility] HospitalCalcium Cuavz9710-68-41 05:09:00* Test Item Value Reference Range Interpretation Comments Calcium Level (test code = 42350-5) 8.9 8.4-10.2 [facility] Vjwur9485-19-28 05:09:00* Test Item Value Reference Range Interpretation Comments Sodium Level (test code = 2951-2) 135 136-145 L [facility] HospitalPotassium Llwxe1311-77-08 05:09:00* Test Item Value Reference Range Interpretation Comments Potassium Level (test code = 2823-3) 4.4 3.5-5.1 [facility] HospitalChloride Uzgor6900-79-53 05:09:00* Test Item Value Reference Range Interpretation Comments Chloride Level (test code = 2075-0) 108 98-107 H [facility] HospitalCarbon Dioxide Ntted2811-42-05 05:09:00* Test Item Value Reference Range Interpretation Comments Carbon Dioxide Level (test code = 2028-9) 18 22-29 L [facility] HospitalAnion Qwh7759-92-43 05:09:00* Test Item Value Reference Range Interpretation Comments Anion Gap (test code = 08812-7) 13.4 8-16 [facility] HospitalBlood Urea Awyoltvf2343-89-87 05:09:00* Test Item Value Reference Range Interpretation Comments Blood Urea Nitrogen (test code = 3094-0) 32 7-26 H [facility] HospitalCreatinine2019-01-27 05:09:00* Test Item Value Reference Range Interpretation Comments Creatinine (test code = 2160-0) 2.16 0.57-1.11 H [facility] HospitalBUN/Creatinine Autds8764-99-05 05:09:00* Test Item Value Reference Range Interpretation Comments BUN/Creatinine Ratio (test code = 3097-3) 15 6-25 [facility] HospitalEstimat Glomerular Filtration Rate 2018-11-02 05:09:00* Test Item Value Reference Range Interpretation Comments Estimat Glomerular Filtration Rate (test code = 047640242) 22 >60 L Ranges were taken from the National Kidney Disease Education Program and the [facility] Kidney Foundation literature.Reference ranges:60 or greater: Dwuwoo69-79 ( for 3 consecutive months): Chronic kidney disease 15 or less: Kidney failureMethodist Specialty and Transplant HospitalGlucose Rjzsx5645-87-89 05:09:00* Test Item Value Reference Range Interpretation Comments Glucose Level (test code = SGD4736) 82 74-118 [facility] HospitalCalcium Yixlo3664-35-02 05:09:00* Test Item Value Reference Range Interpretation Comments Calcium Level (test code = 22571-0) 8.9 8.4-10.2 [facility] HospitalWhite Blood Lpfdz2813-16-71 04:53:00* Test Item Value Reference Range Interpretation Comments White Blood Count (test code = 6690-2) 5.72 4.8-10.8 [facility] HospitalRed Blood Mupov1653-67-38 04:53:00* Test Item Value Reference Range Interpretation Comments Red Blood Count (test code = 789-8) 2.39 3.6-5.1 L [facility] HospitalHemoglobin2019-01-27 04:53:00* Test Item Value Reference Range Interpretation Comments Hemoglobin (test code = 72732-7) 8.1 12.0-16.0 L [facility] HospitalHematocrit2019-01-27 04:53:00* Test Item Value Reference Range Interpretation Comments Hematocrit (test code = 4544-3) 22.9 34.2-44.1 L [facility] HospitalMean Corpuscular Vccfsq1246-85-66 04:53:00* Test Item Value Reference Range Interpretation Comments Mean Corpuscular Volume (test code = 787-2) 95.8 81-99 [facility] HospitalMean Corpuscular Wflbpqmcil8184-58-81 04:53:00* Test Item Value Reference Range Interpretation Comments Mean Corpuscular Hemoglobin (test code = 785-6) 33.9 28-32 H [facility] HospitalMean Corpuscular Hemoglobin Concent 2018-11-02 04:53:00* Test Item Value Reference Range Interpretation Comments Mean Corpuscular Hemoglobin Concent (test code = 786-4) 35.4 31-35 H [facility] HospitalRed Cell Distribution Zqepe0994-02-15 04:53:00* Test Item Value Reference Range Interpretation Comments Red Cell Distribution Width (test code = 39235-4) 17.7 11.7 -14.4 H [facility] HospitalPlatelet Ubfeg9874-03-74 04:53:00* Test Item Value Reference Range Interpretation Comments Platelet Count (test code = 777-3) 131 140-360 L [facility] HospitalNeutrophils (%) (Auto)2018-11-02 04:53:00 * Test Item Value Reference Range Interpretation Comments Neutrophils (%) (Auto) (test code = 14030-5) 71.1 38.7-80.0 [facility] HospitalLymphocytes (%) (Auto)2018-11-02 04:53:00 * Test Item Value Reference Range Interpretation Comments Lymphocytes (%) (Auto) (test code = 736-9) 15.9 18.0-39.1 L [facility] HospitalMonocytes (%) (Auto)2018-11-02 04:53:00* Test Item Value Reference Range Interpretation Comments Monocytes (%) (Auto) (test code = 5905-5) 9.6 4.4-11.3 [facility] HospitalEosinophils (%) (Auto)2018-11-02 04:53:00 * Test Item Value Reference Range Interpretation Comments Eosinophils (%) (Auto) (test code = 713-8) 2.4 0.0-6.0 [facility] HospitalBasophils (%) (Auto)2018-11-02 04:53:00* Test Item Value Reference Range Interpretation Comments Basophils (%) (Auto) (test code = 706-2) 0.7 0.0-1.0 [facility] HospitalIM GRANULOCYTES %2018-11-02 04:53:00* Test Item Value Reference Range Interpretation Comments IM GRANULOCYTES % (test code = IM GRANULOCYTES %) 0.3 0.0- 1.0 [facility] HospitalNeutrophils # (Auto)2018-11-02 04:53:00* Test Item Value Reference Range Interpretation Comments Neutrophils # (Auto) (test code = 751-8) 4.1 2.1-6.9 [facility] HospitalLymphocytes # (Auto)2018-11-02 04:53:00* Test Item Value Reference Range Interpretation Comments Lymphocytes # (Auto) (test code = 53715-3) 0.9 1.0-3.2 L [facility] HospitalMonocytes # (Auto)2018-11-02 04:53:00* Test Item Value Reference Range Interpretation Comments Monocytes # (Auto) (test code = 742-7) 0.6 0.2-0.8 [facility] HospitalEosinophils # (Auto)2018-11-02 04:53:00* Test Item Value Reference Range Interpretation Comments Eosinophils # (Auto) (test code = 711-2) 0.1 0.0-0.4 [facility] HospitalBasophils # (Auto)2018-11-02 04:53:00* Test Item Value Reference Range Interpretation Comments Basophils # (Auto) (test code = 704-7) 0.0 0.0-0.1 [facility] HospitalAbsolute Immature Granulocyte (auto 2018-11-02 04:53:00* Test Item Value Reference Range Interpretation Comments Absolute Immature Granulocyte (auto (saumya t code = Absolute Immature Granulocyte (auto) 0.02 0-0.1 [facility] HospitalWhite Blood Ilhts8894-43-90 04:53:00* Test Item Value Reference Range Interpretation Comments White Blood Count (test code = 6690-2) 5.72 4.8-10.8 [facility] HospitalRed Blood Vkfuf2818-49-24 04:53:00* Test Item Value Reference Range Interpretation Comments Red Blood Count (test code = 789-8) 2.39 3.6-5.1 L [facility] HospitalHemoglobin2019-01-27 04:53:00* Test Item Value Reference Range Interpretation Comments Hemoglobin (test code = 64748-2) 8.1 12.0-16.0 L [facility] HospitalHematocrit2019-01-27 04:53:00* Test Item Value Reference Range Interpretation Comments Hematocrit (test code = 4544-3) 22.9 34.2-44.1 L [facility] HospitalMean Corpuscular Oaylxa9145-44-06 04:53:00* Test Item Value Reference Range Interpretation Comments Mean Corpuscular Volume (test code = 787-2) 95.8 81-99 [facility] HospitalMean Corpuscular Nxplexcldd8041-85-43 04:53:00* Test Item Value Reference Range Interpretation Comments Mean Corpuscular Hemoglobin (test code = 785-6) 33.9 28-32 H [facility] HospitalMean Corpuscular Hemoglobin Concent 2018-11-02 04:53:00* Test Item Value Reference Range Interpretation Comments Mean Corpuscular Hemoglobin Concent (test code = 786-4) 35.4 31-35 H [facility] HospitalRed Cell Distribution Wqzof1637-30-32 04:53:00* Test Item Value Reference Range Interpretation Comments Red Cell Distribution Width (test code = 54746-1) 17.7 11.7 -14.4 H [facility] HospitalPlatelet Hmqah2400-98-99 04:53:00* Test Item Value Reference Range Interpretation Comments Platelet Count (test code = 777-3) 131 140-360 L [facility] HospitalNeutrophils (%) (Auto)2018-11-02 04:53:00 * Test Item Value Reference Range Interpretation Comments Neutrophils (%) (Auto) (test code = 27438-3) 71.1 38.7-80.0 [facility] HospitalLymphocytes (%) (Auto)2018-11-02 04:53:00 * Test Item Value Reference Range Interpretation Comments Lymphocytes (%) (Auto) (test code = 736-9) 15.9 18.0-39.1 L [facility] HospitalMonocytes (%) (Auto)2018-11-02 04:53:00* Test Item Value Reference Range Interpretation Comments Monocytes (%) (Auto) (test code = 5905-5) 9.6 4.4-11.3 [facility] HospitalEosinophils (%) (Auto)2018-11-02 04:53:00 * Test Item Value Reference Range Interpretation Comments Eosinophils (%) (Auto) (test code = 713-8) 2.4 0.0-6.0 [facility] HospitalBasophils (%) (Auto)2018-11-02 04:53:00* Test Item Value Reference Range Interpretation Comments Basophils (%) (Auto) (test code = 706-2) 0.7 0.0-1.0 [facility] HospitalIM GRANULOCYTES %2018-11-02 04:53:00* Test Item Value Reference Range Interpretation Comments IM GRANULOCYTES % (test code = IM GRANULOCYTES %) 0.3 0.0- 1.0 [facility] HospitalNeutrophils # (Auto)2018-11-02 04:53:00* Test Item Value Reference Range Interpretation Comments Neutrophils # (Auto) (test code = 751-8) 4.1 2.1-6.9 [facility] HospitalLymphocytes # (Auto)2018-11-02 04:53:00* Test Item Value Reference Range Interpretation Comments Lymphocytes # (Auto) (test code = 69420-6) 0.9 1.0-3.2 L [facility] HospitalMonocytes # (Auto)2018-11-02 04:53:00* Test Item Value Reference Range Interpretation Comments Monocytes # (Auto) (test code = 742-7) 0.6 0.2-0.8 [facility] HospitalEosinophils # (Auto)2018-11-02 04:53:00* Test Item Value Reference Range Interpretation Comments Eosinophils # (Auto) (test code = 711-2) 0.1 0.0-0.4 [facility] HospitalBasophils # (Auto)2018-11-02 04:53:00* Test Item Value Reference Range Interpretation Comments Basophils # (Auto) (test code = 704-7) 0.0 0.0-0.1 [facility] HospitalAbsolute Immature Granulocyte (auto 2018-11-02 04:53:00* Test Item Value Reference Range Interpretation Comments Absolute Immature Granulocyte (auto (saumya t code = Absolute Immature Granulocyte (auto) 0.02 0-0.1 [facility] HospitalInfluenza Virus Types A,B Antigen 2018-11-01 16:27:00* Test Item Value Reference Range Interpretation Comments Influenza Virus Types A,B Antigen (test code = 98862-3) NEGATIVE NEGATIVE [facility] HospitalInfluenza Virus Types A,B Antigen 2018-11-01 16:27:00* Test Item Value Reference Range Interpretation Comments Influenza Virus Types A,B Antigen (test code = 99232-0) NEGATIVE NEGATIVE [facility] HospitalInfluenza Virus Types A,B Antigen 2018-11-01 16:27:00* Test Item Value Reference Range Interpretation Comments Influenza Virus Types A,B Antigen (test code = 46556-2) NEGATIVE NEGATIVE [facility] HospitalCT ABDOMEN/PELVIS [id number] 14:15:00 [place] [address] Patient Name: WILEY OH MR #: [id number] : 1945 Age/Sex: 73/F Req #: [id number] Adm Physician: MARIBEL BALLESTEROS MD Ordered by: MARIBEL BALLESTEROS MD Report #: [id number] Location: [facility] Room/Bed: [place] [address] Procedure: [id number] C T/CT ABDOMEN/PELVIS WO Exam Date: Exam Time: REPORT STATUS: Signed EXAM: CT Abdomen and Pelvis WITHOUT contrast INDICATION: Pain/fever COMPARISON: 1 10/23/[address], no report available TECHNIQUE: Abdomen and Pelvis was scanne d utilizing a multidetector helical scanner without the use of IV contrast. Co fernando and sagittal reformations were obtained. IV CONTRAST: None COMPLICATIONS: None RADIATION DOSE: Total DL P: 442 mGy*cm Estimated effective dose: (DLP x 0.015 x size factor) mSv CTDIvol has been reviewed. It is below the limits set by the Radiation P rotocol Committee (RPC). Appropriate CT dose reduction techniques were utilize d. FINDINGS: Abdomen: Lung Bases: Atelectasis. Minimal pleu ral nodularity of doubtful clinical significance if there is no personal histo ry of malignancy. Decreased attenuation cardiac blood pool suggesting anemia. Solid Organs: Increased density layering material in the gallbladder. Non enhanced images of liver, adrenals, spleen, and pancreas unremarkable. Left ki dney has a lobular/scarred appearance. There is a 22 mm lesions appear right k idney Hounsfield units of 11 and a 13 mm exophytic lesion Hounsfield units of 12, statistically cyst. More inferiorly there is a 21 mm exophytic lesion with indeterminate Hounsfield units of 26 and minimal surrounding stranding. 8 mm calcification central right kidney present, uncertain whether vascular or renal calculus. Upper GI Tract: No small bowel obstructive changes. Vascul arity: Advanced aortic vascular calcifications with no aneurysm. Lymph Node s: No suspicious adenopathy. Other: None. Pelvis: Bladder: Unremarkable. Other: Uterus absent. Colon: No acute colonic findings. Appendix not inflamed. Bones: Postsurgical changes L4-5 with degenerative changes lower lumbar spine. IMPRESSION: 1. Indeterminate exophytic l esion inferior right kidney with surrounding stranding. Findings similar to CT. Underlying malignancy or infectious process would be difficult to exclude on current nonenhanced exam. Renal mass CT or ultrasound could be obt ained for further evaluation. 2. Layering increased density material gallb ladder suggesting sludge and/or small stones. Clinical/laboratory correlation recommended. Ultrasound could be obtained if indicated. 3. See above for other findings. Signed by: Dr. Tobin Duron MD on 11/01/2018 2:25 PM Dictated By: TOBIN DURON MD [id number] Transcribed By: BENOIT on 11/01/18 7003 COPY TO: MARLENA BALLESTEROS MD Creatine Kinase [id number] 06:13:00* Test Item Value Reference Range Interpretation Comments Creatine Kinase MB (test code = 36627-7) 0.80 0-5.0 [facility] HospitalTrcolleton [facility] centern J5986-00-79 06:13:00* Test Item Value Reference Range Interpretation Comments Troponin I (test code = JBA4562) 0.023 0-0.300 [facility] HospitalCreatine Kinase JO8152-04-25 06:13:00* Test Item Value Reference Range Interpretation Comments Creatine Kinase MB (test code = 06908-0) 0.80 0-5.0 [facility] HospitalTroponin S7669-96-12 06:13:00* Test Item Value Reference Range Interpretation Comments Troponin I (test code = WOD3538) 0.023 0-0.300 [facility] HospitalCreatine Pllxuv8706-60-92 06:06:00* Test Item Value Reference Range Interpretation Comments Creatine Kinase (test code = 2157-6) 38 29-168 [facility] HospitalCreatine Yiibjr9461-14-36 06:06:00* Test Item Value Reference Range Interpretation Comments Creatine Kinase (test code = 2157-6) 38 29-168 [facility] HospitalLactic Acid Brewm0212-80-40 16:17:00* Test Item Value Reference Range Interpretation Comments Lactic Acid Level (test code = Lactic Acid Level) 8.2 4.5- 19.8 [facility] HospitalLactic Acid Yzbwi9513-74-12 16:17:00* Test Item Value Reference Range Interpretation Comments Lactic Acid Level (test code = Lactic Acid Level) 8.2 4.5- 19.8 [facility] HospitalLactic Acid Eduul4510-89-58 16:17:00* Test Item Value Reference Range Interpretation Comments Lactic Acid Level (test code = Lactic Acid Level) 8.2 4.5- 19.8 [facility] HospitalTotal Qbjwulief9148-05-02 15:50:00* Test Item Value Reference Range Interpretation Comments Total Bilirubin (test code = 1975-2) 0.3 0.2-1.2 [facility] HospitalAspartate Amino Transf (AST/SGOT) 2018-10-31 15:50:00* Test Item Value Reference Range Interpretation Comments Aspartate Amino Transf (AST/SGOT) (test code = Aspartate Amino Transf (AST/SGOT)) 9 [facility] HospitalAlanine Aminotransferase (ALT/SGPT) 2018-10-31 15:50:00* Test Item Value Reference Range Interpretation Comments Alanine Aminotransferase (ALT/SGPT) (test code = 1742-6) 11 0-55 [facility] HospitalTotal Zwitefd8390-29-01 15:50:00* Test Item Value Reference Range Interpretation Comments Total Protein (test code = 2885-2) 6.3 6.5-8.1 L [facility] HospitalAlbumin2019-01-25 15:50:00* Test Item Value Reference Range Interpretation Comments Albumin (test code = 1751-7) 3.5 3.5-5.0 [facility] HospitalGlobulin2019-01-25 15:50:00* Test Item Value Reference Range Interpretation Comments Globulin (test code = 27904-3) 2.8 2.3-3.5 [facility] HospitalAlbumin/Globulin Kmtua9713-10-34 15:50:00 * Test Item Value Reference Range Interpretation Comments Albumin/Globulin Ratio (test code = 1759-0) 1.3 0.8-2.0 [facility] HospitalAlkaline Lubvlvmheso1006-98-45 15:50:00* Test Item Value Reference Range Interpretation Comments Alkaline Phosphatase (test code = 6768-6) 131 40-150 [facility] HospitalTotal Yyurrmbud9346-94-60 15:50:00* Test Item Value Reference Range Interpretation Comments Total Bilirubin (test code = 1975-2) 0.3 0.2-1.2 [facility] HospitalAspartate Amino Transf (AST/SGOT) 2018-10-31 15:50:00* Test Item Value Reference Range Interpretation Comments Aspartate Amino Transf (AST/SGOT) (test code = Aspartate Amino Transf (AST/SGOT)) 9 [facility] HospitalAlanine Aminotransferase (ALT/SGPT) 2018-10-31 15:50:00* Test Item Value Reference Range Interpretation Comments Alanine Aminotransferase (ALT/SGPT) (test code = 1742-6) 11 0-55 [facility] HospitalTotal Bjvgemu2441-12-43 15:50:00* Test Item Value Reference Range Interpretation Comments Total Protein (test code = 2885-2) 6.3 6.5-8.1 L [facility] HospitalAlbumin2019-01-25 15:50:00* Test Item Value Reference Range Interpretation Comments Albumin (test code = 1751-7) 3.5 3.5-5.0 [facility] HospitalGlobulin2019-01-25 15:50:00* Test Item Value Reference Range Interpretation Comments Globulin (test code = 54456-5) 2.8 2.3-3.5 [facility] HospitalAlbumin/Globulin Mwncc5423-85-66 15:50:00 * Test Item Value Reference Range Interpretation Comments Albumin/Globulin Ratio (test code = 1759-0) 1.3 0.8-2.0 [facility] HospitalAlkaline Tpucvlkmppl1693-54-96 15:50:00* Test Item Value Reference Range Interpretation Comments Alkaline Phosphatase (test code = 6768-6) 131 40-150 [facility] HospitalUrine [id number] 15:22:00* Test Item Value Reference Range Interpretation Comments Urine WBC (test code = 5821-4) 21-50 0-5 H [facility] HospitalUrine QTI1162-70-27 15:22:00* Test Item Value Reference Range Interpretation Comments Urine RBC (test code = 60695-8) 21-50 0-5 H [facility] HospitalUrine Elfvrvpg6334-60-84 15:22:00* Test Item Value Reference Range Interpretation Comments Urine Bacteria (test code = 42643-7) MANY NONE H [facility] HospitalUrine Epithelial Cabgs1636-37-55 15:22:00 * Test Item Value Reference Range Interpretation Comments Urine Epithelial Cells (test code = 25420-3) RARE NONE [facility] HospitalUrine Amorphous Iihpxyot2058-25-43 15:22:00* Test Item Value Reference Range Interpretation Comments Urine Amorphous Sediment (test code = 8246-1) FEW FEW [facility] HospitalUrine BHG9089-62-93 15:22:00* Test Item Value Reference Range Interpretation Comments Urine WBC (test code = 5821-4) 21-50 0-5 H [facility] TEP1743-23-51 15:22:00* Test Item Value Reference Range Interpretation Comments Urine RBC (test code = 72412-0) 21-50 0-5 H [facility] Tvzmomwa1302-37-54 15:22:00* Test Item Value Reference Range Interpretation Comments Urine Bacteria (test code = 67009-1) MANY NONE H [facility] HospitalUrine Epithelial Teyii3505-84-66 15:22:00 * Test Item Value Reference Range Interpretation Comments Urine Epithelial Cells (test code = 85625-4) RARE NONE [facility] Amorphous Krlijqkl0139-07-46 15:22:00* Test Item Value Reference Range Interpretation Comments Urine Amorphous Sediment (test code = 8246-1) FEW FEW [facility] HospitalUrine BKT4390-13-00 15:22:00* Test Item Value Reference Range Interpretation Comments Urine WBC (test code = 5821-4) 21-50 0-5 H [facility] PZH8511-90-96 15:22:00* Test Item Value Reference Range Interpretation Comments Urine RBC (test code = 80295-0) 21-50 0-5 H [facility] Kkganglc0410-46-83 15:22:00* Test Item Value Reference Range Interpretation Comments Urine Bacteria (test code = 25372-9) MANY NONE H [facility] Epithelial Ydmdl5785-07-91 15:22:00 * Test Item Value Reference Range Interpretation Comments Urine Epithelial Cells (test code = 75409-9) RARE NONE [facility] Amorphous Utmbykpb3100-10-69 15:22:00* Test Item Value Reference Range Interpretation Comments Urine Amorphous Sediment (test code = 8246-1) FEW FEW [facility] Zitjr4205-07-77 15:11:00* Test Item Value Reference Range Interpretation Comments Urine Color (test code = 5778-6) YELLOW YELLOW [facility] HospitalUrine Ovgndde6300-78-21 15:11:00* Test Item Value Reference Range Interpretation Comments Urine Clarity (test code = 31013-9) HAZY CLEAR [facility] HospitalUrine Specific Euxpyxz7810-90-88 15:11:00 * Test Item Value Reference Range Interpretation Comments Urine Specific [place] (test code = 5811-5) 1.010 1.010-1.02 5 [facility] HospitalUrine gI9853-45-72 15:11:00* Test Item Value Reference Range Interpretation Comments Urine pH (test code = 68522-5) 6 5-7 [facility] HospitalUrine Leukocyte Wuevmglk3717-17-94 15:11:00* Test Item Value Reference Range Interpretation Comments Urine Leukocyte Esterase (test code = 5799-2) 1+ NEGATIVE H [facility] HospitalUrine Tsfjemf7869-75-81 15:11:00* Test Item Value Reference Range Interpretation Comments Urine Nitrite (test code = 19548-2) POSITIVE NEGATIVE H [facility] HospitalUrine Mrpffox9141-43-81 15:11:00* Test Item Value Reference Range Interpretation Comments Urine Protein (test code = 5804-0) 2+ NEGATIVE H [facility] HospitalUrine Glucose (UA)2018-10-31 15:11:00* Test Item Value Reference Range Interpretation Comments Urine Glucose (UA) (test code = 2349-9) NEGATIVE NEGATIVE [facility] HospitalUrine Jqjhang4805-55-43 15:11:00* Test Item Value Reference Range Interpretation Comments Urine Ketones (test code = 70416-1) NEGATIVE NEGATIVE [facility] HospitalUrine Dvwqnhtulvuq5316-04-53 15:11:00* Test Item Value Reference Range Interpretation Comments Urine Urobilinogen (test code = 15154-6) 0.2 0.2-1 [facility] Bxefilain6716-47-18 15:11:00* Test Item Value Reference Range Interpretation Comments Urine Bilirubin (test code = 1978-6) NEGATIVE NEGATIVE [facility] Dupen0756-54-55 15:11:00* Test Item Value Reference Range Interpretation Comments Urine Blood (test code = 82330-7) 2+ NEGATIVE H [facility] Hrxtm2459-07-76 15:11:00* Test Item Value Reference Range Interpretation Comments Urine Color (test code = 5778-6) YELLOW YELLOW [facility] Sdhynjk3838-99-15 15:11:00* Test Item Value Reference Range Interpretation Comments Urine Clarity (test code = 90356-1) HAZY CLEAR [facility] Specific Clwlerj5230-35-19 15:11:00 * Test Item Value Reference Range Interpretation Comments Urine Specific [place] (test code = 5811-5) 1.010 1.010-1.02 5 [facility] lV8658-17-74 15:11:00* Test Item Value Reference Range Interpretation Comments Urine pH (test code = 47876-4) 6 5-7 [facility] Leukocyte Eoryfsgw7316-74-89 15:11:00* Test Item Value Reference Range Interpretation Comments Urine Leukocyte Esterase (test code = 5799-2) 1+ NEGATIVE H [facility] Wezahya8626-78-10 15:11:00* Test Item Value Reference Range Interpretation Comments Urine Nitrite (test code = 42293-6) POSITIVE NEGATIVE H [facility] Ninotvc7121-53-47 15:11:00* Test Item Value Reference Range Interpretation Comments Urine Protein (test code = 5804-0) 2+ NEGATIVE H [facility] Glucose (UA)2018-10-31 15:11:00* Test Item Value Reference Range Interpretation Comments Urine Glucose (UA) (test code = 2349-9) NEGATIVE NEGATIVE [facility] Niblcnp8626-10-89 15:11:00* Test Item Value Reference Range Interpretation Comments Urine Ketones (test code = 69189-4) NEGATIVE NEGATIVE [facility] Dcbfjslaobgo0490-61-35 15:11:00* Test Item Value Reference Range Interpretation Comments Urine Urobilinogen (test code = 48634-4) 0.2 0.2-1 [facility] Ppztugypk1476-54-36 15:11:00* Test Item Value Reference Range Interpretation Comments Urine Bilirubin (test code = 1978-6) NEGATIVE NEGATIVE [facility] Yrasc9042-31-13 15:11:00* Test Item Value Reference Range Interpretation Comments Urine Blood (test code = 42839-1) 2+ NEGATIVE H [facility] Tlmtq2915-65-08 15:11:00* Test Item Value Reference Range Interpretation Comments Urine Color (test code = 5778-6) YELLOW YELLOW [facility] Mobwqmv5905-71-01 15:11:00* Test Item Value Reference Range Interpretation Comments Urine Clarity (test code = 22609-1) HAZY CLEAR [facility] Specific Jhlmzhl4912-42-40 15:11:00 * Test Item Value Reference Range Interpretation Comments Urine Specific [place] (test code = 5811-5) 1.010 1.010-1.02 5 [facility] mI9499-98-27 15:11:00* Test Item Value Reference Range Interpretation Comments Urine pH (test code = 14874-8) 6 5-7 [facility] Leukocyte Mxhtbhxp8318-60-58 15:11:00* Test Item Value Reference Range Interpretation Comments Urine Leukocyte Esterase (test code = 5799-2) 1+ NEGATIVE H [facility] HospitalU[facility] Lobvklg3290-76-11 15:11:00* Test Item Value Reference Range Interpretation Comments Urine Nitrite (test code = 69285-7) POSITIVE NEGATIVE H [facility]Urine Zxphxva9794-24-14 15:11:00* Test Item Value Reference Range Interpretation Comments Urine Protein (test code = 5804-0) 2+ NEGATIVE H [facility] HospitalU[facility] Glucose (UA)2018-10-31 15:11:00* Test Item Value Reference Range Interpretation Comments Urine Glucose (UA) (test code = 2349-9) NEGATIVE NEGATIVE [facility] Cttiwfv1873-49-81 15:11:00* Test Item Value Reference Range Interpretation Comments Urine Ketones (test code = 96002-4) NEGATIVE NEGATIVE [facility] HospitalUrine Akviblgbubfy5751-96-40 15:11:00* Test Item Value Reference Range Interpretation Comments Urine Urobilinogen (test code = 39793-1) 0.2 0.2-1 [facility] Fpwrgkker3213-81-41 15:11:00* Test Item Value Reference Range Interpretation Comments Urine Bilirubin (test code = 1978-6) NEGATIVE NEGATIVE [facility] Dhiip8911-98-03 15:11:00* Test Item Value Reference Range Interpretation Comments Urine Blood (test code = 52626-2) 2+ NEGATIVE H [facility] HospitalTroponin W5428-97-21 15:49:00* Test Item Value Reference Range Interpretation Comments Troponin I (test code = SLX4565) 0.002 0-0.300 [facility] Pstwu1044-88-99 15:46:00* Test Item Value Reference Range Interpretation Comments Sodium Level (test code = 2951-2) 132 136-145 L [facility] HospitalPotassium Impra0106-60-79 15:46:00* Test Item Value Reference Range Interpretation Comments Potassium Level (test code = 2823-3) 4.2 3.5-5.1 [facility] HospitalChloride Gzoqm3916-76-37 15:46:00* Test Item Value Reference Range Interpretation Comments Chloride Level (test code = 2075-0) 105 98-107 [facility] HospitalCarbon Dioxide Xxdyv3502-11-41 15:46:00* Test Item Value Reference Range Interpretation Comments Carbon Dioxide Level (test code = 2028-9) 20 22-29 L [facility] HospitalAnion Blf7472-07-38 15:46:00* Test Item Value Reference Range Interpretation Comments Anion Gap (test code = 56767-6) 11.2 8-16 [facility] HospitalBlood Urea Vkxjlueu4934-20-87 15:46:00* Test Item Value Reference Range Interpretation Comments Blood Urea Nitrogen (test code = 3094-0) 35 7-26 H [facility] HospitalCreatinine2018-12-12 15:46:00* Test Item Value Reference Range Interpretation Comments Creatinine (test code = 2160-0) 2.34 0.57-1.11 H [facility] HospitalBUN/Creatinine Svcoa9577-12-04 15:46:00* Test Item Value Reference Range Interpretation Comments BUN/Creatinine Ratio (test code = 3097-3) 15 6-25 [facility] HospitalEstimat Glomerular Filtration Rate 2018-09-17 15:46:00* Test Item Value Reference Range Interpretation Comments Estimat Glomerular Filtration Rate (test code = 448192823) 20 >60 L Ranges were taken from the National Kidney Disease Education Program and the [facility] literature.Reference ranges:60 or greater: Pjgjqz06-12 ( for 3 consecutive months): Chronic kidney disease 15 or less: Kidney failureMethodist Specialty and Transplant HospitalGlucose Wdkwt1789-32-02 15:46:00* Test Item Value Reference Range Interpretation Comments Glucose Level (test code = IXI1494) 111 74-118 [facility] HospitalCalcium Nwsuf7256-89-03 15:46:00* Test Item Value Reference Range Interpretation Comments Calcium Level (test code = 34847-8) 9.5 8.4-10.2 [facility] HospitalPhosphorus Hdaxf0355-96-17 15:46:00* Test Item Value Reference Range Interpretation Comments Phosphorus Level (test code = YDX6486) 3.5 2.3-4.7 [facility] HospitalMagnesium Klmis0195-25-84 15:46:00* Test Item Value Reference Range Interpretation Comments Magnesium Level (test code = 85017-8) 1.9 1.3-2.1 [facility] HospitalTotal Smcnhityf8552-39-33 15:46:00* Test Item Value Reference Range Interpretation Comments Total Bilirubin (test code = 1975-2) 0.4 0.2-1.2 [facility] HospitalAspartate Amino Transf (AST/SGOT) 2018-09-17 15:46:00* Test Item Value Reference Range Interpretation Comments Aspartate Amino Transf (AST/SGOT) (test code = Aspartate Amino Transf (AST/SGOT)) 9 5-34 [facility] HospitalAlanine Aminotransferase (ALT/SGPT) 2018-09-17 15:46:00* Test Item Value Reference Range Interpretation Comments Alanine Aminotransferase (ALT/SGPT) (test code = 1742-6) 12 0-55 [facility] HospitalTotal Fjqueoe8641-23-38 15:46:00* Test Item Value Reference Range Interpretation Comments Total Protein (test code = 2885-2) 6.2 6.5-8.1 L [facility] HospitalAlbumin2018-12-12 15:46:00* Test Item Value Reference Range Interpretation Comments Albumin (test code = 1751-7) 3.1 3.5-5.0 L [facility] HospitalGlobulin2018-12-12 15:46:00* Test Item Value Reference Range Interpretation Comments Globulin (test code = 57030-0) 3.1 2.3-3.5 [facility] HospitalAlbumin/Globulin Fscqs1035-29-63 15:46:00 * Test Item Value Reference Range Interpretation Comments Albumin/Globulin Ratio (test code = 1759-0) 1.0 0.8-2.0 [facility] HospitalAlkaline Vgziexwzlyg0454-26-54 15:46:00* Test Item Value Reference Range Interpretation Comments Alkaline Phosphatase (test code = 6768-6) 108 40-150 [facility] HospitalPhosphorus Nubqc5788-93-90 15:46:00* Test Item Value Reference Range Interpretation Comments Phosphorus Level (test code = FLV8580) 3.5 2.3-4.7 [facility] HospitalMagnesium Xejii6482-04-25 15:46:00* Test Item Value Reference Range Interpretation Comments Magnesium Level (test code = 75416-3) 1.9 1.3-2.1 [facility] HospitalPhosphorus Kuoya7483-93-86 15:46:00* Test Item Value Reference Range Interpretation Comments Phosphorus Level (test code = UEO4446) 3.5 2.3-4.7 [facility] HospitalMagnesium Vhtxm6478-38-33 15:46:00* Test Item Value Reference Range Interpretation Comments Magnesium Level (test code = 03079-7) 1.9 1.3-2.1 [facility] HospitalPhosphorus Mkaln5846-62-81 15:46:00* Test Item Value Reference Range Interpretation Comments Phosphorus Level (test code = QNH2090) 3.5 2.3-4.7 [facility] HospitalWhite Blood Mkjsf9378-75-13 15:32:00* Test Item Value Reference Range Interpretation Comments White Blood Count (test code = 6690-2) 5.81 4.8-10.8 [facility] HospitalRed Blood Hcuvy4831-62-64 15:32:00* Test Item Value Reference Range Interpretation Comments Red Blood Count (test code = 789-8) 2.87 3.6-5.1 L [facility] HospitalHemoglobin2018-12-12 15:32:00* Test Item Value Reference Range Interpretation Comments Hemoglobin (test code = 81631-7) 9.2 12.0-16.0 L [facility] HospitalHematocrit2018-12-12 15:32:00* Test Item Value Reference Range Interpretation Comments Hematocrit (test code = 4544-3) 28.0 34.2-44.1 L [facility] HospitalMean Corpuscular Kiubno1935-26-61 15:32:00* Test Item Value Reference Range Interpretation Comments Mean Corpuscular Volume (test code = 787-2) 97.6 81-99 [facility] HospitalMean Corpuscular Miipslmyig1442-86-15 15:32:00* Test Item Value Reference Range Interpretation Comments Mean Corpuscular Hemoglobin (test code = 785-6) 32.1 28-32 [facility] Hem[facility] Concent 2018-09-17 15:32:00* Test Item Value Reference Range Interpretation Comments Mean Corpuscular Hemoglobin Concent (test code = 786-4) 32.9 31-35 [facility] HospitalRed Cell Distribution Oyahk5845-40-53 15:32:00* Test Item Value Reference Range Interpretation Comments Red Cell Distribution Width (test code = 27436-8) 16.1 11.7 -14.4 H [facility] HospitalPlatelet Hdvao8545-23-92 15:32:00* Test Item Value Reference Range Interpretation Comments Platelet Count (test code = 777-3) 134 140-360 L [facility] HospitalNeutrophils (%) (Auto)2018-09-17 15:32:00 * Test Item Value Reference Range Interpretation Comments Neutrophils (%) (Auto) (test code = 40027-1) 72.0 38.7-80.0 [facility] HospitalLymphocytes (%) (Auto)2018-09-17 15:32:00 * Test Item Value Reference Range Interpretation Comments Lymphocytes (%) (Auto) (test code = 736-9) 14.5 18.0-39.1 L [facility] HospitalMonocytes (%) (Auto)2018-09-17 15:32:00* Test Item Value Reference Range Interpretation Comments Monocytes (%) (Auto) (test code = 5905-5) 9.6 4.4-11.3 [facility] HospitalEosinophils (%) (Auto)2018-09-17 15:32:00 * Test Item Value Reference Range Interpretation Comments Eosinophils (%) (Auto) (test code = 713-8) 3.1 0.0-6.0 [facility] HospitalBasophils (%) (Auto)2018-09-17 15:32:00* Test Item Value Reference Range Interpretation Comments Basophils (%) (Auto) (test code = 706-2) 0.5 0.0-1.0 [facility] HospitalIM GRANULOCYTES %2018-09-17 15:32:00* Test Item Value Reference Range Interpretation Comments IM GRANULOCYTES % (test code = IM GRANULOCYTES %) 0.3 0.0- 1.0 [facility] HospitalNeutrophils # (Auto)2018-09-17 15:32:00* Test Item Value Reference Range Interpretation Comments Neutrophils # (Auto) (test code = 751-8) 4.2 2.1-6.9 [facility] HospitalLymphocytes # (Auto)2018-09-17 15:32:00* Test Item Value Reference Range Interpretation Comments Lymphocytes # (Auto) (test code = 72496-2) 0.8 1.0-3.2 L [facility] HospitalMonocytes # (Auto)2018-09-17 15:32:00* Test Item Value Reference Range Interpretation Comments Monocytes # (Auto) (test code = 742-7) 0.6 0.2-0.8 [facility] HospitalEosinophils # (Auto)2018-09-17 15:32:00* Test Item Value Reference Range Interpretation Comments Eosinophils # (Auto) (test code = 711-2) 0.2 0.0-0.4 [facility] HospitalBasophils # (Auto)2018-09-17 15:32:00* Test Item Value Reference Range Interpretation Comments Basophils # (Auto) (test code = 704-7) 0.0 0.0-0.1 [facility] HospitalAbsolute Immature Granulocyte (auto 2018-09-17 15:32:00* Test Item Value Reference Range Interpretation Comments Absolute Immature Granulocyte (auto (saumya t code = Absolute Immature Granulocyte (auto) 0.02 0-0.1 [facility] Systemodium Iemto9514-79-49 06:16:00* Test Item Value Reference Range Interpretation Comments Sodium Level (test code = 2951-2) 135 136-145 L [facility] HospitalPotassium Jzaqk6031-58-09 06:16:00* Test Item Value Reference Range Interpretation Comments Potassium Level (test code = 2823-3) 4.3 3.5-5.1 [facility] HospitalChloride Uyist0463-98-34 06:16:00* Test Item Value Reference Range Interpretation Comments Chloride Level (test code = 2075-0) 110 98-107 H [facility] HospitalCarbon Dioxide Qxgia3901-82-24 06:16:00* Test Item Value Reference Range Interpretation Comments Carbon Dioxide Level (test code = 2028-9) 18 22-29 L [facility] HospitalAnion Qyr5568-37-60 06:16:00* Test Item Value Reference Range Interpretation Comments Anion Gap (test code = 11274-6) 11.3 8-16 [facility] HospitalBlood Urea Hhyijuib4921-70-28 06:16:00* Test Item Value Reference Range Interpretation Comments Blood Urea Nitrogen (test code = 3094-0) 34 7-26 H [facility] HospitalCreatinine2018-12-11 06:16:00* Test Item Value Reference Range Interpretation Comments Creatinine (test code = 2160-0) 2.23 0.57-1.11 H [facility] HospitalBUN/Creatinine Tmmqp7278-69-41 06:16:00* Test Item Value Reference Range Interpretation Comments BUN/Creatinine Ratio (test code = 3097-3) 15 6-25 [facility] HospitalEstimat Glomerular Filtration Rate 2018-09-16 06:16:00* Test Item Value Reference Range Interpretation Comments Estimat Glomerular Filtration Rate (test code = 932545368) 22 >60 L Ranges were taken from the National Kidney Disease Education Program and the [facility] literature.Reference ranges:60 or greater: Ycivbg02-14 ( for 3 consecutive months): Chronic kidney disease 15 or less: Kidney failureMethodist Specialty and Transplant HospitalGlucose Tgxnv3517-09-96 06:16:00* Test Item Value Reference Range Interpretation Comments Glucose Level (test code = IRQ0513) 84 74-118 [facility] HospitalCalcium Dqdzx1657-56-14 06:16:00* Test Item Value Reference Range Interpretation Comments Calcium Level (test code = 24499-1) 9.0 8.4-10.2 [facility] HospitalTotal Shinwsmdx7184-20-09 06:16:00* Test Item Value Reference Range Interpretation Comments Total Bilirubin (test code = 1975-2) 0.3 0.2-1.2 [facility] HospitalAspartate Amino Transf (AST/SGOT) 2018-09-16 06:16:00* Test Item Value Reference Range Interpretation Comments Aspartate Amino Transf (AST/SGOT) (test code = Aspartate Amino Transf (AST/SGOT)) 7 5-34 [facility] HospitalAlanine Aminotransferase (ALT/SGPT) 2018-09-16 06:16:00* Test Item Value Reference Range Interpretation Comments Alanine Aminotransferase (ALT/SGPT) (test code = 1742-6) 9 0-55 [facility] HospitalTotal Ffvndhl4737-73-44 06:16:00* Test Item Value Reference Range Interpretation Comments Total Protein (test code = 2885-2) 5.4 6.5-8.1 L [facility] HospitalAlbumin2018-12-11 06:16:00* Test Item Value Reference Range Interpretation Comments Albumin (test code = 1751-7) 2.7 3.5-5.0 L [facility] HospitalGlobulin2018-12-11 06:16:00* Test Item Value Reference Range Interpretation Comments Globulin (test code = 40115-6) 2.7 2.3-3.5 [facility] HospitalAlbumin/Globulin Jbejy7753-39-12 06:16:00 * Test Item Value Reference Range Interpretation Comments Albumin/Globulin Ratio (test code = 1759-0) 1.0 0.8-2.0 [facility] HospitalAlkaline Iqwfdqnritf9075-01-76 06:16:00* Test Item Value Reference Range Interpretation Comments Alkaline Phosphatase (test code = 6768-6) 99 40-150 [facility] HospitalUS RENAL RETROPERITONEAL OPLU1590-74-37 12:59:00 [facility] [address] [place] [address] Patient Name: WILEY OH MR #: [id number] : 1945 Age/Sex: 73/F Req #: [id number] Adm Physician: CONNOR PUENTE MD Ordered by: CHRISTY GE MD Report #: [id number] Location: MED/SURG Room/Bed: [facility] Procedure: [id number] US/U S RENAL RETROPERITONEAL COMP Exam Date: 09/15/18 Johnna macias Time: 1110 REPORT STATUS: Signed EXAMINATION: Renal ultrasound. CLINICAL HISTORY :Acute kidney insufficie ncy COMPARISON: <None available.> TECHNIQUE: Grayscale and color Doppler evaluation of the kidneys and bladder was performed in transverse and longitudinal planes. DISCUSSION: RIGHT KIDNEY: The right kidney measures 10.4 cm in length and shows normal echogenicity. 3 simple cysts, the largest in the midportion measuring 1.4 cm. LEFT KIDNEY: The left kidney measures 7.6 cm in length and shows increased echogenicity. 3 simple cysts, the largest in the inferior pole measuring 1.7 cm. BLADDER: Unremarkable. IMPRESSION: 1. Small echogenic left kidney secondary to chronic medical renal disease. Normal sonographic appearance of the right kidney. 2. Bilateral simple renal cysts. Signed by: Dr. Iftikhar Lazo M.D. on 09/15/2018 1:01 PM Dictated By: IFTIKHAR LAZO MD 1301 Transcribed By: BENOIT on 09/15/18 1301 COPY TO: CHRISTY GE MD White Blood Lfhvn2184-73-91 04:58:00* Test Item Value Reference Range Interpretation Comments White Blood Count (test code = 6690-2) 5.78 4.8-10.8 [facility] HospitalRed Blood Ruyje9007-96-51 04:58:00* Test Item Value Reference Range Interpretation Comments Red Blood Count (test code = 789-8) 2.62 3.6-5.1 L [facility] HospitalHemoglobin2018-12-09 04:58:00* Test Item Value Reference Range Interpretation Comments Hemoglobin (test code = 00784-5) 8.2 12.0-16.0 L [facility] HospitalHematocrit2018-12-09 04:58:00* Test Item Value Reference Range Interpretation Comments Hematocrit (test code = 4544-3) 27.3 34.2-44.1 L [facility] HospitalMean Corpuscular Waftlv6082-70-21 04:58:00* Test Item Value Reference Range Interpretation Comments Mean Corpuscular Volume (test code = 787-2) 104.2 81-99 H VERIFIED PREVIOUS RESULTSMethodist Specialty and Transplant HospitalMean Corpuscular Zvpuxtrzbj7486-08-38 04:58:00* Test Item Value Reference Range Interpretation Comments Mean Corpuscular Hemoglobin (test code = 785-6) 31.3 28-32 [facility] HospitalMean Corpuscular Hemoglobin Concent 2018-09-14 04:58:00* Test Item Value Reference Range Interpretation Comments Mean Corpuscular Hemoglobin Concent (test code = 786-4) 30.0 31-35 L [facility] HospitalRed Cell Distribution Ymanr8689-94-16 04:58:00* Test Item Value Reference Range Interpretation Comments Red Cell Distribution Width (test code = 38975-5) 16.4 11.7 -14.4 H [facility] HospitalPlatelet Qhzxw2759-85-80 04:58:00* Test Item Value Reference Range Interpretation Comments Platelet Count (test code = 777-3) 126 140-360 L [facility] HospitalNeutrophils (%) (Auto)2018-09-14 04:58:00 * Test Item Value Reference Range Interpretation Comments Neutrophils (%) (Auto) (test code = 96081-3) 68.9 38.7-80.0 [facility] HospitalLymphocytes (%) (Auto)2018-09-14 04:58:00 * Test Item Value Reference Range Interpretation Comments Lymphocytes (%) (Auto) (test code = 736-9) 18.5 18.0-39.1 [facility] HospitalMonocytes (%) (Auto)2018-09-14 04:58:00* Test Item Value Reference Range Interpretation Comments Monocytes (%) (Auto) (test code = 5905-5) 8.8 4.4-11.3 [facility] HospitalEosinophils (%) (Auto)2018-09-14 04:58:00 * Test Item Value Reference Range Interpretation Comments Eosinophils (%) (Auto) (test code = 713-8) 3.1 0.0-6.0 [facility] HospitalBasophils (%) (Auto)2018-09-14 04:58:00* Test Item Value Reference Range Interpretation Comments Basophils (%) (Auto) (test code = 706-2) 0.5 0.0-1.0 [facility] HospitalIM GRANULOCYTES %2018-09-14 04:58:00* Test Item Value Reference Range Interpretation Comments IM GRANULOCYTES % (test code = IM GRANULOCYTES %) 0.2 0.0- 1.0 [facility] HospitalNeutrophils # (Auto)2018-09-14 04:58:00* Test Item Value Reference Range Interpretation Comments Neutrophils # (Auto) (test code = 751-8) 4.0 2.1-6.9 [facility] HospitalLymphocytes # (Auto)2018-09-14 04:58:00* Test Item Value Reference Range Interpretation Comments Lymphocytes # (Auto) (test code = 94774-3) 1.1 1.0-3.2 [facility] HospitalMonocytes # (Auto)2018-09-14 04:58:00* Test Item Value Reference Range Interpretation Comments Monocytes # (Auto) (test code = 742-7) 0.5 0.2-0.8 [facility] HospitalEosinophils # (Auto)2018-09-14 04:58:00* Test Item Value Reference Range Interpretation Comments Eosinophils # (Auto) (test code = 711-2) 0.2 0.0-0.4 [facility] HospitalBasophils # (Auto)2018-09-14 04:58:00* Test Item Value Reference Range Interpretation Comments Basophils # (Auto) (test code = 704-7) 0.0 0.0-0.1 [facility] HospitalAbsolute Immature Granulocyte (auto 2018-09-14 04:58:00* Test Item Value Reference Range Interpretation Comments Absolute Immature Granulocyte (auto (saumya t code = Absolute Immature Granulocyte (auto) 0.01 0-0.1 [facility] [facility] [id number] 19:29:00 [facility] [address] [address] Patient Name: WILEY OH MR #: [id number] : 1945 Age/Sex: 73/F Req #: [id number] Adm Physician: CONNOR PUENTE MD Ordered by: YAMILETH MACIEL M.D. Report #: [id number] Location: ICU Room/Bed: ICU [facility] Procedure: [id number] CT/CT BRAIN WO Exam Date: Exam Time: REPORT STATUS: Signed EXAMINATION: Head CT without contrast. HISTORY:Syncope. COMPARISON:CT brain from . TECHNIQUE: Multidetector axial images were obtained from the fora men magnum to the vertex without contrast. The images were reconstructed using brain and bone algorithms. Thin section brain images were reformatted into c oronal and sagittal planes. Dose modulation, iterative reconstruction, and/o r weight based adjustment of the mA/kV was utilized to reduce the radiation do se to as low as reasonably achievable. Intravenous contrast: None IMAGE QUALITY: Acceptable. FINDINGS: Skull/scalp: No lytic or blastic . lesions. No surgical changes. Parenchyma: Unchanged nonspecific bilater al frontoparietal patchy white matter hypodensity likely related to small vess el ischemic changes. Unchanged age indeterminate lacunar infarct in head of le ft caudate. No acute hemorrhage, mass or acute major vascular territorial infa rct. Arteries: No density suggestive of thrombosis. Atherosclerotic rafal cification in bilateral carotid siphon. Dural sinuses: No abnormal densit y suggestive of thrombosis. Ventricles: No hydrocephalus or displacement. Extra-axial spaces: No abnormal density. Brain volume: Normal for age. Craniocervical junction: No mass, Chiari malformation, or basilar invagination. Sella: No mass. Paranasal/mastoid sinuses: Imaged por tions unremarkable. IMPRESSION: No acute intracranial abnormality. N o change since CT brain from 09/12/2018. Persistent findin. 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 2. Mild supratentorial white mat ter microvascular ischemic changes. Signed by: Dr. Jcarlos Loredo M.D. on 09/13/2018 7:35 PM Dictated By: JCARLOS LOREDO MD 34 Transcribed By: BENOIT on 09/13/18 COPY TO: YAMILETH MACIEL MD Creatine Kinase SK5418-07-10 14:23:00* Test Item Value Reference Range Interpretation Comments Creatine Kinase MB (test code = 62767-7) 1.20 0-5.0 [facility] [id number] 14:23:00* Test Item Value Reference Range Interpretation Comments Troponin I (test code = JDK5091) < 0.001 0-0.300 [facility] HospitalCreat[facility] Kinase YF4474-41-06 14:23:00* Test Item Value Reference Range Interpretation Comments Creatine Kinase MB (test code = 09124-0) 1.20 0-5.0 [facility] HospitalCreatine Anbwbw2754-21-64 14:22:00* Test Item Value Reference Range Interpretation Comments Creatine Kinase (test code = 2157-6) 27 29-168 L [facility] HospitalCreatine Bqyslu8948-08-06 14:22:00* Test Item Value Reference Range Interpretation Comments Creatine Kinase (test code = 2157-6) 27 29-168 L [facility] HospitalHemoglobin A1c Vcjbzzj7072-80-65 21:41:00 * Test Item Value Reference Range Interpretation Comments Hemoglobin A1c Percent (test code = Hemoglobin A1c Percent) 4.4 4.0-7.0 [facility] HospitalTriglycerides Zhgjt2708-82-15 21:41:00* Test Item Value Reference Range Interpretation Comments Triglycerides Level (test code = 2571-8) 161 0-149 H [facility] HospitalCholesterol Hzfla8515-78-06 21:41:00* Test Item Value Reference Range Interpretation Comments Cholesterol Level (test code = 2093-3) 194 0-199 Less than 200 mg/dL Low Cxml659 - 239 mg/dL Borderline Hljc712 m g/dl and greater High Risk [facility] HospitalLDL Jewzgrqwiku9408-00-56 21:41:00* Test Item Value Reference Range Interpretation Comments LDL Cholesterol (test code = 2089-1) 119 60-130 [facility] Paqsyiotxfz4004-35-47 21:41:00* Test Item Value Reference Range Interpretation Comments HDL Cholesterol (test code = 2085-9) 43 40-60 [facility]Cholesterol/HDL Gpupe2129-59-41 21:41:00 * Test Item Value Reference Range Interpretation Comments Cholesterol/HDL Ratio (test code = 9830-1) 4.5 3.0-3.6 H [facility] HospitalHemoglobin A1c Ntvkubp6595-44-75 21:41:00 * Test Item Value Reference Range Interpretation Comments Hemoglobin A1c Percent (test code = Hemoglobin A1c Percent) 4.4 4.0-7.0 [facility] HospitalTriglycerides Jbqtk3895-98-00 21:41:00* Test Item Value Reference Range Interpretation Comments Triglycerides Level (test code = 2571-8) 161 0-149 H [facility] HospitalCholesterol Jemmq5438-59-61 21:41:00* Test Item Value Reference Range Interpretation Comments Cholesterol Level (test code = 2093-3) 194 0-199 Less than 200 mg/dL Low Ipfr351 - 239 mg/dL Borderline Zofm469 m g/dl and greater High Risk [facility] HospitalLDL Cuyuxmihonz8774-91-57 21:41:00* Test Item Value Reference Range Interpretation Comments LDL Cholesterol (test code = 2089-1) 119 60-130 [facility] Qtsgsrznocj5544-11-36 21:41:00* Test Item Value Reference Range Interpretation Comments HDL Cholesterol (test code = 2085-9) 43 40-60 [facility] HospitalCholesterol/HDL Zvtli4770-82-84 21:41:00 * Test Item Value Reference Range Interpretation Comments Cholesterol/HDL Ratio (test code = 9830-1) 4.5 3.0-3.6 H [facility] HospitalHemoglobin A1c Iwjbaiy6377-97-29 21:41:00 * Test Item Value Reference Range Interpretation Comments Hemoglobin A1c Percent (test code = Hemoglobin A1c Percent) 4.4 4.0-7.0 [facility] HospitalTriglycerides Prkmf9124-22-56 21:41:00* Test Item Value Reference Range Interpretation Comments Triglycerides Level (test code = 2571-8) 161 0-149 H [facility] HospitalCholesterol Ubcdg3148-78-85 21:41:00* Test Item Value Reference Range Interpretation Comments Cholesterol Level (test code = 2093-3) 194 0-199 Less than 200 mg/dL Low Ffov095 - 239 mg/dL Borderline Ccum168 m g/dl and greater High Risk [facility] HospitalLDL Isuxmufpllb3686-16-19 21:41:00* Test Item Value Reference Range Interpretation Comments LDL Cholesterol (test code = 2089-1) 119 60-130 [facility] HospitalHDL Whimwjddiio9677-42-71 21:41:00* Test Item Value Reference Range Interpretation Comments HDL Cholesterol (test code = 2085-9) 43 40-60 [facility]Cholesterol/HDL Wqvum4137-98-71 21:41:00 * Test Item Value Reference Range Interpretation Comments Cholesterol/HDL Ratio (test code = 9830-1) 4.5 3.0-3.6 H [facility] HospitalHemoglobin A1c Lqbapvn8124-85-87 21:41:00 * Test Item Value Reference Range Interpretation Comments Hemoglobin A1c Percent (test code = Hemoglobin A1c Percent) 4.4 4.0-7.0 [facility] HospitalTriglycerides Mwukz1656-12-00 21:41:00* Test Item Value Reference Range Interpretation Comments Triglycerides Level (test code = 2571-8) 161 0-149 H [facility] HospitalCholesterol Cofqr3418-09-24 21:41:00* Test Item Value Reference Range Interpretation Comments Cholesterol Level (test code = 2093-3) 194 0-199 Less than 200 mg/dL Low Erpw666 - 239 mg/dL Borderline Wiep324 m g/dl and greater High Risk [facility] HospitalLDL Awjneveycrg9924-66-57 21:41:00* Test Item Value Reference Range Interpretation Comments LDL Cholesterol (test code = 2089-1) 119 60-130 [facility] Gdsguldldec5701-97-14 21:41:00* Test Item Value Reference Range Interpretation Comments HDL Cholesterol (test code = 2085-9) 43 40-60 [facility] HospitalCholesterol/HDL Yqofj5148-45-71 21:41:00 * Test Item Value Reference Range Interpretation Comments Cholesterol/HDL Ratio (test code = 9830-1) 4.5 3.0-3.6 H [facility] HospitalHemoglobin A1c Jyvyfmh3443-23-29 21:41:00 * Test Item Value Reference Range Interpretation Comments Hemoglobin A1c Percent (test code = Hemoglobin A1c Percent) 4.4 4.0-7.0 [facility] HospitalTriglycerides Uwbhu4671-64-85 21:41:00* Test Item Value Reference Range Interpretation Comments Triglycerides Level (test code = 2571-8) 161 0-149 H [facility] HospitalCholesterol Tzezj9928-16-04 21:41:00* Test Item Value Reference Range Interpretation Comments Cholesterol Level (test code = 2093-3) 194 0-199 Less than 200 mg/dL Low Ylnu881 - 239 mg/dL Borderline Zmqm872 m g/dl and greater High Risk [facility] HospitalLDL Mrlapmkbtqi6452-98-58 21:41:00* Test Item Value Reference Range Interpretation Comments LDL Cholesterol (test code = 2089-1) 119 60-130 [facility] Nczldlumslt5344-26-93 21:41:00* Test Item Value Reference Range Interpretation Comments HDL Cholesterol (test code = 2085-9) 43 40-60 [facility] HospitalCholesterol/HDL Klkqx4125-29-24 21:41:00 * Test Item Value Reference Range Interpretation Comments Cholesterol/HDL Ratio (test code = 9830-1) 4.5 3.0-3.6 H [facility] EMC6259-96-73 20:55:00* Test Item Value Reference Range Interpretation Comments Urine WBC (test code = 5821-4) 21-50 0-5 H [facility] WSE1307-88-32 20:55:00* Test Item Value Reference Range Interpretation Comments Urine RBC (test code = 01044-5) 0-5 0-5 [facility] Pqhyxknr2918-85-92 20:55:00* Test Item Value Reference Range Interpretation Comments Urine Bacteria (test code = 31613-2) RARE NONE [facility] Epithelial Wlzbr1107-17-88 20:55:00 * Test Item Value Reference Range Interpretation Comments Urine Epithelial Cells (test code = 65372-9) RARE NONE [facility] Amorphous Zmdhpptr5032-29-98 20:55:00* Test Item Value Reference Range Interpretation Comments Urine Amorphous Sediment (test code = 8246-1) MODERATE FEW H [facility] VZK4921-10-89 20:55:00* Test Item Value Reference Range Interpretation Comments Urine WBC (test code = 5821-4) 21-50 0-5 H [facility] AWN7682-65-55 20:55:00* Test Item Value Reference Range Interpretation Comments Urine RBC (test code = 71541-6) 0-5 0-5 [facility] Gploaczu3487-50-61 20:55:00* Test Item Value Reference Range Interpretation Comments Urine Bacteria (test code = 13771-6) RARE NONE [facility] Epithelial Pbxje3132-26-17 20:55:00 * Test Item Value Reference Range Interpretation Comments Urine Epithelial Cells (test code = 23858-3) RARE NONE [facility] Amorphous Lmbmxthx8723-38-92 20:55:00* Test Item Value Reference Range Interpretation Comments Urine Amorphous Sediment (test code = 8246-1) MODERATE FEW H [facility] Grpuz3743-66-30 20:44:00* Test Item Value Reference Range Interpretation Comments Urine Color (test code = 5778-6) YELLOW YELLOW [facility] HospitalUrine Gyxmahv6633-20-36 20:44:00* Test Item Value Reference Range Interpretation Comments Urine Clarity (test code = 21889-8) CLEAR CLEAR [facility] Specific Zvagyhy6267-47-72 20:44:00 * Test Item Value Reference Range Interpretation Comments Urine Specific [place] (test code = 5811-5) 1.025 1.010-1.02 5 [facility] HospitalU[facility] qB7288-35-09 20:44:00* Test Item Value Reference Range Interpretation Comments Urine pH (test code = 19800-3) 6 5-7 [facility] Leukocyte Ymajjqac0224-71-02 20:44:00* Test Item Value Reference Range Interpretation Comments Urine Leukocyte Esterase (test code = 5799-2) 1+ NEGATIVE H [facility] Ptuxpuo7293-26-40 20:44:00* Test Item Value Reference Range Interpretation Comments Urine Nitrite (test code = 19130-7) NEGATIVE NEGATIVE [facility] Hospital[facility] Vzjxzso4862-50-11 20:44:00* Test Item Value Reference Range Interpretation Comments Urine Protein (test code = 5804-0) 2+ NEGATIVE H [facility] Glucose (UA)2018-09-12 20:44:00* Test Item Value Reference Range Interpretation Comments Urine Glucose (UA) (test code = 2349-9) NEGATIVE NEGATIVE [facility] Sbsztfa6549-76-33 20:44:00* Test Item Value Reference Range Interpretation Comments Urine Ketones (test code = 25021-2) NEGATIVE NEGATIVE [facility] HospitalU[facility] Iyckkagphiha0265-77-16 20:44:00* Test Item Value Reference Range Interpretation Comments Urine Urobilinogen (test code = 46921-7) 0.2 0.2-1 [facility] Ddsjepcbj5568-36-18 20:44:00* Test Item Value Reference Range Interpretation Comments Urine Bilirubin (test code = 1978-6) NEGATIVE NEGATIVE [facility] Dkryf9561-04-39 20:44:00* Test Item Value Reference Range Interpretation Comments Urine Blood (test code = 79116-7) NEGATIVE NEGATIVE [facility] Qqmec2485-16-31 20:44:00* Test Item Value Reference Range Interpretation Comments Urine Color (test code = 5778-6) YELLOW YELLOW [facility] Olzashn7032-53-33 20:44:00* Test Item Value Reference Range Interpretation Comments Urine Clarity (test code = 61320-7) CLEAR CLEAR [facility] Specific Zblmttj4908-92-04 20:44:00 * Test Item Value Reference Range Interpretation Comments Urine Specific [place] (test code = 5811-5) 1.025 1.010-1.02 5 [facility] nT3186-73-98 20:44:00* Test Item Value Reference Range Interpretation Comments Urine pH (test code = 21248-5) 6 5-7 [facility] Leukocyte Wvdyqhtu7936-44-91 20:44:00* Test Item Value Reference Range Interpretation Comments Urine Leukocyte Esterase (test code = 5799-2) 1+ NEGATIVE H [facility] HospitalU[facility] Lnjhaqr7349-61-54 20:44:00* Test Item Value Reference Range Interpretation Comments Urine Nitrite (test code = 72169-6) NEGATIVE NEGATIVE [facility] Zuybhkj0792-99-43 20:44:00* Test Item Value Reference Range Interpretation Comments Urine Protein (test code = 5804-0) 2+ NEGATIVE H [facility] HospitalU[facility] Glucose (UA)2018-09-12 20:44:00* Test Item Value Reference Range Interpretation Comments Urine Glucose (UA) (test code = 2349-9) NEGATIVE NEGATIVE [facility] HospitalU[facility] Rwjpnte1338-19-53 20:44:00* Test Item Value Reference Range Interpretation Comments Urine Ketones (test code = 52209-0) NEGATIVE NEGATIVE [facility] Vmrbjjdlvuqn8178-04-94 20:44:00* Test Item Value Reference Range Interpretation Comments Urine Urobilinogen (test code = 40685-6) 0.2 0.2-1 [facility] Qwmxioolm6539-48-62 20:44:00* Test Item Value Reference Range Interpretation Comments Urine Bilirubin (test code = 1978-6) NEGATIVE NEGATIVE [facility] HospitalU[facility] Ukgqx7162-61-92 20:44:00* Test Item Value Reference Range Interpretation Comments Urine Blood (test code = 34229-2) NEGATIVE NEGATIVE [facility] HospitalPlatelet Egbptxhf2456-99-26 20:41:00* Test Item Value Reference Range Interpretation Comments Platelet Estimate (test code = 33289-1) ADEQUATE [facility] HospitalClumped Dwhppazkl6725-97-18 20:41:00* Test Item Value Reference Range Interpretation Comments Clumped Platelets (test code = 7796-6) NONE NONE [facility] HospitalPlatelet Morphology Guylngu0669-73-19 20:41:00* Test Item Value Reference Range Interpretation Comments Platelet Morphology Comment (test code = 07626-6) NORMAL [facility] HospitalRed Cell Morphology Drpcsnp0677-82-17 20:41:00* Test Item Value Reference Range Interpretation Comments Red Cell Morphology Comment (test code = 6742-1) NORMAL [facility] HospitalPlatelet Uyyiiqab9962-06-29 20:41:00* Test Item Value Reference Range Interpretation Comments Platelet Estimate (test code = 92923-9) ADEQUATE [facility] HospitalClumped Iefpvfnvj8354-21-82 20:41:00* Test Item Value Reference Range Interpretation Comments Clumped Platelets (test code = 7796-6) NONE NONE [facility] HospitalPlatelet Morphology Pkmnttr1218-77-57 20:41:00* Test Item Value Reference Range Interpretation Comments Platelet Morphology Comment (test code = 29710-9) NORMAL [facility] HospitalRed Cell Morphology Wivlefz7961-28-98 20:41:00* Test Item Value Reference Range Interpretation Comments Red Cell Morphology Comment (test code = 6742-1) NORMAL [facility] HospitalPlatelet Ofzkhdea9679-19-15 20:41:00* Test Item Value Reference Range Interpretation Comments Platelet Estimate (test code = 61976-4) ADEQUATE [facility] HospitalClumped Smnqrxmri0557-30-43 20:41:00* Test Item Value Reference Range Interpretation Comments Clumped Platelets (test code = 7796-6) NONE NONE [facility] HospitalPlatelet Morphology Keaffac1334-42-45 20:41:00* Test Item Value Reference Range Interpretation Comments Platelet Morphology Comment (test code = 62703-8) NORMAL [facility] HospitalRed Cell Morphology Dkcvplt7747-66-76 20:41:00* Test Item Value Reference Range Interpretation Comments Red Cell Morphology Comment (test code = 6742-1) NORMAL [facility] HospitalPlatelet Abdbfqxl4296-70-60 20:41:00* Test Item Value Reference Range Interpretation Comments Platelet Estimate (test code = 22166-9) ADEQUATE [facility] HospitalClumped Kygjinnyn4982-50-57 20:41:00* Test Item Value Reference Range Interpretation Comments Clumped Platelets (test code = 7796-6) NONE NONE [facility] HospitalPlatelet Morphology Mvumnok2327-33-18 20:41:00* Test Item Value Reference Range Interpretation Comments Platelet Morphology Comment (test code = 19031-5) NORMAL [facility] HospitalRed Cell Morphology Qsquwse3946-69-19 20:41:00* Test Item Value Reference Range Interpretation Comments Red Cell Morphology Comment (test code = 6742-1) NORMAL [facility] HospitalPlatelet Dgrarxoo9994-24-73 20:41:00* Test Item Value Reference Range Interpretation Comments Platelet Estimate (test code = 99177-3) ADEQUATE [facility] HospitalClumped Aoichcxxr5899-93-17 20:41:00* Test Item Value Reference Range Interpretation Comments Clumped Platelets (test code = 7796-6) NONE NONE [facility] HospitalPlatelet Morphology Ctukckf2594-65-21 20:41:00* Test Item Value Reference Range Interpretation Comments Platelet Morphology Comment (test code = 91955-3) NORMAL [facility] HospitalRed Cell Morphology Cmwmobe0458-07-59 20:41:00* Test Item Value Reference Range Interpretation Comments Red Cell Morphology Comment (test code = 6742-1) NORMAL [facility] HospitalProthrombin Jkwx8957-78-88 20:02:00* Test Item Value Reference Range Interpretation Comments Prothrombin Time (test code = 5902-2) 12.0 11.9-14.5 [facility] HospitalProthromb Time International Ratio 2018-09-12 20:02:00* Test Item Value Reference Range Interpretation Comments Prothromb Time International Ratio (test code = 6301-6) 0.81 Oral Anticoagulant Therapy INR Values:1. Low Intensity Therapy 1.5 - 2.02 . Moderate Intensity Therapy 2.0 - 3.03. High Intensity Therapy(1) 2.5 - 3. 54. High Intensity Therapy(2) 3.0 - 4.05. Panic Value INR > 5.0 [facility] HospitalActivated Partial Thromboplast Time 2018-09-12 20:02:00* Test Item Value Reference Range Interpretation Comments Activated Partial Thromboplast Time (test code = 91570-4) 19.7 23.8-35.5 L [facility] HospitalProthrombin Cjsi5400-12-53 20:02:00* Test Item Value Reference Range Interpretation Comments Prothrombin Time (test code = 5902-2) 12.0 11.9-14.5 [facility] HospitalProthromb Time International Ratio 2018-09-12 20:02:00* Test Item Value Reference Range Interpretation Comments Prothromb Time International Ratio (test code = 6301-6) 0.81 Oral Anticoagulant Therapy INR Values:1. Low Intensity Therapy 1.5 - 2.02 . Moderate Intensity Therapy 2.0 - 3.03. High Intensity Therapy(1) 2.5 - 3. 54. High Intensity Therapy(2) 3.0 - 4.05. Panic Value INR > 5.0 [facility] HospitalActivated Partial Thromboplast Time 2018-09-12 20:02:00* Test Item Value Reference Range Interpretation Comments Activated Partial Thromboplast Time (test code = 48988-3) 19.7 23.8-35.5 L [facility] HospitalProthrombin Bbro4418-82-08 20:02:00* Test Item Value Reference Range Interpretation Comments Prothrombin Time (test code = 5902-2) 12.0 11.9-14.5 [facility] HospitalProthromb Time International Ratio 2018-09-12 20:02:00* Test Item Value Reference Range Interpretation Comments Prothromb Time International Ratio (test code = 6301-6) 0.81 Oral Anticoagulant Therapy INR Values:1. Low Intensity Therapy 1.5 - 2.02 . Moderate Intensity Therapy 2.0 - 3.03. High Intensity Therapy(1) 2.5 - 3. 54. High Intensity Therapy(2) 3.0 - 4.05. Panic Value INR > 5.0 [facility] HospitalActivated Partial Thromboplast Time 2018-09-12 20:02:00* Test Item Value Reference Range Interpretation Comments Activated Partial Thromboplast Time (test code = 95018-3) 19.7 23.8-35.5 L [facility] HospitalProthrombin Jipw9800-04-04 20:02:00* Test Item Value Reference Range Interpretation Comments Prothrombin Time (test code = 5902-2) 12.0 11.9-14.5 [facility] HospitalProthromb Time International Ratio 2018-09-12 20:02:00* Test Item Value Reference Range Interpretation Comments Prothromb Time International Ratio (test code = 6301-6) 0.81 Oral Anticoagulant Therapy INR Values:1. Low Intensity Therapy 1.5 - 2.02 . Moderate Intensity Therapy 2.0 - 3.03. High Intensity Therapy(1) 2.5 - 3. 54. High Intensity Therapy(2) 3.0 - 4.05. Panic Value INR > 5.0 [facility] HospitalActivated Partial Thromboplast Time 2018-09-12 20:02:00* Test Item Value Reference Range Interpretation Comments Activated Partial Thromboplast Time (test code = 45309-6) 19.7 23.8-35.5 L [facility] HospitalProthrombin Xdij0114-18-43 20:02:00* Test Item Value Reference Range Interpretation Comments Prothrombin Time (test code = 5902-2) 12.0 11.9-14.5 [facility] HospitalProthromb Time International Ratio 2018-09-12 20:02:00* Test Item Value Reference Range Interpretation Comments Prothromb Time International Ratio (test code = 6301-6) 0.81 Oral Anticoagulant Therapy INR Values:1. Low Intensity Therapy 1.5 - 2.02 . Moderate Intensity Therapy 2.0 - 3.03. High Intensity Therapy(1) 2.5 - 3. 54. High Intensity Therapy(2) 3.0 - 4.05. Panic Value INR > 5.0 [facility] HospitalActivated Partial Thromboplast Time 2018-09-12 20:02:00* Test Item Value Reference Range Interpretation Comments Activated Partial Thromboplast Time (test code = 55398-0) 19.7 23.8-35.5 L [facility] HospitalCHEST SINGLE (PORTABLE)2018-09-12 19:59:00 [facility] [address] [address] Patient Name: WILEY OH MR #: [id number] : 1945 Age/Sex: 73/F Req #: [id number] Adm Physician: Ordered by: JANINE MCFADDEN MD Report #: [id number] Location: ER Room/Bed: Procedure: 1207- 0075 DX/CHEST SINGLE (PORTABLE) Exam Date: 09/12/18 Exam Time: 1939 REPORT STATUS: Sign ed EXAMINATION: CHEST SINGLE (PORTABLE) INDICATION: Weakness. Synco pe. COMPARISON: December 14, 2017. FINDINGS: TUBES and LINES: No ne. Probable loop recorder projected on the left upper quadrant. LUNGS: Lungs are well inflated. Lungs are clear. There is no evidence of pneumonia or pulmonary edema. PLEURA: No pleural effusion or pneumothorax. HEA RT AND MEDIASTINUM: The the cardiac silhouette is mildly enlarged.. Calcifica tion of the aortic arch. BONES AND SOFT TISSUES: No acute osseous lesion. Soft tissues are unremarkable. UPPER ABDOMEN: No free air under the diap hragm. IMPRESSION: No acute thoracic abnormality. Signed by: Dr. Jake Ho M.D. on 09/12/2018 8:01 PM Dictated By: FLYNN HO MD, MD 00 Transcribed By: BENOIT on 09/12/182000 COPY TO: JANINE MCFADDEN MD CT BRAIN [id number] 19:46:00 [place] [address] Patient Name: WILEY OH MR #: [id number] : 1945 Age/Sex: 73/F Req #: [id number] Adm Physician: Ordered by: JANINE MCFADDEN MD Report #: [id number] Location: ER Room/Bed: Procedure: [id number] CT/CT BRAIN WO Exam Date: 09/12/18 Exam Time: 1 935 REPORT STATUS: Signed EXAMIN ATION: Head CT HISTORY: Left-sided weakness since 6:30 PM, possible CVA, s yncope, COMPARISON: Head CT on 12/14/2017 TECHNIQUE: Multidetector axial imag es were obtained without contrast from the foramen magnum to the vertex . The images were reconstructed using brain and bone algorithms. Thin section brain images were reformatted into coronal and sagittal planes. Image quality: Mo tion/streaking artifact limits the evaluation of the skull base and posterior cranial fossa. Dose modulation, iterative reconstruction, and/or weight based adjustment of the mA/kV was utilized to reduce the radiation dose to as low as reasonably achievable. FINDINGS: Parenchyma: 1. Persist ent mild chronic microvascular ischemic changes. 2. More conspicuous likely c hronic lacunar infarct in the left head of the caudate nucleus, which was bare ly visible on prior study, superimposed acute ischemia cannot be excluded. 3 . No mass or hemorrhage. No CT evidence of acute territorial vascular insult. Extra-axial spaces:No abnormal density. No extra-axial fluid col lections Brain volume: Normal for age. Ventricles: No hydrocepha maria eugenia or displacement. Arteries: No density suggestive of thrombus. Dural sinuses: No abnormal density. Extra-axial spaces: No abnormal d ensity. Foramen magnum: No mass, Chiari malformation, or basilar invagin ation. Sella: No obvious mass. Paranasal/mastoid sinuses: Image d portions unremarkable. Skull/Scalp: No lytic or blastic lesions. No f ractures. IMPRESSION: 1. No acute intracranial hemorrhage or CT evid ence of acute territorial cortical infarcts. 2. Mild chronic microvascul ar ischemic changes, grossly unchanged from head CT on 12/14/2017. 3. Age indeterminate lacunar infarct in the left head of the caudate nucleus as desc ribed distal above. Signed by: Dr. Branden Fish M.D. on 09/12/2018 7:50 PM Dictated By: BRANDEN FISH MD 49 Transcribed By: BENOIT on 09/12/181949 COPY TO: JANINE WATSON MD Urine Xipqnlm5169-76-04 07:54:00* Test Item Value Reference Range Interpretation Comments Urine Culture (test code = 630-4) Organism: ESCHERICHIA COLI-ESBL [facility] Bfvzyws9902-98-91 07:54:00* Test Item Value Reference Range Interpretation Comments Urine Culture (test code = 630-4) Organism: ESCHERICHIA COLI-ESBL [facility] HospitalUrine Tnmxqos7676-37-98 07:54:00* Test Item Value Reference Range Interpretation Comments Urine Culture (test code = 630-4) Organism: ESCHERICHIA COLI-ESBL [facility] Flvfs7586-68-97 14:33:00* Test Item Value Reference Range Interpretation Comments Stool Occult Blood (test code = 2335-8) NEGATIVE NEGATIVE [facility] Occ[facility] Bfulh8420-49-72 14:33:00* Test Item Value Reference Range Interpretation Comments Stool Occult Blood (test code = 2335-8) NEGATIVE NEGATIVE [facility] Vtrux3923-10-19 14:33:00* Test Item Value Reference Range Interpretation Comments Stool Occult Blood (test code = 2335-8) NEGATIVE NEGATIVE [facility] HospitalThyroid Stimulating Hormone (TSH) 2017-12-16 07:26:00* Test Item Value Reference Range Interpretation Comments Thyroid Stimulating Hormone (TSH) (test code = 42927-9) 1.178 0.350-4.940 [facility] HospitalThyroid Stimulating Hormone (TSH) 2017-12-16 07:26:00* Test Item Value Reference Range Interpretation Comments Thyroid Stimulating Hormone (TSH) (test code = 33972-4) 1.178 0.350-4.940 [facility] HospitalThyroid Stimulating Hormone (TSH) 2017-12-16 07:26:00* Test Item Value Reference Range Interpretation Comments Thyroid Stimulating Hormone (TSH) (test code = 23247-1) 1.178 0.350-4.940 [facility] Systemodium Inewc5792-38-09 07:18:00* Test Item Value Reference Range Interpretation Comments Sodium Level (test code = 2951-2) 134 136-145 L [facility] HospitalPotassium Enkdx9803-99-89 07:18:00* Test Item Value Reference Range Interpretation Comments Potassium Level (test code = 2823-3) 4.6 3.5-5.1 [facility] HospitalChloride Qcxyl2354-53-74 07:18:00* Test Item Value Reference Range Interpretation Comments Chloride Level (test code = 2075-0) 107 98-107 [facility] HospitalCarbon Dioxide Cuahd5052-02-06 07:18:00* Test Item Value Reference Range Interpretation Comments Carbon Dioxide Level (test code = 2028-9) 20 22-29 L [facility] HospitalAnion Dgf1023-70-19 07:18:00* Test Item Value Reference Range Interpretation Comments Anion Gap (test code = 92214-1) 11.6 8-16 [facility] HospitalBlood Urea Iwqfjpnl7365-18-05 07:18:00* Test Item Value Reference Range Interpretation Comments Blood Urea Nitrogen (test code = 3094-0) 40 7-26 H [facility] HospitalCreatinine2018-03-12 07:18:00* Test Item Value Reference Range Interpretation Comments Creatinine (test code = 2160-0) 1.81 0.57-1.11 H [facility] HospitalBUN/Creatinine Ugkea5525-23-54 07:18:00* Test Item Value Reference Range Interpretation Comments BUN/Creatinine Ratio (test code = 3097-3) 22 6-25 [facility] HospitalEstimat Glomerular Filtration Rate 2017-12-16 07:18:00* Test Item Value Reference Range Interpretation Comments Estimat Glomerular Filtration Rate (test code = 30984-6) 28 >60 L Ranges were taken from the National Kidney Disease Education Program and the [facility] Foundation literature.Reference ranges:60 or greater: Zxvyxy28-85 ( for 3 consecutive months): Chronic kidney disease 15 or less: Kidney failureMethodist Specialty and Transplant HospitalGlucose Ywvzw8336-93-81 07:18:00* Test Item Value Reference Range Interpretation Comments Glucose Level (test code = CPH1250) 92 74-118 [facility] HospitalCalcium Wwnzv3920-23-25 07:18:00* Test Item Value Reference Range Interpretation Comments Calcium Level (test code = 69019-9) 9.4 8.4-10.2 [facility] HospitalMagnesium Orvdr5276-40-90 07:18:00* Test Item Value Reference Range Interpretation Comments Magnesium Level (test code = 97748-1) 1.7 1.3-2.1 [facility] HospitalTriglycerides Ckpsg0219-71-91 07:18:00* Test Item Value Reference Range Interpretation Comments Triglycerides Level (test code = 2571-8) 113 0-149 [facility] HospitalCholesterol Quams0211-91-73 07:18:00* Test Item Value Reference Range Interpretation Comments Cholesterol Level (test code = 2093-3) 163 0-199 Less than 200 mg/dL Low Uajq203 - 239 mg/dL Borderline Vbaw338 m g/dl and greater High Risk [facility] HospitalLDL Dvixlxlhels2292-70-72 07:18:00* Test Item Value Reference Range Interpretation Comments LDL Cholesterol (test code = 2089-1) 102 60-130 [facility] HospitalHDL Suhvymggrba6682-11-53 07:18:00* Test Item Value Reference Range Interpretation Comments HDL Cholesterol (test code = 2085-9) 38 40-60 L [facility] HospitalCholesterol/HDL Sokcc8645-91-20 07:18:00 * Test Item Value Reference Range Interpretation Comments Cholesterol/HDL Ratio (test code = 9830-1) 4.3 3.0-3.6 H [facility] HospitalMagnesium Onvkj3564-12-16 07:18:00* Test Item Value Reference Range Interpretation Comments Magnesium Level (test code = 36520-2) 1.7 1.3-2.1 [facility] HospitalWhite Blood Lnfub5256-19-16 06:50:00* Test Item Value Reference Range Interpretation Comments White Blood Count (test code = 6690-2) 7.90 4.8-10.8 [facility] HospitalRed Blood Rpekm2515-47-97 06:50:00* Test Item Value Reference Range Interpretation Comments Red Blood Count (test code = 789-8) 3.37 3.6-5.1 L [facility] HospitalHemoglobin2018-03-12 06:50:00* Test Item Value Reference Range Interpretation Comments Hemoglobin (test code = 45924-4) 10.3 12.0-16.0 L [facility] HospitalHematocrit2018-03-12 06:50:00* Test Item Value Reference Range Interpretation Comments Hematocrit (test code = 4544-3) 31.7 34.2-44.1 L [facility] HospitalMean Corpuscular Hdgght0984-26-25 06:50:00* Test Item Value Reference Range Interpretation Comments Mean Corpuscular Volume (test code = 787-2) 94.1 81-99 [facility] HospitalMean Corpuscular Iisvacutdz6066-43-53 06:50:00* Test Item Value Reference Range Interpretation Comments Mean Corpuscular Hemoglobin (test code = 785-6) 30.6 28-32 [facility] HospitalMean Corpuscular Hemoglobin Concent 2017-12-16 06:50:00* Test Item Value Reference Range Interpretation Comments Mean Corpuscular Hemoglobin Concent (test code = 786-4) 32.5 31-35 [facility] HospitalRed Cell Distribution Hhksu5711-85-09 06:50:00* Test Item Value Reference Range Interpretation Comments Red Cell Distribution Width (test code = 07550-0) 17.4 11.7 -14.4 H [facility] HospitalPlatelet Isgft3846-15-80 06:50:00* Test Item Value Reference Range Interpretation Comments Platelet Count (test code = 777-3) 162 140-360 [facility] HospitalNeutrophils (%) (Auto)2017-12-16 06:50:00 * Test Item Value Reference Range Interpretation Comments Neutrophils (%) (Auto) (test code = 50268-4) 74.7 38.7-80.0 [facility] HospitalLymphocytes (%) (Auto)2017-12-16 06:50:00 * Test Item Value Reference Range Interpretation Comments Lymphocytes (%) (Auto) (test code = 736-9) 13.9 18.0-39.1 L [facility] HospitalMonocytes (%) (Auto)2017-12-16 06:50:00* Test Item Value Reference Range Interpretation Comments Monocytes (%) (Auto) (test code = 5905-5) 8.2 4.4-11.3 [facility] HospitalEosinophils (%) (Auto)2017-12-16 06:50:00 * Test Item Value Reference Range Interpretation Comments Eosinophils (%) (Auto) (test code = 713-8) 2.3 0.0-6.0 [facility] HospitalBasophils (%) (Auto)2017-12-16 06:50:00* Test Item Value Reference Range Interpretation Comments Basophils (%) (Auto) (test code = 706-2) 0.6 0.0-1.0 [facility] HospitalIM GRANULOCYTES %2017-12-16 06:50:00* Test Item Value Reference Range Interpretation Comments IM GRANULOCYTES % (test code = IM GRANULOCYTES %) 0.3 0.0- 1.0 [facility] HospitalNeutrophils # (Auto)2017-12-16 06:50:00* Test Item Value Reference Range Interpretation Comments Neutrophils # (Auto) (test code = 751-8) 5.9 2.1-6.9 [facility] HospitalLymphocytes # (Auto)2017-12-16 06:50:00* Test Item Value Reference Range Interpretation Comments Lymphocytes # (Auto) (test code = 74826-7) 1.1 1.0-3.2 [facility] HospitalMonocytes # (Auto)2017-12-16 06:50:00* Test Item Value Reference Range Interpretation Comments Monocytes # (Auto) (test code = 742-7) 0.7 0.2-0.8 [facility] HospitalEosinophils # (Auto)2017-12-16 06:50:00* Test Item Value Reference Range Interpretation Comments Eosinophils # (Auto) (test code = 711-2) 0.2 0.0-0.4 [facility] HospitalBasophils # (Auto)2017-12-16 06:50:00* Test Item Value Reference Range Interpretation Comments Basophils # (Auto) (test code = 704-7) 0.1 0.0-0.1 [facility] HospitalAbsolute Immature Granulocyte (auto 2017-12-16 06:50:00* Test Item Value Reference Range Interpretation Comments Absolute Immature Granulocyte (auto (saumya t code = Absolute Immature Granulocyte (auto) 0.02 0-0.1 [facility] HospitalCreatine Igroha0739-12-54 07:20:00* Test Item Value Reference Range Interpretation Comments Creatine Kinase (test code = 2157-6) 15 29-168 L [facility] HospitalCreatine Kinase CI5377-74-32 07:20:00* Test Item Value Reference Range Interpretation Comments Creatine Kinase MB (test code = 85252-8) 0.80 0-5.0 [facility] HospitalTroponin T3180-69-33 07:20:00* Test Item Value Reference Range Interpretation Comments Troponin I (test code = KEJ4204) 0.001 0-0.300 [facility] HospitalTotal Mzpkojnww0708-46-97 06:54:00* Test Item Value Reference Range Interpretation Comments Total Bilirubin (test code = 1975-2) -0.3 0.2-1.2 [facility] HospitalAspartate Amino Transf (AST/SGOT) 2017-12-15 06:54:00* Test Item Value Reference Range Interpretation Comments Aspartate Amino Transf (AST/SGOT) (test code = Aspartate Amino Transf (AST/SGOT)) 4 5-34 L [facility] HospitalAlanine Aminotransferase (ALT/SGPT) 2017-12-15 06:54:00* Test Item Value Reference Range Interpretation Comments Alanine Aminotransferase (ALT/SGPT) (test code = 1742-6) -6 0-55 [facility] HospitalTotal Obebemq1971-72-43 06:54:00* Test Item Value Reference Range Interpretation Comments Total Protein (test code = 2885-2) 3.7 6.5-8.1 L [facility] HospitalAlbumin2018-03-11 06:54:00* Test Item Value Reference Range Interpretation Comments Albumin (test code = 1751-7) 2.1 3.5-5.0 L [facility] HospitalGlobulin2018-03-11 06:54:00* Test Item Value Reference Range Interpretation Comments Globulin (test code = 03048-6) 1.6 2.3-3.5 L [facility] HospitalAlbumin/Globulin Cyvuy4509-17-15 06:54:00 * Test Item Value Reference Range Interpretation Comments Albumin/Globulin Ratio (test code = 1759-0) 1.3 0.8-2.0 [facility] HospitalAlkaline Utmelbhkalw1751-31-31 06:54:00* Test Item Value Reference Range Interpretation Comments Alkaline Phosphatase (test code = 6768-6) 112 40-150 [facility] HospitalUrine XKP5614-29-20 23:17:00* Test Item Value Reference Range Interpretation Comments Urine WBC (test code = 5821-4) 11-20 0-5 H [facility] HospitalUrine SXE6382-78-42 23:17:00* Test Item Value Reference Range Interpretation Comments Urine RBC (test code = 37405-6) 0-5 0-5 [facility] HospitalUrine Opfoyrjv3939-79-69 23:17:00* Test Item Value Reference Range Interpretation Comments Urine Bacteria (test code = 80589-4) MANY NONE H [facility] HospitalUrine Epithelial Vlaqb9720-21-71 23:17:00 * Test Item Value Reference Range Interpretation Comments Urine Epithelial Cells (test code = 23339-5) FEW NONE [facility] HospitalUrine Fiqmr5544-17-31 23:04:00* Test Item Value Reference Range Interpretation Comments Urine Color (test code = 5778-6) STRAW YELLOW [facility] HospitalUrine Yinkiin4582-04-25 23:04:00* Test Item Value Reference Range Interpretation Comments Urine Clarity (test code = 12866-3) CLOUDY CLEAR H [facility] HospitalUrine Specific Dtrgqzi7510-73-78 23:04:00 * Test Item Value Reference Range Interpretation Comments Urine Specific [place] (test code = 5811-5) 1.015 1.010-1.02 5 [facility] HospitalUrine yA5271-06-14 23:04:00* Test Item Value Reference Range Interpretation Comments Urine pH (test code = 05933-8) 5 5-7 [facility] HospitalUrine Leukocyte Gvnoxmbl3195-38-09 23:04:00* Test Item Value Reference Range Interpretation Comments Urine Leukocyte Esterase (test code = 5799-2) 2+ NEGATIVE H [facility] HospitalUrine Sjclbym3919-58-25 23:04:00* Test Item Value Reference Range Interpretation Comments Urine Nitrite (test code = 82311-9) NEGATIVE NEGATIVE [facility] HospitalUrine Mlnvbij4925-36-28 23:04:00* Test Item Value Reference Range Interpretation Comments Urine Protein (test code = 5804-0) 2+ NEGATIVE H [facility] HospitalUrine Glucose (UA)2017-12-14 23:04:00* Test Item Value Reference Range Interpretation Comments Urine Glucose (UA) (test code = 2349-9) NEGATIVE NEGATIVE [facility] HospitalUrine Jyzjwag2005-43-54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
--- NOTE | 2020-05-08 12:34 | Diagnostic Imaging Report ---
EXAMINATION: CXR 1 W - [facility] INDICATION: Cough COMPARISON: Chest x-ray on 09/12/2018. FINDINGS: TUBES and LINES: Cardiac recorder projecting over the left upper quadrant. LUNGS: Normal lung volumes. There is hazy opacification at the lung bases, right more left. PLEURA: No pleural effusion or pneumothorax. HEART AND MEDIASTINUM: The cardiomediastinal silhouette is unremarkable. Atherosclerotic calcification of the thoracic aortic arch. BONES AND SOFT TISSUES: No acute osseous lesion. Soft tissues are unremarkable. UPPER ABDOMEN: No free air under the diaphragm. IMPRESSION: Hazy opacification the bilateral lung bases, right more to left which may represent atelectasis and/or multifocal pneumonia in the proper clinical setting. Signed by: Toshia Damon MD on 05/08/2020 12:31 PM
[2020-05-08] MEDS ORDERED: TESSALON PERLE100 MG PO (12:51)
[2020-05-08] MEDS ORDERED: AZITHROMYCIN250 MG PO (12:51)
[2020-05-08] MEDS ORDERED: REGLAN10 MG PO (12:54)
[2020-05-08 13:12] VITALS: BP 168/75
== END 2020-05-08 13:15 | disposition home or self-care (01) ==
LOC: FSED 12:00
DX: U07.1 COVID-19 (principal); J40 Bronchitis, not specified as acute or chronic; R05 Cough; I12.9 Hypertensive chronic kidney disease with stage 1 through stage 4 chronic kidney disease, or unspecified chronic kidney disease; N18.9 Chronic kidney disease, unspecified; I50.9 Heart failure, unspecified; E78.5 Hyperlipidemia, unspecified; F41.9 Anxiety disorder, unspecified
CPT/HCPCS: 71045; 93005; 99283; U0002